=== PATIENT | female | born 1975 | race Caucasian/White ===

== ENCOUNTER 2017-02-21 16:12 | Observation (INO) | payer OTHER ==
[~2017-02-21] VITALS: Ht 162.6 cm; Wt 86.3 kg
[~2017-02-21 16:12] MED LIST: ALPR2TAB2 PO; BUTA1CAP29 PO; CEPH-264 PO; FLUO20TA11 PO; HYDR-2678 PO; HYDR25TA PO; LURA40TA PO; MELA3TAB2 PO; METH500T7 PO; METO25TA9 PO; METR500T PO; MIRT30TA3 PO; NAPR500T3 PO; ONDA4TAB10 SL; ONDA4TAB12 PO; TOPI50TA8 PO; brintellix PO
[2017-02-21] MEDS: NITROGLYCERIN SUBLINGUAL 0.4 MG BOTTLE OF 25. SL PRN ×2 (16:49→17:03)
[2017-02-21 16:55] LABS: BASO % 1 % (0-3); EOS % 1 % (0-3); HEMOGLOBIN 11.3 g/dL (12.0-15.5); LYMPH # 2.1 x10^3/uL (1.0-4.8); LYMPH % 40 % (24-48); MEAN CORPUSCULAR HEMOGLOBIN 26 pg (25-35); MEAN CORPUSCULAR HGB CONC 32 g/dL (31-37); MEAN CORPUSCULAR VOLUME 79 fL (79-100); MONO # 0.5 x10^3/uL (0.0-1.1); MONO % 9 % (0-9); NEUT # 2.7 x10^3uL (1.8-7.7); NEUT % 51 % (31-73); PLATELET COUNT 189 x10^3/uL (140-400); RED BLOOD COUNT 4.42 x10^6/uL (3.50-5.40); RED CELL DISTRIBUTION WIDTH 18.5 % (11.5-14.5); WHITE BLOOD COUNT 5.4 x10^3/uL (4.0-11.0)
[2017-02-21 17:14] LABS: ALBUMIN 3.7 g/dL (3.4-5.0); ALBUMIN/GLOBULIN RATIO 1.2 (1.0-1.7); CALCIUM 8.9 mg/dL (8.5-10.1); CREATININE 0.9 mg/dL (0.6-1.0); GFR 68.7; POTASSIUM 4.4 mmol/L (3.5-5.1); TOTAL BILIRUBIN 0.3 mg/dL (0.2-1.0); TOTAL PROTEIN 6.9 g/dL (6.4-8.2)
[2017-02-21] MEDS ORDERED: LORazepam 2 MG/ML VIAL IV ONE (17:20)
[2017-02-21] MEDS ORDERED: IV NORMAL SALINE 1,000ML 1,000 ML IV ONE (17:30)
[2017-02-21 18:26] LABS: BARBITURATES NEG (NEG); BENZODIAZEPINES NEG (NEG); CANNABINOIDS NEG (NEG); COCAINE NEG (NEG); METHADONE NEG (NEG); OPIATES NEG (NEG); PHENCYCLIDINE NEG (NEG)
[2017-02-21 18:27] LABS: AMPHETAMINE/METHAMPHETAMINE NEG (NEG)
--- NOTE | 2017-02-21 18:29 | EKG ---
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 RI6.01 Unconfirmed report Compared to ECG 10/09/2016 17:21:41 No significant changes Electronically Signed On 02-24-2017 9:53:20 CDT by Mitch Montalvo
[2017-02-21 18:59] LABS: BILIRUBIN,URINE NEG (NEG); CLARITY,URINE HAZY; COLOR,URINE YELLOW; GLUCOSE,URINE NEG (NEG); NITRITE,URINE NEG (NEG); UROBILINOGEN,URINE 0.2 mg/dL (0.2 mg/dL)
[2017-02-21 19:00] LABS: BACTERIA,URINE 0 /HPF (0-FEW); RBC,URINE OCC /HPF (0-2); SQUAMOUS EPITHELIAL CELL,UR MANY /LPF
[2017-02-21] MEDS ORDERED: fentaNYL PF 100 MCG/2 ML VIAL IV PRN (19:00)
--- NOTE | 2017-02-21 19:23 | ED.ADGEN ---
Past History Past Medical History: Anxiety, Bipolar, Depression, Migraines, Other (HANS BELTRE DO) Past Surgical History: No Surgical History (HANS BELTRE DO) Smoking: Cigarettes, Less than 1pk/day Alcohol Use: None Drug Use: None (HANS BELTRE DO) Adult General HPI HPI Patient is a 42-year-old woman, history of bipolar disorder, depression, anxiety , hypertension, who presents to the emergency department with a complaint of "all over" body pain that began around 8:00 in the morning, along with chest pain that has been persistent since that time. Patient describes the pain as squeezing initially, and then a sharp and stabbing, located in the center of her chest. No chest pain, no lightheadedness or dizziness, no syncope or near- syncopal symptoms. She is also complaining of mild nausea, but no vomiting, no focal weakness, numbness or tingling, no sick contacts or exposures. Patient states she was just discharged from rehabilitation at yesterday, and woke up this morning with pain as described. Denies any inciting factors, any fevers or chills, any recent procedures. She states that she been started on an antibiotic for urinary tract infection but was not completed. Denies any shortness of breath, any swelling extremities, any rashes, any vision changes. Eating and drinking without issue. (HANS BELTRE DO) Review of Systems Review of Systems Constitutional: Denies fever or chills [] Eyes: Denies change in visual acuity, redness, or eye pain [] HENT: Denies nasal congestion or sore throat [] Respiratory: Denies cough or shortness of breath [] Cardiovascular: Squeezing and sharp chest pain located in the center of her chest. GI: Denies abdominal pain, nausea, vomiting, bloody stools or diarrhea [] : Denies dysuria or hematuria [] Musculoskeletal: Denies back pain or joint pain [] Integument: Denies rash or skin lesions [] Neurologic: Denies headache, focal weakness or sensory changes [] Endocrine: Denies polyuria or polydipsia [] (HANS BELTRE DO) Current Medications Current Medications Current Medications Medications (Trade) Dose Ordered Sig/Ladonna Start Time Stop Time Status Last Admin Dose Admin Fentanyl Citrate (Fentanyl 2ml Vial) 25 mcg PRN Q15MIN PRN 02/21/17 19:00 02/22/17 18:59 Lorazepam (Ativan) 1 mg 1X ONCE 02/21/17 17:20 02/21/17 17:21 DC 02/21/17 17:16 1 MG Morphine Sulfate (Morphine 2mg Syringe) 2 mg PRN Q2HR PRN 02/21/17 21:00 02/22/17 20:59 Nitroglycerin (Nitrostat) 0.4 mg PRN Q5MIN PRN 02/21/17 16:45 02/22/17 16:44 02/21/17 17:03 0.4 MG Ondansetron HCl (Zofran) 4 mg PRN Q4HRS PRN 02/21/17 21:00 02/22/17 20:59 Sodium Chloride 1,000 ml @ 1,000 mls/hr 1X ONCE 02/21/17 17:30 02/21/17 18:29 DC 02/21/17 17:30 1,000 MLS/HR (ANGELA PAUL MD) Allergies Allergies Allergies Coded Allergies Type Severity Reaction Last Updated Verified Sulfa (Sulfonamide Antibiotics) Allergy Intermediate 08/17/14 No ketorolac Allergy Intermediate 08/17/14 Yes (ANGELA PAUL MD) Physical Exam Physical Exam Constitutional: Well developed, well nourished, no acute distress, non-toxic appearance. [] HENT: Normocephalic, atraumatic, bilateral external ears normal, oropharynx moist, no oral exudates, nose normal. [] Eyes: PERRLA, EOMI, conjunctiva normal, no discharge. [] Neck: Normal range of motion, no tenderness, supple, no stridor. [] Cardiovascular:Heart rate regular rhythm, no murmur, S1, S2, no rubs or gallops , patient with reproducible midsternal and left anterior chest wall tenderness. No superficial lesions or other abnormalities identified. Lungs & Thorax: Bilateral breath sounds clear to auscultation [] Abdomen: Bowel sounds normal, soft, no tenderness, no masses, no pulsatile masses. [] Skin: Warm, dry, no erythema, no rash. [] Back: No tenderness, no CVA tenderness. [] Extremities: No tenderness, no cyanosis, no clubbing, ROM intact, no edema. Negative Homans sign. [] Neurologic: Alert and oriented X 3, normal motor function, normal sensory function, no focal deficits noted. [] Psychologic: Affect normal, judgement normal, mood normal. [] (HANS BELTRE DO) Current Patient Data Vital Signs Vital Signs Date Time Temp Pulse Resp B/P (MAP) Pulse Ox O2 Delivery O2 Flow Rate FiO2 02/21/17 18:33 78 16 94/59 (71) 99 Room Air 02/21/17 16:15 99.0 (ANGELA PAUL MD) Lab Results Laboratory Tests Test 02/21/17 16:15 02/21/17 18:00 White Blood Count 5.4 x10^3/uL (4.0-11.0) Red Blood Count 4.42 x10^6/uL (3.50-5.40) Hemoglobin 11.3 g/dL (12.0-15.5) L Hematocrit 35.0 % (36.0-47.0) L Mean Corpuscular Volume 79 fL (79-100) Mean Corpuscular Hemoglobin 26 pg (25-35) Mean Corpuscular Hemoglobin Concent 32 g/dL (31-37) Red Cell Distribution Width 18.5 % (11.5-14.5) H Platelet Count 189 x10^3/uL (140-400) Neutrophils (%) (Auto) 51 % (31-73) Lymphocytes (%) (Auto) 40 % (24-48) Monocytes (%) (Auto) 9 % (0-9) Eosinophils (%) (Auto) 1 % (0-3) Basophils (%) (Auto) 1 % (0-3) Neutrophils # (Auto) 2.7 x10^3uL (1.8-7.7) Lymphocytes # (Auto) 2.1 x10^3/uL (1.0-4.8) Monocytes # (Auto) 0.5 x10^3/uL (0.0-1.1) Eosinophils # (Auto) 0.0 x10^3/uL (0.0-0.7) Basophils # (Auto) 0.0 x10^3/uL (0.0-0.2) Sodium Level 142 mmol/L (136-145) Potassium Level 4.4 mmol/L (3.5-5.1) Chloride Level 108 mmol/L (98-107) H Carbon Dioxide Level 22 mmol/L (21-32) Anion Gap 12 (6-14) Blood Urea Nitrogen 14 mg/dL (7-20) Creatinine 0.9 mg/dL (0.6-1.0) Estimated GFR (Cockcroft-Gault) 68.7 BUN/Creatinine Ratio 16 (6-20) Glucose Level 93 mg/dL (70-99) Calcium Level 8.9 mg/dL (8.5-10.1) Total Bilirubin 0.3 mg/dL (0.2-1.0) Aspartate Amino Transferase (AST) 43 U/L (15-37) H Alanine Aminotransferase (ALT) 102 U/L (14-59) H Alkaline Phosphatase 100 U/L (46-116) Troponin I Quantitative < 0.017 ng/mL (0-0.055) HR-Rsv-M-Type Natriuretic Peptide 126 pg/mL (0-124) H Total Protein 6.9 g/dL (6.4-8.2) Albumin 3.7 g/dL (3.4-5.0) Albumin/Globulin Ratio 1.2 (1.0-1.7) Lipase 89 U/L (73-393) Urine Collection Type Unknown Urine Color Yellow Urine Clarity Hazy Urine pH 6.0 Urine Specific [place] 1.015 Urine Protein Neg (NEG-TRACE) Urine Glucose (UA) Neg mg/dL (NEG) Urine Ketones (Stick) Neg mg/dL (NEG) Urine Blood Mod (NEG) Urine Nitrite Neg (NEG) Urine Bilirubin Neg (NEG) Urine Urobilinogen Dipstick 0.2 mg/dL (0.2 mg/dL) Urine Leukocyte Esterase Small (NEG) Urine RBC Occ /HPF (0-2) Urine WBC 5-10 /HPF (0-4) Urine Squamous Epithelial Cells Many /LPF Urine Bacteria 0 /HPF (0-FEW) Urine Mucus Marked /LPF Urine Opiates Screen Neg (NEG) Urine Methadone Screen Neg (NEG) Urine Barbiturates Neg (NEG) Urine Phencyclidine Screen Neg (NEG) Urine Amphetamine/Methamphetamine Neg (NEG) Urine Benzodiazepines Screen Neg (NEG) Urine Cocaine Screen Neg (NEG) Urine Cannabinoids Screen Neg (NEG) Urine Ethyl Alcohol Neg (NEG) (ANGELA PAUL MD) EKG EKG CG: EMS 12-lead: 1601: Sinus rhythm, heart rate 92 bpm, upright axis, QTC of 412 , [place] of 142, QRS of 90, no ST elevations or depressions, no evidence of acute ST abnormalities. EC: Sinus tachycardia, heart rate 103 bpm, upright axis, QTC of 447, [place] 126, QRS of 80, no changes from prior ECG is under significant, no ST elevations or depressions. As interpreted by me. [] (HANS BELTRE DO) Radiology/Procedures Radiology/Procedures Chest x-ray: One view: Some straightening of the left heart border noted, no pneumothorax, no infiltrates, no effusions, no soft tissue or bony abnormalities identified, as interpreted by me. [] (HANS BELTRE DO) Course & Med Decision Making Course & Med Decision Making Pertinent Labs and Imaging studies reviewed. (See chart for details) Patient received nitroglycerin en route to the emergency department, and then a dose in the ED, blood pressure did drop from low 100s over 70s to 90s over 50s, patient denied any ill effects, states her pain is a 5 from and 9. Blood pressure did recover, was also administered IV fluids, was given Ativan for her complaint of anxiety. Patient is written for when necessary Xanax, she states she has at home, she did not take any today prior to calling EMS. Laboratory studies were obtained, patient states her pain is been present since about 8:00 this morning. Troponin is negative, LFTs noted a mild increase in AST and ALT, as patient is complaining of abdominal pain in the right upper quadrant as well with palpation, ultrasound of the right upper quadrant order to assess for potential gallbladder pathology. Review of records shows the patient had an admission for chest pain in September of this year. She states she received a stress test in September, although I cannot visualize the report, the patient's discharge summary from the September admission sates that a Lexiscan test was negative. Patient resting more comfortably after receiving additional medication in the ED. Patient's sister is at bedside. Awaiting ultrasound evaluation. (HANS BELTRE DO) Course & Med Decision Making She was a checkout from , she is being admitted for her chest pain and discomfort that she was having from earlier. She is currently getting ultrasound of right upper quadrant. Hospitalist has accepted her. Interim orders have been written. Patient's in stable condition this time. Adavied (ANGELA PAUL MD) Final Impression Final Impression [] Problems: (HANS BELTRE DO) Final Impression Chest pain Right upper quadrant abdominal pain Problems: (ANGELA PAUL MD) Dragon Disclaimer Dragon Disclaimer This electronic medical record was generated, in whole or in part, using a voice recognition dictation system. (HANS BELTRE DO) Departure: Disposition: ADMITTED INPATIENT Admitting Physician: Sonia Espinoza (ANGELA PAUL MD) Condition: STABLE HANS BELTRE DO Feb 21, 2017 19:23 ANGELA PAUL MD Feb 21, 2017 21:05
--- NOTE | 2017-02-21 20:51 | RAD ---
Right upper quadrant abdominal ultrasound History: ruq pain chest pain, Comparison: None. Technique: Transabdominal ultrasound images are obtained. Findings: Pancreas is obscured due to overlying bowel gas. Liver is increased in echogenicity. There is mildly decreased through transmission. No focal hepatic masses are identified although ultrasound is not sensitive for their detection. Portal flow is hepatopedal. Right hepatic lobe measures 13.7 cm, normal. Cholelithiasis. No gallbladder wall thickening. No pericholecystic fluid. Sonographic Santana's sign is negative. Common bile duct caliber is normal measuring 4 mm in diameter. The right kidney measures 12.5 cm in length and is without evidence of obstruction or stone. IVC is patent. IMPRESSION: 1. Cholelithiasis. No other sonographic evidence of cholecystitis. 2. Liver is increased in echogenicity. Common etiology is fatty infiltration. Hepatitis another consideration. Electronically signed by: Troy Hillman MD (02/21/2017 8:48 PM)
[2017-02-21] MEDS ORDERED: MORPHINE SULFATE 2 MG/ML DISP.SYRIN. IV PRN (21:00)
[2017-02-21] MEDS ORDERED: ONDANSETRON PF 4 MG/2 ML VIAL. IV PRN (21:00)
[2017-02-21 21:25] LABS: CREATINE KINASE 26 U/L (26-192)
[2017-02-21] MEDS ORDERED: ALPRAZolam 0.5 MG TABLET PO PRN (22:30)
[2017-02-21 22:35] VITALS: BP 134/69
--- NOTE | 2017-02-21 22:51 | NUR ---
The patient, SANDRA STORY, 42 y/o, F admitted by RENA MENDEZ DO, was given written information regarding hospital policies, unit procedures and contact persons.
[2017-02-22 06:22] VITALS: BP 96/60
[2017-02-22] MEDS ORDERED: ASPIRIN 325 MG TABLET PO SCH ×2 (08:00→09:00)
--- NOTE | 2017-02-22 08:01 | NUR ---
Consult: Answering service paged for routine consult for Dr. Chase
--- NOTE | 2017-02-22 08:12 | RAD ---
Indication chest pain. A single view of the chest was obtained. Note is made of a previous examination October 09, 2016. The heart and pulmonary vessels appear normal. The lungs are clear. There is no pleural fluid or pneumothorax. Bony structures appear grossly intact. IMPRESSION: No acute or focal process is seen in the chest
[2017-02-22] MEDS ORDERED: ALPR0.254 PO (08:40)
[2017-02-22] MEDS ORDERED: VORT10TA PO (08:41)
[2017-02-22] MEDS ORDERED: ASPI325T8 PO (08:43)
[2017-02-22] MEDS ORDERED: GABA-585 PO (08:44)
[2017-02-22] MEDS ORDERED: hydrOXYzine HCL 25 MG TABLET PO PRN (09:00)
[2017-02-22] MEDS ORDERED: ALPRAZolam 0.25 MG TABLET PO PRN (09:00)
[2017-02-22] MEDS ORDERED: hydrOXYzine HCL 25 MG TABLET PO SCH (09:00)
[2017-02-22] MEDS ORDERED: TOPIRAMATE 25 MG TABLET. PO SCH (09:00)
[2017-02-22] MEDS ORDERED: GABAPENTIN 100 MG CAPSULE. PO SCH ×2 (09:00)
[2017-02-22] MEDS ORDERED: NON FORMULARY ITEM (Vortioxetine Hydrobromide (Trintellix) 10 MG) PO SCH (09:00)
[2017-02-22] MEDS ORDERED: METOPROLOL SUCC 24HR ER 25 MG TAB.ER.24H. PO SCH (09:00)
--- NOTE | 2017-02-22 09:09 | PDOC2 ---
CONSULT Date of Admission DATE: 02/22/17 TIME: 08:54 Reason for Consult: chest pain Problem List Problems Medical Problems: (1) Chest pain Status: Acute History of Present Illness Ms Adame is a 42 year old female who presented to the ED with complaints of "all over" pain. She reports she woke with the pain yesterday am. She does report some midsternal chest pain that was increased with palpation so EMS was called. She is currently chest pain free but does report some soreness on palpation. She reports some dyspnea yesterday that has resolved today. She denies palpitations, lightheadedness or syncope. She ambulates with a walker. Past Medical History anxiety, bipolar disorder, depression, migraines, Multiple sclerosis with recent exacerbation and rehab stay, hypertension, asthma Past Surgical History c section, otherwise unremarkable Family History She has 2 brothers, both older, and one sister, who is younger and has diabetes. Her father is still alive at the age of 65. Her mother due to congestive heart failure and complications of diabetes. Social History She is single. She has one son, 16 years old. She does smokes a pack a day, denies ETOH and does have a history of marijuana use. Current Medications Current Medications Nitroglycerin (Nitrostat) 0.4 mg PRN Q5MIN PRN SL CP RATING > 1/10 Last administered on 02/21/17 17:03; Start 02/21/17 at 16:45; Stop 02/22/17 at 16:44 Lorazepam (Ativan) 1 mg 1X ONCE IV Last administered on 02/21/17 17:16; Start 02/21/17 at 17:20; Stop 02/21/17 at 17:21; Status DC Sodium Chloride 1,000 ml @ 1,000 mls/hr 1X ONCE IV Last administered on 17:30; Start 02/21/17 at 17:30; Stop 02/21/17 at 18:29; Status DC Fentanyl Citrate (Fentanyl 2ml Vial) 25 mcg PRN Q15MIN PRN IV PAIN GREATER THAN 3/10; Start 02/21/17 at 19:00; Stop 02/22/17 at 18:59 Ondansetron HCl (Zofran) 4 mg PRN Q4HRS PRN IV NAUSEA/VOMITING; Start 02/21/17 at 21:00; Stop 02/22/17 at 20:59 Morphine Sulfate (Morphine 2mg Syringe) 2 mg PRN Q2HR PRN IV PAIN; Start at 21:00; Stop 02/22/17 at 20:59 Hydroxyzine HCl (Atarax) 25 mg TID PO ; Start 02/22/17 at 09:00; Stop 02/22/17 at 09:00; Status DC Metoprolol Succinate (Toprol Xl) 25 mg DAILY PO ; Start 02/22/17 at 09:00 Mirtazapine (Remeron) 30 mg QHS PO ; Start 02/22/17 at 21:00 Topiramate (Topamax) 50 mg BID PO ; Start 02/22/17 at 09:00 Non-Formulary Medication 20 mg DAILY PO ; Start 02/22/17 at 09:00; Stop 02/22/17 at 09:00; Status DC Gabapentin (Neurontin) 100 mg TID PO ; Start 02/22/17 at 09:00 Alprazolam (Xanax) 0.5 mg PRN DAILY PRN PO ANXIETY / AGITATION; Start 02/21/17 at 22:30 Aspirin (Nveloped Aspirin) 325 mg DAILYWBKFT PO ; Start 02/22/17 at 08:00 Non-Formulary Medication 10 mg DAILY PO ; Start 02/22/17 at 09:00; Status UNV Hydroxyzine HCl (Atarax) 25 mg BID PRN PO ANXIETY / AGITATION; Start 02/22/17 at 09:00; Status UNV Alprazolam (Xanax) 0.25 mg PRN DAILY PRN PO ANXIETY / AGITATION; Start 02/22/17 at 09:00 Aspirin (Nveloped Aspirin) 325 mg DAILY PO ; Start 02/22/17 at 09:00; Stop 02/22/17 at 09:00; Status DC Gabapentin (Neurontin) 100 mg TID PO ; Start 02/22/17 at 09:00; Status UNV Active Scripts Active Reported Gabapentin 100 Mg Capsule 100 Mg PO TID Aspirin 325 Mg Tablet 1 Tab PO DAILY Trintellix (Vortioxetine Hydrobromide) 10 Mg Tablet 10 Mg PO DAILY Alprazolam 0.25 Mg Tablet 0.25 Mg PO DAILY PRN Topiramate 50 Mg Tablet 1 Tab PO BID Hydroxyzine Hcl 25 Mg Tablet 1 Tab PO BID PRN Mirtazapine 30 Mg Tablet 1 Tab PO QHS Metoprolol Succinate ( Xl ) (Metoprolol Succinate) 25 Mg Tab.er.24h 1 Tab PO DAILY Allergies: Coded Allergies: Sulfa (Sulfonamide Antibiotics) (Unverified Allergy, Intermediate, ) ketorolac (Verified Allergy, Intermediate, 08/17/14) General: YES: Fatigue, Malaise PSYCHOLOGICAL ROS: YES: Anxiety, Depression HEENT: YES: Heacaches Respiratory: YES: Shortness of breath Cardiovascular: yes: Chest Pain Musculoskeletal: YES: Gait Disturbance, Muscle Pain Neurological: YES: Gait Disturbance, Headaches General: Alert, Oriented X3, Cooperative, No acute distress HEENT: Atraumatic, EOMI Lungs: Clear to auscultation, Normal air movement Heart: Regular rate, Normal S1, Normal S2 Abdomen: Normal bowel sounds, Soft, No tenderness Extremities: No cyanosis, No edema, Normal pulses Psych/Mental Status: Mood NL VITALS Vital Signs Date Time Temp Pulse Resp B/P (MAP) Pulse Ox O2 Delivery O2 Flow Rate FiO2 02/22/17 06:22 98.2 80 18 96/60 (72) 94 Room Air Labs Laboratory Tests Test 02/21/17 16:15 02/21/17 18:00 02/21/17 20:40 White Blood Count 5.4 x10^3/uL (4.0-11.0) Red Blood Count 4.42 x10^6/uL (3.50-5.40) Hemoglobin 11.3 g/dL (12.0-15.5) Hematocrit 35.0 % (36.0-47.0) Mean Corpuscular Volume 79 fL (79-100) Mean Corpuscular Hemoglobin 26 pg (25-35) Mean Corpuscular Hemoglobin Concent 32 g/dL (31-37) Red Cell Distribution Width 18.5 % (11.5-14.5) Platelet Count 189 x10^3/uL (140-400) Neutrophils (%) (Auto) 51 % (31-73) Lymphocytes (%) (Auto) 40 % (24-48) Monocytes (%) (Auto) 9 % (0-9) Eosinophils (%) (Auto) 1 % (0-3) Basophils (%) (Auto) 1 % (0-3) Neutrophils # (Auto) 2.7 x10^3uL (1.8-7.7) Lymphocytes # (Auto) 2.1 x10^3/uL (1.0-4.8) Monocytes # (Auto) 0.5 x10^3/uL (0.0-1.1) Eosinophils # (Auto) 0.0 x10^3/uL (0.0-0.7) Basophils # (Auto) 0.0 x10^3/uL (0.0-0.2) Sodium Level 142 mmol/L (136-145) Potassium Level 4.4 mmol/L (3.5-5.1) Chloride Level 108 mmol/L (98-107) Carbon Dioxide Level 22 mmol/L (21-32) Anion Gap 12 (6-14) Blood Urea Nitrogen 14 mg/dL (7-20) Creatinine 0.9 mg/dL (0.6-1.0) Estimated GFR (Cockcroft-Gault) 68.7 BUN/Creatinine Ratio 16 (6-20) Glucose Level 93 mg/dL (70-99) Calcium Level 8.9 mg/dL (8.5-10.1) Total Bilirubin 0.3 mg/dL (0.2-1.0) Aspartate Amino Transf (AST/SGOT) 43 U/L (15-37) Alanine Aminotransferase (ALT/SGPT) 102 U/L (14-59) Alkaline Phosphatase 100 U/L (46-116) Troponin I Quantitative < 0.017 ng/mL (0-0.055) < 0.017 ng/mL (0-0.055) BL-Jsl-J-Type Natriuretic Peptide 126 pg/mL (0-124) Total Protein 6.9 g/dL (6.4-8.2) Albumin 3.7 g/dL (3.4-5.0) Albumin/Globulin Ratio 1.2 (1.0-1.7) Lipase 89 U/L (73-393) Urine Collection Type Unknown Urine Color Yellow Urine Clarity Hazy Urine pH 6.0 Urine Specific [place] 1.015 Urine Protein Neg (NEG-TRACE) Urine Glucose (UA) Neg mg/dL (NEG) Urine Ketones (Stick) Neg mg/dL (NEG) Urine Blood Mod (NEG) Urine Nitrite Neg (NEG) Urine Bilirubin Neg (NEG) Urine Urobilinogen Dipstick 0.2 mg/dL (0.2 mg/dL) Urine Leukocyte Esterase Small (NEG) Urine RBC Occ /HPF (0-2) Urine WBC 5-10 /HPF (0-4) Urine Squamous Epithelial Cells Many /LPF Urine Bacteria 0 /HPF (0-FEW) Urine Mucus Marked /LPF Urine Opiates Screen Neg (NEG) Urine Methadone Screen Neg (NEG) Urine Barbiturates Neg (NEG) Urine Phencyclidine Screen Neg (NEG) Urine Amphetamine/Methamphetamine Neg (NEG) Urine Benzodiazepines Screen Neg (NEG) Urine Cocaine Screen Neg (NEG) Urine Cannabinoids Screen Neg (NEG) Urine Ethyl Alcohol Neg (NEG) Creatine Kinase 26 U/L (26-192) Creatine Kinase MB (Mass) < 0.5 ng/mL (0.0-3.6) Creatine Kinase MB Relative Index 1.9 % (0-4) Images EKG - sinus rhythm without acute abnormalities, CXR - no acute process, Abdominal US - IMPRESSION: 1. Cholelithiasis. No other sonographic evidence of cholecystitis. 2. Liver is increased in echogenicity. Common etiology is fatty infiltration. Hepatitis another consideration. Assessment/Plan 1. Chest pain, atypical - CE negative x 2, MPI with normal LVEF and perfusion in September of this year. 2. Hypertension - well controlled 3. unknown lipid status - check lipids 4. Multiple sclerosis - s/p recent exacerbation with rehab stay - per PCP Problems: DAR RUDOLPH APRN Feb 22, 2017 09:09
[2017-02-22 10:39] VITALS: BP 105/66
--- NOTE | 2017-02-22 12:55 | SSS ---
ADMIT DATE: 02/21/2017 HISTORY OF PRESENT ILLNESS: The patient is a 42-year-old female patient, who came to the Emergency Department complaining of pain all over. She reports that she woke up with pain yesterday. She does report some midsternal chest pain that was increased with palpation. When I saw her she stated that her pain was 9/10 yesterday, it is now 4/10. Did complain also of dyspnea on exertion. Denied any palpitation. Denied any nausea, vomiting, diaphoresis or radiation to pain. She does ambulate with a walker and was evaluated in the Emergency Room. She had an EKG done, which showed that she was in sinus rhythm without any acute abnormalities and her first set of cardiac enzyme showed troponin to be less than 0.017. She was admitted to the floor to do more sets of cardiac enzymes for the cardiology team to evaluate her further. PAST MEDICAL HISTORY: Significant for migraine headache. She has also hypertension, depression, bronchial asthma as well as anxiety. PAST SURGICAL HISTORY: Significant for . ALLERGIES: She is allergic to SULFA DRUGS and KETOROLAC. MEDICATIONS: She is currently on following medications: She is on alprazolam 0.25 mg as needed for anxiety, aspirin 325 mg once a day, gabapentin 100 mg 3 times a day, hydroxyzine 25 mg twice a day, metoprolol succinate 25 mg once a day, mirtazapine 30 mg at bedtime, topiramate 50 mg twice a day and Brintellix 10 mg once a day. FAMILY HISTORY: She has 2 brothers, both older and one sister who is younger, has diabetes. Her father is still alive at the age of 65. Her mother due to congestive heart failure with complication of diabetes. SOCIAL HISTORY: She is single. She lives with her 17-year-old son. She smokes a pack a day, smokes also weed for headache. 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 REVIEW OF SYSTEMS: The patient denied any blurring of vision, cataract, glaucoma or macular degeneration. Denied any earache, tinnitus or sensorineural deafness. Denied any nosebleeds, stuffy nose or postnasal drip. Denied any sore throat, sore tongue, toothache, hoarseness of voice or difficulty swallowing. Denied any nausea, vomiting, diarrhea or constipation. Denied any hematemesis, melena or hematochezia. Denied any dysuria, frequency or hematuria. She did complain of chest pain, shortness of breath on exertion. PHYSICAL EXAMINATION: GENERAL: On arrival to the Emergency Room; she looked well and was clearly in no apparent respiratory distress, slightly pale, no jaundice, cyanosis, or thyromegaly. No jugular venous distention. No limb edema. VITAL SIGNS: Her heart rate was 83, blood pressure 112/75, temperature was 97.7, respiratory rate was 20, and oxygen saturation was 100% on room air. HEAD, EYES, EARS, NOSE AND THROAT: Showed normocephalic, atraumatic. NECK: Supple. HEART: Showed normal first and second heart sounds with no gallop, rub or murmur. CHEST: Clear to auscultation. No crepitation or rhonchi. ABDOMEN: Distended, soft, nontender. No guarding or rigidity. No organomegaly. All hernial orifices intact. NEUROLOGIC: She is awake, alert, responding appropriately. Her cranial nerves intact. EXTREMITIES: She moves extremities without difficulty. She apparently ambulates with a walker. LABORATORY DATA: On admission showed a white cell count 5400, hemoglobin 11.3, hematocrit 35, MCV 79 and platelet count of 189,000 with normal manual differential. Her chemistry showed a serum sodium 142, potassium 4.4, chloride 108, bicarbonate 22, anion gap of 12, BUN 14, creatinine 0.9, estimated GFR was 69 mL per minute. Her glucose was 93, calcium was 8.9. Total bilirubin and alkaline phosphatase is normal. Her AST, ALT is slightly elevated. Beta natriuretic peptide was 126, total protein was 6.9, albumin 3.7. Serum lipase was 89. Her two sets of cardiac enzymes less than 0.017. Her urinalysis was unremarkable. Toxic screen was negative. Her EKG showed that she was in sinus rhythm without ST segment elevation or depression. She was seen by the Cardiology team and basically showed that she has 2 sets of cardiac enzymes which were negative. She has nuclear stress tests done in 09/28/2016 showed that she has normal left ventricular ejection fraction with no evidence for any wall motion abnormalities or valvular heart disease. PLAN: My plan is to discharge her home to follow with her primary care physician. NICOL VALDIVIA MD DR: Frank JOB#: [id number] / [id number]
--- NOTE | 2017-02-22 15:36 | NUR ---
Discharge: Teaching verbal and written. Reviewed orders, medications, Chest pain, Holter monitor, ect. IV removed without complications, catheter tip in-tact, dressing applied. All belonging with patient. Patient assisted off of unit via wheelchair accompanied by sister and DIRECTOR [employer].
[2017-02-22] MEDS ORDERED: MIRTAZAPINE 30 MG TABLET PO SCH (21:00)
== END 2017-02-22 14:09 | disposition home or self-care (01) ==
LOC: ER 16:12 → 1 SOUTH 22:10
PROVIDERS: ADMIT Family Medicine; ATTEND Family Medicine
DX: R07.89 Other chest pain (principal); I10 Essential (primary) hypertension; G35 Multiple sclerosis; K80.20 Calculus of gallbladder without cholecystitis without obstruction; F41.9 Anxiety disorder, unspecified; F31.9 Bipolar disorder, unspecified; G43.909 Migraine, unspecified, not intractable, without status migrainosus; J45.909 Unspecified asthma, uncomplicated; F17.210 Nicotine dependence, cigarettes, uncomplicated; Z83.3 Family history of diabetes mellitus; Z82.49 Family history of ischemic heart disease and other diseases of the circulatory system
CPT/HCPCS: 36415; 71010; 76705; 80053; 81001; 82553; 83690; 83880; 84484; 85027; 93005; 96361; 96374; 99285; G0378; G0481; J2060; J7030; G0379

== ENCOUNTER 2017-03-30 14:30 | Emergency (ER) | payer OTHER ==
[~2017-03-30] VITALS: Ht 162.6 cm; Wt 96.1 kg
[~2017-03-30 14:30] MED LIST changes: +ALPR0.254 PO; +ASPI325T8 PO; +GABA-585 PO; +VORT10TA PO
--- NOTE | 2017-03-30 14:32 | ED.ADGEN ---
Past History Past Medical History: Anxiety, Bipolar, Depression, Migraines, Other Past Surgical History: No Surgical History Smoking: Cigarettes, Less than 1pk/day Alcohol Use: None Drug Use: None Adult General Chief Complaint Chief Complaint Hallucinations and shortness of breath HPI HPI Patient is a 42 year old female who presents with hallucinations and shortness of breath. She states that over the last several weeks or shortness of breath is gotten worse and at nighttime she is using her inhaler. She thinks is some is could be secondary to heat. She denies any chest pain, nausea vomiting. Her sister also states that her niece is been staying with her and they've noticed hallucinating and talking some is not there. According to her sister who had a conversation with her landlord she's been having her come over and clean the stove daily for grease stains when there is no grease stains there. They've also stated that the blinds of been torn down from the windows numerous times over the last several days. The sister also states that she's been hospitalized in [place] in the mental facility before. Just recently got out of [facility] for PT OT after she had a stroke and last year she had a heart attack. She denies any thoughts of harming herself or others. Review of Systems Review of Systems Constitutional: Denies fever or chills [] Eyes: Denies change in visual acuity, redness, or eye pain [] HENT: Denies nasal congestion or sore throat [] Respiratory: Denies cough, positive for shortness of breath [] Cardiovascular: No additional information not addressed in HPI [] GI: Denies abdominal pain, nausea, vomiting, bloody stools or diarrhea [] : Denies dysuria or hematuria [] Musculoskeletal: Denies back pain or joint pain [] Integument: Denies rash or skin lesions [] Neurologic: Denies headache, focal weakness or sensory changes [] Endocrine: Denies polyuria or polydipsia [] Current Medications Current Medications Current Medications Medications (Trade) Dose Ordered Sig/Ladonna Start Time Stop Time Status Last Admin Dose Admin Acetaminophen (Tylenol) 1,000 mg 1X ONCE 03/30/17 18:00 03/30/17 18:01 DC 03/30/17 17:48 1,000 MG Iohexol (Omnipaque 300 Mg/ml) 75 ml 1X ONCE 03/30/17 17:00 03/30/17 17:01 DC Allergies Allergies Allergies Coded Allergies Type Severity Reaction Last Updated Verified Sulfa (Sulfonamide Antibiotics) Allergy Intermediate 08/17/14 No ketorolac Allergy Intermediate 08/17/14 Yes Physical Exam Physical Exam Constitutional: Well developed, well nourished, no acute distress, non-toxic appearance. [] HENT: Normocephalic, atraumatic, bilateral external ears normal, oropharynx moist, no oral exudates, nose normal. [] Eyes: PERRLA, EOMI, conjunctiva normal, no discharge. [] Neck: Normal range of motion, no tenderness, supple, no stridor. [] Cardiovascular:Heart rate regular rhythm, no murmur [] Lungs & Thorax: Bilateral breath sounds clear to auscultation [] Abdomen: Bowel sounds normal, soft, no tenderness, no masses, no pulsatile masses. [] Skin: Warm, dry, no erythema, no rash. [] Back: No tenderness, no CVA tenderness. [] Extremities: No tenderness, no cyanosis, no clubbing, ROM intact, no edema. [] Neurologic: Alert and oriented X 3, normal motor function, normal sensory function, no focal deficits noted. [] Psychologic: Affect normal, judgement normal, mood normal. [] Current Patient Data Vital Signs Vital Signs Date Time Temp Pulse Resp B/P (MAP) Pulse Ox O2 Delivery O2 Flow Rate FiO2 03/30/17 17:27 77 18 114/74 (87) 100 Room Air 03/30/17 14:30 98.2 Lab Results Laboratory Tests Test 03/30/17 15:00 03/30/17 15:35 03/30/17 17:30 White Blood Count 5.7 x10^3/uL (4.0-11.0) Red Blood Count 4.12 x10^6/uL (3.50-5.40) Hemoglobin 10.2 g/dL (12.0-15.5) L Hematocrit 31.2 % (36.0-47.0) L Mean Corpuscular Volume 76 fL (79-100) L Mean Corpuscular Hemoglobin 25 pg (25-35) Mean Corpuscular Hemoglobin Concent 33 g/dL (31-37) Red Cell Distribution Width 16.5 % (11.5-14.5) H Platelet Count 215 x10^3/uL (140-400) Neutrophils (%) (Auto) 55 % (31-73) Lymphocytes (%) (Auto) 37 % (24-48) Monocytes (%) (Auto) 8 % (0-9) Eosinophils (%) (Auto) 0 % (0-3) Basophils (%) (Auto) 1 % (0-3) Neutrophils # (Auto) 3.1 x10^3uL (1.8-7.7) Lymphocytes # (Auto) 2.1 x10^3/uL (1.0-4.8) Monocytes # (Auto) 0.4 x10^3/uL (0.0-1.1) Eosinophils # (Auto) 0.0 x10^3/uL (0.0-0.7) Basophils # (Auto) 0.0 x10^3/uL (0.0-0.2) D-Dimer (Shanel) 0.67 mg/L (0.00-0.50) H Sodium Level 140 mmol/L (136-145) Potassium Level 3.9 mmol/L (3.5-5.1) Chloride Level 108 mmol/L (98-107) H Carbon Dioxide Level 24 mmol/L (21-32) Anion Gap 8 (6-14) Blood Urea Nitrogen 20 mg/dL (7-20) Creatinine 0.9 mg/dL (0.6-1.0) Estimated GFR (Cockcroft-Gault) 68.7 Glucose Level 92 mg/dL (70-99) Calcium Level 8.4 mg/dL (8.5-10.1) L Magnesium Level 1.9 mg/dL (1.8-2.4) Total Bilirubin 0.2 mg/dL (0.2-1.0) Direct Bilirubin 0.1 mg/dL (0.0-0.2) Aspartate Amino Transferase (AST) 16 U/L (15-37) Alanine Aminotransferase (ALT) 23 U/L (14-59) Alkaline Phosphatase 89 U/L (46-116) Ammonia 14 mcmol/L (11-34) Creatine Kinase 48 U/L (26-192) 50 U/L (26-192) Creatine Kinase MB (Mass) < 0.5 ng/mL (0.0-3.6) < 0.5 ng/mL (0.0-3.6) Creatine Kinase MB Relative Index 1.0 % (0-4) 1.0 % (0-4) Troponin I Quantitative < 0.017 ng/mL (0-0.055) < 0.017 ng/mL (0-0.055) QL-Tso-G-Type Natriuretic Peptide 96 pg/mL (0-124) Total Protein 7.0 g/dL (6.4-8.2) Albumin 3.4 g/dL (3.4-5.0) Lipase 109 U/L (73-393) Salicylates Level 3.0 mg/dL (2.8-20.0) Salicylate Last Dose Date 03/30/17 Salicylate Last Dose Time 1454 Acetaminophen Level < 2.0 mcg/mL (10-30) L Acetaminophen Last Dose Date 03/30/17 Acetaminophen Last Dose Time 1454 Ethyl Alcohol Level < 10 mg/dL (0-10) Urine Collection Type Unknown Urine Color Yellow Urine Clarity Hazy Urine pH 5.5 Urine Specific [place] >=1.030 Urine Protein Neg (NEG-TRACE) Urine Glucose (UA) Neg mg/dL (NEG) Urine Ketones (Stick) Neg mg/dL (NEG) Urine Blood Small (NEG) Urine Nitrite Neg (NEG) Urine Bilirubin Neg (NEG) Urine Urobilinogen Dipstick 0.2 mg/dL (0.2 mg/dL) Urine Leukocyte Esterase Neg (NEG) Urine RBC 1-2 /HPF (0-2) Urine WBC 1-4 /HPF (0-4) Urine Squamous Epithelial Cells Mod /LPF Urine Bacteria Few /HPF (0-FEW) Urine Mucus Marked /LPF Urine Opiates Screen Neg (NEG) Urine Methadone Screen Neg (NEG) Urine Barbiturates Neg (NEG) Urine Phencyclidine Screen Neg (NEG) Urine Amphetamine/Methamphetamine Neg (NEG) Urine Benzodiazepines Screen Pos (NEG) Urine Cocaine Screen Neg (NEG) Urine Cannabinoids Screen Neg (NEG) Urine Ethyl Alcohol Neg (NEG) EKG EKG G shows sinus rhythm with rate of 83 bpm, no ST elevations appreciated, T-wave inversion noted in lead 3, normal axis, QTC 452 ms, as interpreted by me. EKG is similar to one performed on February 21, 2017 Radiology/Procedures Radiology/Procedures [address] [address] IMAGING REPORT Signed PATIENT: SANDRA STORY ACCOUNT: [id number] : 1975 LOCATION: ER AGE: 42 SEX: F EXAM STATUS: REG ER ORD. PHYSICIAN: ANGELA PAUL MD REASON: soa PROCEDURE: CHEST PA & LATERAL Chest, 2 views, 03/30/2017: History: Shortness of breath Comparison is made to a study from 02/21/2017. The heart size and pulmonary vascularity are normal. No pulmonary infiltrates are seen. There is no evidence of pleural fluid. There is a mild right convexity thoracic scoliosis. IMPRESSION: No acute cardiopulmonary abnormality is detected. DICTATED AND SIGNED BY: SHIKHA GUTHRIE MD DATE: 03/30/17 154 CC: ANGELA PAUL MD; MARIA BERNARDO PA ~ [address] [address] IMAGING REPORT Signed PATIENT: SANDRA STORY ACCOUNT: [id number] : 1975 LOCATION: ER AGE: 42 SEX: F EXAM STATUS: REG ER ORD. PHYSICIAN: ANGELA PAUL MD REASON: r/o PE PROCEDURE: CT ANGIOGRAPHY CHEST CT Angio chest Indication: SOA for two weeks, 75 ml 300 omnipaque injected GFR 77, Creat 0.9, no injury or surgery to chest, quit smoking 5 months ago (3-4 cigarettes per week), Acces:[id number], [id number]. No prior imaging for comparison Technique: Multiple contiguous axial images were obtained through the chest after administration of intravenous iodinated contrast. Coronal, sagittal, and 3-D MIP reformations were created. PQRS STATEMENT: One or more of the following in the visualized dose reduction techniques were utilized for this study: 1. Automatic exposure control, 2. Adjustment of the mA and/or kV according to patient size, 3. Use of iterative reconstruction technique Findings: There is no central filling defect within the pulmonary arteries to suggest presence of pulmonary embolism. Heart size is normal. There is no pericardial effusion. The thoracic aorta is normal in caliber with no evidence for dissection. No thoracic adenopathy is identified. The lungs are clear with no evidence for pleural effusion or infiltrate. No destructive osseous lesion is identified. Limited subdiaphragmatic evaluation is unremarkable. Impression: Negative for pulmonary embolism Electronically signed by: John Sorto MD (03/30/2017 5:46 PM) [facility] DICTATED AND SIGNED BY: JOHN SORTO MD DATE: 03/30/17 [id number] CC: ANGELA PAUL MD; MARIA BERNARDO ~ Course & Med Decision Making Course & Med Decision Making Pertinent Labs and Imaging studies reviewed. (See chart for details) Patient presented with complaints from family that she's been hallucinating. She states that she's been filling some shortness of breath in the evenings while she is trying to go to bed his been using her inhaler. Her EKG is essentially unchanged from previous, CT Starlight negative for PE. Her labs and first troponin and addition to repeat troponin do not show any acute abnormalities. Patient was screened by copy center specialist and was in contact with [facility] who have steps her for admission. The patient is agreeable to plan of being transported via EMS. Final Impression Final Impression Hallucinations Shortness of breath-resolved Problems: Dragon Disclaimer Dragon Disclaimer This electronic medical record was generated, in whole or in part, using a voice recognition dictation system. ANGELA PAUL MD Mar 30, 2017 14:32
[2017-03-30 15:24] LABS: BASO % 1 % (0-3); EOS % 0 % (0-3); HEMATOCRIT 31.2 % (36.0-47.0); HEMOGLOBIN 10.2 g/dL (12.0-15.5); LYMPH # 2.1 x10^3/uL (1.0-4.8); LYMPH % 37 % (24-48); MEAN CORPUSCULAR HEMOGLOBIN 25 pg (25-35); MEAN CORPUSCULAR HGB CONC 33 g/dL (31-37); MEAN CORPUSCULAR VOLUME 76 fL (79-100); MONO # 0.4 x10^3/uL (0.0-1.1); MONO % 8 % (0-9); NEUT # 3.1 x10^3uL (1.8-7.7); NEUT % 55 % (31-73); PLATELET COUNT 215 x10^3/uL (140-400); RED BLOOD COUNT 4.12 x10^6/uL (3.50-5.40); RED CELL DISTRIBUTION WIDTH 16.5 % (11.5-14.5); WHITE BLOOD COUNT 5.7 x10^3/uL (4.0-11.0)
[2017-03-30 15:34] LABS: ACETAMIN < 2.0 mcg/mL (10-30)
[2017-03-30 15:35] LABS: ETHANOL < 10 mg/dL (0-10)
--- NOTE | 2017-03-30 15:44 | RAD ---
Chest, 2 views, 03/30/2017: History: Shortness of breath Comparison is made to a study from 02/21/2017. The heart size and pulmonary vascularity are normal. No pulmonary infiltrates are seen. There is no evidence of pleural fluid. There is a mild right convexity thoracic scoliosis. IMPRESSION: No acute cardiopulmonary abnormality is detected.
[2017-03-30 15:45] LABS: ALBUMIN 3.4 g/dL (3.4-5.0); CALCIUM 8.4 mg/dL (8.5-10.1); GLUCOSE 92 mg/dL (70-99)
[2017-03-30 15:46] LABS: ALK PHOS 89 U/L (46-116); ALT (SGPT) 23 U/L (14-59); ANION GAP 8 (6-14); AST (SGOT) 16 U/L (15-37); BLOOD UREA NITROGEN 20 mg/dL (7-20); CARBON DIOXIDE 24 mmol/L (21-32); CHLORIDE 108 mmol/L (98-107); CREATININE 0.9 mg/dL (0.6-1.0); DIRECT BILIRUBIN 0.1 mg/dL (0.0-0.2); GFR 68.7; LIPASE 109 U/L (73-393); MAGNESIUM 1.9 mg/dL (1.8-2.4); POTASSIUM 3.9 mmol/L (3.5-5.1); SODIUM 140 mmol/L (136-145); TOTAL BILIRUBIN 0.2 mg/dL (0.2-1.0)
[2017-03-30 15:52] LABS: BARBITURATES NEG (NEG); BENZODIAZEPINES POS (NEG); CANNABINOIDS NEG (NEG); COCAINE NEG (NEG); METHADONE NEG (NEG); OPIATES NEG (NEG); PHENCYCLIDINE NEG (NEG)
[2017-03-30 15:53] LABS: AMPHETAMINE/METHAMPHETAMINE NEG (NEG)
[2017-03-30 15:54] LABS: BILIRUBIN,URINE NEG (NEG); CLARITY,URINE HAZY; COLOR,URINE YELLOW; GLUCOSE,URINE NEG (NEG)
[2017-03-30 15:55] LABS: BACTERIA,URINE FEW /HPF (0-FEW); NITRITE,URINE NEG (NEG); SQUAMOUS EPITHELIAL CELL,UR MOD /LPF; UROBILINOGEN,URINE 0.2 mg/dL (0.2 mg/dL)
[2017-03-30 15:58] LABS: CREATINE KINASE 48 U/L (26-192)
--- NOTE | 2017-03-30 16:14 | EKG ---
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
[2017-03-30] MEDS ORDERED: IOHEXOL 300 MG/ML 75 ML VIAL. IV ONE (17:00)
[2017-03-30] MEDS ORDERED: ACETAMINOPHEN 500 MG TABLET PO ONE ×2 (17:42→18:00)
--- NOTE | 2017-03-30 17:49 | RAD ---
CT Angio chest Indication: SOA for two weeks, 75 ml 300 omnipaque injected GFR 77, Creat 0.9, no injury or surgery to chest, quit smoking 5 months ago (3-4 cigarettes per week), Acces:[id number], [id number]. No prior imaging for comparison Technique: Multiple contiguous axial images were obtained through the chest after administration of intravenous iodinated contrast. Coronal, sagittal, and 3-D MIP reformations were created. PQRS STATEMENT: One or more of the following in the visualized dose reduction techniques were utilized for this study: 1. Automatic exposure control, 2. Adjustment of the mA and/or kV according to patient size, 3. Use of iterative reconstruction technique Findings: There is no central filling defect within the pulmonary arteries to suggest presence of pulmonary embolism. Heart size is normal. There is no pericardial effusion. The thoracic aorta is normal in caliber with no evidence for dissection. No thoracic adenopathy is identified. The lungs are clear with no evidence for pleural effusion or infiltrate. No destructive osseous lesion is identified. Limited subdiaphragmatic evaluation is unremarkable. Impression: Negative for pulmonary embolism Electronically signed by: John Sorto MD (03/30/2017 5:46 PM) [facility]
[2017-03-30 17:58] LABS: CREATINE KINASE 50 U/L (26-192)
[2017-03-30 19:10] VITALS: BP 112/76
== END 2017-03-30 19:30 ==
LOC: ER 14:30
DX: R44.3 Hallucinations, unspecified (principal); G43.909 Migraine, unspecified, not intractable, without status migrainosus; F31.9 Bipolar disorder, unspecified; F41.9 Anxiety disorder, unspecified; F17.210 Nicotine dependence, cigarettes, uncomplicated; Z88.2 Allergy status to sulfonamides; Z88.8 Allergy status to other drugs, medicaments and biological substances; Z86.73 Personal history of transient ischemic attack (TIA), and cerebral infarction without residual deficits
CPT/HCPCS: 36415; 71020; 71275; 80048; 80076; 80305; 81001; 82140; 82553; 83690; 83735; 83880; 84443; 84484; 85027; 85379; 93005; 99285; G0480; G0481

== ENCOUNTER 2017-04-17 21:58 | Emergency (ER) | payer OTHER ==
[~2017-04-17] VITALS: Ht 162.6 cm; Wt 87.3 kg
[2017-04-17] MEDS ORDERED: LORazepam 2 MG/ML VIAL IV ONE (22:30)
[2017-04-17] MEDS ORDERED: FAMOTIDINE 20 MG/2 ML VIAL IVP ONE (22:30)
[2017-04-17 22:37] VITALS: BP 106/59
--- NOTE | 2017-04-18 06:03 | EKG ---
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
--- NOTE | 2017-04-21 07:58 | ED.ADGEN ---
Past History Past Medical History: Anxiety, Bipolar, Depression, [place], Migraines, Stroke, Other Past Surgical History: Smoking: Cigarettes, Less than 1pk/day Alcohol Use: None Drug Use: None Adult General Chief Complaint Chief Complaint Chest pain HPI HPI Patient is a 42-year-old female extensive psychiatric history who presents with chest pain earlier today. Patient reports chest pain after coughing episode. Pain is described as sharp, mild to moderate reproduced with deep breathing. Patient denies shortness of breath, fever, chills, nausea vomiting and sweats. No history of asthma COPD. Patient has not current smoker. Review of Systems Review of Systems Review symptoms as per history of present illness. All other review symptoms are negative. Current Medications Current Medications Current Medications Medications (Trade) Dose Ordered Sig/Ladonna Start Time Stop Time Status Last Admin Dose Admin Famotidine (Pepcid) 20 mg 1X ONCE 04/17/17 22:30 04/17/17 22:42 DC 04/17/17 22:27 20 MG Lorazepam (Ativan) 0.5 mg 1X ONCE 04/17/17 22:30 04/17/17 22:42 DC 04/17/17 22:27 0.5 MG Allergies Allergies Allergies Coded Allergies Type Severity Reaction Last Updated Verified Sulfa (Sulfonamide Antibiotics) Allergy Intermediate 08/17/14 No ketorolac Allergy Intermediate 08/17/14 Yes Physical Exam Physical Exam Constitutional: Well developed, well nourished, no acute distress, non-toxic appearance. [] HENT: Normocephalic, atraumatic, bilateral external ears normal, oropharynx moist, no oral exudates, nose normal. [] Eyes: PERRLA, EOMI, conjunctiva normal, no discharge. [] Neck: Normal range of motion, no tenderness, supple, no stridor. [] Cardiovascular:Heart rate regular rhythm, no murmur [] Lungs & Thorax: Bilateral breath sounds clear to auscultation [] Abdomen: Bowel sounds normal, soft, no tenderness. Skin: Warm, dry, no erythema, no rash. [] Back: No tenderness, no CVA tenderness. [] Extremities: No tenderness, no cyanosis, no clubbing, ROM intact, no edema. [] Neurologic: Alert and oriented X 3, normal motor function, normal sensory function, no focal deficits noted. [] Psychologic: Affect normal, judgement normal, mood normal. [] Current Patient Data Vital Signs Vital Signs Date Time Temp Pulse Resp B/P (MAP) Pulse Ox O2 Delivery O2 Flow Rate FiO2 04/17/17 22:37 79 20 106/59 (75) 97 Room Air 04/17/17 22:00 98.3 EKG EKG [EKG: normal sinus rhythm.] Radiology/Procedures Radiology/Procedures [] Course & Med Decision Making Course & Med Decision Making Pertinent Labs and Imaging studies reviewed. (See chart for details) [Patient monitored in the ED with stable vital signs. Chest pain is reproducible consistent with pleurisy or posttussive costochondritis. No additional workup indicated at this time.] Final Impression Final Impression Chest pain] Problems: Dragon Disclaimer Dragon Disclaimer This electronic medical record was generated, in whole or in part, using a voice recognition dictation system. SOTERO LOPEZ DO Apr 21, 2017 07:58
== END 2017-04-17 23:00 | disposition home or self-care (01) ==
LOC: ER 21:58
DX: R07.89 Other chest pain (principal); F41.9 Anxiety disorder, unspecified; I25.2 Old myocardial infarction; G43.909 Migraine, unspecified, not intractable, without status migrainosus; F17.210 Nicotine dependence, cigarettes, uncomplicated; F32.9 Major depressive disorder, single episode, unspecified; Z86.73 Personal history of transient ischemic attack (TIA), and cerebral infarction without residual deficits; Z88.2 Allergy status to sulfonamides; Z88.8 Allergy status to other drugs, medicaments and biological substances
CPT/HCPCS: 93005; 96374; 96375; 99284; J2060; S0028

== ENCOUNTER 2017-05-12 14:45 | Emergency (ER) | payer OTHER ==
--- NOTE | 2017-05-12 15:28 | PHYS DOC ---
Past History Past Medical History: Anxiety, Bipolar, Depression, [place], Migraines, Stroke, Other Past Surgical History: Smoking: Cigarettes, Less than 1pk/day Alcohol Use: None Drug Use: None Adult General Chief Complaint Chief Complaint: OTHER COMPLAINTS HPI HPI 42-year-old female well known to our emergency medicine service for frequent visits for minor complaints now presents to the emergency department because she felt cold. Patient states she was at home feeling chilly and she turned her he got. Her sister came over and felt like it was very hot in the house so she brought the patient to the emergency department to see if she was on drugs. The patient herself has bipolar disease as well as some other challenges such as developmental delay, and the sister who brought her in is her guardian and she is concerned that the patient may have been using drugs because she felt it was too draw string knotter the apartment for a typical person's comfort preference. Patient is smiling and cheerful and says she has no complaints at all. Her only that she felt chilly earlier at home. Her vital signs are stable and unremarkable on arrival Review of Systems Review of Systems Constitutional: Denies fever or chills [] Eyes: Denies change in visual acuity, redness, or eye pain [] HENT: Denies nasal congestion or sore throat [] Respiratory: Denies cough or shortness of breath [] Cardiovascular: No additional information not addressed in HPI [] GI: Denies abdominal pain, nausea, vomiting, bloody stools or diarrhea [] : Denies dysuria or hematuria [] Musculoskeletal: Denies back pain or joint pain [] Integument: Denies rash or skin lesions [] Neurologic: Denies headache, focal weakness or sensory changes [] Endocrine: Denies polyuria or polydipsia [] Allergies Allergies Allergies Coded Allergies Type Severity Reaction Last Updated Verified Sulfa (Sulfonamide Antibiotics) Allergy Intermediate 08/17/14 No ketorolac Allergy Intermediate 08/17/14 Yes Physical Exam Physical Exam Well-appearing female smiling cheerful alert communicative cooperative and appropriate with a completely benign exam. No clinical fever. Supple neck nonfocal neuro. Constitutional: Well developed, well nourished, no acute distress, non-toxic appearance. [] HENT: Normocephalic, atraumatic, bilateral external ears normal, oropharynx moist, no oral exudates, nose normal. [] Eyes: PERRLA, EOMI, conjunctiva normal, no discharge. [] Neck: Normal range of motion, no tenderness, supple, no stridor. [] Cardiovascular:Heart rate regular rhythm, no murmur [] Lungs & Thorax: Bilateral breath sounds clear to auscultation [] Abdomen: Bowel sounds normal, soft, no tenderness, no masses, no pulsatile masses. [] Skin: Warm, dry, no erythema, no rash. [] Back: No tenderness, no CVA tenderness. [] Extremities: No tenderness, no cyanosis, no clubbing, ROM intact, no edema. [] Neurologic: Alert and oriented X 3, normal motor function, normal sensory function, no focal deficits noted. [] Psychologic: Affect normal, judgement normal, mood normal. [] EKG EKG [] Radiology/Procedures Radiology/Procedures [] Course & Med Decision Making Course & Med Decision Making Pertinent Labs and Imaging studies reviewed. (See chart for details) Signs and symptoms consistent with manifestations of patient's unusual personality and limited insights based on her mental challenges. She has no clinical fever does not appear ill. A full exam is completely benign. Patient is cooperative and appropriate at her baseline and as previously mentioned she is well known to our emergency medicine service for frequent visits. Urine drug screen pending to evaluate the possibility of drug use as a contributory component to her unusual judgment. If unremarkable or no matter what the results they will be discussed with the patient and her guardian and she will be discharged home for follow-up with her primary care doctor. No further workup or treatment will be indicated and strict return precautions will be given [] Dragon Disclaimer Dragon Disclaimer This chart was dictated in whole or in part using Voice Recognition software in a busy, high-work load, and often noisy Emergency Department environment. It may contain unintended and wholly unrecognized errors or omissions. Departure Departure: Impression: Primary Impression: Knowledge deficit Additional Impression: Sensation of feeling cold Disposition: 01 HOME, SELF-CARE Condition: GOOD Referrals: MARIA BERNARDO (PCP) Additional Instructions: It is not clear why you were "feeling cold "earlier.You do not have a fever and your vital signs are unremarkable. You've not been using drugs or alcohol in your judgment does not seem to be impaired beyond your baseline. Follow-up with your doctor tomorrow and return immediately for new severe or worsening symptoms Problem Qualifiers PILI SINHA MD May 12, 2017 15:28
[2017-05-12 15:39] LABS: BARBITURATES NEG (NEG); BENZODIAZEPINES NEG (NEG); CANNABINOIDS NEG (NEG); COCAINE NEG (NEG); METHADONE NEG (NEG); OPIATES NEG (NEG); PHENCYCLIDINE NEG (NEG)
[2017-05-12 15:40] LABS: AMPHETAMINE/METHAMPHETAMINE NEG (NEG)
[2017-05-12 16:15] VITALS: BP 101/67
== END 2017-05-12 16:15 | disposition home or self-care (01) ==
LOC: ER 14:45
DX: F81.9 Developmental disorder of scholastic skills, unspecified (principal); R20.8 Other disturbances of skin sensation; F31.9 Bipolar disorder, unspecified; F41.9 Anxiety disorder, unspecified; I25.2 Old myocardial infarction; F17.210 Nicotine dependence, cigarettes, uncomplicated; G43.909 Migraine, unspecified, not intractable, without status migrainosus; Z86.73 Personal history of transient ischemic attack (TIA), and cerebral infarction without residual deficits; Z88.2 Allergy status to sulfonamides
CPT/HCPCS: 36415; 80307; 99283; G0479

== ENCOUNTER 2017-06-13 16:49 | Observation (INO) | payer OTHER ==
[~2017-06-13] VITALS: Ht 162.6 cm; Wt 83.1 kg
[~2017-06-13 16:49] MED LIST changes: +METO-239 PO; -METO25TA9 PO
[2017-06-13] MEDS ORDERED: IOHEXOL 300 MG/ML 75 ML VIAL. IV ONE (17:00)
--- NOTE | 2017-06-13 17:13 | PHYS DOC ---
Past History Past Medical History: Bipolar, Hypertension, VT, Other Past Surgical History: Smoking: Cigarettes, Less than 1pk/day Alcohol Use: None Drug Use: None Adult General Chief Complaint Chief Complaint: WEAKNESS/GENERALIZED HPI HPI Patient is a 42 year old F who presents with right-sided weakness. Patient has history of MS and woke up this morning with right-sided upper and lower extremity weakness and pain. Patient also complains that she cannot see out of her right eye. Patient's daughter is her primary aircraft sales representative and called EMS this afternoon. Patient denies any chest pain returns of breath. Patient denies any nausea/vomiting/diarrhea. Patient denies any fevers. Review of Systems Review of Systems GEN: Denies fevers, chills, sweats HEENT: Loss of vision in the right eye CV: Denies chest pain RESP: Denies shortness of air, cough GI: Denies n/v/d NEURO: Denies confusion, dizziness MSK: Right-sided weakness Current Medications Current Medications Current Medications Medications (Trade) Dose Ordered Sig/Ladonna Start Time Stop Time Status Last Admin Dose Admin Iohexol (Omnipaque 300 Mg/ml) 75 ml 1X ONCE 06/13/17 17:00 06/13/17 17:01 UNV Allergies Allergies Allergies Coded Allergies Type Severity Reaction Last Updated Verified Sulfa (Sulfonamide Antibiotics) Allergy Intermediate 08/17/14 No ketorolac Allergy Intermediate 08/17/14 Yes Physical Exam Physical Exam GEN.: No apparent distress. Alert and oriented. HEENT: Head is normocephalic, atraumatic NECK: Supple. LUNGS: CTAB. HEART: RRR, S1, S2 present. Peripheral pulses intact ABDOMEN: Soft, nontender. Positive bowel sounds. EXTREMITIES: Without any cyanosis. NEUROLOGIC: Cranial nerves II-12 are grossly intact without any focal neurologic deficits, patient states she cannot see of the right eye however has a corneal reflex and blinks when something comes close to the eye, 5 out of 5 muscle strength in upper extremity proximal and distal muscles, 5 out of 5 muscle strength to the lower extremity proximal muscles and 4 out of 5 muscle strength to the distal muscles of the lower extremity on the right with decreased dorsiflexion and plantar flexion compared to the left PSYCHIATRIC: Normal affect, normal mood. SKIN: No ulcerations Current Patient Data Vital Signs Laboratory Tests Test 9/24/17 17:00 06/13/17 17:50 White Blood Count 9.3 x10^3/uL Red Blood Count 4.24 x10^6/uL Hemoglobin 10.9 g/dL Hematocrit 32.9 % Mean Corpuscular Volume 78 fL Mean Corpuscular Hemoglobin 26 pg Mean Corpuscular Hemoglobin Concent 33 g/dL Red Cell Distribution Width 23.2 % Platelet Count 201 x10^3/uL Neutrophils (%) (Auto) 71 % Lymphocytes (%) (Auto) 22 % Monocytes (%) (Auto) 6 % Eosinophils (%) (Auto) 0 % Basophils (%) (Auto) 0 % Neutrophils # (Auto) 6.6 x10^3uL Lymphocytes # (Auto) 2.0 x10^3/uL Monocytes # (Auto) 0.6 x10^3/uL Eosinophils # (Auto) 0.0 x10^3/uL Basophils # (Auto) 0.0 x10^3/uL Sodium Level 141 mmol/L Potassium Level 3.8 mmol/L Chloride Level 108 mmol/L Carbon Dioxide Level 23 mmol/L Anion Gap 10 Blood Urea Nitrogen 22 mg/dL Creatinine 0.8 mg/dL Estimated GFR (Cockcroft-Gault) 78.7 BUN/Creatinine Ratio 28 Glucose Level 96 mg/dL Calcium Level 8.4 mg/dL Total Bilirubin 0.2 mg/dL Aspartate Amino Transf (AST/SGOT) 6 U/L Alanine Aminotransferase (ALT/SGPT) 27 U/L Alkaline Phosphatase 59 U/L Troponin I Quantitative < 0.017 ng/mL Total Protein 5.9 g/dL Albumin 3.1 g/dL Albumin/Globulin Ratio 1.1 Bedside Urine HCG, Qualitative hcg negative Current Medications Medications (Trade) Dose Ordered Sig/Ladonna Route PRN Reason Start Time Stop Time Status Last Admin Dose Admin Iohexol (Omnipaque 300 Mg/ml) 75 ml 1X ONCE IV 06/13/17 17:00 06/13/17 17:22 DC 06/13/17 17:00 Info (Do NOT chart on this entry -- for MONITORING) 1 each PRN DAILY PRN MC SEE COMMENTS 06/13/17 17:30 06/15/17 17:29 EKG EKG 1703: EKG shows normal sinus rhythm rate of 79 no STEMI[] Radiology/Procedures Radiology/Procedures [] Course & Med Decision Making Course & Med Decision Making Pertinent Labs and Imaging studies reviewed. (See chart for details) ED course: Patient was seen and examined emergency room stroke workup was ordered along with a CT angiogram of the head and neck 1800: Patient will be signed out to Dr. Loaiza to follow-up on lab results, radiology results and final disposition [] Dragon Disclaimer Dragon Disclaimer This chart was dictated in whole or in part using Voice Recognition software in a busy, high-work load, and often noisy Emergency Department environment. It may contain unintended and wholly unrecognized errors or omissions. Departure Departure: Impression: Primary Impression: Right sided weakness Referrals: MARIA BERNARDO (PCP) Assessment/Plan Assessment/Plan 42-year-old female presenting to the emergency department prior to my arrival with facial asymmetry and right lower extremity weakness and changes in her vision. Patient signed out to me at 6:00 PM with plans to follow-up on CT angiography. Initial impression seemed to be MS exacerbation. I went to examine the patient and take a history. The patient reports the symptoms since this morning when she woke up. It is similar to previous MS episodes. She mostly falls with the [facility]. She currently is on a prednisone taper from previous MS flare. I did examine the patient in person. Pertinent physical exam findings: Mental status alert and oriented and awake. Cranial nerve exam shows equal and reactive pupils with normal shoulder shrug. Mildly asymmetric facial smile. Right-sided droop. Extraocular movements intact. Uvula raise symmetric. Sensation of the face within normal limits. 5 out of 5 strength in upper extremities bilaterally with 4 out of 5 strength in the right lower extremity is 5 out of 5 in the left lower extremity. Sensation similar in all extremities. Deep tendon reflexes 2+. Heel to sparrow normal. Otherwise lungs are clear to auscultation bilaterally with a soft nontender abdomen. CT angiography negative for acute pathology. CT head negative. I discussed the case with our neurologist Dr. pandya who agreed with high dose IV corticosteroids and MRI along with admission to our hospital for further evaluation workup and care. Dr Higuera will admit the patient primarily. MAMI CONTI DO Jun 13, 2017 17:13 ALISHA LOAIZA MD Jun 14, 2017 04:16
[2017-06-13 17:24] LABS: BASO % 0 % (0-3); EOS % 0 % (0-3); HEMATOCRIT 32.9 % (36.0-47.0); HEMOGLOBIN 10.9 g/dL (12.0-15.5); LYMPH % 22 % (24-48); MEAN CORPUSCULAR HEMOGLOBIN 26 pg (25-35); MEAN CORPUSCULAR HGB CONC 33 g/dL (31-37); MEAN CORPUSCULAR VOLUME 78 fL (79-100); MONO # 0.6 x10^3/uL (0.0-1.1); MONO % 6 % (0-9); NEUT # 6.6 x10^3uL (1.8-7.7); NEUT % 71 % (31-73); PLATELET COUNT 201 x10^3/uL (140-400); RED BLOOD COUNT 4.24 x10^6/uL (3.50-5.40); RED CELL DISTRIBUTION WIDTH 23.2 % (11.5-14.5); WHITE BLOOD COUNT 9.3 x10^3/uL (4.0-11.0)
[2017-06-13] MEDS ORDERED: CONTRAST GIVEN MC PRN (17:30)
[2017-06-13 17:31] LABS: ALBUMIN 3.1 g/dL (3.4-5.0); ALBUMIN/GLOBULIN RATIO 1.1 (1.0-1.7); CALCIUM 8.4 mg/dL (8.5-10.1); CREATININE 0.8 mg/dL (0.6-1.0); GFR 78.7; POTASSIUM 3.8 mmol/L (3.5-5.1); TOTAL BILIRUBIN 0.2 mg/dL (0.2-1.0); TOTAL PROTEIN 5.9 g/dL (6.4-8.2)
--- NOTE | 2017-06-13 17:49 | EKG ---
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
[2017-06-13 18:05] LABS: BILIRUBIN,URINE NEG (NEG); CLARITY,URINE TURBID; COLOR,URINE RED; GLUCOSE,URINE NEG (NEG); NITRITE,URINE NEG (NEG); UROBILINOGEN,URINE 0.2 mg/dL (0.2 mg/dL)
[2017-06-13 18:06] LABS: BACTERIA,URINE 0 /HPF (0-FEW); RBC,URINE TNTC /HPF (0-2); WBC,URINE 0 /HPF (0-4)
--- NOTE | 2017-06-13 18:09 | RAD ---
CTA head and neck with contrast dated 06/13/2017. Comparison made to 10/09/2016. CLINICAL INDICATION: Right-sided weakness for a day. TECHNIQUE: Contiguous axial imaging of the head and neck performed following the intravenous and demonstration of 75 cc Omnipaque 300. Study performed as dedicated CTA with thin cut coronal and sagittal MIPS reconstructions. One or more of the following individualized dose reduction techniques were utilized for this examination: 1. Automated exposure control 2. Adjustment of the mA and/or kV according to patient size 3. Use of iterative reconstruction technique. Carotid Stenosis calculations for CT, MR, and conventional angiography are based upon measurements of the distal ICA diameter in accordance with the NASCET methodology. Stenosis calculations for carotid ultrasound studies are derived from validated velocity criteria which are known to correlate with the NASCET methodology. FINDINGS: Contrast bolus is adequate. Aortic arch is normal in caliber. Arch anatomy is standard. Bilateral subclavian and vertebral arteries are patent. No vertebral artery stenosis. No dissection flap. Bilateral common carotid arteries are patent. No calcific or soft plaque at the carotid bifurcations. Internal carotid arteries are patent to the level of skull base. No stenosis or aneurysm. Petrous and cavernous internal carotid arteries are symmetric. Both cavernous carotids are somewhat tortuous. No stenosis or aneurysm. The VANESSA and MCA branches are patent. Patent anterior communicating artery. No aneurysm. The intradural vertebral arteries are patent. Basilar artery is well formed. Bilateral SPECTACLE TRUER are patent. No posterior circulation stenosis or aneurysm. Postcontrast imaging of the brain shows no abnormal enhancement. The dural venous sinuses are grossly patent. Mild mucosal thickening right maxillary sinus. Visualized paranasal sinuses and mastoid air cells are otherwise clear. Visualized soft tissue structures are unremarkable. Limited images of lung apices are clear. IMPRESSION: No acute abnormality. No evidence of hemodynamically significant stenosis or aneurysm. Electronically signed by: Sharan Cortez MD (06/13/2017 6:06 PM) [facility]
[2017-06-13] MEDS ORDERED: methylPREDNISolone SOD SUCC PF 125 MG/2 ML VIAL. ONE (20:03)
[2017-06-13] MEDS ORDERED: METHYLPREDNISOLONE SOD SUCC 500 MG IV ONE (20:15)
[2017-06-13] MEDS ORDERED: methylPREDNISolone SOD SUCC PF 125 MG/2 ML VIAL. IV ONE (20:15)
[2017-06-13] MEDS ORDERED: MORPHINE SULFATE 2 MG/ML DISP.SYRIN. IV PRN (20:15)
[2017-06-13] MEDS ORDERED: ONDANSETRON PF 4 MG/2 ML VIAL. IV PRN (20:15)
[2017-06-13 21:13] LABS: ANISOCYTOSIS MOD; MICROCYTOSIS SLIGHT; OVALOCYTES FEW; PLT ESTIMATE ADEQUATE (ADEQUATE); TARGET CELLS OCC
[2017-06-13] MEDS ORDERED: hydrOXYzine HCL 25 MG TABLET PO PRN (22:00)
[2017-06-13] MEDS ORDERED: ALPRAZolam 0.25 MG TABLET PO PRN (22:00)
--- NOTE | 2017-06-13 22:20 | NUR ---
Nursing note: Got verbal report from nurse Friedman in the ER, awaiting patients arrival to floor. Idalia said that the ER doctor already spoke to Dr. Ng regarding consult. Will continue to monitor.
[2017-06-13 22:49] VITALS: BP 119/76
[2017-06-13] MEDS ORDERED: CLON0.5T3 PO (23:06)
[2017-06-13] MEDS ORDERED: ALBU8.5H8 INH (23:07)
--- NOTE | 2017-06-14 00:05 | NUR ---
The patient, SANDRA STORY, 42 y/o, F admitted by CAROL RIDDLE MD, was given written information regarding hospital policies, unit procedures and contact persons. Patient states that when she woke up this morning she was really weak on her right side. She states that she normally gets around with a walker but states that she was not able to stand this evening so her family decided to call an ambulance. Orders reviewed, patient assessed and documented on. Patient lives with her son and states that she normally cares for her self. Patient did with assist of this nurse stand and walk to the bathroom with very little help. Patient neuro checks were completed per orders. Medications pt brought from home will be stored in the med room until family is able to take them home.Berenice Mccracken aware of the consult, was called in the ER. Valuables were checked and left with patient.
[2017-06-14 05:22] VITALS: BP 105/71
[2017-06-14 05:55] LABS: BASO % 0 % (0-3); EOS % 0 % (0-3); HEMATOCRIT 32.1 % (36.0-47.0); HEMOGLOBIN 10.5 g/dL (12.0-15.5); LYMPH # 0.7 x10^3/uL (1.0-4.8); LYMPH % 12 % (24-48); MEAN CORPUSCULAR HEMOGLOBIN 25 pg (25-35); MEAN CORPUSCULAR HGB CONC 33 g/dL (31-37); MEAN CORPUSCULAR VOLUME 78 fL (79-100); MONO # 0.1 x10^3/uL (0.0-1.1); MONO % 1 % (0-9); NEUT # 5.3 x10^3uL (1.8-7.7); NEUT % 87 % (31-73); PLATELET COUNT 189 x10^3/uL (140-400); RED BLOOD COUNT 4.13 x10^6/uL (3.50-5.40); RED CELL DISTRIBUTION WIDTH 22.9 % (11.5-14.5); WHITE BLOOD COUNT 6.1 x10^3/uL (4.0-11.0)
[2017-06-14 06:03] LABS: CALCIUM 8.6 mg/dL (8.5-10.1); CREATININE 0.8 mg/dL (0.6-1.0); GFR 78.7
[2017-06-14] MEDS: GABAPENTIN 100 MG CAPSULE. PO SCH ×3 (08:56→20:46)
[2017-06-14] MEDS: TRINTELLIX 20MG TAB PO SCH (08:56)
[2017-06-14] MEDS: METOPROLOL SUCC 24HR ER 25 MG TAB.ER.24H. PO SCH (08:56)
[2017-06-14] MEDS: ASPIRIN 325 MG TABLET PO SCH (08:56)
[2017-06-14] MEDS: TOPIRAMATE 25 MG TABLET. PO SCH ×2 (08:57→20:46)
--- NOTE | 2017-06-14 09:11 | NUR ---
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
--- NOTE | 2017-06-14 09:23 | RAD ---
EXAM: CHEST 1 VIEW History: Weakness COMPARISON: 03/30/2017 TECHNIQUE: Single portable radiograph of the chest FINDINGS: The cardiac silhouette is unremarkable. The lungs are clear bilaterally. The costophrenic sulci are clear and well demarcated. IMPRESSION: No radiographic evidence of an acute cardiopulmonary process.
--- NOTE | 2017-06-14 09:43 | NUR ---
OMAR NOTE; ON HER MENSES- URINE IS RED AT TIMES Addendum: 06/14/17 at 0144 by MARCY CAPPS RN Amended: Links added.
[2017-06-14 11:47] VITALS: BP 102/68
--- NOTE | 2017-06-14 12:45 | HP ---
ADMIT DATE: HISTORY OF PRESENT ILLNESS: The patient is a 42-year-old female patient with longstanding multiple sclerosis, normally follows at [facility] who was brought to the Emergency Room yesterday with a complaint of new onset right-sided upper and lower extremity weakness and pain. She does complain that she cannot see out of her right eye, her daughter is her primary marketing sales manager and she called the emergency medical services and was brought to the Emergency Room where she was evaluated extensively. She did have head and neck CT angio with contrast and it did show that there is no evidence of hemodynamically significant stenosis or aneurysm and both intracranial and extracranial cranial arteries, and Dr. Ng was consulted and she was started on high dose steroid treatment for flare up of her multiple sclerosis. Her urinalysis showed that she has large amount of leukocyte esterase and was started empirically on IV antibiotic. PAST MEDICAL HISTORY: Significant for migraine headache, hypertension, depression, bronchial asthma as well as anxiety and multiple sclerosis. PAST SURGICAL HISTORY: Significant for . ALLERGIES: She is allergic to SULFA DRUGS AND KETOROLAC. MEDICATIONS: She is currently on following medications. She is on albuterol sulfate 1 puff every 6 hours, aspirin 325 mg once a day, clonazepam 0.5 mg once a day for anxiety and agitation, gabapentin times a day, hydroxyzine 25 mg twice a day, metoprolol succinate 25 mg once a day, mirtazapine 30 mg at bedtime, topiramate 50 mg twice a day and Trintellix 20 mg daily. FAMILY HISTORY: She has 2 brothers, both older and one sister who is younger has diabetes. Her father is still alive at the age of 65 and mother due to congestive heart failure and complication of diabetes. SOCIAL HISTORY: She is single. She lives with her 17-year-old daughter. She smokes a pack a day, smokes also weed for headache. 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 REVIEW OF SYSTEMS: The patient did complain of blurring of vision in her right eye, but denied any cataract, glaucoma or macular degeneration. Denied any earache, tinnitus or sensorineural deafness. Denied any nosebleeds, stuffy nose or postnasal drip. Denied any sore throat, sore tongue, toothache, hoarseness of voice or difficulty swallowing. Denied any nausea, vomiting, diarrhea or constipation. Denied any hematemesis, melena or hematochezia. Denied any dysuria, frequency, hematuria. Denied any complaint of chest pain, shortness of breath, orthopnea, paroxysmal nocturnal dyspnea. Denied any chills, rigors or fever. PHYSICAL EXAMINATION: GENERAL: On arrival to the Emergency Room, she looked well and was clearly in no apparent respiratory distress, pale, not jaundiced, cyanosis, or thyromegaly. No jugular venous distention. No limb edema. VITAL SIGNS: Her heart rate was 87, blood pressure was 107/71, temperature was 98.9, respiratory rate was 20, and oxygen saturation was 99%. HEENT: Showed normocephalic, atraumatic. NECK: Supple. HEART: Showed normal first and second heart sounds with no gallop, rub or murmur. CHEST: Clear to auscultation. No crepitation or rhonchi. ABDOMEN: Distended, soft, nontender. No guarding or rigidity. No organomegaly. Hernial orifices intact. Bowel sounds normal. NEUROLOGIC: She is awake, alert, responding appropriately. She definitely has right-sided facial weakness and also mild right-sided hemiparesis; however, the patient is still able to walk with a walker. LABORATORY DATA: On admission showed that her white cell count was 9300, hemoglobin 10.9, hematocrit 33, MCV 78, and platelet count of 201,000 with normal manual differential. Her chemistry showed a serum sodium 141, potassium 3.8, chloride 108, bicarbonate 23, anion gap of 10, BUN 22, creatinine 0.8, estimated GFR was 79 mL per minute. Her glucose was 96, calcium was 8.4. Total bilirubin, AST, ALT, alkaline phosphatase are normal. Her total protein was 5.9, albumin 3.1. Urinalysis showed the color of the urine was red, turbid with a pH of 6.5, specific gravity of 1.020. There was large amount of protein, negative for glucose and ketones, large amount of blood, negative for nitrites and bilirubin. There was large amount of leukocyte esterase, too numerous to count rbc's, but no wbc's, no bacteria and the urine test was negative. Her chest x-ray showed cardiac silhouette is unremarkable. The lungs are clear bilaterally. The costophrenic sulci are clear and well demarcated. She did have head and neck angio with contrast, which showed that the aortic arch is normal in caliber, arch anatomy is standard, bilateral subclavian and vertebral arteries are patent, no vertebral artery stenosis, no dissection flap. She has bilateral common carotid arteries are patent. No calcific or soft plaque at carotid bifurcation, internal carotid arteries are patent to the skull base. No stenosis or aneurysm. Petrous and cavernous internal carotid arteries are symmetrical, both cavernous carotids are somewhat tortuous, no stenosis or aneurysm. The anterior cerebral artery and middle cerebral artery branches are patent and patent anterior communicating artery, no aneurysm. The intradural vertebral arteries are patent. The basilar artery is well formed. Bilateral posterior cerebral artery are patent, no posterior circulation stenosis or aneurysm. Postcontrast imaging of the brain shows no abnormal enhancement, the dural venous sinuses are grossly patent, mild mucosal thickening of the right maxillary sinus. Visualized paranasal sinuses and mastoid air cells are otherwise clear. Visualized soft tissue structures are unremarkable, limited images of the lung apices are clear. The patient was given high dose of steroids as per Dr. Ng's recommendation and was admitted for further evaluation. NICOL VALDIVIA MD DR: DYLLAN/ember JOB#: [id number] / [id number]
[2017-06-14 15:36] VITALS: BP 118/74
[2017-06-14 20:06] VITALS: BP 112/78
[2017-06-14] MEDS ORDERED: PRIMIDONE 50 MG TABLET PO SCH (21:00)
[2017-06-14] MEDS ORDERED: MIRTAZAPINE 30 MG TABLET PO SCH (21:00)
[2017-06-14 22:35] VITALS: BP 102/65
[2017-06-15] VITALS (8 sets, daily range): BP systolic 93–105; BP diastolic 50–71
--- NOTE | 2017-06-15 04:23 | PN ---
DATE: 06/14/2017 SUBJECTIVE: The patient is sitting comfortably in her chair in no apparent distress. She is awake, alert. On questioning her, she continues to have weakness in the right side, although her vision is better now in the right eye. She also felt that she is numb in the right side of the face. PHYSICAL EXAMINATION: GENERAL: When I examined her, she was pale, but not jaundiced, cyanosis or thyromegaly. No jugular venous distention. No limb edema. VITAL SIGNS: Her heart rate was 74, blood pressure was 105/71, temperature was 97.4, respiratory rate was 16, and oxygen saturation was 97% on room air. HEAD, EYES, EARS, NOSE AND THROAT: Showed normocephalic, atraumatic. NECK: Supple. HEART: Showed normal first and second heart sounds with no gallop, rub or murmur. CHEST: Clear to auscultation. No crepitation or rhonchi. ABDOMEN: Distended, soft, nontender. NEUROLOGIC: She was awake, alert, responding appropriately. 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 She has also mild right upper and right lower extremity weakness, best detected especially in her weaker health information clerk on the right side. Her intake was 720, no output was recorded. LABORATORY DATA: This morning showed her white cell count to be in 6100, hemoglobin 10.5, hematocrit 32, MCV ____, and platelet count of 189,000. Her chemistry showed a serum sodium 141, potassium 4, chloride 107, bicarbonate 25, anion gap of 9, BUN 22, creatinine 0.8, estimated GFR was 79 mL per minute. Her glucose was 161, calcium was 8.6. Total bilirubin, AST, ALT, alkaline phosphatase were normal. Total protein was 5.9, albumin 3.1. ASSESSMENT: 1. Longstanding history of multiple sclerosis. 2. New onset of right-sided facial weakness and right-sided hemiparesis. 3. Other medical problems including migraine headache. 4. Hypertension. 5. Depression and anxiety. 6. Bronchial asthma. The patient apparently has similar presentation on January 2017. At that time, she was admitted to [facility], was evaluated by the Neurology team. She has also had an MRI at that time, which showed that she has extensive areas of signal abnormality seen throughout the brain consistent with the patient's history of multiple sclerosis, innumerable areas of abnormal contrast enhancement seen consistent with areas of extensive active demyelination. PLAN: My plan is to continue all her current medication, await the evaluation by Dr. Ng to decide whether the patient needs further rehabilitation; however, she can be discharged home to continue on a tapering course of steroids. NICOL VALDIVIA MD DR: DYLLAN/ember JOB#: [id number] / [id number]
[2017-06-15 06:13] LABS: BASO % 0 % (0-3); EOS % 0 % (0-3); HEMATOCRIT 31.2 % (36.0-47.0); HEMOGLOBIN 10.3 g/dL (12.0-15.5); LYMPH # 3.6 x10^3/uL (1.0-4.8); LYMPH % 42 % (24-48); MEAN CORPUSCULAR HEMOGLOBIN 26 pg (25-35); MEAN CORPUSCULAR HGB CONC 33 g/dL (31-37); MEAN CORPUSCULAR VOLUME 78 fL (79-100); MONO # 0.5 x10^3/uL (0.0-1.1); MONO % 6 % (0-9); NEUT # 4.5 x10^3uL (1.8-7.7); NEUT % 52 % (31-73); PLATELET COUNT 176 x10^3/uL (140-400); RED CELL DISTRIBUTION WIDTH 23.3 % (11.5-14.5); WHITE BLOOD COUNT 8.6 x10^3/uL (4.0-11.0)
[2017-06-15 06:21] LABS: ALBUMIN 2.9 g/dL (3.4-5.0); CALCIUM 8.5 mg/dL (8.5-10.1); CREATININE 0.9 mg/dL (0.6-1.0); TOTAL PROTEIN 5.8 g/dL (6.4-8.2)
[2017-06-15 06:22] LABS: GFR 68.7; POTASSIUM 3.4 mmol/L (3.5-5.1); TOTAL BILIRUBIN 0.3 mg/dL (0.2-1.0)
[2017-06-15] MEDS: GABAPENTIN 100 MG CAPSULE. PO SCH (08:34)
[2017-06-15] MEDS: TRINTELLIX 20MG TAB PO SCH (08:34)
[2017-06-15] MEDS: ASPIRIN 325 MG TABLET PO SCH (08:34)
[2017-06-15] MEDS: TOPIRAMATE 25 MG TABLET. PO SCH (08:35)
[2017-06-15] MEDS: METOPROLOL SUCC 24HR ER 25 MG TAB.ER.24H. PO SCH (08:35)
--- NOTE | 2017-06-15 09:35 | NUR ---
Patient in shower with aide. Noted to have syncopal episode. Patient assisted to wheelchair and back to bed. Patient able to respond appropriately once in bed. Vitals assessed, BP 93/60. Dr. Stone at bedside, patient states she is dizzy and feels week. One liter bolus of normal saline ordered and administered. Will report off to patient's assigned nurse. Will monitor.
[2017-06-15] MEDS ORDERED: IV NORMAL SALINE 1,000ML 1,000 ML IV ONE (10:00)
--- NOTE | 2017-06-15 10:48 | EKG ---
[address] [address] Test Date: 2017-06-15 Test Time: 09:35:51 Pat Name: SANDRA STORY Department: Room: 124 A Gender: F Continuity Clerk: YUDITH : 1975 Requested By: NICOL VALDIVIA Order Number: [id number] Reading MD: Measurements Intervals [place] Rate: 87 P: 33 NH: 120 QRS: 24 QRSD: 86 T: 29 QT: 338 QTc: 407 Interpretive Statements SINUS RHYTHM QRS(T) CONTOUR ABNORMALITY CONSIDER ANTEROSEPTAL MYOCARDIAL DAMAGE POSSIBLY ABNORMAL ECG RI6.01 No previous ECG available for comparison
--- NOTE | 2017-06-15 12:33 | NUR ---
Pt just ambulated around the unit with CRUTCH [employer]KER, c/o some dizziness but has steady gait.
--- NOTE | 2017-06-15 14:05 | NUR ---
Pt sister is here and ready to take pt for discharge. Reminded them to call Dr. Ng for 1 week follow up and pt sister stated "is it ok that we see her neurologist at because we do not like Dr. Ng" this nurse stated "per discharge instructions, it was stated to follow up with Dr. Ng, you do what you feel is best but the pt needs a neuro follow up in one week" Pt discharged at this time, assisted to private vehicle for discharge now.
--- NOTE | 2017-06-15 23:03 | DS ---
DATE OF DISCHARGE: 06/15/2017 HISTORY OF PRESENT ILLNESS: The patient is a 42-year-old female patient who was admitted with complaint of new onset of right-sided upper and lower extremity weakness and pain. She does complain also that she cannot see out of her right. Her daughter is her primary childcare attendant and she called the Emergency Room. She was brought to the Emergency Room where she was evaluated extensively. She did have head and neck CT angio with contrast; and it did show that there is no evidence of any significant stenosis or aneurysm in both intracranial and extracranial arteries. She was given high dose of steroids in the form of Solu-Medrol 500 mg, given twice. It transpired that she was admitted recently to [facility] and actually was treated with high dose steroids. She has had an MRI there and was discharged on a tapering course of steroids. She did actually well and was then working with the Physical and occupational therapy with a walker. She has had a shower this morning during which she had a syncopal episode and was brought to her bed immediately. We did give her a liter of fluid and we did check her orthostatics, lying, sitting and standing after that. Her blood pressure lying was 97/50 with a heart rate 87, sitting was 104/57 with a heart rate of 79, and standing was 101/58 with a heart rate of 102 beats per minute. She did actually very well. She walked with the nursing staff; and as she already has a tapering course, she should be discharged home with home health to continue tapering course of steroids and to follow with her neurologist at [facility]. PHYSICAL EXAMINATION: GENERAL: When I saw her this afternoon, she looked . She was sitting comfortably, eating her lunch, in no apparent distress. She was slightly pale, but no jaundice, cyanosis, or thyromegaly. No jugular venous distention. No lymphedema. VITAL SIGNS: Her heart rate was 102, blood pressure was 101/58, temperature was 97.7, respiratory rate 20, and oxygen saturation was 99%. HEAD, EYES, EARS, NOSE and THROAT: Showed normocephalic, atraumatic. NECK: Supple. HEART: Showed normal first and second heart sounds with no gallop, rub, or murmur. CHEST: Clear to auscultation. No crepitation or rhonchi. ABDOMEN: Distended, soft, and nontender. No guarding or rigidity. No organomegaly. Hernial orifices intact. Bowel sounds normal. NEUROLOGIC: She was awake, alert, and responding appropriately. She has right-sided Manley's palsy and mild right-sided hemiparesis. Her intake over the last 24 hours was 2300, no output was recorded. LABORATORY DATA: Her lab work this morning showed a white cell count of 8600, hemoglobin 10, hematocrit 30, MCV 78, and platelet count of 176,000. Her chemistry showed serum sodium of 141, potassium 3.4, chloride 108, bicarbonate 27, anion gap of 6, BUN 23, creatinine 0.9, estimated GFR was 68 mL per minute. Her glucose was 91, calcium was 8.5. Total bilirubin, AST, ALT, alkaline phosphatase were normal. Her total protein was 5.8 and albumin was 2.9. FINAL DISCHARGE DIAGNOSES: Multiple sclerosis exacerbation. The patient received high dose steroids and she will continue on her tapering course of steroids as recommended by the neurologist at [facility]. Other medical problems including bronchial asthma, anxiety and depression, migraine headaches, hypertension. She has right-sided hemiparesis and right-sided Manley's palsy. She had an MRI done recently at [facility], which showed extensive lesion consistent with multiple sclerosis exacerbation. NICOL VALDIVIA MD DR: DYLLAN/ember JOB#: [id number] / [id number]
--- NOTE | 2017-06-16 10:45 | CONS ---
DATE OF CONSULTATION: 06/14/2017 NEUROLOGIC CONSULTATION REFERRING PHYSICIAN: Dr. Stone REASON FOR CONSULTATION: Rule out multiple sclerosis exacerbation. HISTORY OF PRESENT ILLNESS: This is a 42-year-old right-handed female who was admitted through Emergency Room on 02/10/2017 after she presented to the Emergency Room with chief complaints of right-sided weakness. The patient stated she had a history of multiple sclerosis several years ago and she was seen recently at by Dr. Steele, who is a MS specialist. She was given gabapentin for numbness and paresthesia of the lower extremities. When the patient was evaluated in the Emergency Room, I was paged by the Emergency Room physician who told me the patient presented who told me the patient had right-sided weakness and with a history of multiple sclerosis and possible flare up of her symptoms. Based on that, the patient was given a dose of Solu-Medrol with the intention to transfer the patient to [facility] for MRI to rule out any new lesions of demyelinating process. However, I was called today for a consult on the same patient as she was not transferred to [place]. On the questioning of the patient, she stated she was evaluated at [facility] 2 weeks ago for possible exacerbation of multiple sclerosis. She was treated with high-dose of Solu-Medrol for 3 days and followed by tapering dose of prednisone. Apparently, the patient complains of weakness of the right side as she had weakness of the left side due to multiple sclerosis, associated with numbness and paresthesia of the legs. She denies headache, but she did have possible visual field cut on the right eye. The patient has been using a walker for ambulation. She denies dysphagia, dysarthria, vertigo or diplopia. PAST MEDICAL HISTORY: Significant for migraine headaches, hypertension, asthma, anxiety and depression along with longstanding history of multiple sclerosis. PAST SURGICAL HISTORY: Positive for . CURRENT MEDICATIONS: Albuterol inhaler, aspirin 325 mg, clonazepam 0.5 mg once daily, gabapentin, Remeron 30 mg daily, topiramate 50 mg twice daily, metoprolol 25 mg daily, gabapentin 100 mg t.i.d., alprazolam 0.25 mg p.r.n. for anxiety. ALLERGIES: SULFA AND KETOROLAC. REVIEW OF SYSTEMS: A 10-point review of system was performed and consistent with normal gait, weakness of the right upper and lower extremity with numbness and paresthesia of the lower extremities. Otherwise, as mentioned above in history of present illness. PHYSICAL EXAMINATION: GENERAL: Well-developed, well-nourished white female, not in acute distress. VITAL SIGNS: Blood pressure 118/74, respiratory rate 18, pulse is 84 and regular, temperature 98.3, oxygen saturation 98% on room air. HEENT: Normocephalic, atraumatic, otherwise, unremarkable. NECK: Supple. Negative for carotid bruit, lymphadenopathy or thyromegaly. LUNGS: Clear to A and P. CARDIOVASCULAR: Regular rate and rhythm, normal S1, S2. There is no S3, S4 or murmur. ABDOMEN: Soft. Bowel sounds positive. EXTREMITIES: Negative for cyanosis, clubbing or pitting edema. NEUROLOGICAL EXAM: Mental Status: The patient is alert and oriented x 3. The speech is fluent. There is no language dysfunctions. Memory, judgment and abstract thinking are fair. The patient denies hallucination or delusion. CRANIAL NERVES: Visual black are full. The pupils are reactive to light and accommodation. Extraocular movements are intact. There is no nystagmus. There is mild facial asymmetry on the right side. Hearing is intact bilaterally. The palate is elevated symmetrically. Sternocleidomastoid muscles are powerful bilaterally. The patient shrugs her shoulders symmetrically and protrudes her tongue in the midline without fasciculation or atrophy. MOTOR: No focal muscle bulk was seen. The tone is normal. The strength is 4/5 in the right upper and lower extremity. The strength also was 5/5 throughout. Sensory examination revealed diminished pinprick and light touch senses in patchy distributions in both lower extremities. Deep tendon reflexes were symmetric and hypoactive without pathologic responses. Gait: The stance is unsteady. The patient uses a walker for ambulation. LABORATORY DATA: CBC revealed white blood cells of 6.1 thousand, hemoglobin 10.5, hematocrit 32.1, platelet count 189,000. Chemistry: Sodium of 141, potassium 4, chloride 107, CO2 25, BUN 22, creatinine 0.8, glucose 161 and calcium 8.6. Urinalysis is positive for urinary tract infection with large leukocyte esterase and many bacteria. DIAGNOSTIC: Head/neck CT angio revealed no acute abnormalities, no evidence of significant stenosis or aneurysm. MRI from 02/03/2017 revealed evidence of demyelinating process consistent with diagnosis of multiple sclerosis without evidence of acute lesion or enhancement. IMPRESSION: 1. Longstanding history of multiple sclerosis with possible recent exacerbation diagnosed 2 weeks ago at [facility] required high-dose of steroids followed by tapering dose of prednisone with questionable residual of right-sided weakness. 2. Urinary tract infections. 3. Depression, anxiety, hypertension. RECOMMENDATIONS: 1. Continue with current management initiated by Dr. Stone. 2. Physical therapy as tolerated. 3. Follow up with Dr. Steele at [facility]. M Estrella CLEMONS MD DR: ZION/ember JOB#: [id number] / [id number]
== END 2017-06-15 14:05 | disposition home health service (06) ==
LOC: ER 16:49 → 1 SOUTH 20:20
PROVIDERS: ADMIT Family Medicine; ATTEND Family Medicine
DX: G35 Multiple sclerosis (principal); J45.909 Unspecified asthma, uncomplicated; F41.9 Anxiety disorder, unspecified; G43.909 Migraine, unspecified, not intractable, without status migrainosus; I10 Essential (primary) hypertension; G81.91 Hemiplegia, unspecified affecting right dominant side; G51.0 Bell's palsy; N39.0 Urinary tract infection, site not specified; F17.210 Nicotine dependence, cigarettes, uncomplicated; Z82.49 Family history of ischemic heart disease and other diseases of the circulatory system; Z83.3 Family history of diabetes mellitus; F31.9 Bipolar disorder, unspecified
CPT/HCPCS: 36415; 70496; 70498; 71010; 80048; 80053; 81001; 81025; 84484; 85025; 87086; 93005; 96361; 96365; 96366; 96375; G0378; G0379; J0696; J2930; Q9967; 97110; 97530; 99285-25; J7030

== ENCOUNTER 2017-07-27 17:07 | Emergency (ER) | payer OTHER ==
[~2017-07-27] VITALS: Ht 162.6 cm; Wt 87.3 kg
[~2017-07-27 17:07] MED LIST changes: +ALBU8.5H8 INH; +CLON0.5T3 PO; -NAPR500T3 PO; +NAPR500T4 PO
[2017-07-27] MEDS ORDERED: ONDANSETRON PF 4 MG/2 ML VIAL. IV ONE (20:15)
[2017-07-27] MEDS ORDERED: IV RINGERS SOLUTION,LACTATED 1,000 ML IV ONE (20:15)
[2017-07-27 20:38] LABS: BASO % 1 % (0-3); EOS % 0 % (0-3); HEMATOCRIT 29.5 % (36.0-47.0); HEMOGLOBIN 9.4 g/dL (12.0-15.5); LYMPH # 2.2 x10^3/uL (1.0-4.8); LYMPH % 41 % (24-48); MEAN CORPUSCULAR HEMOGLOBIN 24 pg (25-35); MEAN CORPUSCULAR HGB CONC 32 g/dL (31-37); MEAN CORPUSCULAR VOLUME 75 fL (79-100); MONO # 0.5 x10^3/uL (0.0-1.1); MONO % 9 % (0-9); NEUT # 2.7 x10^3uL (1.8-7.7); NEUT % 50 % (31-73); PLATELET COUNT 296 x10^3/uL (140-400); RED BLOOD COUNT 3.95 x10^6/uL (3.50-5.40); RED CELL DISTRIBUTION WIDTH 18.5 % (11.5-14.5); WHITE BLOOD COUNT 5.4 x10^3/uL (4.0-11.0)
[2017-07-27 20:50] LABS: ALBUMIN 3.6 g/dL (3.4-5.0); CALCIUM 8.6 mg/dL (8.5-10.1); GFR 60.8; TOTAL BILIRUBIN 0.2 mg/dL (0.2-1.0); TOTAL PROTEIN 7.3 g/dL (6.4-8.2)
[2017-07-27 21:40] LABS: CLARITY,URINE HAZY; COLOR,URINE STRAW; GLUCOSE,URINE NEG (NEG)
[2017-07-27 21:42] LABS: BILIRUBIN,URINE NEG (NEG)
[2017-07-27 21:43] LABS: BACTERIA,URINE FEW /HPF (0-FEW); NITRITE,URINE NEG (NEG); UROBILINOGEN,URINE 0.2 mg/dL (0.2 mg/dL)
[2017-07-27 21:44] LABS: SQUAMOUS EPITHELIAL CELL,UR MOD /LPF
[2017-07-27 21:47] LABS: U PREG PATIENT NEGATIVE (NEG)
[2017-07-27] MEDS ORDERED: ONDA4TAB10 SL (21:53)
[2017-07-27] MEDS ORDERED: CEPH-264 PO (21:53)
--- NOTE | 2017-07-27 21:53 | PHYS DOC ---
Past History Past Medical History: No Pertinent History, Bipolar, Hypertension, [place], Other Past Surgical History: Smoking: Cigarettes, Less than 1pk/day Alcohol Use: None Drug Use: None Adult General Chief Complaint Chief Complaint: dysuria HPI HPI Patient is a 42 year old female who presents with urinary symptoms. The patient reports 1 day history of illness with suprapubic pain, nausea/vomiting x 5, dysuria, urinary frequency/hesitancy, & foul odor to her urine. She denies fevers/chills, flank pain, hematemesis, diarrhea, constipation, hematuria , vaginal bleeding/discharge. She has history of MS. Review of Systems Review of Systems Constitutional: Denies fever or chills Eyes: Denies change in visual acuity HENT: Denies nasal congestion or sore throat Respiratory: Denies cough or shortness of breath Cardiovascular: Denies chest pain or edema GI: Denies abdominal pain, nausea, vomiting, bloody stools or diarrhea : Denies dysuria or hematuria Musculoskeletal: Denies back pain or joint pain Integument: Denies rash or skin lesions Neurologic: Denies headache, focal weakness or sensory changes Current Medications Current Medications Current Medications Medications (Trade) Dose Ordered Sig/Ladonna Start Time Stop Time Status Last Admin Dose Admin Lactated Ringer's 1,000 ml @ 1,000 mls/hr 1X ONCE 07/27/17 20:15 07/27/17 21:14 DC 07/27/17 20:15 1,000 MLS/HR Ondansetron HCl (Zofran) 4 mg 1X ONCE 07/27/17 20:15 07/27/17 20:16 DC 07/27/17 20:15 4 MG Allergies Allergies Allergies Coded Allergies Type Severity Reaction Last Updated Verified Sulfa (Sulfonamide Antibiotics) Allergy Intermediate 08/17/14 No ketorolac Allergy Intermediate 08/17/14 Yes Physical Exam Physical Exam Constitutional: obese, no acute distress, non-toxic appearance. HENT: Normocephalic, atraumatic, bilateral external ears normal, oropharynx moist, nose normal. Eyes: conjunctiva normal, no discharge. Neck: supple, no stridor. Cardiovascular: RRR, no murmurs, no edema. Lungs & Thorax: LCTAB, no wheezing, no respiratory distress. Abdomen: soft, mild suprapubic tenderness, no RUQ or RLQ tenderness, no rebound/ guarding, no masses or pulsatile masses, nondistended. Skin: Warm, dry, no erythema, no rash. Back: No CVA tenderness. Extremities: No tenderness, no edema. Neurologic: Alert and oriented X 3, no focal deficits noted. Psychologic: Affect normal, judgement normal, mood normal. Current Patient Data Vital Signs Vital Signs Date Time Temp Pulse Resp B/P (MAP) Pulse Ox O2 Delivery O2 Flow Rate FiO2 07/27/17 19:46 98.0 88 16 95 Room Air Lab Results Laboratory Tests Test 07/27/17 20:23 07/27/17 20:35 White Blood Count 5.4 x10^3/uL (4.0-11.0) Red Blood Count 3.95 x10^6/uL (3.50-5.40) Hemoglobin 9.4 g/dL (12.0-15.5) L Hematocrit 29.5 % (36.0-47.0) L Mean Corpuscular Volume 75 fL (79-100) L Mean Corpuscular Hemoglobin 24 pg (25-35) L Mean Corpuscular Hemoglobin Concent 32 g/dL (31-37) Red Cell Distribution Width 18.5 % (11.5-14.5) H Platelet Count 296 x10^3/uL (140-400) Neutrophils (%) (Auto) 50 % (31-73) Lymphocytes (%) (Auto) 41 % (24-48) Monocytes (%) (Auto) 9 % (0-9) Eosinophils (%) (Auto) 0 % (0-3) Basophils (%) (Auto) 1 % (0-3) Neutrophils # (Auto) 2.7 x10^3uL (1.8-7.7) Lymphocytes # (Auto) 2.2 x10^3/uL (1.0-4.8) Monocytes # (Auto) 0.5 x10^3/uL (0.0-1.1) Eosinophils # (Auto) 0.0 x10^3/uL (0.0-0.7) Basophils # (Auto) 0.0 x10^3/uL (0.0-0.2) Sodium Level 140 mmol/L (136-145) Potassium Level 4.0 mmol/L (3.5-5.1) Chloride Level 107 mmol/L (98-107) Carbon Dioxide Level 26 mmol/L (21-32) Anion Gap 7 (6-14) Blood Urea Nitrogen 21 mg/dL (7-20) H Creatinine 1.0 mg/dL (0.6-1.0) Estimated GFR (Cockcroft-Gault) 60.8 BUN/Creatinine Ratio 21 (6-20) H Glucose Level 96 mg/dL (70-99) Calcium Level 8.6 mg/dL (8.5-10.1) Total Bilirubin 0.2 mg/dL (0.2-1.0) Aspartate Amino Transferase (AST) 15 U/L (15-37) Alanine Aminotransferase (ALT) 21 U/L (14-59) Alkaline Phosphatase 73 U/L (46-116) Total Protein 7.3 g/dL (6.4-8.2) Albumin 3.6 g/dL (3.4-5.0) Albumin/Globulin Ratio 1.0 (1.0-1.7) Lipase 81 U/L (73-393) Urine Collection Type U cath Urine Color Straw Urine Clarity Hazy Urine pH 6.0 Urine Specific [place] >=1.030 Urine Protein 30 mg/dl (NEG-TRACE) Urine Glucose (UA) Neg mg/dL (NEG) Urine Ketones (Stick) Neg mg/dL (NEG) Urine Blood Small (NEG) Urine Nitrite Neg (NEG) Urine Bilirubin Neg (NEG) Urine Urobilinogen Dipstick 0.2 mg/dL (0.2 mg/dL) Urine Leukocyte Esterase Neg (NEG) Urine RBC 3-5 /HPF (0-2) Urine WBC 5-10 /HPF (0-4) Urine Squamous Epithelial Cells Mod /LPF Urine Bacteria Few /HPF (0-FEW) Urine Mucus Marked /LPF Urine Test Negative (NEG) EKG EKG [] Radiology/Procedures Radiology/Procedures [] Course & Med Decision Making Course & Med Decision Making Pertinent Labs and Imaging studies reviewed. (See chart for details) The patient presents with vomiting & urinary symptoms. Gave IV fluids & zofran. Labs as above, has anemia, UA contaminated but with symptoms will treat with keflex. Recommend rest, hydration, zofran for nausea, tylenol or ibuprofen for pain. Follow up with PCP in 2-3 days. Come back for high fever, severe pain, uncontrolled vomiting, any otherwise worsening condition. Discharged home in stable condition. [] Dragon Disclaimer Dragon Disclaimer This chart was dictated in whole or in part using Voice Recognition software in a busy, high-work load, and often noisy Emergency Department environment. It may contain unintended and wholly unrecognized errors or omissions. Departure Departure: Impression: Primary Impression: Urinary tract infection Additional Impression: Nausea & vomiting Disposition: 01 HOME, SELF-CARE Condition: STABLE Referrals: MARIA BERNARDO (PCP) Patient Instructions: Nausea and Vomiting, [id number], Urinary Tract Infection, [id number] Additional Instructions: You were seen in the emergency department today for nausea & vomiting. Please take the prescribed antibiotic for urinary tract infection. Drink fluids to stay hydrated & use zofran as needed for nausea. Follow up with primary care doctor in 2-3 days. Come back for high fever, severe pain, uncontrolled vomiting, any otherwise worsening condition. Scripts Cephalexin (KEFLEX) 500 Mg Capsule 1 CAP PO BID, #14 CAP Prov: RODNEY MILLAN MD 07/27/17 Ondansetron (ZOFRAN ODT) 4 Mg Tab.rapdis 1 TAB SL Q8HRS, #10 TAB Prov: RODNEY MILLAN MD 07/27/17 Problem Qualifiers Primary Impression: Urinary tract infection Urinary tract infection type: site unspecified Hematuria presence: without hematuria Qualified Codes: N39.0 - Urinary tract infection, site not specified Additional Impression: Nausea & vomiting Vomiting type: unspecified Vomiting Intractability: non-intractable Qualified Codes: R11.2 - Nausea with vomiting, unspecified RODNEY MILLAN MD Jul 27, 2017 21:53
[2017-07-27 22:00] VITALS: BP 112/57
== END 2017-07-27 22:00 | disposition home or self-care (01) ==
LOC: ER 17:07
DX: N39.0 Urinary tract infection, site not specified (principal); I10 Essential (primary) hypertension; I25.2 Old myocardial infarction; F17.200 Nicotine dependence, unspecified, uncomplicated; Z88.2 Allergy status to sulfonamides; Z88.8 Allergy status to other drugs, medicaments and biological substances
CPT/HCPCS: 36415; 80053; 81001; 81025; 83690; 85025; 87086; 96361; 96374; 99284; J2405; J7120

== ENCOUNTER 2017-07-29 20:25 | Emergency (ER) | payer OTHER ==
[~2017-07-29] VITALS: Ht 162.6 cm; Wt 87.3 kg
[2017-07-29] MEDS ORDERED: HYDR453.3 TP (21:02)
--- NOTE | 2017-07-29 21:03 | PHYS DOC ---
Past History Past Medical History: No Pertinent History, Bipolar, Hypertension, [place], Other Additional Past Medical Histor: Multiple Sclerosis; DVT left leg Past Surgical History: Smoking: Cigarettes, Less than 1pk/day Alcohol Use: None Drug Use: None Adult General Chief Complaint Chief Complaint: Rash on right foot HPI HPI Patient is a 42 year old female who presents with rash on right foot. it has been there for 'months." The rash is on the top and outer side of her foot. She denies rash anywhere else. She was here 07/27/17 and had lab done (NORMAL CBC AND CHEMISTRY) and treated for UTI (CATH SPECIMEN WITH CULTURE NEG THUS FAR) and placed on Keflex. She has MS with Chronic left sided weakness and prior right sided weakness in MS flare (05/2017). She states she bears most of her weight on the right lower leg. There was no mention of the rash on her last visit. She also complains of left leg increased swelling for "months." Again, no mention of this complaint 2 days ago. She has a KNOWN DVT in the Left lower leg and is on Eliquis. SHe has been compliant with her Eliquis. Review of Systems Review of Systems Constitutional: Denies fever or chills Eyes: Denies change in visual acuity, redness, or eye pain HENT: Denies nasal congestion or sore throat Respiratory: Denies cough or shortness of breath Cardiovascular: No chest pain GI: Denies abdominal pain, nausea, vomiting, bloody stools or diarrhea : Denies dysuria or hematuria (under treatment for UTI now but symptoms resolved). Musculoskeletal: Denies back pain or joint pain Integument: Denies skin lesions. Focal area of rash on right foot only. Neurologic: Denies headache, MS with chronic left sided weakness. All other systems were reviewed and found to be within normal limits, except as documented in this note. Allergies Allergies Allergies Coded Allergies Type Severity Reaction Last Updated Verified Sulfa (Sulfonamide Antibiotics) Allergy Intermediate 08/17/14 No ketorolac Allergy Intermediate 08/17/14 Yes Physical Exam Physical Exam Constitutional: Well developed, well nourished, no acute distress, non-toxic appearance. HENT: Normocephalic, atraumatic, bilateral external ears normal, oropharynx moist, no oral exudates, nose normal. Eyes: PERRLA, EOMI, conjunctiva normal, no discharge. Neck: Normal range of motion, no tenderness, supple, no stridor. Cardiovascular:Heart rate regular rhythm, no murmur Lungs & Thorax: Bilateral breath sounds clear to auscultation Abdomen: Bowel sounds normal, soft, no tenderness, no masses, no pulsatile masses. Skin: Warm, dry, no erythema. Non raised erythematous rash to right foot; dorsum lateral aspect. NVI distally. Non blanching. No lesions or bullae. Back: No tenderness, no CVA tenderness. Extremities: No tenderness, no cyanosis, no clubbing, ROM intact, bilateral edema more on left. No erythema or warmth of either lower leg. Neurologic: Alert and oriented X 3, normal motor function, normal sensory function, no focal deficits noted. Psychologic: Affect normal, judgement normal, mood normal. Current Patient Data Vital Signs BP 117/44, P 84, sat 97% Course & Med Decision Making Course & Med Decision Making Reviewed prior records. This is clearly a long-standing problem. Her left leg shows some slight lymphedema from the known clot. At this point there is no emergent intervention needed as she is on her as an anticoagulant. She has no respiratory complaints or evidence of progression of clot. She is to contact her PCP regarding physical therapy and lymphedema treatment outpatient. Her right foot rash is rather difficult to determine. Does not appear to be consistent with any emergent rash that I am familiar with. It may very well be a pressure-type rash associated with the fact that she needs more on that right foot and on the outer aspect which she walks. We'll try steroid cream and have her follow-up with podiatry as she may need some changes to her shoes and perhaps have an orthotic device made. I have spoken with the patient and/or caregivers. I have explained the patient' s condition, diagnosis and treatment plan based on the information available to me at this time. I have answered the patient's and/or caregiver's questions and addressed any concerns. The patient and/or caregivers have as good an understanding of the patient's diagnosis, condition and treatment plan as can be expected at this point. The patient's condition is stable and appropriate for discharge from the emergency department. The patient will pursue further outpatient evaluation with the primary care physician or other designated or consulting physician as outlined in the discharge instructions. The patient and/or caregivers are agreeable to this plan of care and follow-up instructions have been explained in detail. The patient and/or caregivers have received these instructions in written format and have expressed an understanding of the discharge instructions. The patient and/or caregivers are aware that any significant change in condition or worsening of symptoms should prompt an immediate return to this or the closest emergency department or a call to 911. Angelon Disclaimer Dragon Disclaimer This electronic medical record was generated, in whole or in part, using a voice recognition dictation system. Departure Departure: Impression: Primary Impression: Rash Additional Impressions: Leg edema, left Multiple sclerosis Chronic deep vein thrombosis (DVT) of left lower extremity Disposition: HOME, SELF-CARE Condition: STABLE Referrals: MARIA BERNARDO (PCP) Patient Instructions: Rash Additional Instructions: Contact her physician regarding treatment for the swelling from the blood clot. Physical therapy can often help with this and treatment for lymphedema is helpful. This could be set up outpatient. It is unclear what is causing her right foot rash. This is a chronic rash. It may be due to more pressure on the right foot from walking as your left leg is weaker. I suggest seeing a clinical education manager. Scripts Hydrocortisone (HYDROCORTISONE) 453.6 Gm Cream..g. 1 IGGY TP BID, #60 GM Prov: JASSON DUNAWAY MD 07/29/17 Problem Qualifiers Additional Impressions: Chronic deep vein thrombosis (DVT) of left lower extremity Affected thrombotic vein of extremity: unspecified vein of extremity Qualified Codes: I82.502 - Chronic embolism and thrombosis of unspecified deep veins of left lower extremity JASSON DUNAWAY MD Jul 29, 2017 21:03
[2017-07-29 21:20] VITALS: BP 104/55
== END 2017-07-29 21:20 | disposition home or self-care (01) ==
LOC: ER 20:25
DX: R21 Rash and other nonspecific skin eruption (principal); R60.0 Localized edema; G35 Multiple sclerosis; I82.502 Chronic embolism and thrombosis of unspecified deep veins of left lower extremity; I10 Essential (primary) hypertension; F31.9 Bipolar disorder, unspecified; I25.2 Old myocardial infarction; F17.210 Nicotine dependence, cigarettes, uncomplicated; Z88.2 Allergy status to sulfonamides; Z88.8 Allergy status to other drugs, medicaments and biological substances
CPT/HCPCS: 99283

== ENCOUNTER 2017-08-04 14:53 | Emergency (ER) | payer OTHER ==
[~2017-08-04] VITALS: Ht 162.6 cm; Wt 87.3 kg
[~2017-08-04 14:53] MED LIST changes: +HYDR453.3 TP
[2017-08-04 15:06] VITALS: BP 113/69
[2017-08-04 15:30] LABS: BASO % 1 % (0-3); EOS % 0 % (0-3); HEMATOCRIT 25.7 % (36.0-47.0); HEMOGLOBIN 8.1 g/dL (12.0-15.5); LYMPH # 1.6 x10^3/uL (1.0-4.8); LYMPH % 31 % (24-48); MEAN CORPUSCULAR HEMOGLOBIN 23 pg (25-35); MEAN CORPUSCULAR HGB CONC 31 g/dL (31-37); MEAN CORPUSCULAR VOLUME 73 fL (79-100); MONO # 0.3 x10^3/uL (0.0-1.1); MONO % 7 % (0-9); NEUT # 3.1 x10^3uL (1.8-7.7); NEUT % 62 % (31-73); PLATELET COUNT 252 x10^3/uL (140-400); RED BLOOD COUNT 3.53 x10^6/uL (3.50-5.40); RED CELL DISTRIBUTION WIDTH 18.1 % (11.5-14.5)
[2017-08-04 15:35] LABS: CALCIUM 8.5 mg/dL (8.5-10.1); CREATININE 0.7 mg/dL (0.6-1.0); GFR 91.8; MAGNESIUM 2.1 mg/dL (1.8-2.4); POTASSIUM 3.8 mmol/L (3.5-5.1)
[2017-08-04] MEDS ORDERED: ONDANSETRON ODT 4 MG TAB.RAPDIS PO ONE ×2 (16:30→18:45)
[2017-08-04 16:50] LABS: ANISOCYTOSIS SLIGHT; HYPOCHROMIA MOD; MICROCYTOSIS SLIGHT; OVALOCYTES FEW; PLT ESTIMATE ADEQUATE (ADEQUATE); POLYCHROMASIA PRESENT
--- NOTE | 2017-08-04 19:37 | RAD ---
Transvaginal pelvic ultrasound dated 08/04/2017. Comparison made to 07/24/2010. Clinical indication: Pelvic pain and bleeding for 2 weeks. FINDINGS: Transvaginal imaging performed. Uterus measures 9.3 x 5.8 x 4.4 cm. Myometrium appears somewhat heterogeneous, without discrete mass. Endometrial complex is normal in thickness for age measuring 4 mm. Right ovary measures 2.3 x 2.6 x 2.1 cm. Left ovary measures 3.5 x 2.3 x 2.1 cm. No adnexal mass or free fluid. IMPRESSION: 1. No acute sonographic abnormality. 2. Heterogeneous appearance of the myometrium, nonspecific. Consider fibroids or adenomyosis. Electronically signed by: Sharan Cortez MD (08/04/2017 7:34 PM) [id number]
== END 2017-08-04 20:25 | disposition short-term general hospital (02) ==
LOC: ER 14:53
DX: N93.8 Other specified abnormal uterine and vaginal bleeding (principal); D64.9 Anemia, unspecified
CPT/HCPCS: 36415; 76830; 80048; 83735; 85025; 99285; Q0162

== ENCOUNTER 2017-08-22 14:27 | Emergency (ER) | payer OTHER ==
[~2017-08-22] VITALS: Ht 162.6 cm; Wt 87.3 kg
[2017-08-22 14:27] VITALS: BP 119/75
[2017-08-22] MEDS ORDERED: IV NORMAL SALINE 1,000ML 1,000 ML IV SCH (15:00)
[2017-08-22 15:17] LABS: BASO % 1 % (0-3); EOS % 0 % (0-3); HEMATOCRIT 31.5 % (36.0-47.0); HEMOGLOBIN 10.2 g/dL (12.0-15.5); LYMPH # 1.4 x10^3/uL (1.0-4.8); LYMPH % 29 % (24-48); MEAN CORPUSCULAR HEMOGLOBIN 25 pg (25-35); MEAN CORPUSCULAR HGB CONC 32 g/dL (31-37); MEAN CORPUSCULAR VOLUME 77 fL (79-100); MONO # 0.3 x10^3/uL (0.0-1.1); MONO % 6 % (0-9); NEUT # 3.1 x10^3uL (1.8-7.7); NEUT % 65 % (31-73); PLATELET COUNT 334 x10^3/uL (140-400); RED BLOOD COUNT 4.09 x10^6/uL (3.50-5.40); RED CELL DISTRIBUTION WIDTH 22.9 % (11.5-14.5); WHITE BLOOD COUNT 4.8 x10^3/uL (4.0-11.0)
[2017-08-22 15:26] LABS: PREG TEST PT QUAL NEGATIVE (NEG)
[2017-08-22 15:28] LABS: ALBUMIN 3.4 g/dL (3.4-5.0); ALBUMIN/GLOBULIN RATIO 0.9 (1.0-1.7); CREATININE 0.8 mg/dL (0.6-1.0); GFR 78.7; POTASSIUM 3.9 mmol/L (3.5-5.1); TOTAL BILIRUBIN 0.3 mg/dL (0.2-1.0); TOTAL PROTEIN 7.4 g/dL (6.4-8.2)
--- NOTE | 2017-08-22 16:01 | PHYS DOC ---
Past History Past Medical History: Asthma, Bipolar, Hypertension, OR, Other Additional Past Medical Histor: Multiple Sclerosis; DVT left leg Past Surgical History: Smoking: Cigarettes, Less than 1pk/day Alcohol Use: None Drug Use: None Adult General Chief Complaint Chief Complaint: VAGINAL PROBLEM HPI HPI 42-year-old female patient with history of MS and bipolar disorder and recent cholecystectomy and taking Xarelto related to DVT and recent heavy vaginal bleeding was admitted to the [facility] one week ago and instructed to follow-up with GRAIN WAFER MACHINE OPERATOR for hysterectomy. Patient states she started to have vaginal bleeding since yesterday as a heavy vaginal bleeding with passing blood clots and lower abdominal cramping pain chest pain and shortness of breath and dizziness. Patient ate if her pain moderate and doesn't want pain medication. Patient denies other bleeding and easy bruising. Review of Systems Review of Systems Constitutional: Denies fever or chills [] Eyes: Denies change in visual acuity, redness, or eye pain [] HENT: Denies nasal congestion or sore throat [] Respiratory: Denies cough or shortness of breath [] Cardiovascular: No additional information not addressed in HPI [] GI: Denies abdominal pain, nausea, vomiting, bloody stools or diarrhea [] : Denies dysuria or hematuria, reports vaginal bleeding [] Musculoskeletal: Denies back pain or joint pain [] Integument: Denies rash or skin lesions [] Neurologic: Denies headache, focal weakness or sensory changes [] Endocrine: Denies polyuria or polydipsia [] All other systems were reviewed and found to be within normal limits, except as documented in this note. Current Medications Current Medications Current Medications Medications (Trade) Dose Ordered Sig/Ladonna Start Time Stop Time Status Last Admin Dose Admin Sodium Chloride 1,000 ml @ 1,000 mls/hr Q1H 08/22/17 15:00 08/22/17 15:59 08/22/17 15:10 1,000 MLS/HR Allergies Allergies Allergies Coded Allergies Type Severity Reaction Last Updated Verified Sulfa (Sulfonamide Antibiotics) Allergy Intermediate 08/17/14 No ketorolac Allergy Intermediate 08/17/14 Yes Physical Exam Physical Exam Constitutional: Mild distress, non-toxic appearance. [] HENT: Normocephalic, atraumatic, bilateral external ears normal, oropharynx moist, no oral exudates, nose normal, mild pallor[] Eyes: PERRLA, EOMI, conjunctiva normal, no discharge. [] Neck: Normal range of motion, no tenderness, supple, no stridor. [] Cardiovascular:Heart rate regular rhythm, no murmur [] Lungs & Thorax: Bilateral breath sounds clear to auscultation [] Abdomen: Bowel sounds normal, soft, no tenderness, no masses, no pulsatile masses. [] Skin: Warm, dry, no erythema, no rash. [] Back: No tenderness, no CVA tenderness. [] Extremities: No tenderness, no cyanosis, no clubbing, ROM intact, no edema. [] Neurologic: Alert and oriented X 3, normal motor function, normal sensory function, no focal deficits noted. [] Psychologic: Affect normal, judgement normal, mood normal. [] Vaginal exam with present of building custodial supervisor showed moderate vaginal bleeding some some blood clots in vagina Current Patient Data Lab Results Laboratory Tests Test 08/22/17 14:55 White Blood Count 4.8 x10^3/uL (4.0-11.0) Red Blood Count 4.09 x10^6/uL (3.50-5.40) Hemoglobin 10.2 g/dL (12.0-15.5) L Hematocrit 31.5 % (36.0-47.0) L Mean Corpuscular Volume 77 fL (79-100) L Mean Corpuscular Hemoglobin 25 pg (25-35) Mean Corpuscular Hemoglobin Concent 32 g/dL (31-37) Red Cell Distribution Width 22.9 % (11.5-14.5) H Platelet Count 334 x10^3/uL (140-400) Neutrophils (%) (Auto) 65 % (31-73) Lymphocytes (%) (Auto) 29 % (24-48) Monocytes (%) (Auto) 6 % (0-9) Eosinophils (%) (Auto) 0 % (0-3) Basophils (%) (Auto) 1 % (0-3) Neutrophils # (Auto) 3.1 x10^3uL (1.8-7.7) Lymphocytes # (Auto) 1.4 x10^3/uL (1.0-4.8) Monocytes # (Auto) 0.3 x10^3/uL (0.0-1.1) Eosinophils # (Auto) 0.0 x10^3/uL (0.0-0.7) Basophils # (Auto) 0.0 x10^3/uL (0.0-0.2) Sodium Level 142 mmol/L (136-145) Potassium Level 3.9 mmol/L (3.5-5.1) Chloride Level 107 mmol/L (98-107) Carbon Dioxide Level 24 mmol/L (21-32) Anion Gap 11 (6-14) Blood Urea Nitrogen 14 mg/dL (7-20) Creatinine 0.8 mg/dL (0.6-1.0) Estimated GFR (Cockcroft-Gault) 78.7 BUN/Creatinine Ratio 18 (6-20) Glucose Level 97 mg/dL (70-99) Calcium Level 9.0 mg/dL (8.5-10.1) Total Bilirubin 0.3 mg/dL (0.2-1.0) Aspartate Amino Transferase (AST) 13 U/L (15-37) L Alanine Aminotransferase (ALT) 21 U/L (14-59) Alkaline Phosphatase 94 U/L (46-116) Total Protein 7.4 g/dL (6.4-8.2) Albumin 3.4 g/dL (3.4-5.0) Albumin/Globulin Ratio 0.9 (1.0-1.7) L Serum Test, Qualitative Negative (NEG) EKG EKG [] Radiology/Procedures Radiology/Procedures [] Course & Med Decision Making Course & Med Decision Making Pertinent Labs reviewed. (See chart for details) Evaluation the patient showed 42-year-old female patient brought in by EMS because of her vaginal bleeding. Patient is on Xarelto and had recent hospitalization for vaginal bleeding and instructed to have hysterectomy. Patient had hemoglobin of 10.2 that is in her baseline. Vaginal exam showed moderate bleeding. Patient psychiatric hold on Xarelto and follow with her primary care physician regarding continued Xarelto. The patient secondary to follow with her GRAIN WAFER MACHINE OPERATOR. [] Dragon Disclaimer Dragon Disclaimer This electronic medical record was generated, in whole or in part, using a voice recognition dictation system. Departure Departure: Impression: Primary Impression: Abnormal vaginal bleeding Additional Impressions: Anticoagulant-induced bleeding Chronic anemia Disposition: 01 HOME, SELF-CARE (At 1637) Condition: IMPROVED Referrals: MARIA BERNARDO (PCP) Patient Instructions: Abnormal Uterine Bleeding Additional Instructions: Stop taking Xarelto and follow up with your physician in 1-2 days regarding taking Xarelto Follow-up with your GRAIN WAFER MACHINE OPERATOR doctor regarding abnormal vaginal bleeding in 2-3 days Drink plenty of liquids and take [id number] iron. Problem Qualifiers GABRIELE PRABHAKAR MD Aug 22, 2017 16:01
[2017-08-22 16:57] LABS: OVALOCYTES FEW; PLT ESTIMATE ADEQUATE (ADEQUATE); TEAR DROP CELLS OCC
[2017-08-22 16:58] LABS: ANISOCYTOSIS MOD; HYPOCHROMIA SLIGHT; MICROCYTOSIS SLIGHT
== END 2017-08-22 17:00 | disposition home or self-care (01) ==
LOC: ER 14:27
DX: N93.8 Other specified abnormal uterine and vaginal bleeding (principal); D68.8 Other specified coagulation defects; D64.9 Anemia, unspecified; G35 Multiple sclerosis; F31.9 Bipolar disorder, unspecified; I10 Essential (primary) hypertension; J45.909 Unspecified asthma, uncomplicated; I25.2 Old myocardial infarction; F17.210 Nicotine dependence, cigarettes, uncomplicated; Z86.718 Personal history of other venous thrombosis and embolism; Z90.710 Acquired absence of both cervix and uterus; Z98.890 Other specified postprocedural states; Z88.2 Allergy status to sulfonamides; Z88.8 Allergy status to other drugs, medicaments and biological substances
CPT/HCPCS: 36415; 80053; 84703; 85025; 85610; 96360; 99284-25; J7030

== ENCOUNTER 2017-09-10 13:08 | Emergency (ER) | payer OTHER ==
[~2017-09-10] VITALS: Ht 162.6 cm; Wt 86.2 kg
--- NOTE | 2017-09-10 13:36 | RAD ---
CT scan of the head without contrast 09/10/2017 Clinical History: Right-sided weakness. Code stroke.. Technique: Unenhanced, contiguous, 5 mm axial sections were obtained through the head. One or more of the following individualized dose reduction techniques were utilized for this study: 1. Automated exposure control. 2. Adjustment of the mA and/or kV according to patient size. 3. Use of iterative reconstruction technique. Findings: Comparison study is dated 10/09/2016. There is mild generalized parenchymal atrophy. An area of encephalomalacia is seen involving the right frontal lobe, unchanged. Areas of decreased attenuation are seen within the white matter both cerebral hemispheres consistent with areas of small vessel ischemic disease. No acute parenchymal abnormality is seen. No extra-axial fluid collection is noted. No skull fracture is noted. Impression: No acute intracranial abnormality is seen. This result was called to Dr. Thompson in the emergency department.
[2017-09-10 13:49] LABS: BASO % 0 % (0-3); EOS % 0 % (0-3); HEMATOCRIT 33.4 % (36.0-47.0); HEMOGLOBIN 10.6 g/dL (12.0-15.5); LYMPH # 2.2 x10^3/uL (1.0-4.8); LYMPH % 42 % (24-48); MEAN CORPUSCULAR HEMOGLOBIN 24 pg (25-35); MEAN CORPUSCULAR HGB CONC 32 g/dL (31-37); MEAN CORPUSCULAR VOLUME 77 fL (79-100); MONO # 0.4 x10^3/uL (0.0-1.1); MONO % 7 % (0-9); NEUT # 2.7 x10^3uL (1.8-7.7); NEUT % 51 % (31-73); PLATELET COUNT 202 x10^3/uL (140-400); RED BLOOD COUNT 4.36 x10^6/uL (3.50-5.40); RED CELL DISTRIBUTION WIDTH 20.8 % (11.5-14.5); WHITE BLOOD COUNT 5.4 x10^3/uL (4.0-11.0)
--- NOTE | 2017-09-10 13:49 | RAD ---
Indication: Chest pain. Time of exam 1331 hours. Correlation is made with prior study 06/13/2017. FINDINGS: The heart size is normal. The lungs are clear. No pleural effusion or pneumothorax is identified. The pulmonary vascularity is normal. IMPRESSION: No acute abnormality detected.
[2017-09-10 14:11] LABS: ALBUMIN 3.4 g/dL (3.4-5.0); ALBUMIN/GLOBULIN RATIO 0.9 (1.0-1.7); CALCIUM 8.8 mg/dL (8.5-10.1); CREATININE 0.9 mg/dL (0.6-1.0); GFR 68.7; POTASSIUM 4.1 mmol/L (3.5-5.1); TOTAL BILIRUBIN 0.3 mg/dL (0.2-1.0); TOTAL PROTEIN 7.1 g/dL (6.4-8.2)
[2017-09-10 14:13] LABS: BILIRUBIN,URINE NEG (NEG); CLARITY,URINE TURBID; COLOR,URINE YELLOW; GLUCOSE,URINE NEG (NEG)
[2017-09-10 14:14] LABS: AMORPHOUS SEDIMENT,UR PRESENT /HPF; BACTERIA,URINE FEW /HPF (0-FEW); NITRITE,URINE NEG (NEG); RBC,URINE 0 /HPF (0-2); SQUAMOUS EPITHELIAL CELL,UR FEW /LPF; UROBILINOGEN,URINE 0.2 mg/dL (0.2 mg/dL); WBC,URINE 0 /HPF (0-4)
[2017-09-10 14:23] LABS: ANISOCYTOSIS SLIGHT; HYPOCHROMIA SLIGHT; OVALOCYTES FEW; PLT ESTIMATE ADEQUATE (ADEQUATE); SCHISTOCYTES OCC; TEAR DROP CELLS OCC
[2017-09-10] MEDS ORDERED: IV NORMAL SALINE 1,000ML 1,000 ML IV ONE (14:45)
[2017-09-10] MEDS ORDERED: ASPIRIN 81 MG TAB.CHEW PO ONE (15:00)
[2017-09-10] MEDS ORDERED: methylPREDNISolone SOD SUCC PF 125 MG/2 ML VIAL. IV ONE (15:00)
[2017-09-10 15:39] VITALS: BP 96/73
--- NOTE | 2017-09-10 15:40 | EKG ---
[address] [address] Test Date: 2017-09-10 Test Time: 13:21:50 Pat Name: SANDRA STORY Department: Room: Gender: F [employer] Supervisor: YUDITH : [id number] Requested By: RODNEY MILLAN Order Number: [id number] Reading MD: Measurements Intervals [place] Rate: 77 P: 41 NE: 142 QRS: 17 QRSD: 88 T: 14 QT: 392 QTc: 445 Interpretive Statements SINUS RHYTHM NORMAL ECG RI6.01 Unconfirmed report No previous ECG available for comparison
--- NOTE | 2017-09-10 15:40 | PHYS DOC ---
Past History Past Medical History: Anxiety, Bipolar, Depression, CA, Migraines, Stroke Additional Past Medical Histor: Multiple Sclerosis; DVT left leg Past Surgical History: Smoking: Cigarettes, Less than 1pk/day Alcohol Use: None Drug Use: None Adult General Chief Complaint Chief Complaint: WEAKNESS/GENERALIZED HPI HPI Patient is a 42 year old female who presents with chest pain. The patient initially states she called EMS because she had onset of substernal chest tightness with radiation to left arm & jaw. She reports associated shortness of breath & nausea, denies diaphoresis. Denies fevers/chills, cough, lower extremity pain or swelling. She also notes that around the same time she noticed weakness & numbness to her left arm & leg, although she states she has chronic numbness & weakness after previous stroke. She reports difficulty with word finding, states her speech is slurred but unchanged from baseline. Unsure if difficulty with word finding is new or old. She reports history of CAD but denies cardiac stents. History of DVT of her lower extremity. She does report that she has previous stroke as well as multiple sclerosis. She states she previously took xarelto & aspirin due to history of stroke, but she states this was discontinued after she recently underwent lap zeinab & had bleeding complications. Review of Systems Review of Systems Constitutional: Denies fever or chills Eyes: Denies change in visual acuity HENT: Denies nasal congestion or sore throat Respiratory: Denies cough, reports shortness of breath Cardiovascular: Reports chest pain, denies edema GI: Denies abdominal pain, nausea, vomiting, bloody stools or diarrhea : Denies dysuria or hematuria Musculoskeletal: Denies back pain or joint pain Integument: Denies rash or skin lesions Neurologic: Denies headache, reports upper & lower extremity numbness & weakness. All other systems were reviewed and found to be within normal limits, except as documented in this note. Current Medications Current Medications Current Medications Medications (Trade) Dose Ordered Sig/Ladonna Start Time Stop Time Status Last Admin Dose Admin Aspirin (Children'S Aspirin) 324 mg 1X ONCE 09/10/17 15:00 09/10/17 15:01 DC 09/10/17 15:05 324 MG Methylprednisolone Sodium Succinate (SOLU-Medrol 125MG VIAL) 125 mg 1X ONCE 09/10/17 15:00 09/10/17 15:01 DC 09/10/17 15:08 125 MG Sodium Chloride 1,000 ml @ 1,000 mls/hr 1X ONCE 09/10/17 14:45 09/10/17 15:44 09/10/17 15:05 1,000 MLS/HR Allergies Allergies Allergies Coded Allergies Type Severity Reaction Last Updated Verified Sulfa (Sulfonamide Antibiotics) Allergy Intermediate 08/17/14 No ketorolac Allergy Intermediate 08/17/14 Yes Physical Exam Physical Exam Constitutional: obese, no acute distress, non-toxic appearance. HENT: Normocephalic, atraumatic, bilateral external ears normal, oropharynx moist, nose normal. Eyes: PERRLA, EOMI, conjunctiva normal, no discharge. Neck: supple, no stridor. Cardiovascular: RRR, no murmurs, no edema. Lungs & Thorax: LCTAB, no wheezing, no respiratory distress. reproducible tenderness with palpation over left anterior chest wall. Abdomen: soft, nontender, nondistended. Skin: Warm, dry, no erythema, no rash. Back: No tenderness. Extremities: No tenderness, no edema. no calf tenderness or swelling. Neurologic: Alert and oriented X 3, cranial nerves 2-12 grossly intact with the exception of right sided facial droop (old), 4/5 strength to LUE vs. 5/5 strength to RUE with block machine operator strength & resisted biceps flexion/extension, decreased sensation to LUE, normal to the RUE, symmetric strength/sensation to lower extremities though both are 4/5 strength with resisted plantarflexion/ dorsiflexion, no focal deficits noted. Psychologic: flat affect Current Patient Data Lab Results Laboratory Tests Test 09/10/17 13:34 09/10/17 13:37 09/10/17 13:45 09/10/17 15:09 Glucose (Fingerstick) 72 mg/dL (70-99) White Blood Count 5.4 x10^3/uL (4.0-11.0) Red Blood Count 4.36 x10^6/uL (3.50-5.40) Hemoglobin 10.6 g/dL (12.0-15.5) L Hematocrit 33.4 % (36.0-47.0) L Mean Corpuscular Volume 77 fL (79-100) L Mean Corpuscular Hemoglobin 24 pg (25-35) L Mean Corpuscular Hemoglobin Concent 32 g/dL (31-37) Red Cell Distribution Width 20.8 % (11.5-14.5) H Platelet Count 202 x10^3/uL (140-400) Neutrophils (%) (Auto) 51 % (31-73) Lymphocytes (%) (Auto) 42 % (24-48) Monocytes (%) (Auto) 7 % (0-9) Eosinophils (%) (Auto) 0 % (0-3) Basophils (%) (Auto) 0 % (0-3) Neutrophils # (Auto) 2.7 x10^3uL (1.8-7.7) Lymphocytes # (Auto) 2.2 x10^3/uL (1.0-4.8) Monocytes # (Auto) 0.4 x10^3/uL (0.0-1.1) Eosinophils # (Auto) 0.0 x10^3/uL (0.0-0.7) Basophils # (Auto) 0.0 x10^3/uL (0.0-0.2) Platelet Estimate Adequate (ADEQUATE) Hypochromasia Slight Anisocytosis Slight Tear Drop Cells Occ Ovalocytes Few Schistocytes Occ Prothrombin Time 10.4 SEC (9.4-11.4) Prothrombin Time INR 1.0 (0.9-1.1) Sodium Level 140 mmol/L (136-145) Potassium Level 4.1 mmol/L (3.5-5.1) Chloride Level 108 mmol/L (98-107) H Carbon Dioxide Level 24 mmol/L (21-32) Anion Gap 8 (6-14) Blood Urea Nitrogen 20 mg/dL (7-20) Creatinine 0.9 mg/dL (0.6-1.0) Estimated GFR (Cockcroft-Gault) 68.7 BUN/Creatinine Ratio 22 (6-20) H Glucose Level 91 mg/dL (70-99) Calcium Level 8.8 mg/dL (8.5-10.1) Magnesium Level 2.0 mg/dL (1.8-2.4) Total Bilirubin 0.3 mg/dL (0.2-1.0) Aspartate Amino Transferase (AST) 10 U/L (15-37) L Alanine Aminotransferase (ALT) 18 U/L (14-59) Alkaline Phosphatase 73 U/L (46-116) Troponin I Quantitative < 0.017 ng/mL (0-0.055) VJ-Rro-H-Type Natriuretic Peptide 27 pg/mL (0-124) Total Protein 7.1 g/dL (6.4-8.2) Albumin 3.4 g/dL (3.4-5.0) Albumin/Globulin Ratio 0.9 (1.0-1.7) L Urine Collection Type Unknown Urine Color Yellow Urine Clarity Turbid Urine pH 7.0 Urine Specific [place] 1.020 Urine Protein Trace (NEG-TRACE) Urine Glucose (UA) Neg mg/dL (NEG) Urine Ketones (Stick) Neg mg/dL (NEG) Urine Blood Trace (NEG) Urine Nitrite Neg (NEG) Urine Bilirubin Neg (NEG) Urine Urobilinogen Dipstick 0.2 mg/dL (0.2 mg/dL) Urine Leukocyte Esterase Neg (NEG) Urine RBC 0 /HPF (0-2) Urine WBC 0 /HPF (0-4) Urine Squamous Epithelial Cells Few /LPF Urine Amorphous Sediment Present /HPF Urine Bacteria Few /HPF (0-FEW) Urine Mucus Slight /LPF POC Urine HCG, Qualitative hcg negative (Negative) EKG EKG Interpreted by me: 1321: Normal sinus rhythm rate 77, no acute ST or T wave changes, normal intervals, no ectopy.[] Radiology/Procedures Radiology/Procedures PROCEDURE: CT CODE STROKE HEAD WO CT scan of the head without contrast 09/10/2017 Clinical History: Right-sided weakness. Code stroke.. Technique: Unenhanced, contiguous, 5 mm axial sections were obtained through the head. One or more of the following individualized dose reduction techniques were utilized for this study: 1. Automated exposure control. 2. Adjustment of the mA and/or kV according to patient size. 3. Use of iterative reconstruction technique. Findings: Comparison study is dated 10/09/2016. There is mild generalized parenchymal atrophy. An area of encephalomalacia is seen involving the right frontal lobe, unchanged. Areas of decreased attenuation are seen within the white matter both cerebral hemispheres consistent with areas of small vessel ischemic disease. No acute parenchymal abnormality is seen. No extra-axial fluid collection is noted. No skull fracture is noted. Impression: No acute intracranial abnormality is seen. This result was called to Dr. Thompson in the emergency department. DICTATED AND SIGNED BY: SHAKILA LEUNG MD DATE: 09/10/17 1330 PROCEDURE: CHEST AP ONLY Indication: Chest pain. Time of exam 1331 hours. Correlation is made with prior study 06/13/2017. FINDINGS: The heart size is normal. The lungs are clear. No pleural effusion or pneumothorax is identified. The pulmonary vascularity is normal. IMPRESSION: No acute abnormality detected. DICTATED AND SIGNED BY: ALEXYS OSULLIVAN MD DATE: 09/10/17 0148[] Course & Med Decision Making Course & Med Decision Making Pertinent Labs and Imaging studies reviewed. (See chart for details) The patient presents initially for chest pain, also complains of left-sided numbness and weakness. She had received nitroglycerin in route, blood pressure initially low. It improved with normal saline infusion. Obtained EKG which did not show STEMI. She was activated as code stroke after evaluation revealed possible acute neurologic symptoms. CT head was negative for any acute intracranial process. Discussed with Dr. Ng nutritionalist for neurology. Timing of symptom onset unclear, not clear whether these are acute or chronic symptoms , concurrent diagnosis of MS with previous flares requiring admission, and also has had recent intra-abdominal history with patient reporting history of intraabdominal hemorrhage. Recommends steroids for suspected MS exacerbation, not candidate for TPA. She does feel that her symptoms have improved here. Will give solumedrol as well as aspirin. Recommended admission to the hospital for further evaluation & treatment. I actually discussed with Dr. Stone who agreed to accept here at [place], but then the patient's sister requested transfer to [place], which is also the patient's desire. Discussed with Dr. Jernigan at [facility] who agrees to accept as transfer for admission. Will transfer via [facility]. She is in stable condition at time of transfer. Dragon Disclaimer Dragon Disclaimer This electronic medical record was generated, in whole or in part, using a voice recognition dictation system. Departure Departure: Impression: Primary Impression: Neurological symptoms Additional Impressions: Multiple sclerosis exacerbation Chest pain Disposition: XFER OTHER Condition: STABLE Problem Qualifiers RODNEY THOMPSON MD Sep 10, 2017 15:40
== END 2017-09-10 16:01 | disposition short-term general hospital (02) ==
LOC: ER 13:08
DX: G35 Multiple sclerosis (principal); R07.2 Precordial pain; F31.9 Bipolar disorder, unspecified; F41.9 Anxiety disorder, unspecified; G43.909 Migraine, unspecified, not intractable, without status migrainosus; I25.2 Old myocardial infarction; F17.210 Nicotine dependence, cigarettes, uncomplicated; I25.10 Atherosclerotic heart disease of native coronary artery without angina pectoris; Z86.718 Personal history of other venous thrombosis and embolism; Z86.73 Personal history of transient ischemic attack (TIA), and cerebral infarction without residual deficits; Z88.2 Allergy status to sulfonamides; Z88.8 Allergy status to other drugs, medicaments and biological substances
CPT/HCPCS: 36415; 70450; 71010; 80053; 81001; 81025; 82947; 83735; 83880; 84484; 85025; 85610; 93005; 96361; 96374; 99285; J2930; J7030

== ENCOUNTER 2017-09-21 11:04 | Emergency (ER) | payer OTHER ==
[2017-09-21] MEDS ORDERED: IV NORMAL SALINE 1,000ML 1,000 ML IV ONE (11:45)
[2017-09-21] MEDS ORDERED: ONDANSETRON PF 4 MG/2 ML VIAL. IV ONE (11:45)
[2017-09-21 12:02] LABS: BASO % 1 % (0-3); EOS % 0 % (0-3); HEMATOCRIT 33.6 % (36.0-47.0); HEMOGLOBIN 10.6 g/dL (12.0-15.5); LYMPH # 1.4 x10^3/uL (1.0-4.8); LYMPH % 29 % (24-48); MEAN CORPUSCULAR HEMOGLOBIN 24 pg (25-35); MEAN CORPUSCULAR HGB CONC 32 g/dL (31-37); MEAN CORPUSCULAR VOLUME 77 fL (79-100); MONO # 0.3 x10^3/uL (0.0-1.1); MONO % 5 % (0-9); NEUT # 3.1 x10^3uL (1.8-7.7); NEUT % 65 % (31-73); PLATELET COUNT 256 x10^3/uL (140-400); RED BLOOD COUNT 4.37 x10^6/uL (3.50-5.40); RED CELL DISTRIBUTION WIDTH 21.2 % (11.5-14.5); WHITE BLOOD COUNT 4.9 x10^3/uL (4.0-11.0)
[2017-09-21 12:14] LABS: ALBUMIN 3.3 g/dL (3.4-5.0); ALBUMIN/GLOBULIN RATIO 0.9 (1.0-1.7); CALCIUM 8.6 mg/dL (8.5-10.1); CREATININE 0.8 mg/dL (0.6-1.0); GFR 78.7; POTASSIUM 3.8 mmol/L (3.5-5.1); TOTAL BILIRUBIN 0.2 mg/dL (0.2-1.0)
[2017-09-21 12:36] LABS: BILIRUBIN,URINE NEG (NEG); CLARITY,URINE HAZY; COLOR,URINE YELLOW; GLUCOSE,URINE NEG (NEG)
[2017-09-21 12:37] LABS: BACTERIA,URINE MOD /HPF (0-FEW); NITRITE,URINE NEG (NEG); SQUAMOUS EPITHELIAL CELL,UR FEW /LPF; UROBILINOGEN,URINE 0.2 mg/dL (0.2 mg/dL)
[2017-09-21 12:58] LABS: ANISOCYTOSIS MOD; HYPOCHROMIA SLIGHT; MICROCYTOSIS SLIGHT; OVALOCYTES FEW; PLT ESTIMATE ADEQUATE (ADEQUATE); POIKILOCYTOSIS SLIGHT; POLYCHROMASIA SLIGHT
[2017-09-21] MEDS ORDERED: PROMETHAZINE 12.5 MG in IV NORMAL SALINE 50ML 50 ML IV STA (13:52)
[2017-09-21] MEDS ORDERED: PROMETHAZINE 25 MG/ML VIAL IV ONE (14:26)
[2017-09-21] MEDS ORDERED: PROMETHAZINE IM 25 MG/ML VIAL IM ONE (14:45)
[2017-09-21] MEDS ORDERED: ONDA4TAB10 SL (15:34)
--- NOTE | 2017-09-21 15:34 | PHYS DOC ---
Past History Past Medical History: Anxiety, Bipolar, DVT, Hypertension, [place], Migraines, Other Additional Past Medical Histor: Multiple Sclerosis; DVT left leg Past Surgical History: Smoking: Cigarettes, Less than 1pk/day Alcohol Use: None Drug Use: None Adult General Chief Complaint Chief Complaint: NAUSEA/VOMITING/DIARRHEA HPI HPI Patient is a 42-year-old male presenting to the emergency department for evaluation of nausea vomiting. Patient says that she is not having any abdominal pain back pain fevers chills dysuria hematuria or abnormal vaginal bleeding vaginal discharge or diarrhea. She says that she has been exposed to some other sick people. Her emesis has been going on for approximately 3 days and she says it is whenever she eats or drinks is what she throws up. She is in no obvious distress with normal vital signs. Review of Systems Review of Systems Constitutional: Denies fever or chills [] Eyes: Denies change in visual acuity, redness, or eye pain [] HENT: Denies nasal congestion or sore throat [] Respiratory: Denies cough or shortness of breath [] Cardiovascular: No additional information not addressed in HPI [] GI: Denies abdominal pain. + nausea, vomiting. No bloody stools or diarrhea [] : Denies dysuria or hematuria [] Musculoskeletal: Denies back pain or joint pain [] Integument: Denies rash or skin lesions [] Neurologic: Denies headache, focal weakness or sensory changes [] All other systems were reviewed and found to be within normal limits, except as documented in this note. Current Medications Current Medications Current Medications Medications (Trade) Dose Ordered Sig/[facility] Start Time Stop Time Status Last Admin Dose Admin Ondansetron HCl (Zofran) 8 mg 1X ONCE 09/21/17 11:45 09/21/17 11:46 DC 09/21/17 12:26 8 MG Promethazine HCl (Phenergan Im) 25 mg 1X ONCE 09/21/17 14:45 09/21/17 14:46 DC 09/21/17 14:32 25 MG Promethazine HCl (Phenergan) 25 mg STK-MED ONCE 09/21/17 14:26 09/21/17 14:27 DC Promethazine HCl 12.5 mg/Sodium Chloride 50.5 ml @ 101 mls/hr 1X STAT 09/21/17 13:52 09/21/17 14:29 DC Sodium Chloride 1,000 ml @ 1,000 mls/hr 1X ONCE 09/21/17 11:45 09/21/17 12:44 DC 09/21/17 12:25 1,000 MLS/HR Allergies Allergies Allergies Coded Allergies Type Severity Reaction Last Updated Verified Sulfa (Sulfonamide Antibiotics) Allergy Intermediate 08/17/14 No ketorolac Allergy Intermediate 08/17/14 Yes Physical Exam Physical Exam Constitutional: Well developed, well nourished, no acute distress, non-toxic appearance. [] HENT: Normocephalic, atraumatic, bilateral external ears normal, oropharynx moist, no oral exudates, nose normal. [] Eyes: PERRLA, EOMI, conjunctiva normal, no discharge. [] Neck: Normal range of motion, no tenderness, supple, no stridor. [] Cardiovascular:Heart rate regular rhythm, no murmur [] Lungs & Thorax: Bilateral breath sounds clear to auscultation [] Abdomen: Bowel sounds normal, soft, no tenderness, no masses, no pulsatile masses. [] Skin: Warm, dry, no erythema, no rash. [] Back: No tenderness, no CVA tenderness. [] Extremities: No tenderness, no cyanosis, no clubbing, ROM intact, no edema. [] Neurologic: Alert and oriented X 3, normal motor function, normal sensory function, no focal deficits noted. [] Psychologic: Affect normal, judgement normal, mood normal. [] Current Patient Data Vital Signs Vital Signs Date Time Temp Pulse Resp B/P (MAP) Pulse Ox O2 Delivery O2 Flow Rate FiO2 09/21/17 11:10 98.5 85 16 98 Room Air Lab Results Laboratory Tests Test 09/21/17 11:50 09/21/17 12:10 09/21/17 13:33 White Blood Count 4.9 x10^3/uL (4.0-11.0) Red Blood Count 4.37 x10^6/uL (3.50-5.40) Hemoglobin 10.6 g/dL (12.0-15.5) L Hematocrit 33.6 % (36.0-47.0) L Mean Corpuscular Volume 77 fL (79-100) L Mean Corpuscular Hemoglobin 24 pg (25-35) L Mean Corpuscular Hemoglobin Concent 32 g/dL (31-37) Red Cell Distribution Width 21.2 % (11.5-14.5) H Platelet Count 256 x10^3/uL (140-400) Neutrophils (%) (Auto) 65 % (31-73) Lymphocytes (%) (Auto) 29 % (24-48) Monocytes (%) (Auto) 5 % (0-9) Eosinophils (%) (Auto) 0 % (0-3) Basophils (%) (Auto) 1 % (0-3) Neutrophils # (Auto) 3.1 x10^3uL (1.8-7.7) Lymphocytes # (Auto) 1.4 x10^3/uL (1.0-4.8) Monocytes # (Auto) 0.3 x10^3/uL (0.0-1.1) Eosinophils # (Auto) 0.0 x10^3/uL (0.0-0.7) Basophils # (Auto) 0.0 x10^3/uL (0.0-0.2) Platelet Estimate Adequate (ADEQUATE) Large Platelets Occ Polychromasia Slight Hypochromasia Slight Poikilocytosis Slight Anisocytosis Mod Microcytosis Slight Ovalocytes Few Sodium Level 143 mmol/L (136-145) Potassium Level 3.8 mmol/L (3.5-5.1) Chloride Level 110 mmol/L (98-107) H Carbon Dioxide Level 25 mmol/L (21-32) Anion Gap 8 (6-14) Blood Urea Nitrogen 19 mg/dL (7-20) Creatinine 0.8 mg/dL (0.6-1.0) Estimated GFR (Cockcroft-Gault) 78.7 BUN/Creatinine Ratio 24 (6-20) H Glucose Level 94 mg/dL (70-99) Calcium Level 8.6 mg/dL (8.5-10.1) Magnesium Level 2.0 mg/dL (1.8-2.4) Total Bilirubin 0.2 mg/dL (0.2-1.0) Aspartate Amino Transferase (AST) 14 U/L (15-37) L Alanine Aminotransferase (ALT) 27 U/L (14-59) Alkaline Phosphatase 85 U/L (46-116) Total Protein 7.0 g/dL (6.4-8.2) Albumin 3.3 g/dL (3.4-5.0) L Albumin/Globulin Ratio 0.9 (1.0-1.7) L Lipase 74 U/L (73-393) Urine Collection Type Unknown Urine Color Yellow Urine Clarity Hazy Urine pH 6.0 Urine Specific [place] 1.025 Urine Protein Neg (NEG-TRACE) Urine Glucose (UA) Neg mg/dL (NEG) Urine Ketones (Stick) 15 mg/dL (NEG) Urine Blood Small (NEG) Urine Nitrite Neg (NEG) Urine Bilirubin Neg (NEG) Urine Urobilinogen Dipstick 0.2 mg/dL (0.2 mg/dL) Urine Leukocyte Esterase Neg (NEG) Urine RBC 1-2 /HPF (0-2) Urine WBC 5-10 /HPF (0-4) Urine Squamous Epithelial Cells Few /LPF Urine Bacteria Mod /HPF (0-FEW) Urine Mucus Mod /LPF POC Urine HCG, Qualitative hcg negative (Negative) EKG EKG [] Radiology/Procedures Radiology/Procedures [] Course & Med Decision Making Course & Med Decision Making Patient with nausea and vomiting likely from a viral syndrome as she has no pain in her labs and urinalysis are unremarkable. She was given Zofran which she said helped somewhat however he was still nauseated so she was given Phenergan. She says that she is somewhat nauseated however much better and she is able to drink water and Sprite with no difficulty. Her repeat abdominal exam is negative and her repeat vital signs are normal as well. Patient discharged in stable condition told to drink plenty of fluids eat a soft diet follow primary care provider within 2-3 days and come back to the ER sooner with any worsening pain fevers vomiting or other general concerns. Patient aware and agreeable with plan and verbalized understanding of the above instructions. Dragon Disclaimer Dragon Disclaimer This electronic medical record was generated, in whole or in part, using a voice recognition dictation system. Departure Departure: Impression: Primary Impression: Nausea & vomiting Disposition: 01 HOME, SELF-CARE Condition: STABLE Referrals: MARIA BERNARDO (PCP) Patient Instructions: Nausea and Vomiting Scripts Ondansetron (ZOFRAN ODT) 4 Mg Tab.rapdis 1 TAB SL Q8HRS, #10 TAB Prov: BERT MERAZ DO 09/21/17 Problem Qualifiers Primary Impression: Nausea & vomiting Vomiting type: unspecified Vomiting Intractability: non-intractable Qualified Codes: R11.2 - Nausea with vomiting, unspecified BERT MERAZ DO Sep 21, 2017 15:34
[2017-09-21 15:40] VITALS: BP 113/68
== END 2017-09-21 15:40 | disposition home or self-care (01) ==
LOC: ER 11:04
DX: R11.2 Nausea with vomiting, unspecified (principal); I10 Essential (primary) hypertension; F41.9 Anxiety disorder, unspecified; F31.9 Bipolar disorder, unspecified; G43.909 Migraine, unspecified, not intractable, without status migrainosus; I25.2 Old myocardial infarction; F17.210 Nicotine dependence, cigarettes, uncomplicated; Z86.718 Personal history of other venous thrombosis and embolism; Z88.2 Allergy status to sulfonamides; Z88.8 Allergy status to other drugs, medicaments and biological substances
CPT/HCPCS: 36415; 80053; 81001; 81025; 83690; 83735; 85025; 87086; 96361; 96372; 96374; 99284; J2405; J2550; J7030

== ENCOUNTER 2017-10-01 17:25 | Emergency (ER) | payer OTHER ==
[~2017-10-01] VITALS: Ht 162.6 cm; Wt 81.6 kg
--- NOTE | 2017-10-01 17:48 | EKG ---
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
[2017-10-01 17:56] VITALS: BP 92/68
--- NOTE | 2017-10-01 18:58 | PHYS DOC ---
Past History Past Medical History: Anxiety, Bipolar, DVT, Hypertension, [place], Migraines, Other Additional Past Medical Histor: Multiple Sclerosis; DVT left leg Past Surgical History: Cholecystectomy, Smoking: Quit Less Than 1 Year Alcohol Use: None Drug Use: None Adult General Chief Complaint Chief Complaint: CHEST PAIN HPI HPI Patient is a 42 year old female who presents with chest pain, abdominal pain, and vomiting. She has frequent emergency department visits here is actually just her general with the second for nausea and abdominal pain. She states this started at 7:00 this morning . she's had this discomfort in her upper abdomen lower chest has been there "all day". It has been constant. She had had 3 episodes of vomiting. She feels like "there is a lump there". No diarrhea however. All return neck she states". No fever or chills. No leg pain or swelling. Review of Systems Review of Systems Constitutional: Denies fever or chills Eyes: Denies change in visual acuity, redness, or eye pain HENT: Denies nasal congestion or sore throat Respiratory: Denies cough or shortness of breath Cardiovascular: POS chest pain GI: POS abdominal pain, POS nausea & vomiting, Denies bloody stools or diarrhea : Denies dysuria or hematuria Musculoskeletal: Denies back pain or joint pain Integument: Denies rash or skin lesions Neurologic: Denies headache, focal weakness or sensory changes All other systems were reviewed and found to be within normal limits, except as documented in this note. Family History Family History Mother with lupus and CHF Allergies Allergies Allergies Coded Allergies Type Severity Reaction Last Updated Verified Sulfa (Sulfonamide Antibiotics) Allergy Intermediate 10/01/17 Yes ketorolac Allergy Intermediate 08/17/14 Yes Physical Exam Physical Exam Constitutional: Well developed, well nourished, no acute distress, non-toxic appearance. HENT: Normocephalic, atraumatic, bilateral external ears normal, oropharynx moist, no oral exudates, nose normal. Eyes: PERRLA, EOMI, conjunctiva normal, no discharge. Neck: Normal range of motion, no tenderness, supple, no stridor. Cardiovascular:Heart rate regular rhythm, no murmur Lungs & Thorax: Bilateral breath sounds clear to auscultation Abdomen: Bowel sounds normal, soft, mild epigastric tenderness, no rebound or guarding, no masses, no pulsatile masses. Skin: Warm, dry, no erythema, no rash. Back: No tenderness, no CVA tenderness. Extremities: No tenderness, no cyanosis, no clubbing, ROM intact, no edema. Neurologic: Alert and oriented X 3, normal motor function, normal sensory function, no focal deficits noted. Psychologic: Affect normal, judgement normal, mood normal. Current Patient Data Vital Signs Vital Signs Date Time Temp Pulse Resp B/P (MAP) Pulse Ox O2 Delivery O2 Flow Rate FiO2 10/01/17 17:56 98.4 80 18 100 Room Air EKG EKG EKG interpreted by myself at 1817 PM with nsr, rate 71, no STEMI, no acute ST changes. Radiology/Procedures Radiology/Procedures CXR interpreted by myself at 1930 PM with no acute process; no pneumothorax, no pleural effusion, no infiltrate Course & Med Decision Making Course & Med Decision Making Evaluated patient; reviewed recent chart. EKG with no STEMI. Lab returned with no acute findings. Pepcid dosed here. Patient has had no vomiting here in the department. She is discharged in stable condition with fall precautions. I have spoken with the patient and/or caregivers. I have explained the patient' s condition, diagnosis and treatment plan based on the information available to me at this time. I have answered the patient's and/or caregiver's questions and addressed any concerns. The patient and/or caregivers have as good an understanding of the patient's diagnosis, condition and treatment plan as can be expected at this point. The patient's condition is stable and appropriate for discharge from the emergency department. The patient will pursue further outpatient evaluation with the primary care physician or other designated or consulting physician as outlined in the discharge instructions. The patient and/or caregivers are agreeable to this plan of care and follow-up instructions have been explained in detail. The patient and/or caregivers have received these instructions in written format and have expressed an understanding of the discharge instructions. The patient and/or caregivers are aware that any significant change in condition or worsening of symptoms should prompt an immediate return to this or the closest emergency department or a call to 911. MACE Scoring: History: Highly suspicious (2 points); Moderately suspicious (1 point). Slightly suspicious (0 point). EKG: ST segment depression (2 points). Nonspecific repolarization disturbance ( 1 point). normal (0 point) Age: Greater than 65 (2 points), 65-45 (1 point); less than 45 years old (0 points). Risk factors:> 3 risk factors (2 points), 1-2 risk factors (one point), no risk factors (0 point). Troponin: > 2 times normal (2 points), 1-2 times normal (1 point) normal limits (0 point) Total score: ___1___ Score % pts MACE/n MACE Policy 0-3: 32% 1.9% 0.05% Discharge 4-6: 51% 413/3136 13% 1.3% Observation Risk management 7-10: 17% 518/1045 50% 2.8% Observation Treatment, CAGb ZI score for NSTEMI: Age 65: No=0; Yes=1 3 CAD risk factors: Family history of CAD, hypertension, hypercholesterolemia, diabetes, family history of CAD, or current smoker: No=0; Yes=1 Known CAD (stenosis 50%: No=0; Yes=1 ASA use in past 7 days: No=0; Yes=1 Severe angina ( 2 episodes in 24 hrs): No=0; Yes=[address] changes 0.5m: No=0; Yes=1 Positive cardiac marker: No=0; Yes=1 Score: 0 Dragon Disclaimer Dragon Disclaimer This electronic medical record was generated, in whole or in part, using a voice recognition dictation system. Departure Departure: Impression: Primary Impression: GERD (gastroesophageal reflux disease) Additional Impressions: Chest pain of uncertain etiology Epigastric discomfort Disposition: HOME, SELF-CARE Condition: STABLE Referrals: MARIA BERNARDO (PCP) Patient Instructions: Chest Pain (Nonspecific), Gastroesophageal Reflux Disease , Adult Additional Instructions: YOUR TESTS HERE WERE NORMAL. IF YOUR SYMPTOMS PERSIST; YOU NEED TO BE RECHECKED. YOU WERE GIVEN A DOSE OF PEPCID HERE TONIGHT. Scripts Famotidine (PEPCID) 20 Mg Tablet 1 TAB PO BID, #30 TAB 3 Refills Prov: JASSON DUNAWAY MD 10/01/17 Problem Qualifiers Primary Impression: GERD (gastroesophageal reflux disease) Esophagitis presence: esophagitis presence not specified Qualified Codes: K21.9 - Gastro-esophageal reflux disease without esophagitis JASSON DUNAWAY MD Oct 01, 2017 18:58
[2017-10-01] MEDS: 0.9 % SODIUM CHLORIDE 10 ML DISP.SYRIN. IV PRN ×2 (19:10→21:39)
[2017-10-01 19:12] LABS: BASO % 0 % (0-3); EOS % 0 % (0-3); HEMATOCRIT 31.8 % (36.0-47.0); HEMOGLOBIN 10.2 g/dL (12.0-15.5); LYMPH # 2.8 x10^3/uL (1.0-4.8); LYMPH % 52 % (24-48); MEAN CORPUSCULAR HEMOGLOBIN 25 pg (25-35); MEAN CORPUSCULAR HGB CONC 32 g/dL (31-37); MEAN CORPUSCULAR VOLUME 77 fL (79-100); MONO # 0.4 x10^3/uL (0.0-1.1); MONO % 8 % (0-9); NEUT # 2.2 x10^3uL (1.8-7.7); NEUT % 40 % (31-73); PLATELET COUNT 238 x10^3/uL (140-400); RED BLOOD COUNT 4.13 x10^6/uL (3.50-5.40); RED CELL DISTRIBUTION WIDTH 21.6 % (11.5-14.5); WHITE BLOOD COUNT 5.4 x10^3/uL (4.0-11.0)
[2017-10-01 19:46] LABS: ALBUMIN 3.4 g/dL (3.4-5.0); CALCIUM 8.6 mg/dL (8.5-10.1); CREATININE 0.8 mg/dL (0.6-1.0); GFR 78.7; POTASSIUM 3.8 mmol/L (3.5-5.1); TOTAL BILIRUBIN 0.1 mg/dL (0.2-1.0); TOTAL PROTEIN 6.9 g/dL (6.4-8.2)
[2017-10-01] MEDS ORDERED: FAMO-63 PO (21:20)
[2017-10-01] MEDS ORDERED: FAMOTIDINE 20 MG/2 ML VIAL IVP ONE (21:30)
[2017-10-01 22:22] LABS: PLT ESTIMATE INCREASED (ADEQUATE)
[2017-10-01 22:23] LABS: OVALOCYTES OCC; PLATELET CLUMP PRESENT; SCHISTOCYTES OCC
--- NOTE | 2017-10-02 08:14 | RAD ---
Single view chest 10/01/2017 Clinical indication: Chest pain. Comparison: 09/10/2017 chest radiograph, CTA chest 03/30/2017. Findings: Cardiac and mediastinal silhouettes are unremarkable. No pleural effusion, pneumothorax or focal consolidation. Impression: No acute cardiopulmonary abnormality.
== END 2017-10-01 21:39 | disposition home or self-care (01) ==
LOC: ER 17:25
DX: K21.9 Gastro-esophageal reflux disease without esophagitis (principal); R07.9 Chest pain, unspecified; I10 Essential (primary) hypertension; F41.9 Anxiety disorder, unspecified; G43.909 Migraine, unspecified, not intractable, without status migrainosus; F31.9 Bipolar disorder, unspecified; Z86.718 Personal history of other venous thrombosis and embolism; Z90.49 Acquired absence of other specified parts of digestive tract; Z98.890 Other specified postprocedural states; Z88.2 Allergy status to sulfonamides; Z88.8 Allergy status to other drugs, medicaments and biological substances
CPT/HCPCS: 36415; 71045; 80053; 82553; 83690; 83880; 84484; 85025; 85379; 93005; 96374; 99285; S0028

== ENCOUNTER 2017-10-15 12:42 | Emergency (ER) | payer OTHER ==
[~2017-10-15] VITALS: Ht 162.6 cm; Wt 72.6 kg
[~2017-10-15 12:42] MED LIST changes: +FAMO-63 PO
[2017-10-15] MEDS: LIDO:MAALOX 1:1 20 ML SINGLE DOSE PO ONE (14:01)
[2017-10-15 14:24] LABS: AMORPHOUS SEDIMENT,UR PRESENT /HPF; BACTERIA,URINE FEW /HPF (0-FEW); BILIRUBIN,URINE NEG (NEG); CLARITY,URINE CLOUDY; COLOR,URINE YELLOW; GLUCOSE,URINE NEG (NEG); NITRITE,URINE NEG (NEG); SQUAMOUS EPITHELIAL CELL,UR MOD /LPF; UROBILINOGEN,URINE 1 mg/dL (0.2 mg/dL)
[2017-10-15] MEDS: FAMOTIDINE 20 MG TABLET PO ONE (14:49)
--- NOTE | 2017-10-15 14:50 | EKG ---
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
[2017-10-15] MEDS ORDERED: NAPR-683 PO (15:36)
[2017-10-15] MEDS ORDERED: CIPR250T30 PO (15:36)
--- NOTE | 2017-10-15 15:37 | PHYS DOC ---
Past History Past Medical History: Anxiety, Bipolar, DVT, Hypertension, [place], Migraines, Other Additional Past Medical Histor: Multiple Sclerosis; DVT left leg Past Surgical History: Cholecystectomy, Smoking: Quit Less Than 1 Year Alcohol Use: None Drug Use: None Adult General Chief Complaint Chief Complaint: CHEST PAIN HPI HPI 42-year-old female patient with history of bipolar disorder and mental disability and frequent emergency room visits brought in by EMS because of chest pain. Patient complaining of left site chest pain that woke her up at 3 AM with radiation to the back and associated with nausea and vomiting without shortness of breath and palpitation and focal neurodeficit. Patient also complaining of urinary frequency and dysuria for several days. Patient does not have cardiac risk factor. Review of Systems Review of Systems Constitutional: Denies fever or chills [] Eyes: Denies change in visual acuity, redness, or eye pain [] HENT: Denies nasal congestion or sore throat [] Respiratory: Denies cough or shortness of breath [] Cardiovascular: No additional information not addressed in HPI [] GI: Denies abdominal pain, nausea, vomiting, bloody stools or diarrhea [] : Reports dysuria and urinary frequency[] Musculoskeletal: Denies back pain or joint pain [] Integument: Denies rash or skin lesions [] Neurologic: Denies headache, focal weakness or sensory changes [] Endocrine: Denies polyuria or polydipsia [] All other systems were reviewed and found to be within normal limits, except as documented in this note. Current Medications Current Medications Current Medications Medications (Trade) Dose Ordered Sig/[place] Start Time Stop Time Status Last Admin Dose Admin Famotidine (Pepcid) 20 mg 1X ONCE 10/15/17 14:30 10/15/17 14:34 DC 10/15/17 14:49 20 MG Multi-Ingredient Mouthwash/Gargle (Gi Cocktail) 20 ml 1X ONCE 10/15/17 13:45 10/15/17 13:46 DC 10/15/17 14:01 20 ML Allergies Allergies Allergies Coded Allergies Type Severity Reaction Last Updated Verified Sulfa (Sulfonamide Antibiotics) Allergy Intermediate 10/01/17 Yes ketorolac Allergy Intermediate 08/17/14 Yes Physical Exam Physical Exam Constitutional: Well nourished, no acute distress, non-toxic appearance. [] HENT: Normocephalic, atraumatic, bilateral external ears normal, oropharynx moist, no oral exudates, nose normal. [] Eyes: PERRLA, EOMI, conjunctiva normal, no discharge. [] Neck: Normal range of motion, no tenderness, supple, no stridor. [] Cardiovascular:Heart rate regular rhythm, no murmur [] Lungs & Thorax: Bilateral breath sounds clear to auscultation [left-sided chest wall reproducible pain Abdomen: Bowel sounds normal, soft, no tenderness, no masses, no pulsatile masses. [] Skin: Warm, dry, no erythema, no rash. [] Back: No tenderness, no CVA tenderness. [] Extremities: No tenderness, no cyanosis, no clubbing, ROM intact, no edema. [] Neurologic: Alert and oriented X 3, normal motor function, normal sensory function, no focal deficits noted. [] Current Patient Data Lab Results Laboratory Tests Test 10/15/17 13:55 Urine Collection Type Unknown Urine Color Yellow Urine Clarity Cloudy Urine pH 7.5 Urine Specific [place] 1.020 Urine Protein Neg (NEG-TRACE) Urine Glucose (UA) Neg mg/dL (NEG) Urine Ketones (Stick) Neg mg/dL (NEG) Urine Blood Small (NEG) Urine Nitrite Neg (NEG) Urine Bilirubin Neg (NEG) Urine Urobilinogen Dipstick 1 mg/dL (0.2 mg/dL) Urine Leukocyte Esterase Trace (NEG) Urine RBC 1-2 /HPF (0-2) Urine WBC 1-4 /HPF (0-4) Urine Squamous Epithelial Cells Mod /LPF Urine Amorphous Sediment Present /HPF Urine Bacteria Few /HPF (0-FEW) Urine Mucus Slight /LPF EKG EKG [EKG is interpreted by me. EKG at 1257 showed normal sinus rhythm at rate of 69 without abnormal finding] Radiology/Procedures Radiology/Procedures [] Course & Med Decision Making Course & Med Decision Making Pertinent Labs reviewed. (See chart for details) Evaluation of patient in ER showed 42-year-old female patient with history of bipolar disorder and mental disability brought in by EMS because of chest pain. Patient has frequent emergency room with the same problem and did not recommend distress but asking for pain medication frequently. Patient treated with GI cocktail and Pepcid and playing with her phone but asking for more pain medication. Patient has reproducible left-sided chest pain. Patient complaining of urinary frequency with one fourth WBC and her urine. Plan discharge patient home with diagnose of skeletal chest pain and UTI. [] Dragon Disclaimer Dragon Disclaimer This electronic medical record was generated, in whole or in part, using a voice recognition dictation system. Departure Departure: Impression: Primary Impression: Musculoskeletal chest pain Additional Impressions: UTI (urinary tract infection) Bipolar disorder Disposition: HOME, SELF-CARE (At 1534) Condition: STABLE Referrals: MARIA BERNARDO (PCP) Patient Instructions: Musculoskeletal Pain, Urinary Tract Infection Additional Instructions: Follow-up with your primary care physician in 2-3 days Take more liquid Scripts Naproxen (NAPROSYN) 500 Mg Tablet 1 TAB PO BID, #10 TAB 2 Refills Prov: GABRIELE PRABHAKAR MD 10/15/17 Ciprofloxacin Hcl (CIPRO) 250 Mg Tablet 1 TAB PO BID, #6 TAB Prov: GABRIELE PRABHAKAR MD 10/15/17 Problem Qualifiers GABRIELE PRABHAKAR MD Oct 15, 2017 15:37
[2017-10-15 15:45] VITALS: BP 100/60
== END 2017-10-15 15:49 | disposition home or self-care (01) ==
LOC: ER 12:42
DX: R07.89 Other chest pain (principal); N39.0 Urinary tract infection, site not specified; F31.9 Bipolar disorder, unspecified; F41.9 Anxiety disorder, unspecified; G43.909 Migraine, unspecified, not intractable, without status migrainosus; I10 Essential (primary) hypertension; Z87.891 Personal history of nicotine dependence; Z86.718 Personal history of other venous thrombosis and embolism; Z88.2 Allergy status to sulfonamides; Z88.6 Allergy status to analgesic agent
CPT/HCPCS: 81001; 87086; 93005; 99285-25

== ENCOUNTER 2017-12-03 11:46 | Emergency (ER) | payer OTHER ==
[~2017-12-03] VITALS: Ht 162.6 cm; Wt 68.0 kg
[~2017-12-03 11:46] MED LIST changes: +CIPR250T30 PO; +NAPR-514 PO; +NAPR-683 PO; -NAPR500T4 PO
--- NOTE | 2017-12-03 12:02 | PHYS DOC ---
Past History Past Medical History: Anxiety, Bipolar, DVT, Hypertension, [place], Migraines, Other Additional Past Medical Histor: Multiple Sclerosis; DVT left leg Past Surgical History: Cholecystectomy, Smoking: Quit Less Than 1 Year Alcohol Use: None Drug Use: None Adult General Chief Complaint Chief Complaint: elbow and leg pain [facility] Patient is a 42 year old female who presents with complaints of right arm pain, generalized body aches. She states that she fell on Wednesday after she got up off the toilet. She states his elbow started hurting her. She states that her son came home and saw bruising on her elbow for her she needs to get an x-ray of her to come the ER. Review of Systems Review of Systems Constitutional: Denies fever or chills [] Eyes: Denies change in visual acuity, redness, or eye pain [] HENT: Denies nasal congestion or sore throat [] Respiratory: Denies cough or shortness of breath [] Cardiovascular: No additional information not addressed in HPI [] GI: Denies abdominal pain, nausea, vomiting, bloody stools or diarrhea [] : Denies dysuria or hematuria [] Musculoskeletal: Denies back pain, positive right elbow pain Integument: Denies rash or skin lesions [] Neurologic: Denies headache, focal weakness or sensory changes [] Endocrine: Denies polyuria or polydipsia [] All other systems were reviewed and found to be within normal limits, except as documented in this note. Allergies Allergies Allergies Coded Allergies Type Severity Reaction Last Updated Verified Sulfa (Sulfonamide Antibiotics) Allergy Intermediate 10/01/17 Yes ketorolac Allergy Intermediate 08/17/14 Yes Physical Exam Physical Exam Constitutional: Well developed, well nourished, no acute distress, non-toxic appearance. [] HENT: Normocephalic, atraumatic, bilateral external ears normal, oropharynx moist, no oral exudates, nose normal. [] Eyes: PERRLA, EOMI, conjunctiva normal, no discharge. [] Neck: Normal range of motion, no tenderness, supple, no stridor. [] Cardiovascular:Heart rate regular rhythm, no murmur [] Lungs & Thorax: Bilateral breath sounds clear to auscultation [] Abdomen: Bowel sounds normal, soft, no tenderness, no masses, no pulsatile masses. [] Skin: Warm, dry, no erythema, no rash. [] Back: No tenderness, no CVA tenderness. [] Extremities: Tender palpation with flexion and extension of right elbow, able to supinate and pronate without any discomfort. Also complains of generalized aches and bilateral legs. Dorsal pedis pulse 2+ bilateral lower extremities,no cyanosis, no clubbing, ROM intact, no edema. [] Neurologic: Alert and oriented X 3, normal motor function, normal sensory function, no focal deficits noted. [] Psychologic: Affect normal, judgement normal, mood normal. [] EKG EKG [] Radiology/Procedures Radiology/Procedures [address] [id number] IMAGING REPORT Signed PATIENT: SANDRA STORY ACCOUNT: [id number] : 1975 LOCATION: ER AGE: 42 SEX: F EXAM STATUS: REG ER ORD. PHYSICIAN: ANGELA PAUL MD REASON: pain after fall PROCEDURE: ELBOW RIGHT 3V ELBOW RIGHT 3V Indication: RIGHT ELBOW PAIN POST FALL 6 DAYS AGO . Comparison: No comparison is available. FINDINGS: No acute fracture or bone destruction. Joints and soft tissues appear intact. Impression: No acute radiographic abnormality Electronically signed by: Sharan Moore MD (12/03/2017 12:34 PM) [id number] DICTATED AND SIGNED BY: SHARAN MOORE MD DATE: 12/03/17 1232 CC: ANGELA PAUL MD; MARIA BERNARDO ~ Impressions: Right elbow contusion Bodyaches Course & Med Decision Making Course & Med Decision Making Pertinent Labs and Imaging studies reviewed. (See chart for details) Labs are nonacute. X-rays nonacute of right elbow. Patient received Tylenol for multiple complaints. Patient being discharged home with return precautions. Dragon Disclaimer Dragon Disclaimer This electronic medical record was generated, in whole or in part, using a voice recognition dictation system. Departure Departure: Impression: Primary Impression: Right elbow pain Disposition: 01 HOME, SELF-CARE Condition: STABLE Referrals: MARIA BERNARDO (PCP) Patient Instructions: Elbow Contusion, [id number] Additional Instructions: You were seen in the emergency department for your right elbow. X-rays do not show any factors or other abnormalities. You also had some other complaints of body aches. Your labs all look normal. You received Tylenol for aches and pains. You'll need to follow-up with your primary care physician within next few days. Return back to ER for severe body aches, high fevers, or other concerns. ANGELA PAUL MD Dec 03, 2017 12:02
--- NOTE | 2017-12-03 12:37 | RAD ---
ELBOW RIGHT 3V Indication: RIGHT ELBOW PAIN POST FALL 6 DAYS AGO . Comparison: No comparison is available. FINDINGS: No acute fracture or bone destruction. Joints and soft tissues appear intact. Impression: No acute radiographic abnormality Electronically signed by: Sharan Moore MD (12/03/2017 12:34 PM) [facility]
[2017-12-03 12:50] LABS: BASO % 1 % (0-3); EOS % 0 % (0-3); LYMPH # 1.6 x10^3/uL (1.0-4.8); LYMPH % 39 % (24-48); MEAN CORPUSCULAR HEMOGLOBIN 24 pg (25-35); MEAN CORPUSCULAR HGB CONC 32 g/dL (31-37); MEAN CORPUSCULAR VOLUME 75 fL (79-100); MONO # 0.3 x10^3/uL (0.0-1.1); MONO % 7 % (0-9); NEUT # 2.2 x10^3uL (1.8-7.7); NEUT % 53 % (31-73); PLATELET COUNT 246 x10^3/uL (140-400); RED BLOOD COUNT 4.56 x10^6/uL (3.50-5.40); RED CELL DISTRIBUTION WIDTH 18.6 % (11.5-14.5); WHITE BLOOD COUNT 4.2 x10^3/uL (4.0-11.0)
[2017-12-03 12:56] LABS: CLARITY,URINE CLOUDY; COLOR,URINE AMBER
[2017-12-03 12:57] LABS: BACTERIA,URINE MOD /HPF (0-FEW); BILIRUBIN,URINE SMALL (NEG); GLUCOSE,URINE NEG (NEG); HYALINE CASTS, URINE OCC /HPF; NITRITE,URINE NEG (NEG); SQUAMOUS EPITHELIAL CELL,UR MOD /LPF; UROBILINOGEN,URINE 1 mg/dL (0.2 mg/dL)
[2017-12-03 13:11] LABS: ALBUMIN 3.8 g/dL (3.4-5.0); ALBUMIN/GLOBULIN RATIO 1.1 (1.0-1.7); ALK PHOS 57 U/L (46-116); ALT (SGPT) 22 U/L (14-59); ANION GAP 11 (6-14); AST (SGOT) 14 U/L (15-37); BLOOD UREA NITROGEN 20 mg/dL (7-20); BUN/CREATININE RATIO 25 (6-20); CALCIUM 8.7 mg/dL (8.5-10.1); CARBON DIOXIDE 23 mmol/L (21-32); CHLORIDE 106 mmol/L (98-107); CREATININE 0.8 mg/dL (0.6-1.0); GFR 78.7; GLUCOSE 111 mg/dL (70-99); POTASSIUM 3.5 mmol/L (3.5-5.1); SODIUM 140 mmol/L (136-145); TOTAL BILIRUBIN 0.3 mg/dL (0.2-1.0); TOTAL PROTEIN 7.3 g/dL (6.4-8.2)
[2017-12-03] MEDS ORDERED: ACETAMINOPHEN 500 MG TABLET PO ONE (13:30)
[2017-12-03 14:05] VITALS: BP 84/58
== END 2017-12-03 14:28 | disposition home or self-care (01) ==
LOC: ER 11:46
DX: M25.521 Pain in right elbow (principal); M79.1 Myalgia; I10 Essential (primary) hypertension; F41.9 Anxiety disorder, unspecified; F31.9 Bipolar disorder, unspecified; G43.909 Migraine, unspecified, not intractable, without status migrainosus; I25.2 Old myocardial infarction; Z86.718 Personal history of other venous thrombosis and embolism; Z87.891 Personal history of nicotine dependence; Z88.2 Allergy status to sulfonamides; Z88.8 Allergy status to other drugs, medicaments and biological substances; W19.XXXA Unspecified fall, initial encounter; Y93.89 Activity, other specified; Y99.8 Other external cause status; Y92.89 Other specified places as the place of occurrence of the external cause
CPT/HCPCS: 36415; 73080; 80053; 81001; 81025; 82553; 85025; 87086; 99285-25

== ENCOUNTER 2017-12-13 09:42 | Emergency (ER) | payer SELFPAY ==
[~2017-12-13] VITALS: Ht 162.6 cm; Wt 68.0 kg
[2017-12-13 10:13] LABS: BASO % 1 % (0-3); EOS % 0 % (0-3); HEMOGLOBIN 10.6 g/dL (12.0-15.5); LYMPH # 1.3 x10^3/uL (1.0-4.8); LYMPH % 35 % (24-48); MEAN CORPUSCULAR HEMOGLOBIN 24 pg (25-35); MEAN CORPUSCULAR HGB CONC 32 g/dL (31-37); MEAN CORPUSCULAR VOLUME 74 fL (79-100); MONO # 0.4 x10^3/uL (0.0-1.1); MONO % 10 % (0-9); NEUT # 2.1 x10^3uL (1.8-7.7); NEUT % 55 % (31-73); PLATELET COUNT 221 x10^3/uL (140-400); RED BLOOD COUNT 4.44 x10^6/uL (3.50-5.40); RED CELL DISTRIBUTION WIDTH 17.9 % (11.5-14.5); WHITE BLOOD COUNT 3.9 x10^3/uL (4.0-11.0)
[2017-12-13 10:26] LABS: ALBUMIN 3.7 g/dL (3.4-5.0); ALBUMIN/GLOBULIN RATIO 1.1 (1.0-1.7); CALCIUM 8.7 mg/dL (8.5-10.1); CREATININE 0.7 mg/dL (0.6-1.0); GFR 91.8; POTASSIUM 3.2 mmol/L (3.5-5.1); TOTAL BILIRUBIN 0.5 mg/dL (0.2-1.0); TOTAL PROTEIN 7.1 g/dL (6.4-8.2)
--- NOTE | 2017-12-13 10:27 | RAD ---
CT of the head without contrast, 12/13/2017: History: Left leg numbness Comparison is made to a study from 09/10/2017. The ventricles are within normal limits in size. There is no shift of the midline structures. There is no evidence of acute intracranial hemorrhage or mass effect. Minimal deep white matter lucency in the right frontal lobe is unchanged and is compatible with an old infarct. No abnormal extra-axial mass or fluid collection is seen. IMPRESSION: 1. Stable right frontal deep white matter lucencies compatible with an old infarct. 2. No acute intracranial abnormality is detected. PQRS Compliance Statement: One or more of the following individualized dose reduction techniques were utilized for this examination: 1. Automated exposure control 2. Adjustment of the mA and/or kV according to patient size 3. Use of iterative reconstruction technique
[2017-12-13 11:08] LABS: BACTERIA,URINE FEW /HPF (0-FEW); BILIRUBIN,URINE NEG (NEG); CLARITY,URINE CLOUDY; COLOR,URINE AMBER; GLUCOSE,URINE NEG (NEG); NITRITE,URINE NEG (NEG); RBC,URINE RARE /HPF (0-2); SQUAMOUS EPITHELIAL CELL,UR OCC /LPF; UROBILINOGEN,URINE 1 mg/dL (0.2 mg/dL)
--- NOTE | 2017-12-13 11:15 | RAD ---
Ultrasound venous Doppler Indication:numbness and weakness left leg and h/o DVT Technique: Grayscale, color Doppler and spectral waveform ultrasound images of the left lower extremity deep veins. Comparison: None Findings: The interrogated lower extremity veins are compressible and demonstrate evidence of blood flow with normal respiratory variation and response to augmentation. Impression: No sonographic evidence of acute DVT of the interrogated left lower extremity deep veins.
[2017-12-13] MEDS ORDERED: POTASSIUM CHLORIDE 20 MEQ TABLET.ER. PO ONE (11:30)
--- NOTE | 2017-12-13 11:52 | PHYS DOC ---
Past History Past Medical History: Anxiety, Bipolar, DVT, Hypertension, [place], Migraines, Other Additional Past Medical Histor: Multiple Sclerosis; DVT left leg Past Surgical History: Cholecystectomy, Smoking: Quit Less Than 1 Year Alcohol Use: None Drug Use: None Adult General Chief Complaint Chief Complaint: LOWER EXTREMITY NUMBNESS [facility] HPI 42-year-old female patient with history of MS and frequent emergency room visits brought in by EMS because of left lower extremity numbness. Patient states she did go to bed without problem last night and woke up at midnight to go to the bathroom and had left lower extremity numbness and weakness and almost fell down. Patient states he was able to extubate and woke up this morning and instructed had numbness and pain of left lower extremity. Patient states she had history of DVT 5 months ago and was on anticoagulation medication that was stopped because of heavy menstruation. She denies nausea and vomiting, chest pain, shortness of breath, other focal neuro deficit, injury. Review of Systems Review of Systems Constitutional: Denies fever or chills [] Eyes: Denies change in visual acuity, redness, or eye pain [] HENT: Denies nasal congestion or sore throat [] Respiratory: Denies cough or shortness of breath [] Cardiovascular: No additional information not addressed in HPI [] GI: Denies abdominal pain, nausea, vomiting, bloody stools or diarrhea [] : Denies dysuria or hematuria [] Musculoskeletal: Denies back pain or joint pain [] Integument: Denies rash or skin lesions [] Neurologic: Denies headache, reports focal weakness and sensory changes [] Endocrine: Denies polyuria or polydipsia [] All other systems were reviewed and found to be within normal limits, except as documented in this note. Current Medications Current Medications Current Medications Medications (Trade) Dose Ordered Sig/Ladonna Start Time Stop Time Status Last Admin Dose Admin Potassium Chloride (Klor-Con) 40 meq 1X ONCE 12/13/17 11:30 12/13/17 11:31 Allergies Allergies Allergies Coded Allergies Type Severity Reaction Last Updated Verified Sulfa (Sulfonamide Antibiotics) Allergy Intermediate 10/01/17 Yes ketorolac Allergy Intermediate 08/17/14 Yes Physical Exam Physical Exam Constitutional: Well nourished, no acute distress, non-toxic appearance. [] HENT: Normocephalic, atraumatic, bilateral external ears normal, oropharynx moist, no oral exudates, nose normal. [] Eyes: PERRLA, EOMI, conjunctiva normal, no discharge. [] Neck: Normal range of motion, no tenderness, supple, no stridor. [] Cardiovascular:Heart rate regular rhythm, no murmur [] Lungs & Thorax: Bilateral breath sounds clear to auscultation [] Abdomen: Bowel sounds normal, soft, no tenderness, no masses, no pulsatile masses. [] Skin: Warm, dry, no erythema, no rash. [] Back: No tenderness, no CVA tenderness. [] Extremities: Left lower extremity without deformity or edema, old ecchymosis in left knee, subjective paresthesias , good peripheral pulses, limited range of motion due to pain, Neurologic: Alert and oriented X 3, normal motor function, normal sensory function, no focal deficits noted. [] Psychologic: Affect normal, judgement normal, mood normal. [] Current Patient Data Vital Signs Vital Signs Date Time Temp Pulse Resp B/P (MAP) Pulse Ox O2 Delivery O2 Flow Rate FiO2 12/13/17 09:42 98.3 91 18 100 Room Air Lab Results Laboratory Tests Test 12/13/17 10:02 12/13/17 10:45 White Blood Count 3.9 x10^3/uL (4.0-11.0) L Red Blood Count 4.44 x10^6/uL (3.50-5.40) Hemoglobin 10.6 g/dL (12.0-15.5) L Hematocrit 33.0 % (36.0-47.0) L Mean Corpuscular Volume 74 fL (79-100) L Mean Corpuscular Hemoglobin 24 pg (25-35) L Mean Corpuscular Hemoglobin Concent 32 g/dL (31-37) Red Cell Distribution Width 17.9 % (11.5-14.5) H Platelet Count 221 x10^3/uL (140-400) Neutrophils (%) (Auto) 55 % (31-73) Lymphocytes (%) (Auto) 35 % (24-48) Monocytes (%) (Auto) 10 % (0-9) H Eosinophils (%) (Auto) 0 % (0-3) Basophils (%) (Auto) 1 % (0-3) Neutrophils # (Auto) 2.1 x10^3uL (1.8-7.7) Lymphocytes # (Auto) 1.3 x10^3/uL (1.0-4.8) Monocytes # (Auto) 0.4 x10^3/uL (0.0-1.1) Eosinophils # (Auto) 0.0 x10^3/uL (0.0-0.7) Basophils # (Auto) 0.0 x10^3/uL (0.0-0.2) Sodium Level 140 mmol/L (136-145) Potassium Level 3.2 mmol/L (3.5-5.1) L Chloride Level 103 mmol/L (98-107) Carbon Dioxide Level 23 mmol/L (21-32) Anion Gap 14 (6-14) Blood Urea Nitrogen 15 mg/dL (7-20) Creatinine 0.7 mg/dL (0.6-1.0) Estimated GFR (Cockcroft-Gault) 91.8 BUN/Creatinine Ratio 21 (6-20) H Glucose Level 88 mg/dL (70-99) Calcium Level 8.7 mg/dL (8.5-10.1) Total Bilirubin 0.5 mg/dL (0.2-1.0) Aspartate Amino Transferase (AST) 11 U/L (15-37) L Alanine Aminotransferase (ALT) 18 U/L (14-59) Alkaline Phosphatase 57 U/L (46-116) Troponin I Quantitative < 0.017 ng/mL (0-0.055) Total Protein 7.1 g/dL (6.4-8.2) Albumin 3.7 g/dL (3.4-5.0) Albumin/Globulin Ratio 1.1 (1.0-1.7) Urine Collection Type Unknown Urine Color Luanne Urine Clarity Cloudy Urine pH 5.5 Urine Specific Leivasy 1.025 Urine Protein 30 mg/dl (NEG-TRACE) Urine Glucose (UA) Neg mg/dL (NEG) Urine Ketones (Stick) 80 mg/dL (NEG) Urine Blood Neg (NEG) Urine Nitrite Neg (NEG) Urine Bilirubin Neg (NEG) Urine Urobilinogen Dipstick 1 mg/dL (0.2 mg/dL) Urine Leukocyte Esterase Neg (NEG) Urine RBC Rare /HPF (0-2) Urine WBC 1-4 /HPF (0-4) Urine Squamous Epithelial Cells Occ /LPF Urine Bacteria Few /HPF (0-FEW) Urine Mucus Marked /LPF EKG EKG [] Radiology/Procedures Radiology/Procedures [] [address] [id number] IMAGING REPORT Signed PATIENT: SANDRA STORY ACCOUNT: [id number] : 1975 LOCATION: ER AGE: 42 SEX: F EXAM STATUS: REG ER ORD. PHYSICIAN: GABRIELE PRABHAKAR MD REASON: numbness and weakness left leg and h/o DVT PROCEDURE: VENOUS LOWER EXTREMITY LEFT Ultrasound venous Doppler Indication:numbness and weakness left leg and h/o DVT Technique: Grayscale, color Doppler and spectral waveform ultrasound images of the left lower extremity deep veins. Comparison: None Findings: The interrogated lower extremity veins are compressible and demonstrate evidence of blood flow with normal respiratory variation and response to augmentation. Impression: No sonographic evidence of acute DVT of the interrogated left lower extremity deep veins. DICTATED AND SIGNED BY: DANIE JUÁREZ DO DATE: 12/13/17 1112 CC: GABRIELE PRABHAKAR MD; MARIA BERNARDO PA ~ [address] [address] IMAGING REPORT Signed PATIENT: SANDRA STORY ACCOUNT: [id number] : 1975 LOCATION: ER AGE: 42 SEX: F EXAM STATUS: REG ER ORD. PHYSICIAN: GABRIELE PRABHAKAR MD REASON: left lower extremity weakness and numbness PROCEDURE: CT HEAD WO CONTRAST CT of the head without contrast, 12/13/2017: History: Left leg numbness Comparison is made to a study from 09/10/2017. The ventricles are within normal limits in size. There is no shift of the midline structures. There is no evidence of acute intracranial hemorrhage or mass effect. Minimal deep white matter lucency in the right frontal lobe is unchanged and is compatible with an old infarct. No abnormal extra-axial mass or fluid collection is seen. IMPRESSION: 1. Stable right frontal deep white matter lucencies compatible with an old infarct. 2. No acute intracranial abnormality is detected. PQRS Compliance Statement: One or more of the following individualized dose reduction techniques were utilized for this examination: 1. Automated exposure control 2. Adjustment of the mA and/or kV according to patient size 3. Use of iterative reconstruction technique DICTATED AND SIGNED BY: SHIKHA GUTHRIE MD DATE: 12/13/17 1021 CC: GABRIELE PRABHAKAR MD; MARIA BERNARDO ~ Course & Med Decision Making Course & Med Decision Making Pertinent Labs and Imaging studies reviewed. (See chart for details) Evaluation of patient in ER showed 42-year-old female patient with complaining of left lower extremity numbness and weakness since midnight. Patient had subjective paresthesia and was able to move her lower extremity. CT head and left lower extremity Doppler study was unremarkable. Labs did not show any abnormality except for potassium of 3.2 and patient treated with oral potassium in ER and Tylenol and felt better. She instructed to follow-up with her MS physician. [] Dragon Disclaimer Dragon Disclaimer This electronic medical record was generated, in whole or in part, using a voice recognition dictation system. Departure Departure: Impression: Primary Impression: Hypokalemia Additional Impressions: Left leg numbness History of multiple sclerosis Disposition: HOME, SELF-CARE (At 1151) Condition: IMPROVED Referrals: MARIA BERNARDO (PCP) Patient Instructions: Hypokalemia Additional Instructions: Drink plenty of liquids Follow-up with your primary care physician in 3-5 days Return to ER if not getting better Problem Qualifiers GABRIELE PRABHAKAR MD Dec 13, 2017 11:52
[2017-12-13 12:00] VITALS: BP 106/66
[2017-12-13] MEDS ORDERED: ACETAMINOPHEN 500 MG TABLET PO ONE (12:00)
== END 2017-12-13 12:05 | disposition home or self-care (01) ==
LOC: ER 09:42
DX: E87.6 Hypokalemia (principal); R20.0 Anesthesia of skin; G35 Multiple sclerosis; F41.9 Anxiety disorder, unspecified; F31.9 Bipolar disorder, unspecified; I10 Essential (primary) hypertension; G43.909 Migraine, unspecified, not intractable, without status migrainosus; I25.2 Old myocardial infarction; Z86.718 Personal history of other venous thrombosis and embolism; Z79.01 Long term (current) use of anticoagulants; Z87.891 Personal history of nicotine dependence; Z88.2 Allergy status to sulfonamides; Z88.8 Allergy status to other drugs, medicaments and biological substances
CPT/HCPCS: 36415; 70450; 80053; 81001; 84484; 85025; 93971; 99285-25

== ENCOUNTER 2018-01-11 15:36 | Inpatient (IN) | payer SELFPAY ==
[~2018-01-11] VITALS: Ht 162.6 cm; Wt 72.8 kg
[2018-01-11 16:10] LABS: BASO % 1 % (0-3); EOS % 0 % (0-3); HEMATOCRIT 29.9 % (36.0-47.0); HEMOGLOBIN 9.6 g/dL (12.0-15.5); LYMPH # 1.5 x10^3/uL (1.0-4.8); LYMPH % 29 % (24-48); MEAN CORPUSCULAR HEMOGLOBIN 24 pg (25-35); MEAN CORPUSCULAR HGB CONC 32 g/dL (31-37); MEAN CORPUSCULAR VOLUME 74 fL (79-100); MONO # 0.4 x10^3/uL (0.0-1.1); MONO % 9 % (0-9); NEUT # 3.1 x10^3uL (1.8-7.7); NEUT % 62 % (31-73); PLATELET COUNT 239 x10^3/uL (140-400); RED BLOOD COUNT 4.06 x10^6/uL (3.50-5.40); RED CELL DISTRIBUTION WIDTH 18.5 % (11.5-14.5); WHITE BLOOD COUNT 5.1 x10^3/uL (4.0-11.0)
--- NOTE | 2018-01-11 16:14 | RAD ---
CHEST AP ONLY dated 01/11/2018 3:47 PM. Comparison: 10/01/2017 Clinical Indication: CHEST PAIN. Findings: Single upright portable exam performed. Heart and mediastinal contours are stable. Lungs are clear without focal consolidation. Vascular interstitium within normal limits for no pleural effusion or pneumothorax. Impression: Negative portable chest. Electronically signed by: Sharan Cortez MD (01/11/2018 4:11 PM) [facility]
[2018-01-11 16:22] LABS: ALBUMIN 3.2 g/dL (3.4-5.0); CALCIUM 8.7 mg/dL (8.5-10.1); CREATININE 0.9 mg/dL (0.6-1.0); DIRECT BILIRUBIN 0.1 mg/dL (0.0-0.2); GFR 68.7; TOTAL BILIRUBIN 0.3 mg/dL (0.2-1.0); TOTAL PROTEIN 6.7 g/dL (6.4-8.2)
[2018-01-11 16:24] LABS: POTASSIUM 2.9 mmol/L (3.5-5.1)
--- NOTE | 2018-01-11 16:42 | EKG ---
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
[2018-01-11] MEDS ORDERED: NITROGLYCERIN SUBLINGUAL 0.4 MG BOTTLE OF 25. SL ONE (17:10)
[2018-01-11] MEDS ORDERED: POTASSIUM CL 40MEQ IN 0.9%NACL 1,000 ML IV ONE (17:30)
[2018-01-11] MEDS ORDERED: MORPHINE SULFATE 2 MG/ML DISP.SYRIN. IV PRN (17:30)
[2018-01-11] MEDS ORDERED: ONDANSETRON PF 4 MG/2 ML VIAL. IV PRN (17:30)
[2018-01-11] MEDS ORDERED: POTASSIUM CHLORIDE 20 MEQ/15 ML ORAL LIQUID. PO ONE (17:30)
--- NOTE | 2018-01-11 19:00 | PHYS DOC ---
Past History Past Medical History: Anxiety, Bipolar, DVT, Hypertension, [place], Migraines, Other Additional Past Medical Histor: Multiple Sclerosis; DVT left leg Past Surgical History: Cholecystectomy, Smoking: Quit Less Than 1 Year Alcohol Use: None Drug Use: None Adult General Chief Complaint Chief Complaint: CHEST PAIN HPI HPI 42-year-old female presenting the emergency department today with chest pain. The pain is sharp shooting pain. It occurred while she was watching television. It is nonradiating moderate intermittent and without associated symptoms. She denies nausea vomiting. She denies diaphoresis fevers or chills.The patient denies that the pain was sudden in onset. It is not associated with neurologic deficits. The patient denies a past medical history of lo Danlos syndrome or marfans syndrome. The pain is not migratory. Review of systems is negative for fevers chills nausea vomiting diaphoresis. She denies unilateral leg swelling hemoptysis or recent immobilization. All other review of systems is negative unless otherwise noted in history of present illness. ED course: 42-year-old female presenting to the emergency department today with chest pain. Upon arrival EKG obtained and reviewed by myself which shows sinus rhythm with a regular rate. ST segments are congruent. Not suggestive of ACS. Blood work sent. Patient got aspirin prior to arrival. Chest pain resolved while in the emergency department. Potassium came back at 2.9. hemoglobin mildly low. We will provide IV and oral replacement therapy. Otherwise, blood work unremarkable. Troponin negative. D-dimer negative. We will admit the patient for cardiac consultation and serial troponins. Dr. Stone accepted the patient for admission. Basic bridge orders placed. Wells Score Clinical signs and symptoms of DVT No 0 Yes +3 PE is #1 diagnosis OR equally likely No 0 Yes +3 Heart rate > 100 No 0 Yes +1.5 Immobilization at least 3 days OR surgery in the previous 4 weeks No 0 Yes +1.5 Previous, objectively diagnosed PE or DVT No 0 Yes +1.5 Hemoptysis No 0 Yes +1 Malignancy w/ treatment within 6 months or palliative No 0 Yes +1 TOTAL 1.5 Points Review of Systems Review of Systems SEE ABOVE. Current Medications Current Medications Current Medications Medications (Trade) Dose Ordered Sig/Ladonna Start Time Stop Time Status Last Admin Dose Admin Morphine Sulfate (Morphine 2mg Syringe) 2 mg PRN Q2HR PRN 01/11/18 17:30 01/12/18 17:29 Nitroglycerin (Nitrostat) 0.4 mg 1X ONCE 01/11/18 17:10 01/11/18 17:11 DC Ondansetron HCl (Zofran) 4 mg PRN Q4HRS PRN 01/11/18 17:30 01/12/18 17:29 Potassium Chloride/Sodium Chloride 1,000 ml @ 75 mls/hr 1X ONCE 01/11/18 17:30 01/12/18 06:49 01/11/18 17:29 75 MLS/HR Potassium Chloride (KCl Oral Soln) 40 meq 1X ONCE 01/11/18 17:30 01/11/18 17:31 DC 01/11/18 17:29 40 MEQ Allergies Allergies Allergies Coded Allergies Type Severity Reaction Last Updated Verified Sulfa (Sulfonamide Antibiotics) Allergy Intermediate 10/01/17 Yes ketorolac Allergy Intermediate 08/17/14 Yes Physical Exam Physical Exam SEE ABOVE Constitutional: Well developed, well nourished, no acute distress, non-toxic appearance. HENT: Normocephalic, atraumatic, bilateral external ears normal, oropharynx moist, no oral exudates, nose normal. [] Eyes: PERRLA, EOMI, conjunctiva normal, no discharge. Neck: Normal range of motion, no tenderness, supple, no stridor. [] Cardiovascular:Heart rate regular rhythm, no murmur Lungs & Thorax: Bilateral breath sounds clear to auscultation [] Abdomen: Bowel sounds normal, soft, no tenderness, no masses, no pulsatile masses. Skin: Warm, dry, no erythema, no rash. [] Back: No tenderness, no CVA tenderness. Extremities: No tenderness, no cyanosis, no clubbing, ROM intact, no edema. [] Palpable pulses in all extremities. Neurologic: Alert and oriented X 3, normal motor function, normal sensory function, no focal deficits noted. Psychologic: Affect normal, judgement normal, mood normal. [] Current Patient Data Vital Signs Vital Signs Date Time Temp Pulse Resp B/P (MAP) Pulse Ox O2 Delivery O2 Flow Rate FiO2 01/11/18 17:42 84 22 119/59 (79) 98 Room Air 01/11/18 15:47 98.6 Lab Results Laboratory Tests Test 01/11/18 15:55 White Blood Count 5.1 x10^3/uL (4.0-11.0) Red Blood Count 4.06 x10^6/uL (3.50-5.40) Hemoglobin 9.6 g/dL (12.0-15.5) L Hematocrit 29.9 % (36.0-47.0) L Mean Corpuscular Volume 74 fL (79-100) L Mean Corpuscular Hemoglobin 24 pg (25-35) L Mean Corpuscular Hemoglobin Concent 32 g/dL (31-37) Red Cell Distribution Width 18.5 % (11.5-14.5) H Platelet Count 239 x10^3/uL (140-400) Neutrophils (%) (Auto) 62 % (31-73) Lymphocytes (%) (Auto) 29 % (24-48) Monocytes (%) (Auto) 9 % (0-9) Eosinophils (%) (Auto) 0 % (0-3) Basophils (%) (Auto) 1 % (0-3) Neutrophils # (Auto) 3.1 x10^3uL (1.8-7.7) Lymphocytes # (Auto) 1.5 x10^3/uL (1.0-4.8) Monocytes # (Auto) 0.4 x10^3/uL (0.0-1.1) Eosinophils # (Auto) 0.0 x10^3/uL (0.0-0.7) Basophils # (Auto) 0.0 x10^3/uL (0.0-0.2) D-Dimer (Shanel) < 0.19 mg/L (0.00-0.50) Sodium Level 142 mmol/L (136-145) Potassium Level 2.9 mmol/L (3.5-5.1) *L Chloride Level 106 mmol/L (98-107) Carbon Dioxide Level 26 mmol/L (21-32) Anion Gap 10 (6-14) Blood Urea Nitrogen 11 mg/dL (7-20) Creatinine 0.9 mg/dL (0.6-1.0) Estimated GFR (Cockcroft-Gault) 68.7 Glucose Level 97 mg/dL (70-99) Calcium Level 8.7 mg/dL (8.5-10.1) Total Bilirubin 0.3 mg/dL (0.2-1.0) Direct Bilirubin 0.1 mg/dL (0.0-0.2) Aspartate Amino Transferase (AST) 20 U/L (15-37) Alanine Aminotransferase (ALT) 60 U/L (14-59) H Alkaline Phosphatase 67 U/L (46-116) Troponin I Quantitative < 0.017 ng/mL (0-0.055) Total Protein 6.7 g/dL (6.4-8.2) Albumin 3.2 g/dL (3.4-5.0) L Lipase 100 U/L (73-393) EKG EKG [] Radiology/Procedures Radiology/Procedures [] Course & Med Decision Making Course & Med Decision Making Pertinent Labs and Imaging studies reviewed. (See chart for details) [] Dragon Disclaimer Dragon Disclaimer This electronic medical record was generated, in whole or in part, using a voice recognition dictation system. Departure Departure: Impression: Primary Impression: Chest pain Disposition: ADMITTED INPATIENT Admitting Physician: Eric Stone Condition: STABLE Referrals: MARIA BERNARDO (PCP) ALISHA LOAIZA MD Jan 11, 2018 19:00
[2018-01-11 21:08] VITALS: BP 89/60
[2018-01-12] VITALS (7 sets, daily range): BP systolic 94–114; BP diastolic 51–75
[2018-01-12] MEDS: MIRTAZAPINE 30 MG TABLET PO SCH ×2 (00:09→21:31)
[2018-01-12] MEDS: GABAPENTIN 100 MG CAPSULE. PO SCH ×4 (00:09→21:31)
[2018-01-12] MEDS: NAPROXEN 500 MG TABLET PO SCH ×3 (00:10→21:31)
[2018-01-12] MEDS: FAMOTIDINE 20 MG TABLET PO SCH ×3 (00:10→21:31)
[2018-01-12 05:58] LABS: BASO % 1 % (0-3); EOS % 0 % (0-3); HEMATOCRIT 26.8 % (36.0-47.0); HEMOGLOBIN 8.5 g/dL (12.0-15.5); LYMPH # 2.4 x10^3/uL (1.0-4.8); LYMPH % 60 % (24-48); MEAN CORPUSCULAR HEMOGLOBIN 24 pg (25-35); MEAN CORPUSCULAR HGB CONC 32 g/dL (31-37); MEAN CORPUSCULAR VOLUME 75 fL (79-100); MONO # 0.3 x10^3/uL (0.0-1.1); MONO % 8 % (0-9); NEUT # 1.2 x10^3uL (1.8-7.7); NEUT % 31 % (31-73); PLATELET COUNT 213 x10^3/uL (140-400); RED BLOOD COUNT 3.58 x10^6/uL (3.50-5.40); RED CELL DISTRIBUTION WIDTH 18.4 % (11.5-14.5); WHITE BLOOD COUNT 3.9 x10^3/uL (4.0-11.0)
[2018-01-12 06:16] LABS: CALCIUM 8.3 mg/dL (8.5-10.1); CREATININE 0.7 mg/dL (0.6-1.0); GFR 91.8; POTASSIUM 3.8 mmol/L (3.5-5.1)
--- NOTE | 2018-01-12 08:48 | PDOC2 ---
DAR RUDOLPH CATERING SERVICE MANAGER 01/12/18 0848: CONSULT Date of Admission DATE: 01/12/18 TIME: 08:46 Reason for Consult: cp Problem List Problems Medical Problems: (1) Chest pain Status: Acute History of Present Illness Ms Adame is a 42-year-old female who presented to the emergency department today with chest pain. She describes waking from a nap on the couch with sharp shooting mid sternal chest pain which radiated to her right axilla and arm. She reports some associated dyspnea and increased pain with deep inspiration. She also reports some lightheadedness on standing and losing her balance and falling back to the couch. She denies nausea, diaphoresis, vomiting, palpitations. She denies any congestive symptoms or edema. She reports pain is improved but still present though she did report resolution of pain in the ED. She denies any recent illness, fever or chills. In the ER she was noted to have low potassium as well. Past Medical History [facility] 09/20/16 Conclusion 1. Regadenoson cardioisotope stress test did not show any evidence of ischemia or infarct. 2. Normal left ventricular systolic function with ejection fraction calculated at >80%. 3. Low risk for cardiac events. anxiety, bipolar disorder, depression, migraines, Multiple sclerosis with recent exacerbation and rehab stay, hypertension, asthma Past Surgical History c section, otherwise unremarkable Family History She has 2 brothers, both older, and one sister, who is younger and has diabetes. Her father is still alive at the age of 65. Her mother due to congestive heart failure and complications of diabetes. Social History She is single. She has one son. She previously smoked a pack a day and had a history of marijuana use but currently denies both. She denies ETOH use. Current Medications Current Medications Nitroglycerin (Nitrostat) 0.4 mg 1X ONCE SL ; Start 01/11/18 at 17:10; Stop at 17:11; Status DC Potassium Chloride/Sodium Chloride 1,000 ml @ 75 mls/hr 1X ONCE IV Last administered on 01/11/18at 17:29; Start 01/11/18 at 17:30; Stop 01/12/18 at 06:49 ; Status DC Ondansetron HCl (Zofran) 4 mg PRN Q4HRS PRN IV NAUSEA/VOMITING Last administered on 01/12/18 08:07; Start 01/11/18 at 17:30; Stop 01/12/18 at 17:29 Morphine Sulfate (Morphine 2mg Syringe) 2 mg PRN Q2HR PRN IV PAIN; Start at 17:30; Stop 01/12/18 at 17:29 Potassium Chloride (KCl Oral Soln) 40 meq 1X ONCE PO Last administered on 01/11at 17:29; Start 01/11/18 at 17:30; Stop 01/11/18 at 17:31; Status DC Famotidine (Pepcid) 20 mg BID PO Last administered on 01/12/18 08:06; Start at 00:00 Gabapentin (Neurontin) 200 mg TID PO Last administered on 01/12/18 08:07; Start 01/12/18 at 00:00 Mirtazapine (Remeron) 30 mg QHS PO Last administered on 01/12/18at 00:09; Start 01/12/18 at 00:00 Naproxen (Naprosyn) 500 mg BID PO Last administered on 01/12/18at 08:06; Start 01/12/18 at 00:00 Active Scripts Active Naprosyn (Naproxen) 500 Mg Tablet 1 Tab PO BID Pepcid (Famotidine) 20 Mg Tablet 1 Tab PO BID Zofran Odt (Ondansetron) 4 Mg Tab.rapdis 1 Tab SL Q8HRS Hydrocortisone 453.6 Gm Cream..g. 1 Rebecca TP BID Reported Proair Hfa Inhaler (Albuterol Sulfate) 8.5 Gm Hfa.aer.ad 1 Puff INH PRN Q6HRS PRN Clonazepam 0.5 Mg Tablet 1 Tab PO DAILY PRN Gabapentin 100 Mg Capsule 200 Mg PO TID LAST DOSE GIVEN: DATE: 06/15 TIME: AM NEXT DOSE DUE: DATE: 06/15 TIME: 2:00 PM Aspirin 325 Mg Tablet 1 Tab PO DAILY LAST DOSE GIVEN: DATE: 06/15 TIME: AM NEXT DOSE DUE: DATE: 06/16 TIME: AM Trintellix (Vortioxetine Hydrobromide) 10 Mg Tablet 20 Mg PO DAILY LAST DOSE GIVEN: DATE: 06/15 TIME: AM NEXT DOSE DUE: DATE: 06/16 TIME: AM Topiramate 50 Mg Tablet 1 Tab PO DAILY LAST DOSE GIVEN: DATE: 06/15 TIME: AM NEXT DOSE DUE: DATE: 06/15 TIME: PM Hydroxyzine Hcl 25 Mg Tablet 1 Tab PO BID PRN Mirtazapine 30 Mg Tablet 1 Tab PO QHS LAST DOSE GIVEN: DATE: 06/14 TIME: PM NEXT DOSE DUE: DATE: 06/15 TIME: PM Metoprolol Succinate ( Xl ) (Metoprolol Succinate) 25 Mg Tab.er.24h 1 Tab PO DAILY LAST DOSE GIVEN: DATE: 06/15 TIME: AM NEXT DOSE DUE: DATE: 06/16 TIME: AM Allergies: Coded Allergies: Sulfa (Sulfonamide Antibiotics) (Verified Allergy, Intermediate, 10/01/17) ketorolac (Verified Allergy, Intermediate, 08/17/14) Review of System as per HPI General: Alert, Oriented X3, Cooperative, No acute distress HEENT: Atraumatic, EOMI Lungs: Clear to auscultation, Normal air movement Heart: Regular rate, Normal S1, Normal S2, Other (no gallops, clicks or rubs. + reproducible chest wall discomfort.) Abdomen: Normal bowel sounds, Soft Extremities: No clubbing, No cyanosis, Normal pulses, Other (trace edema) Neuro: Strength at 5/5 X4 ext Psych/Mental Status: Other (flat affect) VITALS Vital Signs Date Time Temp Pulse Resp B/P (MAP) Pulse Ox O2 Delivery O2 Flow Rate FiO2 01/12/18 08:00 Room Air 01/12/18 07:58 97.9 68 18 98/51 (67) 99 Labs Laboratory Tests Test 01/11/18 15:55 01/11/18 20:30 01/11/18 23:23 01/12/18 05:48 White Blood Count 5.1 x10^3/uL (4.0-11.0) 3.9 x10^3/uL (4.0-11.0) Red Blood Count 4.06 x10^6/uL (3.50-5.40) 3.58 x10^6/uL (3.50-5.40) Hemoglobin 9.6 g/dL (12.0-15.5) 8.5 g/dL (12.0-15.5) Hematocrit 29.9 % (36.0-47.0) 26.8 % (36.0-47.0) Mean Corpuscular Volume 74 fL (79-100) 75 fL (79-100) Mean Corpuscular Hemoglobin 24 pg (25-35) 24 pg (25-35) Mean Corpuscular Hemoglobin Concent 32 g/dL (31-37) 32 g/dL (31-37) Red Cell Distribution Width 18.5 % (11.5-14.5) 18.4 % (11.5-14.5) Platelet Count 239 x10^3/uL (140-400) 213 x10^3/uL (140-400) Neutrophils (%) (Auto) 62 % (31-73) 31 % (31-73) Lymphocytes (%) (Auto) 29 % (24-48) 60 % (24-48) Monocytes (%) (Auto) 9 % (0-9) 8 % (0-9) Eosinophils (%) (Auto) 0 % (0-3) 0 % (0-3) Basophils (%) (Auto) 1 % (0-3) 1 % (0-3) Neutrophils # (Auto) 3.1 x10^3uL (1.8-7.7) 1.2 x10^3uL (1.8-7.7) Lymphocytes # (Auto) 1.5 x10^3/uL (1.0-4.8) 2.4 x10^3/uL (1.0-4.8) Monocytes # (Auto) 0.4 x10^3/uL (0.0-1.1) 0.3 x10^3/uL (0.0-1.1) Eosinophils # (Auto) 0.0 x10^3/uL (0.0-0.7) 0.0 x10^3/uL (0.0-0.7) Basophils # (Auto) 0.0 x10^3/uL (0.0-0.2) 0.0 x10^3/uL (0.0-0.2) D-Dimer (Shanel) < 0.19 mg/L (0.00-0.50) Sodium Level 142 mmol/L (136-145) 146 mmol/L (136-145) Potassium Level 2.9 mmol/L (3.5-5.1) 3.8 mmol/L (3.5-5.1) Chloride Level 106 mmol/L (98-107) 113 mmol/L (98-107) Carbon Dioxide Level 26 mmol/L (21-32) 25 mmol/L (21-32) Anion Gap 10 (6-14) 8 (6-14) Blood Urea Nitrogen 11 mg/dL (7-20) 10 mg/dL (7-20) Creatinine 0.9 mg/dL (0.6-1.0) 0.7 mg/dL (0.6-1.0) Estimated GFR (Cockcroft-Gault) 68.7 91.8 Glucose Level 97 mg/dL (70-99) 90 mg/dL (70-99) Calcium Level 8.7 mg/dL (8.5-10.1) 8.3 mg/dL (8.5-10.1) Total Bilirubin 0.3 mg/dL (0.2-1.0) Direct Bilirubin 0.1 mg/dL (0.0-0.2) Aspartate Amino Transf (AST/SGOT) 20 U/L (15-37) Alanine Aminotransferase (ALT/SGPT) 60 U/L (14-59) Alkaline Phosphatase 67 U/L (46-116) Troponin I Quantitative < 0.017 ng/mL (0-0.055) < 0.017 ng/mL (0-0.055) < 0.017 ng/mL (0-0.055) Total Protein 6.7 g/dL (6.4-8.2) Albumin 3.2 g/dL (3.4-5.0) Lipase 100 U/L (73-393) Images CXR - Impression: Negative portable chest. Assessment/Plan 1. atypical chest pain, most consistent with musculoskeletal - [place] ruled out. Echo pending. Normal perfusion by MPI 1 year ago. 2. Hypertension - well controlled 3. unknown lipid status - check lipids 4. Multiple sclerosis - per PCP Problems: MEDHAT BEY MD 01/15/18 1635: CONSULT Allergies: Coded Allergies: Sulfa (Sulfonamide Antibiotics) (Verified Allergy, Intermediate, 10/01/17) ketorolac (Verified Allergy, Intermediate, 08/17/14) Assessment/Plan Late entry for 01/12/2018 Pt. seen and examined. 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 Problems: DAR RUDOLPH APRN Jan 12, 2018 08:48 MEDHAT BEY MD Jan 15, 2018 16:35
[2018-01-12] MEDS ORDERED: POLYETHYLENE GLYCOL 3350 17 GM PACKET. PO ONE (15:45)
--- NOTE | 2018-01-12 15:48 | HP ---
ADMIT DATE: 01/12/2018 HISTORY OF PRESENT ILLNESS: The patient is a 42-year-old female patient complaining of chest pain, mostly retrosternal, sharp, radiating to her right side of the chest, right arm, also radiating to the back of the chest, right side of the abdomen and right lower extremity. She stated that she has . She complained of nausea, vomiting, diaphoresis, shortness of breath, also when she takes deep breath and was lying flat. The pain has been going on and off for days according to her. She was evaluated in the Emergency Room and basically her first set of cardiac enzyme was negative. Her EKG also showed no evidence of ST segment elevation or depression, was admitted for to do 2 more sets of cardiac enzyme, consult the Cardiology team and also check her fasting lipid profile. PAST MEDICAL HISTORY: Significant for migraine headache, hypertension, depression, bronchial asthma as well as anxiety and multiple sclerosis. PAST SURGICAL HISTORY: Significant for and also cholecystectomy. ALLERGIES: She is allergic to SULFA DRUGS and KETOROLAC. MEDICATIONS: She is currently on following medications: She is on albuterol sulfate 1 puff every 6 hours as needed, metoprolol succinate 25 mg once a day, aspirin 325 mg once a day, naproxen 500 mg twice a day, clonazepam 0.5 mg daily, gabapentin 200 mg 3 times a day, topiramate 50 mg daily, mirtazapine 30 mg at bedtime and Trintellix 20 mg daily, hydroxyzine 25 mg twice a day, ondansetron 4 mg ODT every 8 hours, famotidine 20 mg once a day, hydrocortisone cream applied topically twice a day. FAMILY HISTORY: She has 2 brothers, both older and one sister who is younger has diabetes. Her father is alive at age 65. Mother due to congestive heart failure and complication of diabetes. SOCIAL HISTORY: She is single. She has an 18-year-old son. She does not smoke, drink alcohol or use any drugs. REVIEW OF SYSTEMS: As per history of present illness. PHYSICAL EXAMINATION: GENERAL: On arrival to the Emergency Room, she looked well and was clearly in no apparent respiratory distress, pale, but no jaundice, cyanosis or thyromegaly. No jugular venous distension. No limb edema. VITAL SIGNS: Her heart rate was 84, blood pressure 115/57, temperature was 98.6, respiratory rate was 22 and oxygen saturation was 100% on room air. HEAD, EYES, EARS, NOSE, AND THROAT: Showed normocephalic, atraumatic. NECK: Supple. HEART: Showed normal first and second heart sounds with no gallop, rub or murmur. CHEST: Shows central trachea, equal bilateral expansion, air entry, vesicular auscultation. No crepitation or rhonchi. ABDOMEN: Distended, soft, nontender. NEUROLOGIC: She is awake, alert, responding appropriately. Cranial nerves intact. EXTREMITIES: She moves extremities without difficulty, ambulates without assistance or assistive devices. LABORATORY DATA: On admission showed a white cell count 5100, hemoglobin 9.6, hematocrit 29.9, MCV 74 and platelet count 239,000. Her chemistry showed a serum sodium 142, potassium 2.9, chloride 106, bicarbonate 26, anion gap of 10, BUN 11, creatinine 0.9, estimated GFR was 67 mL per minute. Her glucose was 97, calcium was 8.7. Total bilirubin, AST, ALT, alkaline phosphatase were normal. Total protein 6.7, albumin 3.2. Her lipase was only 100. Her D-dimer was less than 0.19 mg/dL. NICOL VALDIVIA MD DR: DYLLAN/ember JOB#: [id number] / [id number]
[2018-01-12] MEDS ORDERED: clonazePAM 0.5 MG TABLET PO PRN (19:15)
[2018-01-12] MEDS ORDERED: ALBUTEROL SULFATE 8GM INHALER. INH PRN (19:15)
[2018-01-12] MEDS ORDERED: hydrOXYzine HCL 25 MG TABLET PO PRN (19:15)
[2018-01-12] MEDS ORDERED: ALBUTEROL SULFATE 2.5 MG/3 ML NEBU. NEB PRN (20:15)
[2018-01-12] MEDS: HYDROCORTISONE 2.5% TOPICAL CREAM 30GM TUBE. TP SCH (21:00)
[2018-01-12 21:35] LABS: BARBITURATES NEG (NEG); BENZODIAZEPINES NEG (NEG); CANNABINOIDS NEG (NEG); COCAINE NEG (NEG); METHADONE NEG (NEG); OPIATES NEG (NEG); PHENCYCLIDINE NEG (NEG)
[2018-01-12 21:46] LABS: AMPHETAMINE/METHAMPHETAMINE NEG (NEG)
[2018-01-13 00:23] LABS: U PREG PATIENT NEGATIVE (NEG)
[2018-01-13 05:02] VITALS: BP 92/59
[2018-01-13] MEDS ORDERED: METOPROLOL SUCC 24HR ER 25 MG TAB.ER.24H. PO SCH (09:00)
[2018-01-13] MEDS ORDERED: ASPIRIN 325 MG TABLET PO SCH (09:00)
[2018-01-13] MEDS ORDERED: NON FORMULARY ITEM (Vortioxetine Hydrobromide (Trintellix) 20 MG) PO SCH (09:00)
[2018-01-13] MEDS ORDERED: TOPIRAMATE 25 MG TABLET. PO SCH (09:00)
[2018-01-13] MEDS: NAPROXEN 500 MG TABLET PO SCH (09:25)
[2018-01-13] MEDS: GABAPENTIN 100 MG CAPSULE. PO SCH (09:26)
[2018-01-13] MEDS: FAMOTIDINE 20 MG TABLET PO SCH (09:26)
[2018-01-13] MEDS: HYDROCORTISONE 2.5% TOPICAL CREAM 30GM TUBE. TP SCH (09:28)
[2018-01-13 11:01] VITALS: BP 95/56
--- NOTE | 2018-01-13 22:13 | DS ---
DATE OF DISCHARGE: 01/13/2018 HOSPITAL COURSE: The patient is a 42-year-old female patient who came to the Emergency Room complaining of chest pain that started in the middle of her chest, radiating to the right axilla and right arm, associated with some dyspnea. The pain was increased with deep inspiration. She also reports lightheadedness when standing. She denied any nausea, vomiting, diaphoresis, or palpitation. Denied any shortness of breath. She was evaluated in the Emergency Room and her first set of cardiac enzyme was less than 0.017. She was admitted to have 2 more sets of cardiac enzyme and to consult the Cardiology team. She has had 2 more sets of cardiac enzymes that were negative. We did consult the Cardiology team and apparently had had isotope stress test did not show any evidence of ischemia or infarct. Her left ventricular systolic function was normal, ejection fraction of more than 80% and the Cardiology team decided not to do any further ischemic workup and stated that the patient can be discharged safely. All her symptoms are musculoskeletal. The patient continued to complain of constipation and also urine urgency and frequency. We actually did a urinalysis, which showed that the test was negative. Her toxicology screen was negative. As she remained stable and chest pain free, a decision was made to discharge her home to follow with her primary care physician. PHYSICAL EXAMINATION: GENERAL: When I examined her, she looked well and was clearly in no apparent respiratory distress, slightly pale, no jaundice, cyanosis, or thyromegaly. No jugular venous distension. No limb edema. VITAL SIGNS: Her heart rate was 80, blood pressure was 95/56, temperature was 98.3, respiratory rate was 20, and oxygen saturation was 100% on room air. HEAD, EYES, EARS, NOSE, AND THROAT: Showed normocephalic, atraumatic. NECK: Supple. HEART: Showed normal first and second sounds. No gallop, rub, or murmur. CHEST: Clear to auscultation. No crepitation or rhonchi. ABDOMEN: Distended, soft, nontender. No guarding or rigidity. No organomegaly. All hernial orifice intact. Bowel sounds normal. NEUROLOGIC: She was awake, alert, responding appropriately. Cranial nerves intact. She moves extremities without difficulty. She ambulates without assistance or assistive devices. LABORATORY DATA: Showed her white cell count to be 3900, hemoglobin 8.5, hematocrit 26.8, MCV 75, and platelet count 213,000. Her chemistry showed serum sodium of 146, potassium 3.8, chloride 113, bicarbonate 25, anion gap of 8, BUN 10, creatinine 0.7, estimated GFR was 92 mL per minute. Her glucose was 90, calcium was 8.3. Serum triglycerides were 70. Her total cholesterol was 122, LDL was 71, VLDL was 14, and HDL was 37, her ratio of 3. DISCHARGE MEDICATIONS: The patient will be discharged home to continue on following medications: Albuterol sulfate 2.5 mg by nebulizer every 6 hours. She is also on inhaler 1 puff every 6 hours, aspirin 325 mg once a day, clonazepam 0.5 mg daily, famotidine 20 mg twice a day, gabapentin 200 mg 3 times a day, hydrocortisone cream applied topically twice a day, hydroxyzine 25 mg twice a day for anxiety, metoprolol succinate 25 mg once a day, mirtazapine 30 mg at bedtime, naproxen 500 mg twice a day, ondansetron for Zofran 4 mg sublingually every 8 hours, topiramate 50 mg daily, and Trintellix 20 mg daily. FINAL DISCHARGE DIAGNOSES: Hypertension, bronchial asthma, multiple sclerosis, migraine headache, anxiety and depression, atypical chest pain, myocardial infarction was ruled out. NICOL VALDIVIA MD DR: DYLLAN/ember JOB#: [id number] / [id number]
== END 2018-01-13 13:45 | disposition home or self-care (01) | DRG 313 ==
LOC: ER 15:36 → 1 SOUTH 17:36
PROVIDERS: ADMIT Internal Medicine; ATTEND Internal Medicine
DX: R07.89 Other chest pain (principal); G35 Multiple sclerosis; W01.0XXA Fall on same level from slipping, tripping and stumbling without subsequent striking against object, initial encounter; F31.9 Bipolar disorder, unspecified; I10 Essential (primary) hypertension; J45.909 Unspecified asthma, uncomplicated; R39.15 Urgency of urination; K59.00 Constipation, unspecified; F41.9 Anxiety disorder, unspecified; G43.909 Migraine, unspecified, not intractable, without status migrainosus; Y93.89 Activity, other specified; Y92.89 Other specified places as the place of occurrence of the external cause; Y99.8 Other external cause status; Z83.3 Family history of diabetes mellitus; I25.2 Old myocardial infarction; Z82.49 Family history of ischemic heart disease and other diseases of the circulatory system; Z87.891 Personal history of nicotine dependence; Z90.49 Acquired absence of other specified parts of digestive tract; Z86.718 Personal history of other venous thrombosis and embolism; Z88.2 Allergy status to sulfonamides; Z88.8 Allergy status to other drugs, medicaments and biological substances; Z79.899 Other long term (current) drug therapy
CPT/HCPCS: 36415; 71045; 80048; 80061; 80076; 80307; 81025; 83690; 84484; 85025; 85379; 93005; J2405; 97110; 99285-25; G0479

== ENCOUNTER 2018-02-07 13:58 | Emergency (ER) | payer MEDICAID, OTHER ==
[~2018-02-07] VITALS: Ht 162.6 cm; Wt 71.4 kg
--- NOTE | 2018-02-07 14:55 | PHYS DOC ---
Past History Past Medical History: Anxiety, Bipolar, DVT, Hypertension, [place], Migraines, Other Additional Past Medical Histor: Multiple Sclerosis; DVT left leg Past Surgical History: Cholecystectomy, Smoking: Quit Less Than 1 Year Alcohol Use: None Drug Use: None Adult General Chief Complaint Chief Complaint: MECHANICAL FALL HPI HPI 42-year-old female presents EMS with 2 chief complaints. Her first visit she fell out of bed last night and landed on her left side. She had some pain in her left upper extremity but it is getting better. She continues to have pain in and around her left knee. She was able to ambulate per EMS. The patient states that it hurts to bend her knee. She was able to scoot across the floor and get into a recliner last night. She waited to come to the ER until today when her sister came to the house. Patient denies loss of consciousness, hitting her head, numbness or tingling. She denies fever or chills. Her second chief complaint is suicidal ideation. The patient states she has been thinking about suicide intermittently for the last few weeks. She has been thinking more seriously about recently. She states that this is due to her son moving out of her house. She does believe that she has suicidal intent. She has a plan to take "a bunch" of her prescription medications. She states that if that this does not work she can use a knife to cut herself. When asked if she would like to receive help, she states that she feels that she should seek help so that she does not hurt herself. She is willing to do an inpatient admission. She denies hallucinations or delusions. She denies homicidal ideation. Review of Systems Review of Systems Constitutional: Denies fever or chills [] Eyes: Denies change in visual acuity, redness, or eye pain [] HENT: Denies nasal congestion or sore throat [] Respiratory: Denies cough or shortness of breath [] Cardiovascular: No additional information not addressed in HPI [] GI: Denies abdominal pain, nausea, vomiting, bloody stools or diarrhea [] : Denies dysuria or hematuria [] Musculoskeletal: Left knee pain[] Integument: Denies rash or skin lesions [] Neurologic: Denies headache, focal weakness or sensory changes [] Endocrine: Denies polyuria or polydipsia Psych: Suicidal ideation[] All other systems were reviewed and found to be within normal limits, except as documented in this note. Allergies Allergies Allergies Coded Allergies Type Severity Reaction Last Updated Verified Sulfa (Sulfonamide Antibiotics) Allergy Intermediate 10/01/17 Yes ketorolac Allergy Intermediate 08/17/14 Yes Physical Exam Physical Exam Constitutional: Well developed, well nourished, no acute distress, non-toxic appearance. [] HENT: Normocephalic, atraumatic, bilateral external ears normal, oropharynx moist, no oral exudates, nose normal. [] Eyes: PERRLA, EOMI, conjunctiva normal, no discharge. [] Neck: Normal range of motion, no tenderness, supple, no stridor. [] Cardiovascular:Heart rate regular rhythm, no murmur [] Lungs & Thorax: Bilateral breath sounds clear to auscultation [] Abdomen: Bowel sounds normal, soft, no tenderness, no masses, no pulsatile masses. [] Skin: Warm, dry, no erythema, no rash. [] Back: No tenderness, no CVA tenderness. [] Extremities: Left knee tenderness to palpation and range of motion. I was unable to do a complete exam due to pain. No edema. [] Neurologic: Alert and oriented X 3, normal motor function, normal sensory function, no focal deficits noted. [] Psychologic: Depressed, flat affect, suicidal ideation with intent and plan.[] EKG EKG [] Radiology/Procedures Radiology/Procedures 3 views left knee 02/07/2018 2:48 PM Indication: Pain following recent fall Comparison: None available Findings: Rotation noted on AP view. No evidence of acute fracture or dislocation is identified. Articular surfaces appear to be uninterrupted. No joint effusion is identified. No acute soft tissue changes are seen. IMPRESSION: No radiographic evidence of acute osseous abnormality Electronically signed by: Gagandeep Hobson MD (02/07/2018 3:55 PM) [facility] DICTATED AND SIGNED BY: GAGANDEEP HOBSON MD DATE: 02/07/18 1554 [] Course & Med Decision Making Course & Med Decision Making Pertinent Labs and Imaging studies reviewed. (See chart for details) The patient's x-rays are negative for acute finding. She only has minimal swelling of the knee. She has not requested pain medication. The patient appears to be serious about her suicidal ideation. She has a specific plan as well as a backup plan. She does not have a precise timeline. I will request a tele-psych consult. The psych consult agreed that the patient should be placed for inpatient management. They are working on her official placement. She has been calm and cooperative in the ED. She is in agreement with inpatient admission. The psych team was able to find a room at . We will transfer her there by ambulance. [] Dragon Disclaimer Dragon Disclaimer This electronic medical record was generated, in whole or in part, using a voice recognition dictation system. Departure Departure: Referrals: MARIA BERNARDO (PCP) SOTERO PRICE DO February 07, 2018 14:55
[2018-02-07 15:25] LABS: BASO % 1 % (0-3); EOS % 0 % (0-3); HEMATOCRIT 29.6 % (36.0-47.0); HEMOGLOBIN 9.3 g/dL (12.0-15.5); LYMPH % 39 % (24-48); MEAN CORPUSCULAR HEMOGLOBIN 23 pg (25-35); MEAN CORPUSCULAR HGB CONC 32 g/dL (31-37); MEAN CORPUSCULAR VOLUME 74 fL (79-100); MONO # 0.3 x10^3/uL (0.0-1.1); MONO % 6 % (0-9); NEUT # 2.8 x10^3uL (1.8-7.7); NEUT % 54 % (31-73); PLATELET COUNT 244 x10^3/uL (140-400); RED BLOOD COUNT 4.03 x10^6/uL (3.50-5.40); RED CELL DISTRIBUTION WIDTH 18.6 % (11.5-14.5); WHITE BLOOD COUNT 5.1 x10^3/uL (4.0-11.0)
[2018-02-07 15:28] LABS: CALCIUM 8.3 mg/dL (8.5-10.1); CREATININE 0.8 mg/dL (0.6-1.0); GFR 78.7; POTASSIUM 3.4 mmol/L (3.5-5.1)
[2018-02-07 15:34] LABS: PREG TEST PT QUAL NEGATIVE (NEG)
[2018-02-07 15:47] LABS: AMPHETAMINE/METHAMPHETAMINE NEG (NEG); BARBITURATES NEG (NEG); BENZODIAZEPINES NEG (NEG); CANNABINOIDS NEG (NEG); COCAINE NEG (NEG); METHADONE NEG (NEG); OPIATES NEG (NEG); PHENCYCLIDINE NEG (NEG)
--- NOTE | 2018-02-07 15:58 | RAD ---
3 views left knee 02/07/2018 2:48 PM Indication: Pain following recent fall Comparison: None available Findings: Rotation noted on AP view. No evidence of acute fracture or dislocation is identified. Articular surfaces appear to be uninterrupted. No joint effusion is identified. No acute soft tissue changes are seen. IMPRESSION: No radiographic evidence of acute osseous abnormality Electronically signed by: Gagandeep Roca MD (02/07/2018 3:55 PM) [facility]
[2018-02-07 19:40] VITALS: BP 98/47
== END 2018-02-07 19:51 ==
LOC: ER 13:58
DX: M25.562 Pain in left knee (principal); R45.851 Suicidal ideations; F41.9 Anxiety disorder, unspecified; F31.9 Bipolar disorder, unspecified; I10 Essential (primary) hypertension; G43.909 Migraine, unspecified, not intractable, without status migrainosus; I25.2 Old myocardial infarction; Z87.891 Personal history of nicotine dependence; Z86.718 Personal history of other venous thrombosis and embolism; Z88.2 Allergy status to sulfonamides; Z88.8 Allergy status to other drugs, medicaments and biological substances; W06.XXXA Fall from bed, initial encounter; Y93.89 Activity, other specified; Y99.8 Other external cause status; Y92.89 Other specified places as the place of occurrence of the external cause
CPT/HCPCS: 36415; 73562; 80048; 80307; 81025; 84703; 85025; 99285-25; G0479

== ENCOUNTER 2018-03-20 16:36 | Emergency (ER) | payer OTHER ==
[~2018-03-20] VITALS: Ht 162.6 cm; Wt 71.4 kg
[~2018-03-20 16:36] MED LIST changes: +CLON0.5T11 PO; -CLON0.5T3 PO
--- NOTE | 2018-03-20 17:25 | PHYS DOC ---
Past History Past Medical History: Anxiety, Asthma, Bipolar, DVT, Hypertension, [place], Migraines, Other Additional Past Medical Histor: Multiple Sclerosis; DVT left leg Past Surgical History: Cholecystectomy, Smoking: Quit Less Than 1 Year Alcohol Use: None Drug Use: None Adult General Chief Complaint Chief Complaint: DEPRESSION HPI HPI 42-year-old female patient with history of bipolar disorder and frequent emergency room visits brought in by EMS because of depression. Patient states she was reading a magazine with some queasiness about depression and after putting her answers she realized that she has depression without suicidal ideation and called 911. Patient states she doesn't feel good and her sister that she didn't eat throat for the last couple days. She denies suicidal and homicidal ideation and hallucination. Patient had sent hospitalization and discharged home 3 weeks ago but he states she doesn't take her depression medication for more than one month. Review of Systems Review of Systems Constitutional: Denies fever or chills [] Eyes: Denies change in visual acuity, redness, or eye pain [] HENT: Denies nasal congestion or sore throat [] Respiratory: Denies cough or shortness of breath [] Cardiovascular: No additional information not addressed in HPI [] GI: Denies abdominal pain, nausea, vomiting, bloody stools or diarrhea [] : Denies dysuria or hematuria [] Musculoskeletal: Denies back pain or joint pain [] Integument: Denies rash or skin lesions [] Neurologic: Denies headache, focal weakness or sensory changes [] Endocrine: Denies polyuria or polydipsia [] All other systems were reviewed and found to be within normal limits, except as documented in this note. Allergies Allergies Allergies Coded Allergies Type Severity Reaction Last Updated Verified Sulfa (Sulfonamide Antibiotics) Allergy Intermediate 02/07/18 Yes ketorolac Allergy Intermediate 02/07/18 Yes Physical Exam Physical Exam Constitutional: Well nourished, no acute distress, non-toxic appearance, slow to responding to questions. [] HENT: Normocephalic, atraumatic Eyes: PERRLA, EOMI, conjunctiva normal, no discharge. [] Neck: Normal range of motion, no tenderness, supple, no stridor. [] Cardiovascular:Heart rate regular rhythm, no murmur [] Lungs & Thorax: Bilateral breath sounds clear to auscultation [] Abdomen: Bowel sounds normal, soft, no tenderness, no masses, no pulsatile masses. [] Skin: Warm, dry, no erythema, no rash. [] Back: No tenderness, no CVA tenderness. [] Extremities: No tenderness, no cyanosis, no clubbing, ROM intact, no edema. [] Neurologic: Alert and oriented X 3, normal motor function, normal sensory function, no focal deficits noted. [] Psychologic: Affect anxious Current Patient Data Vital Signs Vital Signs Date Time Temp Pulse Resp B/P (MAP) Pulse Ox O2 Delivery O2 Flow Rate FiO2 03/20/18 16:40 98.1 85 16 100 Room Air EKG EKG [] Radiology/Procedures Radiology/Procedures [] Course & Med Decision Making Course & Med Decision Making Pertinent Labs are pending. Evaluation of the patient in ER showed 43-year-old female patient with history of frequent emergency room visits complaining of depression after answering the quiz of [employer] magazine. Labs was pending. Patient care transferred to Dr. North at 1800. Patient to take meds as directed. Patient to follow-up with counseling center. Patient follow-up primary. Will give a short prescription for Remeron, gabapentin, Xanax and Zoloft her baseline medications. Patient encouraged follow -up to have renewals filled. Patient return if any concerns. Impression: 1. Depression- No suicidal ideation, or plan, No homicidal ideation 2, Hx. Bipolar 3. Hx of MS 4. Anxiety Disorder 5. Hx. of Non-compliance Medical regimen Dragon Disclaimer Dragon Disclaimer This electronic medical record was generated, in whole or in part, using a voice recognition dictation system. Departure Departure: Referrals: MARIA BERNARDO (PCP) Scripts Alprazolam (XANAX) 0.25 Mg Tablet 0.25 MG PO PRN q 12 hrs PRN for ANXIETY / AGITATION, #30 TAB 0 Refills Prov: ASPEN NORTH MD 03/20/18 Sertraline Hcl (ZOLOFT) 50 Mg Tablet 50 MG PO DAILY for ANTI-DEPRESSANT, #30 TAB 0 Refills Prov: ASPEN NORTH MD 03/20/18 Gabapentin (GABAPENTIN) 100 Mg Capsule 100 MG PO TID for 30 Days, #90 CAP Prov: ASPEN NORTH MD 03/20/18 Mirtazapine (REMERON) 30 Mg Tablet 30 MG PO HS, #30 TAB Prov: ASPEN NORTH MD 03/20/18 GABRIELE PRABHAKAR MD Mar 20, 2018 17:25 ASPEN NORTH MD Mar 20, 2018 18:27
[2018-03-20 17:45] LABS: BASO % 0 % (0-3); EOS % 0 % (0-3); HEMATOCRIT 32.7 % (36.0-47.0); HEMOGLOBIN 10.3 g/dL (12.0-15.5); LYMPH # 1.6 x10^3/uL (1.0-4.8); LYMPH % 33 % (24-48); MEAN CORPUSCULAR HEMOGLOBIN 24 pg (25-35); MEAN CORPUSCULAR HGB CONC 32 g/dL (31-37); MEAN CORPUSCULAR VOLUME 75 fL (79-100); MONO # 0.3 x10^3/uL (0.0-1.1); MONO % 7 % (0-9); NEUT % 60 % (31-73); PLATELET COUNT 210 x10^3/uL (140-400); RED BLOOD COUNT 4.38 x10^6/uL (3.50-5.40); RED CELL DISTRIBUTION WIDTH 20.8 % (11.5-14.5); WHITE BLOOD COUNT 4.9 x10^3/uL (4.0-11.0)
[2018-03-20 17:55] LABS: BARBITURATES NEG (NEG); BENZODIAZEPINES NEG (NEG); CANNABINOIDS NEG (NEG); COCAINE NEG (NEG); METHADONE NEG (NEG); OPIATES NEG (NEG); PHENCYCLIDINE NEG (NEG)
[2018-03-20 17:57] LABS: AMPHETAMINE/METHAMPHETAMINE NEG (NEG)
[2018-03-20 17:58] LABS: ALBUMIN/GLOBULIN RATIO 1.1 (1.0-1.7); CALCIUM 8.9 mg/dL (8.5-10.1); CREATININE 0.8 mg/dL (0.6-1.0); GFR 78.3; POTASSIUM 3.4 mmol/L (3.5-5.1); TOTAL BILIRUBIN 0.4 mg/dL (0.2-1.0); TOTAL PROTEIN 7.6 g/dL (6.4-8.2)
[2018-03-20 18:12] LABS: CLARITY,URINE TURBID; COLOR,URINE RED
[2018-03-20 18:13] LABS: BACTERIA,URINE 0 /HPF (0-FEW); BILIRUBIN,URINE NEG (NEG); RBC,URINE TNTC /HPF (0-2); WBC,URINE 0 /HPF (0-4)
[2018-03-20] MEDS ORDERED: ALPR0.25 PO (18:18)
[2018-03-20] MEDS ORDERED: SERT50TA PO (18:18)
[2018-03-20] MEDS ORDERED: MIRT30TA PO (18:18)
[2018-03-20] MEDS ORDERED: GABA-585 PO (18:18)
[2018-03-20] MEDS ORDERED: GABAPENTIN 100 MG CAPSULE. PO ONE (18:30)
[2018-03-20] MEDS ORDERED: MIRTAZAPINE 30 MG TABLET PO ONE (18:30)
[2018-03-20] MEDS ORDERED: ALPRAZolam 0.25 MG TABLET PO ONE (18:30)
[2018-03-20] MEDS ORDERED: SERTRALINE 25 MG TABLET. PO ONE (18:30)
[2018-03-20] MEDS ORDERED: POTASSIUM CHLORIDE 20 MEQ/15 ML ORAL LIQUID. PO ONE (19:00)
[2018-03-20 19:12] VITALS: BP 105/65
[2018-03-20 19:59] LABS: OVALOCYTES FEW; PLT ESTIMATE ADEQUATE (ADEQUATE)
[2018-03-20 20:01] LABS: HYPOCHROMIA MOD; MICROCYTOSIS SLIGHT
[2018-03-20 20:07] LABS: ANISOCYTOSIS PRESENT
== END 2018-03-20 19:15 | disposition home or self-care (01) ==
LOC: ER 16:36
DX: F32.9 Major depressive disorder, single episode, unspecified (principal); F41.9 Anxiety disorder, unspecified; J45.909 Unspecified asthma, uncomplicated; I10 Essential (primary) hypertension; I25.2 Old myocardial infarction; G43.909 Migraine, unspecified, not intractable, without status migrainosus; G35 Multiple sclerosis; Z86.718 Personal history of other venous thrombosis and embolism; Z91.19 Patient's noncompliance with other medical treatment and regimen; Z87.891 Personal history of nicotine dependence; Z88.2 Allergy status to sulfonamides; Z88.8 Allergy status to other drugs, medicaments and biological substances
CPT/HCPCS: 36415; 80053; 80307; 81001; 85025; 99284; G0479

== ENCOUNTER 2018-03-25 18:07 | Observation (INO) | payer OTHER ==
[~2018-03-25] VITALS: Ht 162.6 cm; Wt 71.9 kg
[~2018-03-25 18:07] MED LIST changes: +ALPR0.25 PO; +MIRT30TA PO; +SERT50TA PO
--- NOTE | 2018-03-25 18:45 | PHYS DOC ---
Past History Past Medical History: Anxiety, Asthma, Bipolar, DVT, Hypertension, [place], Migraines, Other Additional Past Medical Histor: Multiple Sclerosis; DVT left leg Past Surgical History: Cholecystectomy, Smoking: Quit Less Than 1 Year Alcohol Use: None Drug Use: None Adult General Chief Complaint Chief Complaint: SUICDAL IDEATION HPI HPI 43-year-old female presents with suicidal ideation. Patient has decreased mental capacity and her DPOA is her sister. Her sister has consented to her treatment. Patient says that she has been feeling very depressed lately because her son moved out and went to live with his father. She is left here at home alone. She has not improved. She has been feeling very emotional and upset about this. She has been thinking about suicide. She states that she would take a bunch of her pills. If that did not work she would cut herself. She has been recently treated at I would like to return there for further treatment if possible. She denies any pain or other medical complaints. Review of Systems Review of Systems Constitutional: Denies fever or chills [] Eyes: Denies change in visual acuity, redness, or eye pain [] HENT: Denies nasal congestion or sore throat [] Respiratory: Denies cough or shortness of breath [] Cardiovascular: No additional information not addressed in HPI [] GI: Denies abdominal pain, nausea, vomiting, bloody stools or diarrhea [] : Denies dysuria or hematuria [] Musculoskeletal: Denies back pain or joint pain [] Integument: Denies rash or skin lesions [] Neurologic: Denies headache, focal weakness or sensory changes [] Endocrine: Denies polyuria or polydipsia [] All other systems were reviewed and found to be within normal limits, except as documented in this note. Allergies Allergies Allergies Coded Allergies Type Severity Reaction Last Updated Verified Sulfa (Sulfonamide Antibiotics) Allergy Intermediate 02/07/18 Yes ketorolac Allergy Intermediate 02/07/18 Yes Physical Exam Physical Exam Constitutional: Well developed, well nourished, no acute distress, non-toxic appearance. [] HENT: Normocephalic, atraumatic, bilateral external ears normal, oropharynx moist, no oral exudates, nose normal. [] Eyes: PERRLA, EOMI, conjunctiva normal, no discharge. [] Neck: Normal range of motion, no tenderness, supple, no stridor. [] Cardiovascular:Heart rate regular rhythm, no murmur [] Lungs & Thorax: Bilateral breath sounds clear to auscultation [] Abdomen: Bowel sounds normal, soft, no tenderness, no masses, no pulsatile masses. [] Skin: Warm, dry, no erythema, no rash. [] Back: No tenderness, no CVA tenderness. [] Extremities: No tenderness, no cyanosis, no clubbing, ROM intact, no edema. [] Neurologic: Alert and oriented X 3, normal motor function, normal sensory function, no focal deficits noted. [] Psychologic: Affect normal, judgement normal, mood normal. [] Current Patient Data Vital Signs Vital Signs Date Time Temp Pulse Resp B/P (MAP) Pulse Ox O2 Delivery O2 Flow Rate FiO2 03/25/18 18:35 98.4 88 20 99 Room Air EKG EKG [] Radiology/Procedures Radiology/Procedures [] Course & Med Decision Making Course & Med Decision Making Pertinent Labs and Imaging studies reviewed. (See chart for details) Agents labs are unremarkable. Tele psych has been consulted. They are working on placement for the patient. The patient has been resistant to being admitted to the ED where [facility]. She has been telling psychiatrist that she has special needs only they can provide. The psych unit is currently full at this time. Tele psych will continue to work on placement. There are not any psych beds available for this patient at this time. We will admit her here until further arrangements can be made in the morning. [] Dragon Disclaimer Dragon Disclaimer This electronic medical record was generated, in whole or in part, using a voice recognition dictation system. Departure Departure: Referrals: MARIA BERNARDO (PCP) SOTERO PRICE DO Mar 25, 2018 18:45
[2018-03-25 19:00] LABS: BARBITURATES NEG (NEG); BENZODIAZEPINES NEG (NEG); CANNABINOIDS NEG (NEG); COCAINE NEG (NEG); METHADONE NEG (NEG); OPIATES NEG (NEG); PHENCYCLIDINE NEG (NEG)
[2018-03-25 19:03] LABS: AMPHETAMINE/METHAMPHETAMINE NEG (NEG)
[2018-03-25 19:06] LABS: BACTERIA,URINE 0 /HPF (0-FEW); BILIRUBIN,URINE NEG (NEG); CLARITY,URINE CLEAR; COLOR,URINE STRAW; GLUCOSE,URINE NEG (NEG); NITRITE,URINE NEG (NEG); RBC,URINE RARE /HPF (0-2); SQUAMOUS EPITHELIAL CELL,UR OCC /LPF; UROBILINOGEN,URINE 0.2 mg/dL (0.2 mg/dL); WBC,URINE RARE /HPF (0-4)
[2018-03-25 19:17] LABS: BASO % 1 % (0-3); EOS % 0 % (0-3); HEMATOCRIT 29.4 % (36.0-47.0); HEMOGLOBIN 9.4 g/dL (12.0-15.5); LYMPH % 45 % (24-48); MEAN CORPUSCULAR HEMOGLOBIN 24 pg (25-35); MEAN CORPUSCULAR HGB CONC 32 g/dL (31-37); MEAN CORPUSCULAR VOLUME 74 fL (79-100); MONO # 0.3 x10^3/uL (0.0-1.1); MONO % 6 % (0-9); NEUT # 2.2 x10^3uL (1.8-7.7); NEUT % 48 % (31-73); PLATELET COUNT 223 x10^3/uL (140-400); RED BLOOD COUNT 3.97 x10^6/uL (3.50-5.40); WHITE BLOOD COUNT 4.5 x10^3/uL (4.0-11.0)
[2018-03-25 19:26] LABS: ALBUMIN 3.5 g/dL (3.4-5.0); ALBUMIN/GLOBULIN RATIO 1.1 (1.0-1.7); CALCIUM 8.6 mg/dL (8.5-10.1); CREATININE 0.7 mg/dL (0.6-1.0); GFR 91.3; POTASSIUM 3.8 mmol/L (3.5-5.1); TOTAL BILIRUBIN 0.2 mg/dL (0.2-1.0); TOTAL PROTEIN 6.8 g/dL (6.4-8.2)
[2018-03-25] MEDS ORDERED: ACETAMINOPHEN 500 MG TABLET PO ONE (22:15)
[2018-03-25 22:47] LABS: OVALOCYTES FEW; PLT ESTIMATE ADEQUATE (ADEQUATE)
[2018-03-25 22:48] LABS: ANISOCYTOSIS PRESENT; HYPOCHROMIA MOD; MICROCYTOSIS SLIGHT
[2018-03-26 04:26] VITALS: BP 104/51
[2018-03-26 08:30] VITALS: BP 100/60
[2018-03-26] MEDS ORDERED: clonazePAM 0.5 MG TABLET PO PRN (08:30)
[2018-03-26] MEDS ORDERED: ALBUTEROL SULFATE 8GM INHALER. INH PRN (08:30)
[2018-03-26] MEDS ORDERED: ALPRAZolam 0.25 MG TABLET PO PRN (08:45)
[2018-03-26] MEDS ORDERED: ALBUTEROL SULFATE 2.5 MG/3 ML NEBU. NEB PRN (08:45)
[2018-03-26] MEDS ORDERED: GABAPENTIN 100 MG CAPSULE. PO SCH (09:00)
[2018-03-26] MEDS: SERTRALINE 50 MG TABLET. PO SCH (09:32)
[2018-03-26] MEDS: TOPIRAMATE 25 MG TABLET. PO SCH (09:32)
[2018-03-26] MEDS ORDERED: GABA-585 PO (09:40)
[2018-03-26] MEDS ORDERED: FERR325T14 PO (09:43)
[2018-03-26] MEDS: FERROUS SULFATE 325 MG TABLET. PO SCH (10:08)
[2018-03-26 11:12] VITALS: BP 190/100
[2018-03-26] MEDS: IBUPROFEN 400 MG TABLET. PO PRN (14:17)
[2018-03-26] MEDS: GABAPENTIN 100 MG CAPSULE. PO SCH ×2 (14:17→20:55)
[2018-03-26 14:27] VITALS: BP 97/55
[2018-03-26] MEDS ORDERED: METO-239 PO (17:10)
[2018-03-26] MEDS ORDERED: MAGNESIUM HYDROXIDE 2,400 MG/30 ML ORAL.SUSP. PO PRN (18:15)
--- NOTE | 2018-03-26 19:07 | PDOC ---
Exam Note: Ameya Note: Please also refer to the separate dictated note~for this date of service dictated separately.~Patient seen individually. Discussed the patient with Nursing staff reviewed the chart.~Reviewed interim history and current functioning. Reviewed vital signs,~Labs/ Radiology~and current medications noted below. Continue current treatment with the changes noted in the dictated addendum note Assessment: Vital Signs: Vital Signs Date Time Temp Pulse Resp B/P (MAP) Pulse Ox O2 Delivery O2 Flow Rate FiO2 03/26/18 14:27 97.8 78 20 97/55 (69) 98 Room Air I&O Intake and Output 03/26/18 07:00 Intake Total 0 ml Balance 0 ml Intake Oral 0 ml Current Medications: Meds: Current Medications Acetaminophen (Tylenol) 1,000 mg 1X ONCE PO Last administered on 03/26/18at 01: 01; Start 03/25/18 at 22:15; Stop 03/25/18 at 22:16; Status DC Albuterol Sulfate (Ventolin Hfa) 1 puff PRN Q6HRS PRN INH SHORTNESS OF BREATH; Start 03/26/18 at 08:30; Status UNV Clonazepam (KlonoPIN) 0.5 mg DAILY PRN PO ANXIETY / AGITATION; Start 03/26/18 at 08:30; Status Cancel Gabapentin (Neurontin) 100 mg TID PO Last administered on 03/26/18at 09:32; Start 03/26/18 at 09:00; Stop 03/26/18 at 09:44; Status DC Mirtazapine (Remeron) 30 mg QHS PO ; Start 03/26/18 at 21:00 Mirtazapine (Remeron) 30 mg HS PO ; Start 03/26/18 at 21:00; Status UNV Sertraline HCl (Zoloft) 50 mg DAILY PO Last administered on 03/26/18at 09:32; Start 03/26/18 at 09:00 Alprazolam (Xanax) 0.25 mg PRN Q12HR PRN PO ANXIETY / AGITATION; Start 03/26/18 at 08:45 Topiramate (Topamax) 50 mg DAILY PO Last administered on 03/26/18at 09:32; Start 03/26/18 at 09:00 Albuterol Sulfate (Ventolin) 2.5 mg PRN Q6HRS PRN NEB SHORTNESS OF BREATH; Start 03/26/18 at 08:45 Gabapentin (Neurontin) 200 mg TID PO Last administered on 03/26/18at 14:17; Start 03/26/18 at 14:00 Ferrous Sulfate (Feosol) 325 mg DAILY PO Last administered on 03/26/18at 10:08; Start 03/26/18 at 10:00 Ibuprofen (Motrin) 400 mg PRN Q6HRS PRN PO INFLAMMATION Last administered on 03/26/18at 14:17; Start 03/26/18 at 13:00 Magnesium Hydroxide (Milk Of Magnesia) 2,400 mg PRN DAILY PRN PO CONSTIPATION; Start 03/26/18 at 18:15 Active Scripts Active Xanax (Alprazolam) 0.25 Mg Tablet 0.25 Mg PO PRN Q 12 HRS PRN Zoloft (Sertraline Hcl) 50 Mg Tablet 50 Mg PO DAILY Remeron (Mirtazapine) 30 Mg Tablet 30 Mg PO HS Reported Metoprolol Succinate ( Xl ) (Metoprolol Succinate) 25 Mg Tab.er.24h 25 Mg PO DAILY Ferrous Sulfate 325 Mg Tablet 1 Tab PO DAILY Gabapentin 100 Mg Capsule 200 Mg PO TID Proair Hfa Inhaler (Albuterol Sulfate) 8.5 Gm Hfa.aer.ad 1 Puff INH PRN Q6HRS PRN MEDICATION NOT GIVEN TODAY. NEXT DOSE DUE: DATE: TODAY TIME:IF AND WHEN NEEDED Clonazepam 0.5 Mg Tablet 1 Tab PO DAILY PRN LAST DOSE GIVEN: DATE:TODAY TIME:AM NEXT DOSE DUE: DATE:TOMORROW TIME:AM Topiramate 50 Mg Tablet 1 Tab PO DAILY LAST DOSE GIVEN: DATE: TODAY TIME: AM NEXT DOSE DUE: DATE: TOMORROW TIME: AM Mirtazapine 30 Mg Tablet 1 Tab PO QHS LAST DOSE GIVEN: DATE: YESTERDAY TIME: BEDTIME NEXT DOSE DUE: DATE: TODAY TIME: BEDTIME I have reviewed the current psychotropics carefully including drug interactions. Risk benefit ratio favors no change other than as noted in my dictated progress note. Diagnosis: Problems: (1) Hypertension (2) Hemiparesis of right dominant side (3) Depression with suicidal ideation (4) Anxiety PASQUALE NICOLE MD Mar 26, 2018 19:07
[2018-03-26 19:45] VITALS: BP 98/56
[2018-03-26] MEDS: MIRTAZAPINE 30 MG TABLET PO SCH (20:54)
[2018-03-26] MEDS ORDERED: MIRTAZAPINE 30 MG TABLET PO SCH (21:00)
--- NOTE | 2018-03-26 22:20 | HP ---
ADMIT DATE: 03/26/2018 HISTORY OF PRESENT ILLNESS: The patient is a 43-year-old female patient who came to the Emergency Room with suicidal ideation. Her sister is her DPOA, who has assisted her for her treatment. She stated that she had been feeling very depressed lately because her son moved out and went to live with his father. She is left alone at home and she was recently at [facility] for suicidal ideation. At that time, she was planning to cut herself and take a bunch of pills and actually called the people around to assist her to do so that she can be home with her mother as what she stated. Three weeks ago, she had similar. At the time she was admitted to [facility] where she was evaluated and eventually she was discharged home. PAST MEDICAL HISTORY: Significant for migraine headache, hypertension, depression, bronchial asthma as well as anxiety and longstanding multiple sclerosis. PAST SURGICAL HISTORY: Significant for as well as cholecystectomy. ALLERGIES: SHE IS ALLERGIC TO SULFA DRUGS AND KETOROLAC. FAMILY HISTORY: She has 2 brothers, both older and one sister who is younger and has diabetes. Her father is alive at age of 66. Mother due to congestive heart failure and complication of diabetes. SOCIAL HISTORY: She is single. She has an 18-year-old son. She does not smoke, drink alcohol, or use any recreational drugs. REVIEW OF SYSTEMS: As per history of present illness. MEDICATIONS: She is currently on following medications: She is on albuterol sulfate 1 puff every 6 hours, ferrous sulfate 325 mg once a day, clonazepam 0.5 mg daily, gabapentin 200 mg 3 times a day, topiramate 50 mg daily, mirtazapine 30 mg at bedtime, mirtazapine 30 mg daily, and alprazolam 0.25 mg every 12 hours. REVIEW OF SYSTEMS: As per history of present illness. PHYSICAL EXAMINATION GENERAL: When I examined her, she looked pale, no jaundice, cyanosis, or thyromegaly. No jugular venous distension. No limb edema. VITAL SIGNS: Her heart rate was 88, blood pressure was 99/63, temperature was 98.4, respiratory rate was 20, and oxygen saturation was 99% on room air. HEAD, EYES, EARS, NOSE, AND THROAT: Showed normocephalic, atraumatic. NECK: Supple. HEART: Showed normal first and second sounds. No gallop, rub, or murmur. CHEST: Clear to auscultation. No crepitation or rhonchi. ABDOMEN: Distended, soft, nontender. NEUROLOGIC: She is awake, alert, responding appropriately. All cranial nerves intact. She moves extremities without difficulty. Apparently, she is able to walk and he is fairly independent, although her sister and [id number] assist her. LABORATORY DATA: Showed a white cell count of 4500, hemoglobin 9, hematocrit 29, MCV 74, and platelet count 223,000 with normal manual differential. His serum sodium was 141, potassium 3.8, chloride 108, bicarbonate 28, anion gap of 5, BUN of 17, creatinine 0.7, estimated GFR was 91 and per minute. Her glucose was 94, calcium was 8.6. Total bilirubin, AST, ALT, alkaline phosphatase were normal. Total protein 6.8, albumin 3.5. Urinalysis was essentially unremarkable. Toxic screen was essentially negative. ASSESSMENT AND PLAN: In summary, this is a 43-year-old who yet again came with suicidal ideation. She was recently at [facility]; however, the unit is full at this time. We have consulted Dr. Kumar and arrangement has been made for placement in an inpatient psych unit and she will be transferred as soon as bed is available. NICOL VALDIVIA MD DR: DYLLAN/ember JOB#: [id number] / [id number]
[2018-03-26 22:27] VITALS: BP 117/61
[2018-03-27 05:42] VITALS: BP 99/55
[2018-03-27] MEDS: FERROUS SULFATE 325 MG TABLET. PO SCH (09:11)
[2018-03-27] MEDS: GABAPENTIN 100 MG CAPSULE. PO SCH ×3 (09:12→20:36)
[2018-03-27] MEDS: SERTRALINE 50 MG TABLET. PO SCH (09:12)
[2018-03-27] MEDS: TOPIRAMATE 25 MG TABLET. PO SCH (09:12)
[2018-03-27] MEDS ORDERED: ONDANSETRON ODT 4 MG TAB.RAPDIS PO PRN (11:00)
[2018-03-27] MEDS: IBUPROFEN 400 MG TABLET. PO PRN ×2 (11:05→16:10)
[2018-03-27 11:19] VITALS: BP 103/56
--- NOTE | 2018-03-27 12:24 | PN ---
DATE: 03/27/2018 The patient is resting, slightly propped up in bed, in no apparent distress. She stated that she has no longer has suicidal ideation, now that she is back on her medication. Her parents transpired that she ran out of her medication about 3 days prior to arrival to the hospital. However, she insisted does not want to go back home as she is lonely there and would like to go somewhere else. [facility] is still actively searching for placement. We did add another option there, obviously we do not know how soon it can be done whether she qualifies to go to [facility] and we gave her the name and address and telephone number of that facility. Her sister to look into it. When I examined her today, she looked well and was clearly in more cheerful mood, slightly pale, but no jaundice, cyanosis, or thyromegaly. No jugular venous distension. No lower limb edema. Her heart rate was 86, blood pressure was 103/56, temperature was 97.4, respiratory rate 20, and oxygen saturation was 98%. The rest of clinical exam is unremarkable, has not really changed. Her lab was stable. We will obviously discharge her if and when facility becomes available. NICOL VALDIVIA MD DR: DYLLAN/ember JOB#: [id number] / [id number]
[2018-03-27 15:08] VITALS: BP 93/57
[2018-03-27 19:00] VITALS: BP 94/61
--- NOTE | 2018-03-27 19:02 | CONS ---
DATE OF CONSULTATION: 03/26/2018 This late entry 03/26/2018 covers elements not covered in my initial note 03/26/2018. I met with the patient in the evening, discussed with nursing staff, reviewed the chart. IDENTIFYING DATA: The patient is a 43-year-old female seen in bed [address], [address] [place] [address] for a psychiatric consult requested by Dr. Stone after the patient was admitted for suicidal ideation with statements, "I want to take a bunch of pills or use a knife, but I do not have access." The patient had recently been an inpatient at Psychiat[facility], is wanting to get back there, having failed outpatient treatment at the [facility] in [place] for her major depressive disorder within the context of her multiple sclerosis and the added stressor of her son moving away to go live with his biological father and work with him. CHIEF COMPLAINT: "Yes, I wanted to kill myself." HISTORY OF PRESENT ILLNESS: The patient has a history of major depressive disorder with a questionable diagnosis of bipolar disorder according to our records, but the patient denies the latter. She has been in outpatient treatment at the [facility] with Liseth Sanford, nurse practitioner and followed by her outpatient medical provider Lexx Newby. Reportedly, she has been increasingly depressed recently due to the above stressors after son moving away and her own deteriorating health due to multiple sclerosis. She admits to some sleep and appetite changes above. Suicidal ideation, but at the time I questioned her in the evening of 03/26/2018, she denied active suicidal ideation. No psychotic symptoms. No clear history of bipolar disorder. She has had some cognitive deficits, reportedly as a consequence of her multiple sclerosis. PAST PSYCHIATRIC HISTORY: As above. There is a notation in the chart for impaired cognitive capacity, but details are unclear. PAST MEDICAL HISTORY: Positive for asthma, diabetes mellitus, hypertension, status post [place], migraines, status post DVT, left leg; hyperlipidemia, multiple sclerosis that she states was diagnosed 10 years ago. ALLERGIES: SULFA, KETOROLAC. FAMILY HISTORY: Noncontributory. SOCIAL HISTORY: As noted above, the patient's 18-year-old son recently moved to live with his biological father and work with the father. No history of alcohol abuse. She quit smoking about a year ago. MENTAL STATUS EXAMINATION: The patient was seen individually in the evening of 03/26/2018. She is oriented to herself and situation. Speech has some latency, often responses monosyllabic. Abstraction fair. Computation somewhat impaired. Language function intact. Mood is depressed, anxious. Affect is mood congruent. She denies active suicidal ideation, but admitted to the suicidal ideation prior to admission as noted above. No clear psychotic symptoms. IMPRESSION: Major depressive disorder, recurrent; anxiety disorder, unspecified; history of bipolar 1 disorder, depressed, intellectual disability, unspecified. PLAN: I have been informed by the nursing staff that M[facility] from the [facility] is working on an inpatient psychiatric placement transfer for the patient. She should continue on her current psychotropics, which include Zoloft 50 mg a day, Topamax 50 mg a day, Remeron 30 mg at bedtime, Xanax 0.25 mg q. 12 hours p.r.n. anxiety and she is also on Neurontin 300 mg 3 times a day. We may need to increase Zoloft, but if she is transferred to inpatient psychiatry, all that can be decided during that admission. Dr. Stone, thank you for the opportunity to participate in your patient's care. We will follow with you. MAN Hardy NICOLE MD DR: DANIELE/ember JOB#: [id number] / [id number]
--- NOTE | 2018-03-27 19:32 | PN ---
DATE: 03/27/2018 SUBJECTIVE: The patient was admitted with suicidal ideation. She continued to insist that she does not want to go back home as she lives alone. Her son has left to go and live with his father. I recommended that she maybe consider moving to an assisted living and a particular place called [facility]. We did actually give her the name, address and telephone number for her sister to look into it. PHYSICAL EXAMINATION: GENERAL: When I examined her, she looked well and was clearly in no apparent respiratory distress, pale, but no jaundice, cyanosis or thyromegaly. No jugular venous distention. No limb edema. VITAL SIGNS: Her heart rate was 83, blood pressure 117/61, temperature was 98.2, respiratory rate 16 and oxygen saturation was 95%. HEAD, EYES, EARS, NOSE AND THROAT: Showed normocephalic, atraumatic. NECK: Supple. HEART: Showed normal first and second heart sounds with no gallop, rub or murmur. CHEST: Clear to auscultation. No crepitation or rhonchi. ABDOMEN: Distended, soft, nontender. No guarding or rigidity. No organomegaly. Hernial orifice intact. Bowel sounds normal. NEUROLOGIC: She is awake, alert, responding appropriately. Cranial nerves intact. She moves her extremities without difficulty. She is able to walk with a walker. Her intake was 1400, no output was recorded. LABORATORY DATA: Showed a serum sodium 141, potassium 3.8, chloride 108, bicarbonate 28, anion gap of 5, BUN 17, creatinine 0.7. Her hemoglobin was 9.4, hematocrit 29 with normal white cell count and platelets. ASSESSMENT: A 43-year-old female patient who yet again came with suicidal ideation. She was recently at [facility]; however, the unit is full at this time, we are still awaiting evaluation by Dr. Kumar and the [facility] is assisting for placement in an inpatient psych unit. She will be transferred there as soon as a place becomes available. Other medical problems include migraine headache, hypertension, depression, bronchial asthma, anxiety and longstanding multiple sclerosis. NICOL VALDIVIA MD DR: DYLLAN/ember JOB#: [id number] / [id number]
--- NOTE | 2018-03-27 20:23 | PDOC ---
Exam Note: Ameya Note: Please also refer to the separate dictated note~for this date of service dictated separately.~Patient seen individually. Discussed the patient with Nursing staff reviewed the chart.~Reviewed interim history and current functioning. Reviewed vital signs,~Labs/ Radiology~and current medications noted below. Continue current treatment with the changes noted in the dictated addendum note Assessment: Vital Signs: Vital Signs Date Time Temp Pulse Resp B/P (MAP) Pulse Ox O2 Delivery O2 Flow Rate FiO2 03/27/18 19:00 97.6 84 20 94/61 (72) 98 Room Air I&O Intake and Output 03/27/18 07:00 Intake Total 1420 ml Balance 1420 ml Intake Oral 1420 ml # Voids 13 # Bowel Movements 1 Current Medications: Meds: Current Medications Acetaminophen (Tylenol) 1,000 mg 1X ONCE PO Last administered on 03/26/18at 01: 01; Start 03/25/18 at 22:15; Stop 03/25/18 at 22:16; Status DC Albuterol Sulfate (Ventolin Hfa) 1 puff PRN Q6HRS PRN INH SHORTNESS OF BREATH; Start 03/26/18 at 08:30; Status UNV Clonazepam (KlonoPIN) 0.5 mg DAILY PRN PO ANXIETY / AGITATION; Start 03/26/18 at 08:30; Status Cancel Gabapentin (Neurontin) 100 mg TID PO Last administered on 03/26/18at 09:32; Start 03/26/18 at 09:00; Stop 03/26/18 at 09:44; Status DC Mirtazapine (Remeron) 30 mg QHS PO Last administered on 03/26/18at 20:54; Start 03/26/18 at 21:00 Mirtazapine (Remeron) 30 mg HS PO ; Start 03/26/18 at 21:00; Status UNV Sertraline HCl (Zoloft) 50 mg DAILY PO Last administered on 03/27/18at 09:12; Start 03/26/18 at 09:00 Alprazolam (Xanax) 0.25 mg PRN Q12HR PRN PO ANXIETY / AGITATION; Start 03/26/18 at 08:45 Topiramate (Topamax) 50 mg DAILY PO Last administered on 03/27/18at 09:12; Start 03/26/18 at 09:00 Albuterol Sulfate (Ventolin) 2.5 mg PRN Q6HRS PRN NEB SHORTNESS OF BREATH; Start 03/26/18 at 08:45 Gabapentin (Neurontin) 200 mg TID PO Last administered on 03/27/18at 14:19; Start 03/26/18 at 14:00 Ferrous Sulfate (Feosol) 325 mg DAILY PO Last administered on 03/27/18at 09:11; Start 03/26/18 at 10:00 Ibuprofen (Motrin) 400 mg PRN Q6HRS PRN PO INFLAMMATION Last administered on 03/27/18at 16:10; Start 03/26/18 at 13:00 Magnesium Hydroxide (Milk Of Magnesia) 2,400 mg PRN DAILY PRN PO CONSTIPATION; Start 03/26/18 at 18:15 Ondansetron HCl (Zofran Odt) 4 mg PRN Q8HRS PRN PO NAUSEA/VOMITING Last administered on 03/27/18at 11:05; Start 03/27/18 at 11:00 Active Scripts Active Xanax (Alprazolam) 0.25 Mg Tablet 0.25 Mg PO PRN Q 12 HRS PRN Zoloft (Sertraline Hcl) 50 Mg Tablet 50 Mg PO DAILY Remeron (Mirtazapine) 30 Mg Tablet 30 Mg PO HS Reported Metoprolol Succinate ( Xl ) (Metoprolol Succinate) 25 Mg Tab.er.24h 25 Mg PO DAILY Ferrous Sulfate 325 Mg Tablet 1 Tab PO DAILY Gabapentin 100 Mg Capsule 200 Mg PO TID Proair Hfa Inhaler (Albuterol Sulfate) 8.5 Gm Hfa.aer.ad 1 Puff INH PRN Q6HRS PRN MEDICATION NOT GIVEN TODAY. NEXT DOSE DUE: DATE: TODAY TIME:IF AND WHEN NEEDED Clonazepam 0.5 Mg Tablet 1 Tab PO DAILY PRN LAST DOSE GIVEN: DATE:TODAY TIME:AM NEXT DOSE DUE: DATE:TOMORROW TIME:AM Topiramate 50 Mg Tablet 1 Tab PO DAILY LAST DOSE GIVEN: DATE: TODAY TIME: AM NEXT DOSE DUE: DATE: TOMORROW TIME: AM Mirtazapine 30 Mg Tablet 1 Tab PO QHS LAST DOSE GIVEN: DATE: YESTERDAY TIME: BEDTIME NEXT DOSE DUE: DATE: TODAY TIME: BEDTIME I have reviewed the current psychotropics carefully including drug interactions. Risk benefit ratio favors no change other than as noted in my dictated progress note. Diagnosis: Problems: (1) Depression with suicidal ideation (2) Anxiety PASQUALE NICOLE MD Mar 27, 2018 20:23
[2018-03-27] MEDS: MIRTAZAPINE 30 MG TABLET PO SCH (20:36)
[2018-03-27 23:00] VITALS: BP 97/56
[2018-03-28 06:11] VITALS: BP_SYST 154; BP_SYST 96; BP_DIAS 59; BP_DIAS 65
[2018-03-28 08:12] LABS: BASO % 1 % (0-3); EOS % 0 % (0-3); HEMATOCRIT 30.4 % (36.0-47.0); HEMOGLOBIN 9.7 g/dL (12.0-15.5); LYMPH # 1.8 x10^3/uL (1.0-4.8); LYMPH % 47 % (24-48); MEAN CORPUSCULAR HEMOGLOBIN 24 pg (25-35); MEAN CORPUSCULAR HGB CONC 32 g/dL (31-37); MEAN CORPUSCULAR VOLUME 75 fL (79-100); MONO # 0.3 x10^3/uL (0.0-1.1); MONO % 9 % (0-9); NEUT # 1.6 x10^3uL (1.8-7.7); NEUT % 44 % (31-73); PLATELET COUNT 240 x10^3/uL (140-400); RED BLOOD COUNT 4.07 x10^6/uL (3.50-5.40); RED CELL DISTRIBUTION WIDTH 21.4 % (11.5-14.5); WHITE BLOOD COUNT 3.8 x10^3/uL (4.0-11.0)
[2018-03-28 08:19] LABS: CALCIUM 9.2 mg/dL (8.5-10.1); CREATININE 0.8 mg/dL (0.6-1.0); GFR 78.3; POTASSIUM 4.2 mmol/L (3.5-5.1)
[2018-03-28] MEDS: GABAPENTIN 100 MG CAPSULE. PO SCH (09:00)
[2018-03-28] MEDS: SERTRALINE 50 MG TABLET. PO SCH (09:23)
[2018-03-28] MEDS: FERROUS SULFATE 325 MG TABLET. PO SCH (09:23)
[2018-03-28] MEDS: TOPIRAMATE 25 MG TABLET. PO SCH (09:24)
[2018-03-28 10:54] VITALS: BP 91/53
--- NOTE | 2018-03-28 13:24 | DS ---
DATE OF DISCHARGE: 03/28/2018 HOSPITAL COURSE: The patient is a 43-year-old female patient who was admitted with suicidal ideation and stating that she would like to take a bunch of pills or use a knife; however, she is known to have access to that. The patient was recently an inpatient at [facility]; however, on questioning her further, she suffered from social isolation. Her son has moved to live with his father after graduation from high school. She has voiced basically lives alone. She was evaluated by the [facility] and no place was available to take and to treat her as an inpatient and a decision was made to discharge to live with her sister with the plan to see if she can to place her in a senior living facility. We contacted the [facility] facility and apparently, she is too young for that place. PHYSICAL EXAMINATION: GENERAL: When I saw her this afternoon, she looked well and was clearly in no apparent respiratory distress. No pallor, jaundice, cyanosis, or thyromegaly. No jugular venous distension. No lower limb edema. VITAL SIGNS: Her heart rate was 81, blood pressure was 91/53, temperature was 97.8, respiratory rate 20, and oxygen saturation was 100% on room air. HEENT: Examination of the head, eyes, ears, nose and throat showed normocephalic, atraumatic. NECK: Supple. HEART: Showed normal first and second sounds. No gallop, rub or murmur. CHEST: Clear to auscultation. No crepitation or rhonchi. ABDOMEN: Scaphoid, soft, nontender. NEUROLOGIC: She is awake, alert, responding appropriately. All her cranial nerves are intact. She moves extremities without difficulty. She is able to ambulate with a walker. Her intake over the last 24 hours was 1400. No output was recorded. LABORATORY DATA: Her lab work as of this morning showed a white cell count of 3800, hemoglobin 10, hematocrit 30, MCV 75, and platelet count 240,000. Serum sodium 143, potassium 4.2, chloride 107, bicarbonate 32, anion gap of 4, BUN 15, creatinine 0.8, estimated GFR was 78 mL per minute. Her glucose was 86, calcium was 9.2. DISCHARGE MEDICATIONS: She will be discharged home to continue on following medications, albuterol sulfate for ProAir inhaler 1 puff every 6 hours as needed, alprazolam 0.25 mg every 12 hours as needed for anxiety, clonazepam 0.5 mg daily, ferrous sulfate 325 mg once a day, gabapentin 200 mg 3 times a day, metoprolol succinate 25 mg once a day, mirtazapine 30 mg at bedtime, and sertraline for Zoloft 50 mg daily, and topiramate 50 mg daily. FINAL DISCHARGE DIAGNOSES: Major depressive disorder, recurrent; anxiety disorder, history of bipolar disorder, depressed, intellectual disability. Other medical problems include migraine headache, hypertension, bronchial asthma, and longstanding multiple sclerosis. NICOL VALDIVIA MD DR: DYLLAN/ember JOB#: [id number] / [id number]
[2018-03-28 14:22] VITALS: BP 104/70
--- NOTE | 2018-03-28 23:06 | PN ---
DATE: 03/27/2018 PSYCHIATRIC PROGRESS NOTE This late entry 03/27/2018 covers elements not covered in my initial note of 03/27/2018. SUBJECTIVE: Met with the patient in the evening in her room. She had a printout of Pristiq antidepressant that she wants to be started on. She showed me the paragraph which stated that suicidal ideation could get worse when antidepressants initiated. Her sense was this meant the day she would be less suicidal and that's the reason she wanted Pristiq. I did clarify this with her, but she was still fixated on this. We will see if Pristiq is available at our pharmacy in the hospital, otherwise she may consider it as an outpatient. REVIEW OF SYSTEMS: Ambulation impaired. No CV, , pulmonary, eye system symptoms on review. MENTAL STATUS EXAM: Oriented to herself, situation. Speech has some latency, somewhat hesitant, often responses monosyllabic. Abstraction is fair, computation impaired, language function intact. Mood and affect still somewhat depressed, anxious. Denies active suicidal ideation. LABORATORY DATA: Reviewed. IMPRESSION: Unchanged from initial note. PLAN: No change from initial note and we will clarify whether Pristiq is an option and the patient for conversion from her current antidepressant. PASQUALE NICOLE MD DR: DANIELE/ember JOB#: [id number] / [id number]
== END 2018-03-28 14:20 | disposition home or self-care (01) ==
LOC: ER 18:07 → INTOOBSV 03-26 04:00 → 1 SOUTH 03-26 04:00
PROVIDERS: ADMIT Internal Medicine; ATTEND Internal Medicine
DX: R45.851 Suicidal ideations (principal); F32.9 Major depressive disorder, single episode, unspecified; G43.909 Migraine, unspecified, not intractable, without status migrainosus; I10 Essential (primary) hypertension; F41.9 Anxiety disorder, unspecified; E78.5 Hyperlipidemia, unspecified; E11.9 Type 2 diabetes mellitus without complications; I25.2 Old myocardial infarction; J45.909 Unspecified asthma, uncomplicated; Z82.49 Family history of ischemic heart disease and other diseases of the circulatory system; Z83.3 Family history of diabetes mellitus; Z86.718 Personal history of other venous thrombosis and embolism; Z87.891 Personal history of nicotine dependence
CPT/HCPCS: 36415; 80048; 80053; 80307; 81001; 85025; 94640; 99285; G0378; Q0162; G0379; G0479

== ENCOUNTER 2018-04-07 16:07 | Observation (INO) | payer OTHER ==
[~2018-04-07] VITALS: Ht 162.6 cm; Wt 70.1 kg
[~2018-04-07 16:07] MED LIST changes: +FERR325T14 PO
--- NOTE | 2018-04-07 16:28 | PHYS DOC ---
Past History Past Medical History: Anxiety, Asthma, Bipolar, DVT, Hypertension, SD, Migraines, Other Additional Past Medical Histor: Multiple Sclerosis; DVT left leg Past Surgical History: Cholecystectomy, Smoking: Quit Less Than 1 Year Alcohol Use: None Drug Use: None Adult General Chief Complaint Chief Complaint: SUICDAL IDEATION HPI HPI Patient is a 43-year-old female presenting with suicidal ideation she has a long history of the same she reports that she has thoughts of taking her pills or cutting her slitting her neck. She has not yet actually taken any extra pills however. She was referred from the [facility] apparently report from the sister is at the [facility] has arranged [facility] Review of Systems Review of Systems Denies any physical complaints positive suicidal ideation All other systems were reviewed and found to be within normal limits, except as documented in this note. Allergies Allergies Allergies Coded Allergies Type Severity Reaction Last Updated Verified Sulfa (Sulfonamide Antibiotics) Allergy Intermediate 02/07/18 Yes ketorolac Allergy Intermediate 02/07/18 Yes Physical Exam Physical Exam Constitutional: Well developed, well nourished, no acute distress, non-toxic appearance. [] HENT: Normocephalic, atraumatic, bilateral external ears normal, oropharynx moist, no oral exudates, nose normal. [] Eyes: PERRLA, EOMI, conjunctiva normal, no discharge. [] Neck: Normal range of motion, no tenderness, supple, no stridor. [] Normal effort no increased work of breathing ] Skin: Warm, dry, no erythema, no rash. [] Back: No tenderness, no CVA tenderness. [] Extremities: No tenderness, no cyanosis, no clubbing, ROM intact, no edema. [] Neurologic: Alert and oriented X 3, normal motor function, normal sensory function, no focal deficits noted. []Some stuttered speech which appears to baseline Psychologic: Blunted affect reports depression and SI EKG EKG [] Radiology/Procedures Radiology/Procedures [] Course & Med Decision Making Course & Med Decision Making Pertinent Labs and Imaging studies reviewed. (See chart for details) []Medical clearance for suicidal ideation. Patient is overall quite well- appearing. awaiting placement Labs look good patient is medically cleared awaiting placement signed out to Dr. Bailey for psychiatric disposition. 04/08/18, 2:40 AM: The patient has been refused on multiple psychiatric facilities. The reason appears to be that when she is mentally screen, she tells him that she is unable to care for ADLs, even though the patient is ambulatory, able to feed herself, and does not look particularly unkempt. There is no facility that is currently available to accept the patient. Thus the patient will be admitted to the medical unit at this facility, until social services assistant is able to assist in finding appropriate psychiatric disposition for the patient. Dragon Disclaimer Dragon Disclaimer This electronic medical record was generated, in whole or in part, using a voice recognition dictation system. Departure Departure: Impression: Primary Impression: Suicidal ideation Additional Impression: Depression Disposition: ADMITTED INPATIENT Admitting Physician: Eric Stone Condition: STABLE Referrals: MARIA BERNARDO (PCP) Problem Qualifiers SONAL BIRMINGHAM MD Apr 07, 2018 16:28 BERT BAILEY MD Apr 08, 2018 02:41
[2018-04-07 17:01] LABS: BASO % 0 % (0-3); EOS % 0 % (0-3); HEMATOCRIT 31.5 % (36.0-47.0); LYMPH # 2.2 x10^3/uL (1.0-4.8); LYMPH % 42 % (24-48); MEAN CORPUSCULAR HEMOGLOBIN 24 pg (25-35); MEAN CORPUSCULAR HGB CONC 32 g/dL (31-37); MEAN CORPUSCULAR VOLUME 74 fL (79-100); MONO # 0.4 x10^3/uL (0.0-1.1); MONO % 8 % (0-9); NEUT # 2.7 x10^3uL (1.8-7.7); NEUT % 50 % (31-73); PLATELET COUNT 262 x10^3/uL (140-400); RED BLOOD COUNT 4.24 x10^6/uL (3.50-5.40); RED CELL DISTRIBUTION WIDTH 20.5 % (11.5-14.5); WHITE BLOOD COUNT 5.4 x10^3/uL (4.0-11.0)
[2018-04-07 17:13] LABS: BARBITURATES NEG (NEG); BENZODIAZEPINES NEG (NEG); CANNABINOIDS NEG (NEG); COCAINE NEG (NEG); METHADONE NEG (NEG); OPIATES NEG (NEG); PHENCYCLIDINE NEG (NEG)
[2018-04-07 17:14] LABS: AMPHETAMINE/METHAMPHETAMINE NEG (NEG)
[2018-04-07 17:16] LABS: ALBUMIN 3.9 g/dL (3.4-5.0); ALBUMIN/GLOBULIN RATIO 1.1 (1.0-1.7); CREATININE 0.8 mg/dL (0.6-1.0); GFR 78.3; POTASSIUM 3.7 mmol/L (3.5-5.1); TOTAL BILIRUBIN 0.3 mg/dL (0.2-1.0); TOTAL PROTEIN 7.5 g/dL (6.4-8.2)
[2018-04-07 17:17] LABS: ACETAMIN < 2.0 mcg/mL (10-30); SALIC 0.6 mg/dL (2.8-20.0)
[2018-04-07 17:18] LABS: ETHANOL < 10 mg/dL (0-10)
[2018-04-07 17:37] LABS: BACTERIA,URINE FEW /HPF (0-FEW); BILIRUBIN,URINE NEG (NEG); CLARITY,URINE HAZY; COLOR,URINE YELLOW; GLUCOSE,URINE NEG (NEG); NITRITE,URINE NEG (NEG); SQUAMOUS EPITHELIAL CELL,UR MANY /LPF; UROBILINOGEN,URINE 0.2 mg/dL (0.2 mg/dL)
[2018-04-07 17:41] LABS: U PREG PATIENT NEGATIVE (NEG)
[2018-04-07 22:13] LABS: ANISOCYTOSIS PRESENT; HYPOCHROMIA MOD; OVALOCYTES FEW; PLT ESTIMATE ADEQUATE (ADEQUATE)
[2018-04-07 22:14] LABS: MICROCYTOSIS PRESENT
[2018-04-08 04:51] VITALS: BP 107/56
[2018-04-08 08:06] VITALS: BP 93/52
[2018-04-08] MEDS ORDERED: VORT10TA PO (09:07)
[2018-04-08 10:04] VITALS: BP 96/51
--- NOTE | 2018-04-08 15:28 | HP ---
ADMIT DATE: 04/08/2018 HISTORY OF PRESENT ILLNESS: The patient is a 43-year-old female patient who was again brought to the Emergency Room with suicidal ideation. She has a long history of the same. She reports she has thoughts of taking her pills or cutting her wrist or slitting her neck. She has not actually taken any extra pills; however, she was referred from [facility] apparently reporting that the sisters at the [facility] has arranged placement at [place]. She was evaluated in the Emergency Room. Her lab works were all within normal range. Her toxic screen was essentially negative and she was admitted for further evaluation and placement. Apparently, the patient has been refused by multiple psychiatric facilities, the reason that she is unable to take care of her ADLs; even though the patient is ambulatory, able to feed herself and does not look particularly unkempt. There is no facility that is currently available to accept the patient. She was admitted to medical unit [facility] until high school social studies tutor is able to assist in finding appropriate psychiatric disposition for the patient. The patient herself said that she is doing this because she is alone, lonely. There is nobody to talk to and she would not do it if she was with other people as she can talk to and socialize with and make friends. PAST MEDICAL HISTORY: Significant for migraine headache, hypertension, depression, bronchial asthma, as well anxiety and multiple sclerosis. PAST SURGICAL HISTORY: Significant for and also cholecystectomy. ALLERGIES: She is allergic to SULFA DRUGS and KETOROLAC. FAMILY HISTORY: Significant for the fact that she has 2 brothers, both older and one sister who is younger and has diabetes. Her father is alive at the age of 65. Her mother due to congestive heart failure and complication of diabetes. SOCIAL HISTORY: She is single, has 19-year-old son who was just graduated and left home. She does not smoke, drink alcohol or use any recreational drugs. REVIEW OF SYSTEMS: As per history of present illness. MEDICATIONS: She is currently on following medications: She is on albuterol sulfate 1 puff every 6 hours, ferrous sulfate 325 mg daily, metoprolol succinate 25 mg daily, clonazepam 0.5 mg daily, gabapentin 200 mg 3 times a day, topiramate 50 mg daily, mirtazapine 30 mg p.o. at bedtime and Trintellix 10 mg daily, alprazolam 0.5 mg every 12 hours as needed. PHYSICAL EXAMINATION: GENERAL: When I examined her, she was resting slightly propped up in bed, in no apparent respiratory distress. There is no pallor, jaundice, cyanosis, or thyromegaly. No jugular venous distension. No limb edema. VITAL SIGNS: Her heart rate was 72, blood pressure was 107/56, temperature was 98, respiratory rate was 18 and oxygen saturation was 98%. HEAD, EYES, EARS, NOSE, and THROAT: Showed normocephalic, atraumatic. NECK: Supple. HEART: Showed normal first and second heart sounds with no gallop, rub or murmur. CHEST: Clear to auscultation. No crepitation or rhonchi. ABDOMEN: Distended, soft, nontender. No guarding or rigidity. No organomegaly. Hernial orifice intact. Bowel sounds normal. NEUROLOGIC: She is awake, alert, responding appropriately. Her cranial nerves intact. EXTREMITIES: She moves extremities without difficulty. She ambulates with a walker. LABORATORY DATA: On admission showed a white cell count 5400, hemoglobin 10, hematocrit 32, MCV 74, and platelet count of 262,000. Her chemistry showed a serum sodium 138, potassium 3.7, chloride 103, bicarbonate 30, anion gap of 5, BUN 16, creatinine 0.8, estimated GFR was 78 per minute. Her glucose was 82, calcium was 10. Total bilirubin, AST, ALT, alkaline phosphatase were normal. Total protein was 7.5, albumin was 3.9. Urinalysis was unremarkable and toxic screen was essentially negative. ASSESSMENT AND PLAN: In summary, this is a 43-year-old female patient who basically lives alone. She is lonely and has been in and out of this hospital, coming with the suicidal ideation, stating that she will take her bunch of pills or cut her wrist/her neck, although she has never done anything like that. I believe she will do better in a place where there are other people that she could interact with them as she has been alone and her symptom has worsened after her son has left after graduated from high school. I will get Dr. Kumar to see her and if he feels that the patient is not suicidal, we will discharge her to go to [facility]. NICOL VALDIVIA MD DR: Frank JOB#: [id number] / [id number]
[2018-04-08 15:30] VITALS: BP 103/59
[2018-04-08] MEDS ORDERED: clonazePAM 0.5 MG TABLET PO PRN (16:15)
[2018-04-08] MEDS ORDERED: ALBUTEROL SULFATE 8GM INHALER. INH PRN (16:15)
[2018-04-08] MEDS ORDERED: ALPRAZolam 0.25 MG TABLET PO PRN (16:30)
[2018-04-08] MEDS ORDERED: ALBUTEROL SULFATE 2.5 MG/3 ML NEBU. NEB PRN (16:30)
[2018-04-08 19:00] VITALS: BP 103/54
[2018-04-08] MEDS ORDERED: MIRTAZAPINE 30 MG TABLET PO SCH (21:00)
[2018-04-08] MEDS: GABAPENTIN 100 MG CAPSULE. PO SCH (21:32)
[2018-04-08 23:00] VITALS: BP 98/53
[2018-04-09 03:00] VITALS: BP 102/49
[2018-04-09 08:07] VITALS: BP 93/46
[2018-04-09] MEDS: GABAPENTIN 100 MG CAPSULE. PO SCH (08:50)
[2018-04-09] MEDS ORDERED: METOPROLOL SUCC 24HR ER 25 MG TAB.ER.24H. PO SCH (09:00)
[2018-04-09] MEDS ORDERED: FERROUS SULFATE 325 MG TABLET. PO SCH (09:00)
[2018-04-09] MEDS ORDERED: TOPIRAMATE 25 MG TABLET. PO SCH (09:00)
[2018-04-09 10:01] VITALS: BP 106/53
--- NOTE | 2018-04-09 14:34 | PDOC ---
Exam Note: Ameya Note: Please also refer to the separate dictated note~for this date of service dictated separately.~Patient seen individually. Discussed the patient with Nursing staff reviewed the chart.~Reviewed interim history and current functioning. Reviewed vital signs,~Labs/ Radiology~and current medications noted below. Continue current treatment with the changes noted in the dictated addendum note. This is a late entry for March Assessment: Vital Signs: VS - Last 72 Hours, by Label Date Time Temp Pulse Resp B/P (MAP) Pulse Ox O2 Delivery O2 Flow Rate FiO2 04/09/18 10:01 106/53 (70) 04/09/18 09:00 65 93/46 04/09/18 08:07 98.1 90 16 93/46 (62) 97 Room Air 99.0 04/09/18 08:00 Room Air 04/09/18 03:00 72 16 102/49 (66) 98 Room Air 04/08/18 23:00 76 16 98/53 (68) 98 Room Air 04/08/18 19:00 97.8 88 16 103/54 (70) 97 Room Air 04/08/18 15:30 97.6 78 16 103/59 (74) 98 Room Air 04/08/18 10:04 98.4 82 16 96/51 (66) 98 Room Air 04/08/18 08:06 98.5 64 16 93/52 (66) 98 04/08/18 04:51 98.0 72 18 107/56 (73) 98 Room Air 04/08/18 03:30 72 14 106/70 (82) 100 Room Air 04/07/18 16:59 98.4 76 20 98 Room Air Vital Signs Date Time Temp Pulse Resp B/P (MAP) Pulse Ox O2 Delivery O2 Flow Rate FiO2 04/09/18 10:01 106/53 (70) 04/09/18 09:00 65 04/09/18 08:07 98.1 16 97 Room Air 99.0 I&O Intake and Output 04/09/18 07:00 Intake Total 1860 ml Balance 1860 ml Intake Oral 1860 ml # Voids 12 # Bowel Movements 1 Current Medications: Meds: Current Medications Albuterol Sulfate (Ventolin Hfa) 1 puff PRN Q6HRS PRN INH SHORTNESS OF BREATH; Start 04/08/18 at 16:15; Stop 04/08/18 at 16:23; Status DC Clonazepam (KlonoPIN) 0.5 mg PRN DAILY PRN PO ANXIETY / AGITATION; Start at 16:15; Stop 04/09/18 at 11:37; Status DC Ferrous Sulfate (Feosol) 325 mg DAILY PO Last administered on 04/09/18at 08:50; Start 04/09/18 at 09:00; Stop 04/09/18 at 11:37; Status DC Gabapentin (Neurontin) 200 mg TID PO Last administered on 04/09/18at 08:50; Start 04/08/18 at 21:00; Stop 04/09/18 at 11:37; Status DC Metoprolol Succinate (Toprol Xl) 25 mg DAILY PO ; Start 04/09/18 at 09:00; Stop 04/09/18 at 11:37; Status DC Mirtazapine (Remeron) 30 mg HS PO Last administered on 04/08/18at 21:32; Start 04/08/18 at 21:00; Stop 04/09/18 at 11:37; Status DC Alprazolam (Xanax) 0.25 mg PRN Q12HR PRN PO ANXIETY / AGITATION; Start at 16:30; Stop 04/09/18 at 11:37; Status DC Topiramate (Topamax) 50 mg DAILY PO Last administered on 04/09/18at 08:50; Start 04/09/18 at 09:00; Stop 04/09/18 at 11:37; Status DC Albuterol Sulfate (Ventolin) 2.5 mg PRN Q6HRS PRN NEB SHORTNESS OF BREATH; Start 04/08/18 at 16:30; Stop 04/09/18 at 11:37; Status DC Active Scripts Active Xanax (Alprazolam) 0.25 Mg Tablet 0.25 Mg PO PRN Q 12 HRS PRN Remeron (Mirtazapine) 30 Mg Tablet 30 Mg PO HS Reported Trintellix (Vortioxetine Hydrobromide) 10 Mg Tablet 10 Mg PO Ferrous Sulfate 325 Mg Tablet 1 Tab PO DAILY Gabapentin 100 Mg Capsule 200 Mg PO TID Proair Hfa Inhaler (Albuterol Sulfate) 8.5 Gm Hfa.aer.ad 1 Puff INH PRN Q6HRS PRN MEDICATION NOT GIVEN TODAY. NEXT DOSE DUE: DATE: TODAY TIME:IF AND WHEN NEEDED Clonazepam 0.5 Mg Tablet 1 Tab PO DAILY PRN LAST DOSE GIVEN: DATE:TODAY TIME:AM NEXT DOSE DUE: DATE:TOMORROW TIME:AM Topiramate 50 Mg Tablet 1 Tab PO DAILY LAST DOSE GIVEN: DATE: TODAY TIME: AM NEXT DOSE DUE: DATE: TOMORROW TIME: AM I have reviewed the current psychotropics carefully including drug interactions. Risk benefit ratio favors no change other than as noted in my dictated progress note. Diagnosis: Problems: (1) Depression with anxiety (2) Multiple sclerosis (3) Hemiparesis of right dominant side (4) Anxiety PASQUALE NICOLE MD Apr 09, 2018 14:33
--- NOTE | 2018-04-09 18:32 | DS ---
DATE OF DISCHARGE: 04/09/2018 HOSPITAL COURSE: The patient is a 43-year-old female patient with multiple medical problems including hypertension, multiple sclerosis, depression, and anxiety. She is socially isolated. She lives in her own. Her son left after she graduated from high school and she has been coming to the Emergency Room at [facility] on multiple occasions with a statement that she has suicidal ideation and would like to take a bunch of her medication or cut herself, although she has never done that, and she would like to be in a place where she can socialize with people and interacting her friends. She was evaluated by Dr. Kumar who stated that she is safe to discharge and apparently was accepted at [facility] in [place]. PHYSICAL EXAMINATION: GENERAL: When I examined her this morning, she was resting, slightly propped up in bed, in no apparent distress. Awake, alert. Denied any complaint. When I examined her, she looked pale, but not jaundiced, cyanosis, or thyromegaly. VITAL SIGNS: Her heart rate was 90, blood pressure 106/63, temperature was 98.1, respiratory rate was 16, and oxygen saturation was 97% on room air. HEAD, EYES, EARS, NOSE AND THROAT: Showed normocephalic, atraumatic. NECK: Supple. HEART: Showed normal first and second sounds. No gallop, rub or murmur. CHEST: Clear to auscultation. No crepitation or rhonchi. ABDOMEN: Distended, soft, nontender. NEUROLOGIC: She is awake, alert, responding appropriately. All her cranial nerves intact. She has right-sided hemiparesis; however, the patient is fairly independent. She is able to walk with a walker. LABORATORY DATA: Showed white cell count 5400, hemoglobin 10, hematocrit 32, MCV 74, and platelet count of 262,000. Her serum sodium was 138, potassium 3.7, chloride 103, bicarbonate 30, anion gap of 5, BUN 16, creatinine 0.8, estimated GFR was 78 mL per minute. Her glucose was 82, calcium 10. Total bilirubin, AST, ALT, alkaline phosphatase were normal. Total protein was 7.5, albumin was 3.9. Urinalysis showed the urine was yellow, hazy with a pH of 5.5, specific gravity of 1.030. The urine was negative for protein, glucose, ketones. Negative for blood, nitrite and leukocyte. There was trace of leukocyte esterase, 1-2 rbc's, 1-4 wbc's, very few bacteria. Urine test was negative and toxic screen was negative. DISCHARGE MEDICATIONS: She was discharged to continue on following medication: Albuterol sulfate 2 puffs every 6 hours, alprazolam for Xanax 0.25 mg q. 12 hours p.r.n. for anxiety and agitation, clonazepam 0.5 mg daily, ferrous sulfate 325 mg daily, gabapentin 200 mg 3 times a day, metoprolol succinate 25 mg once a day, mirtazapine 30 mg at bedtime, topiramate 50 mg daily and Trintellix 10 mg daily. FINAL DISCHARGE DIAGNOSES: 1. Multiple sclerosis. 2. Right-sided hemiparesis. 3. Migraine headache. 4. Hypertension. 5. Bronchial asthma. 6. Anxiety and depression. NICOL VALDIVIA MD DR: DYLLAN/ember JOB#: [id number] / [id number]
--- NOTE | 2018-04-09 21:40 | CONS ---
DATE OF CONSULTATION: 04/08/2018 This late entry of 04/08/2018 covers the elements not covered in my initial note of 04/08/2018. I met with the patient in the evening of 04/08/2018. Discussed with nursing staff, reviewed the chart. REASON FOR CONSULT: The patient is a 43-year-old female seen in bed 2, ICU at [facility], referred by Dr. Stone, on account of suicidal ideation after the patient was brought to the Emergency Room with suicidal ideation. She has a long history of similar complaints. Is being considered for transfer to [facility], but they will not accept her. She has been evaluated for no acute suicidal ideation and I have been requested to assess her for this. CHIEF COMPLAINT: "No, I do not remember you." I have seen the patient in the past, but at this time, she does not seem to have recollection of that visit. HISTORY OF PRESENT ILLNESS: The patient reportedly lives at home by herself and states she had suicidal ideation with overdose or cutting her wrist or slitting her neck. She, however, did not attempt suicide. She was referred from the [facility] initially stating she has been accepted for placement at [facility]. She was evaluated in the ER, labs were within normal limits. Toxicology screen was negative. In the past, she has been refused by multiple psychiatric facilities since she is unable to take care of her ADLs. She is ambulatory, able to feed herself. The patient states she has been suicidal because she lives alone, gets lonely. PAST PSYCHIATRIC HISTORY: Positive for depression, anxiety, some mood swings. PAST MEDICAL HISTORY: Positive for multiple sclerosis, migraine headaches, hypertension, bronchial asthma. PAST SURGICAL HISTORY: , cholecystectomy. ALLERGIES: SULFA, KETOROLAC. FAMILY HISTORY: Positive for diabetes. Father is alive at age 65. Mother of CHF complications of diabetes. SOCIAL HISTORY: She lives alone. She is single. She has a 19-year-old son who just graduated and left home. No alcohol or drug abuse history. MENTAL STATUS EXAMINATION: The patient was seen individually evening of 04/08/2018. Speech is at times difficult to understand. She is otherwise oriented. Denies active suicidal ideation and I questioned her on this quite extensively. Mood is dysphoric, anxious. Intellect average, though she does have some short-term memory deficits and some cognitive dysfunction, probably consequent to her MS. No active suicidal ideation, no homicidal ideation. She is quite thorough and convincing that she would not try to hurt herself at the care home. CURRENT PSYCHOTROPICS: Klonopin 0.5 mg daily, Trintellix 10 mg daily, Xanax 0.5 mg q. 12 hours p.r.n. anxiety, Remeron 30 mg at bedtime. IMPRESSION: Major depressive disorder, recurrent; anxiety disorder, unspecified; cognitive disorder, unspecified versus mild cognitive impairment. PLAN: From a psychiatric standpoint, I would recommend continuing on current psychotropics. The patient is not a danger to herself at this time. When she is at [facility], nursing staff should document absence of suicidal ideation after they questioned her every shift and she should followup with the psychiatrist there. Dr. Stone, thank you for the opportunity to participate in your patient's care. We will follow with you. PASQUALE NICOLE MD DR: DANIELE/ember JOB#: [id number] / [id number]
== END 2018-04-09 11:10 ==
LOC: ER 16:07 → ICU 04-08 02:30 → INTOOBSV 04-08 02:30
PROVIDERS: ADMIT Internal Medicine; ATTEND Internal Medicine
DX: R45.851 Suicidal ideations (principal); F32.9 Major depressive disorder, single episode, unspecified; F41.9 Anxiety disorder, unspecified; G43.909 Migraine, unspecified, not intractable, without status migrainosus; I10 Essential (primary) hypertension; J45.998 Other asthma; G35 Multiple sclerosis; G81.90 Hemiplegia, unspecified affecting unspecified side; Z79.899 Other long term (current) drug therapy
CPT/HCPCS: 36415; 80053; 80307; 81001; 81025; 85025; 87086; 87641; 99285; G0378; G0379; G0480; G6039; 82003; G0479

== ENCOUNTER 2018-09-01 22:01 | Inpatient (IN) | payer OTHER ==
[~2018-09-01] VITALS: Ht 162.6 cm; Wt 98.9 kg
[2018-09-01] MEDS ORDERED: IV RINGERS SOLUTION,LACTATED 1,000 ML IV SCH (22:42)
--- NOTE | 2018-09-01 22:42 | ED.ADGEN ---
Past History Past Medical History: Anxiety, Asthma, Bipolar, DVT, Hypertension, NC, Migraines, UTI, Other Additional Past Medical Histor: Multiple Sclerosis; DVT left leg Past Surgical History: Cholecystectomy, Smoking: Quit Less Than 1 Year Alcohol Use: None Drug Use: None Adult General Chief Complaint Chief Complaint ".. I am worried .. I might be having a blood clot in.. my leg..It is swollen... it hurts....".. " I feeling a lot more weak..." HPI HPI Patient is a 43 year old female [facility] pt.who presents with above hx and complaints bilateral leg edema and Lt leg pain. Pt. reports the Lt leg was one she last had a DVT in. Pt. has had prior DVTs with the last episode that occurred and left leg. Patient has extensive medical history with diagnosis of bipolar, manic depressive, MS, anxiety disorder, developmentally delayed, hypertension, asthma, coagulopathy, and deconditioning. Patient denies any trauma. Patient reports she is compliant with her meds. No history of travel or specific ill contacts. Patient normally follows with . Review of Systems Review of Systems Constitutional: Denies fever or chills [] Eyes: Denies change in visual acuity, redness, or eye pain [] HENT: Denies nasal congestion or sore throat [] Respiratory: Denies cough or shortness of breath [] Cardiovascular: No additional information not addressed in HPI [] GI: Denies abdominal pain, nausea, vomiting, bloody stools or diarrhea [] : Denies dysuria or hematuria [] Musculoskeletal: Denies back pain or joint pain [] Except complaints of bilateral leg edema and pain. Integument: Denies rash or skin lesions [] Neurologic: Denies headache, focal weakness or sensory changes [] Endocrine: Denies polyuria or polydipsia [] All other systems were reviewed and found to be within normal limits, except as documented in this note. Family History Family History HTN, Current Medications Current Medications Current Medications Medications (Trade) Dose Ordered Sig/Ladonna Start Time Stop Time Status Last Admin Dose Admin Lactated Ringer's 1,000 ml @ 1,000 mls/hr Q1H 09/01/18 22:42 09/01/18 23:41 DC 09/01/18 23:25 1,000 MLS/HR Oxycodone/ Acetaminophen (Percocet 5/325) 1 tab 1X ONCE 09/01/18 23:45 09/01/18 23:46 DC 09/01/18 23:42 1 TAB Allergies Allergies Allergies Coded Allergies Type Severity Reaction Last Updated Verified Sulfa (Sulfonamide Antibiotics) Allergy Intermediate 02/07/18 Yes ketorolac Allergy Intermediate 02/07/18 Yes Physical Exam Physical Exam Constitutional:Moderately acute distress, non-toxic appearance. [] HENT: Normocephalic, atraumatic, bilateral external ears normal, oropharynx moist, no oral exudates, nose normal. [] Eyes: PERRLA, EOMI, conjunctiva normal, no discharge. [] Neck: Normal range of motion, no tenderness, supple, no stridor. [] Cardiovascular:Heart rate regular rhythm, no murmur [] Lungs & Thorax: Bilateral breath sounds equal at apexes with scattered wheezes on auscultation [] Abdomen: Bowel sounds normal, soft, no tenderness, no masses, no pulsatile masses. [] Old surgical scar Skin: Warm, dry, no erythema, no rash. [] Back: No tenderness, no CVA tenderness. [] Extremities: Bilateral leg tenderness, but more in Lt. calf, , no cyanosis, no clubbing, moves all ext on request, , bilateral leg edema. [] Generalized weakness. Neurologic: Alert and oriented X 3,moves ext. on request, no focal deficits noted. Tremor. Psychologic: Affect anxious,, judgement limited, mood normal. []Family states she is at baseline on her mentation. Current Patient Data Vital Signs Vital Signs Date Time Temp Pulse Resp B/P (MAP) Pulse Ox O2 Delivery O2 Flow Rate FiO2 09/02/18 00:12 82 18 118/74 (89) 99 Room Air 09/01/18 22:01 97.7 Lab Results Laboratory Tests Test 09/01/18 23:07 09/01/18 23:13 09/01/18 23:20 Urine Collection Type Unknown Urine Color Yellow Urine Clarity Clear Urine pH 8.0 Urine Specific [place] 1.015 Urine Protein Neg (NEG-TRACE) Urine Glucose (UA) Neg mg/dL (NEG) Urine Ketones (Stick) Neg mg/dL (NEG) Urine Blood Neg (NEG) Urine Nitrite Neg (NEG) Urine Bilirubin Neg (NEG) Urine Urobilinogen Dipstick 0.2 mg/dL (0.2 mg/dL) Urine Leukocyte Esterase Small (NEG) Urine RBC 0 /HPF (0-2) Urine WBC 1-4 /HPF (0-4) Urine Squamous Epithelial Cells Few /LPF Urine Bacteria 0 /HPF (0-FEW) Urine Opiates Screen Pos (NEG) Urine Methadone Screen Neg (NEG) Urine Barbiturates Neg (NEG) Urine Phencyclidine Screen Neg (NEG) Urine Amphetamine/Methamphetamine Neg (NEG) Urine Benzodiazepines Screen Neg (NEG) Urine Cocaine Screen Neg (NEG) Urine Cannabinoids Screen Neg (NEG) Urine Ethyl Alcohol Neg (NEG) POC Urine HCG, Qualitative hcg negative (Negative) White Blood Count 6.7 x10^3/uL (4.0-11.0) Red Blood Count 4.26 x10^6/uL (3.50-5.40) Hemoglobin 10.4 g/dL (12.0-15.5) L Hematocrit 32.4 % (36.0-47.0) L Mean Corpuscular Volume 76 fL (79-100) L Mean Corpuscular Hemoglobin 24 pg (25-35) L Mean Corpuscular Hemoglobin Concent 32 g/dL (31-37) Red Cell Distribution Width 15.3 % (11.5-14.5) H Platelet Count 289 x10^3/uL (140-400) Neutrophils (%) (Auto) 52 % (31-73) Lymphocytes (%) (Auto) 40 % (24-48) Monocytes (%) (Auto) 8 % (0-9) Eosinophils (%) (Auto) 0 % (0-3) Basophils (%) (Auto) 0 % (0-3) Neutrophils # (Auto) 3.5 x10^3uL (1.8-7.7) Lymphocytes # (Auto) 2.6 x10^3/uL (1.0-4.8) Monocytes # (Auto) 0.5 x10^3/uL (0.0-1.1) Eosinophils # (Auto) 0.0 x10^3/uL (0.0-0.7) Basophils # (Auto) 0.0 x10^3/uL (0.0-0.2) Erythrocyte Sedimentation Rate 35 (0-25) H Prothrombin Time 9.3 SEC (9.4-11.4) L Prothrombin Time INR 0.9 (0.9-1.1) PTT 24 SEC (23-33) D-Dimer (Shanel) 0.54 mg/L (0.00-0.50) H Sodium Level 143 mmol/L (136-145) Potassium Level 3.7 mmol/L (3.5-5.1) Chloride Level 105 mmol/L (98-107) Carbon Dioxide Level 28 mmol/L (21-32) Anion Gap 10 (6-14) Blood Urea Nitrogen 13 mg/dL (7-20) Creatinine 0.9 mg/dL (0.6-1.0) Estimated GFR (Cockcroft-Gault) 68.3 Glucose Level 102 mg/dL (70-99) H Calcium Level 8.6 mg/dL (8.5-10.1) Magnesium Level 2.1 mg/dL (1.8-2.4) Total Bilirubin 0.1 mg/dL (0.2-1.0) L Direct Bilirubin < 0.1 mg/dL (0.0-0.2) Aspartate Amino Transferase (AST) 19 U/L (15-37) Alanine Aminotransferase (ALT) 31 U/L (14-59) Alkaline Phosphatase 96 U/L (46-116) Creatine Kinase 111 U/L (26-192) Troponin I Quantitative < 0.017 ng/mL (0-0.055) GP-Yim-B-Type Natriuretic Peptide 76 pg/mL (0-124) Total Protein 7.6 g/dL (6.4-8.2) Albumin 3.3 g/dL (3.4-5.0) L Lipase 131 U/L (73-393) EKG EKG My interpretation of EKG shows a sinus rhythm at 80 bpm. No acute morphology[] Radiology/Procedures Radiology/Procedures My Interpretation of chest x-ray shows no acute cardiopulmonary findings. Borderline cardiac silhouette. Has dorinda in right upper quadrant abdomen. No free air in the diaphragm. Stool in the colon.[] Ultrasound legs pending at time of admission Course & Med Decision Making Course & Med Decision Making Pertinent Labs and Imaging studies reviewed. (See chart for details) Patient admitted to - further tx. and evaluation. Discussed presentation , testing and tx. plan. [] Final Impression Final Impression 1. Leg Pain- Edema > Lt - 2. Hx of DVT's 3. MS 4. Hx. Coagulopathic 5. UTI 5. Developmental Delay- MR 6. Bipolar 7. Depression 8. Anemia 10.4 9. Elevated D-dimer. 0.54 Dragon Disclaimer Dragon Disclaimer This electronic medical record was generated, in whole or in part, using a voice recognition dictation system. ASPEN DUCKWORTH MD Sep 01, 2018 22:42
[2018-09-01 23:39] LABS: BASO % 0 % (0-3); EOS % 0 % (0-3); HEMATOCRIT 32.4 % (36.0-47.0); HEMOGLOBIN 10.4 g/dL (12.0-15.5); LYMPH # 2.6 x10^3/uL (1.0-4.8); LYMPH % 40 % (24-48); MEAN CORPUSCULAR HEMOGLOBIN 24 pg (25-35); MEAN CORPUSCULAR HGB CONC 32 g/dL (31-37); MEAN CORPUSCULAR VOLUME 76 fL (79-100); MONO # 0.5 x10^3/uL (0.0-1.1); MONO % 8 % (0-9); NEUT # 3.5 x10^3uL (1.8-7.7); NEUT % 52 % (31-73); PLATELET COUNT 289 x10^3/uL (140-400); RED BLOOD COUNT 4.26 x10^6/uL (3.50-5.40); RED CELL DISTRIBUTION WIDTH 15.3 % (11.5-14.5); WHITE BLOOD COUNT 6.7 x10^3/uL (4.0-11.0)
[2018-09-01] MEDS ORDERED: oxyCODONE/APAP 5/325 1 TAB TABLET PO ONE (23:45)
[2018-09-01 23:47] LABS: BACTERIA,URINE 0 /HPF (0-FEW); BILIRUBIN,URINE NEG (NEG); CLARITY,URINE CLEAR; COLOR,URINE YELLOW; GLUCOSE,URINE NEG (NEG); NITRITE,URINE NEG (NEG); RBC,URINE 0 /HPF (0-2); SQUAMOUS EPITHELIAL CELL,UR FEW /LPF; UROBILINOGEN,URINE 0.2 mg/dL (0.2 mg/dL)
[2018-09-01 23:51] LABS: BARBITURATES NEG (NEG); BENZODIAZEPINES NEG (NEG); CANNABINOIDS NEG (NEG); COCAINE NEG (NEG); METHADONE NEG (NEG); OPIATES POS (NEG); PHENCYCLIDINE NEG (NEG)
[2018-09-01 23:52] LABS: AMPHETAMINE/METHAMPHETAMINE NEG (NEG)
--- NOTE | 2018-09-01 23:54 | RAD ---
CHEST PA LATERAL History: Chest pain Comparison: January 11, 2018 Findings: 2 views of the chest are submitted. There is no infiltrate, pneumothorax, or effusion. Appearance of more prominent pericardial cardiac silhouette may be accentuated by differences in degree of inspiration and technique. Impression: 1. Appearance of more prominent pericardial cardiac silhouette may be accentuated by differences in degree of inspiration and technique. Otherwise no acute radiographic abnormality is identified. Electronically signed by: Matt Bobo MD (09/01/2018 11:50 PM) [facility]
[2018-09-02 00:03] LABS: ALBUMIN 3.3 g/dL (3.4-5.0); ALK PHOS 96 U/L (46-116); ALT (SGPT) 31 U/L (14-59); ANION GAP 10 (6-14); AST (SGOT) 19 U/L (15-37); BLOOD UREA NITROGEN 13 mg/dL (7-20); CALCIUM 8.6 mg/dL (8.5-10.1); CARBON DIOXIDE 28 mmol/L (21-32); CHLORIDE 105 mmol/L (98-107); CREATININE 0.9 mg/dL (0.6-1.0); GFR 68.3; GLUCOSE 102 mg/dL (70-99); LIPASE 131 U/L (73-393); MAGNESIUM 2.1 mg/dL (1.8-2.4); POTASSIUM 3.7 mmol/L (3.5-5.1); SODIUM 143 mmol/L (136-145); TOTAL BILIRUBIN 0.1 mg/dL (0.2-1.0); TOTAL PROTEIN 7.6 g/dL (6.4-8.2)
[2018-09-02 00:04] LABS: DIRECT BILIRUBIN < 0.1 mg/dL (0.0-0.2)
[2018-09-02] MEDS ORDERED: ENOXAPARIN ** NOTE DOSE ** SYRINGE SQ ONE (00:30)
[2018-09-02] MEDS ORDERED: ONDANSETRON PF 4 MG/2 ML VIAL. IV PRN (00:30)
[2018-09-02 00:35] LABS: SEDIMENTATION RATE 35 (0-25)
[2018-09-02] MEDS ORDERED: cefTRIAXone IV Push 1 GM VIAL. IVP SCH ×2 (00:45→21:00)
[2018-09-02 02:30] VITALS: BP 129/64
[2018-09-02] MEDS ORDERED: ACET500T68 PO (03:14)
[2018-09-02] MEDS ORDERED: BUSP5TAB PO (03:18)
[2018-09-02] MEDS ORDERED: CLON1TAB11 PO (03:18)
[2018-09-02] MEDS ORDERED: ALBU2.5V5 NEB (03:18)
[2018-09-02] MEDS ORDERED: HYDR25CA75 PO (03:33)
[2018-09-02] MEDS ORDERED: MIRT15TA3 PO (03:33)
[2018-09-02] MEDS ORDERED: HYDR-2155 PO (03:33)
[2018-09-02] MEDS ORDERED: OLAN5TAB9 PO (03:39)
[2018-09-02] MEDS ORDERED: SERT25TA PO (03:43)
[2018-09-02] MEDS ORDERED: MELA3TAB2 PO (03:43)
[2018-09-02] MEDS ORDERED: TEMA15CA PO (03:44)
[2018-09-02] MEDS ORDERED: TOPI25TA7 PO (03:44)
[2018-09-02] MEDS ORDERED: IPRATRPIUM/ALBUTEROL 0.5/2.5MG 3 ML NEBU. ONE (05:30)
[2018-09-02] MEDS: IPRATRPIUM/ALBUTEROL 0.5/2.5MG 3 ML NEBU. NEB SCH ×4 (05:39→20:47)
[2018-09-02 06:07] VITALS: BP 106/92
[2018-09-02] MEDS ORDERED: hydrOXYzine PAMOATE 25 MG CAPSULE PO PRN (07:15)
[2018-09-02] MEDS ORDERED: ACETAMINOPHEN 325 MG TABLET PO PRN (07:15)
[2018-09-02] MEDS ORDERED: clonazePAM 1 MG TABLET PO PRN (07:15)
[2018-09-02] MEDS ORDERED: HYDROcodone/APAP 5/325MG 1 TAB TABLET PO PRN (07:15)
[2018-09-02] MEDS: MELATONIN 3 MG TABLET PO SCH ×2 (08:15→21:03)
[2018-09-02] MEDS ORDERED: OLANZapine 2.5 MG TABLET PO PRN (08:15)
[2018-09-02] MEDS: GABAPENTIN 100 MG CAPSULE. PO SCH ×3 (09:15→21:04)
[2018-09-02] MEDS: ASPIRIN 81 MG TAB.CHEW PO SCH (09:15)
[2018-09-02] MEDS: METOPROLOL SUCC 24HR ER 25 MG TAB.ER.24H. PO SCH (09:15)
[2018-09-02] MEDS: FERROUS SULFATE 325 MG TABLET. PO SCH (09:16)
[2018-09-02] MEDS: ENOXAPARIN ** NOTE DOSE ** SYRINGE SQ SCH ×2 (09:16→21:04)
[2018-09-02] MEDS: TOPIRAMATE 25 MG TABLET. PO SCH (09:20)
[2018-09-02] MEDS: busPIRone 5 MG TABLET. PO SCH (09:20)
[2018-09-02] MEDS: SERTRALINE 25 MG TABLET. PO SCH (09:20)
[2018-09-02 10:47] VITALS: BP 103/62
--- NOTE | 2018-09-02 13:05 | HP ---
ADMIT DATE: 09/02/2018 HISTORY OF PRESENT ILLNESS: The patient is a 43-year-old female patient, a resident at [facility] in [place], who apparently has been complaining of pain and swelling of her left lower extremity. She apparently is known to have a history of deep vein thrombosis in that leg and was at one point in time on Coumadin. I did offer to start her on Lovenox there and arrange for outpatient Venous Doppler ultrasound to be [place] [facility] [place] [facility], but her sister insisted that the patient should be sent to the hospital for further evaluation and treatment. The patient also complained of having severe migraine headache that has been going on for almost a week now and she is already on Topamax. She actually has used before the sumatriptan and Imitrex. She was evaluated in the Emergency Room and was basically venous Doppler ultrasound was ordered, although unfortunately was done only now and the ultrasound was not read yet. There is no report available. We did start her on Lovenox treatment empirically. PAST MEDICAL HISTORY: Significant for migraine headache, hypertension, depression, bronchial asthma as well as anxiety and longstanding multiple sclerosis. She has also history of deep vein thrombosis in her left lower extremity for which she was on Coumadin that was stopped because she started bleeding. PAST SURGICAL HISTORY: Significant for as well as cholecystectomy. ALLERGIES: SHE IS ALLERGIC TO SULFA DRUGS AND KETOROLAC. FAMILY HISTORY: She has 2 brothers, both older and one sister who is younger has diabetes. Her father is alive at the age of 66. Mother due to congestive heart failure and complication of diabetes. SOCIAL HISTORY: She is single, has an 18-year-old son. She does not smoke, drink alcohol or recreational drugs. She is currently residing at [facility] in [place]. REVIEW OF SYSTEMS: As per history of present illness. MEDICATIONS: She is currently on the following medication: Albuterol sulfate 1 puff every 6 hours as needed, albuterol sulfate by nebulizer every 4 hours as needed, ferrous sulfate 325 mg once a day, metoprolol succinate 25 mg once a day, hydrocodone/APAP 5/325 one tablet every 6 hours, Tylenol 650 mg every 4 hours, clonazepam 0.5 mg at bedtime, clonazepam 1 mg at bedtime as needed, gabapentin 100 mg 3 times a day, topiramate 25 mg daily, mirtazapine 15 mg at bedtime, sertraline 25 mg daily, olanzapine 2.5 mg at bedtime, temazepam 50 mg at bedtime, ____ 1 tablet daily, hydroxyzine pamoate 25 mg every 8 hours, melatonin 6 mg at bedtime. PHYSICAL EXAMINATION: GENERAL: On arrival to the Emergency Room, she looked well and was clearly in no apparent respiratory distress. No pallor, jaundice, cyanosis or thyromegaly. No jugular venous distention. No lower limb edema. VITAL SIGNS: Her heart rate was 92, blood pressure was 106/92, temperature was 98.3, respiratory rate was 16, and oxygen saturation was 96% on room air. HEAD, EYES, EAR, NOSE AND THROAT: Showed she is normocephalic, atraumatic. NECK: Supple. HEART: Showed normal first and second heart sounds with no gallop, rub or murmur. CHEST: Clear to auscultation. No crepitation or rhonchi. ABDOMEN: Distended, soft, nontender. NEUROLOGIC: She is awake, alert, responding appropriately, although she is somewhat slow. All her cranial nerves are intact. EXTREMITIES: She moves extremities without difficulty. She ambulates with a walker. Examination of lower extremity showed her left leg slightly more swollen than the right, but there is no evidence of erythema. LABORATORY DATA: Her lab work on arrival showed that her white cell count was 6700, hemoglobin 10, hematocrit 32, MCV 76, and platelet count 289,000 and her sed rate was 35 mm per hour. Her chemistry showed a serum sodium 143, potassium 3.7, chloride 105, bicarbonate 28, anion gap of 10, BUN 13, creatinine 0.9, estimated GFR was 68 mL per minute. Her glucose was 102, calcium was 8.6, magnesium 2.1. Total bilirubin, AST, ALT, alkaline phosphatase were normal. Total protein was 7.6, albumin 3.3. Her prothrombin time was 9.3, INR of 0.9, aPTT was 24 and D-dimer was slightly elevated at 0.54 mg/dL. Her urinalysis was essentially unremarkable. Her urine test was negative and her toxic screen was positive for opiates, negative for methadone, barbiturates, phencyclidine, amphetamine, benzodiazepine, cocaine and cannabinoids as well as alcohol. Her chest x-ray showed appearance of more prominent pericardial cardiac silhouette may be accentuated by difference in degree of inspiration and technique. Otherwise, no acute radiographic abnormalities identified. ASSESSMENT AND PLAN: The patient was started on Lovenox empirically as 1 mg/kg subcutaneously twice a day and order also was written for venous Doppler ultrasound and we will obviously decide the further management according to the finding. NICOL VALDVIIA MD DR: DYLLAN/ember JOB#: [id number] / [id number]
[2018-09-02] MEDS ORDERED: SUMAtriptan SUCC 6 MG/0.5 ML VIAL SQ ONE (13:10)
--- NOTE | 2018-09-02 13:19 | RAD ---
Examination: Bilateral Lower Extremity Venous Doppler Ultrasound History: Bilateral lower extremity edema Comparison: None Procedure: Jarrett scale, color flow 2D and spectal waveform analysis images are obtained with and without compression in the area of the common femoral vein, superficial femoral vein - femoral vein junction, main femoral vein (superficial femoral vein) and popliteal vein. Veins of the proximal calf are also imaged. Findings: There is normal duplex flow, color flow and compressibility of all visualized vein segments. No evidence of deep venous thrombus is present. Impression: No evidence of DVT in the visualized bilateral lower extremity venous system Electronically signed by: Anuj Lopez MD (09/02/2018 1:15 PM) [place] [id number]
[2018-09-02] MEDS ORDERED: IOHEXOL 300 MG/ML 75 ML VIAL. IV ONE (14:30)
[2018-09-02] MEDS ORDERED: CONTRAST GIVEN MC PRN (14:30)
[2018-09-02 14:57] VITALS: BP 107/67
--- NOTE | 2018-09-02 16:18 | RAD ---
PQRS Compliance statement: One or more of the following individualized dose reduction techniques were utilized for this examination: 1. Automated exposure control. 2. Adjustment of the mA and/or kV according to patient size. 3. Use of iterative reconstruction technique. Indication:ELEVATED D DIMER TECHNIQUE: CT angiogram of the chest with IV contrast with multiplanar MIP reformats. COMPARISON:None FINDINGS: Slightly suboptimal PE study due to contrast bolus timing. However there are no central, segmental and proximal subsegmental filling defects in the pulmonary arteries. Evaluation of distal subsegmental arteries is limited. Heart is mildly enlarged in size. No pericardial or pleural effusion. No enlarged axillary, mediastinal or hilar adenopathy. Central airways are patent. Lungs are clear. Visualized sections through the liver, spleen, upper abdomen within normal limits. Status post cholecystectomy. No suspicious bony lesion. IMPRESSION: 1. Satisfactory PE study for evaluation of distal subsegmental arteries. No central, segmental or proximal segmental PE. 2. No imaging evidence of pulmonary infarct. Electronically signed by: Pankaj Kemp DO (09/02/2018 4:14 PM) [facility]
[2018-09-02 20:24] VITALS: BP 102/66
[2018-09-02] MEDS ORDERED: TEMAZEPAM 15 MG CAPSULE PO SCH (21:00)
[2018-09-02] MEDS ORDERED: clonazePAM 0.5 MG TABLET PO SCH (21:00)
[2018-09-02] MEDS ORDERED: MIRTAZAPINE 15 MG TABLET PO SCH (21:00)
[2018-09-02] MEDS: LACTOBACILLUS RHAMNOSUS GG 1 CAPSULE. PO SCH (21:03)
--- NOTE | 2018-09-02 23:04 | EKG ---
[address] [address] Test Date: 2018-09-01 Test Time: 22:54:27 Pat Name: SANDRA STORY Department: Room: 113 A Gender: F Offset Label Rewinder: : 1975 Requested By: ASPEN DUCKWORTH Order Number: [id number] Reading MD: Brian Rosario Measurements Intervals [place] Rate: 80 P: 56 LA: 140 QRS: 14 QRSD: 94 T: 15 QT: 394 QTc: 458 Interpretive Statements SINUS RHYTHM NORMAL ECG Electronically Signed On 09-06-2018 10:27:19 [place]NER by Brian Rosario
[2018-09-02 23:28] VITALS: BP 96/63
[2018-09-03 05:45] VITALS: BP 107/51
[2018-09-03 07:29] LABS: BASO % 0 % (0-3); EOS % 1 % (0-3); HEMATOCRIT 30.4 % (36.0-47.0); HEMOGLOBIN 9.5 g/dL (12.0-15.5); LYMPH # 1.8 x10^3/uL (1.0-4.8); LYMPH % 32 % (24-48); MEAN CORPUSCULAR HEMOGLOBIN 24 pg (25-35); MEAN CORPUSCULAR HGB CONC 31 g/dL (31-37); MEAN CORPUSCULAR VOLUME 76 fL (79-100); MONO # 0.4 x10^3/uL (0.0-1.1); MONO % 7 % (0-9); NEUT # 3.2 x10^3uL (1.8-7.7); NEUT % 60 % (31-73); PLATELET COUNT 253 x10^3/uL (140-400); RED CELL DISTRIBUTION WIDTH 16.1 % (11.5-14.5); WHITE BLOOD COUNT 5.4 x10^3/uL (4.0-11.0)
[2018-09-03 07:35] LABS: CALCIUM 8.7 mg/dL (8.5-10.1); CREATININE 0.7 mg/dL (0.6-1.0); GFR 91.3; POTASSIUM 4.1 mmol/L (3.5-5.1)
[2018-09-03] MEDS: ASPIRIN 81 MG TAB.CHEW PO SCH (08:27)
[2018-09-03] MEDS: LACTOBACILLUS RHAMNOSUS GG 1 CAPSULE. PO SCH (08:27)
[2018-09-03] MEDS: FERROUS SULFATE 325 MG TABLET. PO SCH (08:27)
[2018-09-03] MEDS: GABAPENTIN 100 MG CAPSULE. PO SCH (08:27)
[2018-09-03] MEDS: METOPROLOL SUCC 24HR ER 25 MG TAB.ER.24H. PO SCH (08:28)
[2018-09-03] MEDS: TOPIRAMATE 25 MG TABLET. PO SCH (08:28)
[2018-09-03] MEDS: busPIRone 5 MG TABLET. PO SCH (08:28)
[2018-09-03] MEDS: SERTRALINE 25 MG TABLET. PO SCH (08:29)
[2018-09-03] MEDS: ENOXAPARIN ** NOTE DOSE ** SYRINGE SQ SCH (09:27)
--- NOTE | 2018-09-03 10:02 | DISCH ---
DISCHARGE ORDERS CONDITION AT DISCHARGE: Stable Code Status: Full SNF STAY <30 DAYS: No POST DISCHARGE ORDERS: ACTIVITY ORDERS: Resume previous activity, Activity as tolerated DIET AFTER DISCHARGE: Regular CHECKS AFTER DISCHARGE: CHECKS AFTER DISCHARGE: Check blood press - daily DISCHARGE MEDICATIONS: Home Meds Reported Medications Topiramate (TOPIRAMATE) 25 Mg Tablet, 1 TAB PO DAILY for seizures, #90 TAB 1 Refill 09/02/18 Temazepam (TEMAZEPAM) 15 Mg Capsule, 1 CAP PO QHS for insomnia, #30 CAP 1 Refill 09/02/18 Sertraline Hcl (ZOLOFT) 25 Mg Tablet, 1 TAB PO DAILY for depression, #30 TAB 2 Refills 09/02/18 Melatonin (MELATONIN) 3 Mg Tablet, 2 TAB PO QHS for insomnia, #30 TAB 2 Refills 09/02/18 Olanzapine (OLANZAPINE) 5 Mg Tablet, 0.5 TAB PO QHS PRN for ANXIETY / AGITATION , #30 TAB 2 Refills 09/02/18 Mirtazapine (MIRTAZAPINE) 15 Mg Tablet, 1 TAB PO QHS for insomnia, #30 TAB 3 Refills 09/02/18 Hydroxyzine Pamoate (HYDROXYZINE PAMOATE) 25 Mg Capsule, 1 CAP PO Q8HRS PRN for ANXIETY, #60 CAP 2 Refills 09/02/18 Hydrocodone Bit/Acetaminophen (HYDROCODONE-APAP 5-325 ) 1 Each Tablet, 1 TAB PO PRN Q6HRS PRN for PAIN, TAB 0 Refills 09/02/18 Clonazepam (CLONAZEPAM) 1 Mg Tablet, 1 TAB PO QHS PRN for ANXIETY / AGITATION, # 30 TAB 09/02/18 Buspirone Hcl (BUSPIRONE HCL) 5 Mg Tablet, 1 TAB PO DAILY for anxiety, #60 TAB 2 Refills 09/02/18 Albuterol Sulfate (ALBUTEROL SULFATE NEB SOLN ) 2.5 Mg/3 Ml Vial.neb, 1 VIAL NEB PRN Q4HRS for shortness of air/wheezing, #50 VIAL 09/02/18 Acetaminophen (ACETAMINOPHEN) 500 Mg Tablet, 650 MG PO Q4HRS PRN for PAIN, TAB 09/02/18 Metoprolol Succinate (METOPROLOL SUCCINATE ( XL )) 25 Mg Tab.er.24h, 25 MG PO DAILY 03/26/18 Ferrous Sulfate (FERROUS SULFATE) 325 Mg Tablet, 1 TAB PO DAILY, #30 TAB 3 Refills 03/26/18 Gabapentin (GABAPENTIN ) 100 Mg Capsule, 300 MG PO TID for nerve pain, CAP 03/26/18 Albuterol Sulfate (PROAIR HFA INHALER) 8.5 Gm Hfa.aer.ad, 1 PUFF INH PRN Q6HRS PRN for SHORTNESS OF BREATH MEDICATION NOT GIVEN TODAY. NEXT DOSE DUE: DATE: TODAY TIME:IF AND WHEN NEEDED 06/13/17 Clonazepam (CLONAZEPAM) 0.5 Mg Tablet, 1 TAB PO HS for insomnia LAST DOSE GIVEN: DATE:TODAY TIME:AM NEXT DOSE DUE: DATE:TOMORROW TIME:AM 06/13/17 NICOL VALDIVIA MD Sep 03, 2018 10:02
[2018-09-03 11:05] VITALS: BP 117/73
[2018-09-04] MEDS ORDERED: ENOXAPARIN 40 MG/0.4 ML SYRINGE. SQ SCH (09:00)
== END 2018-09-03 12:21 | disposition home or self-care (01) | DRG 556 ==
LOC: ER 22:01 → 1 SOUTH 09-02 00:15
PROVIDERS: ADMIT Internal Medicine; ATTEND Internal Medicine
DX: M79.662 Pain in left lower leg (principal); N39.0 Urinary tract infection, site not specified; G35 Multiple sclerosis; F31.9 Bipolar disorder, unspecified; G43.909 Migraine, unspecified, not intractable, without status migrainosus; I10 Essential (primary) hypertension; F41.9 Anxiety disorder, unspecified; J45.909 Unspecified asthma, uncomplicated; Z82.49 Family history of ischemic heart disease and other diseases of the circulatory system; Z86.718 Personal history of other venous thrombosis and embolism; Z83.3 Family history of diabetes mellitus; Z87.891 Personal history of nicotine dependence; Z87.440 Personal history of urinary (tract) infections; I25.2 Old myocardial infarction; Z79.01 Long term (current) use of anticoagulants; Z88.2 Allergy status to sulfonamides; Z88.8 Allergy status to other drugs, medicaments and biological substances; D64.9 Anemia, unspecified; R62.50 Unspecified lack of expected normal physiological development in childhood
CPT/HCPCS: 36415; 71046; 71275; 80048; 80076; 80307; 81001; 81025; 82550; 83690; 83735; 83880; 84443; 84484; 85025; 85379; 85610; 85651; 85730; 87086; 87641; 93005; 93970; 94640; 96360; 96361; 96372; G0238; J0696; J1650; J3030; J7120; J7620; Q9967; 99285-25

== ENCOUNTER 2018-11-04 20:57 | Emergency (ER) | payer SELFPAY ==
[~2018-11-04 20:57] MED LIST changes: +ACET500T68 PO; +ALBU2.5V5 NEB; +ALBU2.5V8 INH; -ALBU8.5H8 INH; +BUSP5TAB PO; +CLON1TAB11 PO; +HYDR-2155 PO; +HYDR25CA75 PO; +MIRT15TA3 PO; +OLAN5TAB9 PO; +SERT25TA PO; +TEMA15CA PO; +TOPI25TA7 PO
[2018-11-04 21:41] LABS: BASO % 0 % (0-3); EOS % 1 % (0-3); HEMATOCRIT 36.3 % (36.0-47.0); HEMOGLOBIN 11.8 g/dL (12.0-15.5); LYMPH # 2.5 x10^3/uL (1.0-4.8); LYMPH % 41 % (24-48); MEAN CORPUSCULAR HEMOGLOBIN 27 pg (25-35); MEAN CORPUSCULAR HGB CONC 33 g/dL (31-37); MEAN CORPUSCULAR VOLUME 82 fL (79-100); MONO # 0.4 x10^3/uL (0.0-1.1); MONO % 7 % (0-9); NEUT # 3.1 x10^3uL (1.8-7.7); NEUT % 51 % (31-73); PLATELET COUNT 282 x10^3/uL (140-400); RED CELL DISTRIBUTION WIDTH 22.2 % (11.5-14.5); WHITE BLOOD COUNT 6.1 x10^3/uL (4.0-11.0)
[2018-11-04 21:45] LABS: BARBITURATES NEG (NEG); BENZODIAZEPINES NEG (NEG); CANNABINOIDS NEG (NEG); COCAINE NEG (NEG); METHADONE NEG (NEG); OPIATES POS (NEG); PHENCYCLIDINE NEG (NEG)
[2018-11-04 21:46] LABS: CALCIUM 8.7 mg/dL (8.5-10.1); CREATININE 0.9 mg/dL (0.6-1.0); GFR 68.3; POTASSIUM 3.7 mmol/L (3.5-5.1)
[2018-11-04 21:47] LABS: BACTERIA,URINE MANY /HPF (0-FEW); BILIRUBIN,URINE NEG (NEG); CLARITY,URINE CLOUDY; COLOR,URINE YELLOW; GLUCOSE,URINE NEG (NEG); NITRITE,URINE NEG (NEG); UROBILINOGEN,URINE 0.2 mg/dL (0.2 mg/dL)
[2018-11-04 21:48] LABS: AMORPHOUS SEDIMENT,UR PRESENT /HPF; GRANULAR CASTS,URINE OCC /HPF; HYALINE CASTS, URINE OCC /HPF; SQUAMOUS EPITHELIAL CELL,UR FEW /LPF; YEAST,URINE PRESENT /HPF
[2018-11-04 21:51] LABS: AMPHETAMINE/METHAMPHETAMINE NEG (NEG)
--- NOTE | 2018-11-04 22:09 | ED.ADGEN ---
Past History Past Medical History: Anxiety, Asthma, Bipolar, DVT, Hypertension, MS, Migraines, UTI, Other Additional Past Medical Histor: Multiple Sclerosis; DVT left leg Past Surgical History: Cholecystectomy, Smoking: Quit Less Than 1 Year Alcohol Use: None Drug Use: None Adult General Chief Complaint Chief Complaint Hallucination HPI HPI 43 years old female with history of bipolar and anxiety presented to the emergency department with house summation audible and visual stated she is hearing voices and seeing things telling her to hurt people she denies being suicidal Review of Systems Review of Systems Constitutional: Denies fever or chills [] Eyes: Denies change in visual acuity, redness, or eye pain [] HENT: Denies nasal congestion or sore throat [] Respiratory: Denies cough or shortness of breath [] Cardiovascular: No additional information not addressed in HPI [] GI: Denies abdominal pain, nausea, vomiting, bloody stools or diarrhea [] : Denies dysuria or hematuria [] Musculoskeletal: Denies back pain or joint pain [] Integument: Denies rash or skin lesions [] Neurologic: Denies headache, focal weakness or sensory changes [] Endocrine: Denies polyuria or polydipsia [] All other systems were reviewed and found to be within normal limits, except as documented in this note. Allergies Allergies Allergies Coded Allergies Type Severity Reaction Last Updated Verified Sulfa (Sulfonamide Antibiotics) Allergy Intermediate 02/07/18 Yes ketorolac Allergy Intermediate 02/07/18 Yes Physical Exam Physical Exam HENT: Normocephalic, atraumatic, bilateral external ears normal, oropharynx moist, no oral exudates, nose normal. [] Eyes: PERRLA, EOMI, conjunctiva normal, no discharge. [] Neck: Normal range of motion, no tenderness, supple, no stridor. [] Cardiovascular:Heart rate regular rhythm, no murmur [] Lungs & Thorax: Bilateral breath sounds clear to auscultation [] Abdomen: Bowel sounds normal, soft, no tenderness, no masses, no pulsatile masses. [] Skin: Warm, dry, no erythema, no rash. [] Back: No tenderness, no CVA tenderness. [] Extremities: No tenderness, no cyanosis, no clubbing, ROM intact, no edema. [] Neurologic: Alert and oriented X 3, normal motor function, normal sensory function, no focal deficits noted. [] Current Patient Data Vital Signs Vital Signs Date Time Temp Pulse Resp B/P (MAP) Pulse Ox O2 Delivery O2 Flow Rate FiO2 11/04/18 22:32 72 18 140/74 (96) 95 Room Air 11/04/18 21:24 98.1 Lab Results Laboratory Tests Test 11/04/18 21:10 11/04/18 21:20 Urine Collection Type Unknown Urine Color Yellow Urine Clarity Cloudy Urine pH 7.5 Urine Specific [place] 1.015 Urine Protein Neg (NEG-TRACE) Urine Glucose (UA) Neg mg/dL (NEG) Urine Ketones (Stick) Neg mg/dL (NEG) Urine Blood Trace (NEG) Urine Nitrite Neg (NEG) Urine Bilirubin Neg (NEG) Urine Urobilinogen Dipstick 0.2 mg/dL (0.2 mg/dL) Urine Leukocyte Esterase Small (NEG) Urine RBC 3-5 /HPF (0-2) Urine WBC 1-4 /HPF (0-4) Urine Squamous Epithelial Cells Few /LPF Urine Amorphous Sediment Present /HPF Urine Bacteria Many /HPF (0-FEW) Urine Hyaline Casts Occ /HPF Urine Granular Casts Occ /HPF Urine Yeast Present /HPF Urine Opiates Screen Pos (NEG) Urine Methadone Screen Neg (NEG) Urine Barbiturates Neg (NEG) Urine Phencyclidine Screen Neg (NEG) Urine Amphetamine/Methamphetamine Neg (NEG) Urine Benzodiazepines Screen Neg (NEG) Urine Cocaine Screen Neg (NEG) Urine Cannabinoids Screen Neg (NEG) Urine Ethyl Alcohol Neg (NEG) White Blood Count 6.1 x10^3/uL (4.0-11.0) Red Blood Count 4.40 x10^6/uL (3.50-5.40) Hemoglobin 11.8 g/dL (12.0-15.5) L Hematocrit 36.3 % (36.0-47.0) Mean Corpuscular Volume 82 fL (79-100) Mean Corpuscular Hemoglobin 27 pg (25-35) Mean Corpuscular Hemoglobin Concent 33 g/dL (31-37) Red Cell Distribution Width 22.2 % (11.5-14.5) H Platelet Count 282 x10^3/uL (140-400) Neutrophils (%) (Auto) 51 % (31-73) Lymphocytes (%) (Auto) 41 % (24-48) Monocytes (%) (Auto) 7 % (0-9) Eosinophils (%) (Auto) 1 % (0-3) Basophils (%) (Auto) 0 % (0-3) Neutrophils # (Auto) 3.1 x10^3uL (1.8-7.7) Lymphocytes # (Auto) 2.5 x10^3/uL (1.0-4.8) Monocytes # (Auto) 0.4 x10^3/uL (0.0-1.1) Eosinophils # (Auto) 0.0 x10^3/uL (0.0-0.7) Basophils # (Auto) 0.0 x10^3/uL (0.0-0.2) Toxic Granulation Mod Platelet Estimate Adequate (ADEQUATE) Large Platelets Occ Hypochromasia Slight Anisocytosis Mod Tear Drop Cells Occ Ovalocytes Few Sodium Level 142 mmol/L (136-145) Potassium Level 3.7 mmol/L (3.5-5.1) Chloride Level 106 mmol/L (98-107) Carbon Dioxide Level 26 mmol/L (21-32) Anion Gap 10 (6-14) Blood Urea Nitrogen 17 mg/dL (7-20) Creatinine 0.9 mg/dL (0.6-1.0) Estimated GFR (Cockcroft-Gault) 68.3 Glucose Level 94 mg/dL (70-99) Calcium Level 8.7 mg/dL (8.5-10.1) Ethyl Alcohol Level < 10 mg/dL (0-10) EKG EKG [] Radiology/Procedures Radiology/Procedures [] Course & Med Decision Making Course & Med Decision Making Pertinent Labs and Imaging studies reviewed. (See chart for details) [] Final Impression Final Impression [] Problems: (1) Hallucination (2) Hallucination, visual Dragon Disclaimer Dragon Disclaimer This electronic medical record was generated, in whole or in part, using a voice recognition dictation system. BELEN ROSA MD Nov 04, 2018 22:09
[2018-11-04 22:16] LABS: ANISOCYTOSIS MOD; PLT ESTIMATE ADEQUATE (ADEQUATE)
[2018-11-04 22:17] LABS: OVALOCYTES FEW; TEAR DROP CELLS OCC; TOXIC GRANULATION MOD
[2018-11-04 22:18] LABS: HYPOCHROMIA SLIGHT
[2018-11-04 22:32] VITALS: BP 140/74
--- NOTE | 2018-11-05 00:44 | EKG ---
[address] [address] Test Date: 2018-11-04 Test Time: 21:25:04 Pat Name: SANDRA STORY Department: Room: Gender: F Driller'S Offsider: TONNY : 1975 Requested By: BELEN ROSA Order Number: [id number] Reading MD: Brian Rosario Measurements Intervals [place] Rate: 69 P: 58 [place]: 140 QRS: 10 QRSD: 92 T: 8 QT: 406 QTc: 437 Interpretive Statements SINUS RHYTHM Electronically Signed On 11-09-2018 8:47:18 TRACK REPAIR WORKER by Brian Rosario
== END 2018-11-05 00:05 | disposition home or self-care (01) ==
LOC: ER 20:57
DX: R44.1 Visual hallucinations (principal); R44.0 Auditory hallucinations; F41.9 Anxiety disorder, unspecified; F31.9 Bipolar disorder, unspecified; J45.909 Unspecified asthma, uncomplicated; I10 Essential (primary) hypertension; I25.2 Old myocardial infarction; G43.909 Migraine, unspecified, not intractable, without status migrainosus; Z87.440 Personal history of urinary (tract) infections; Z86.718 Personal history of other venous thrombosis and embolism; Z87.891 Personal history of nicotine dependence; Z88.2 Allergy status to sulfonamides; Z88.8 Allergy status to other drugs, medicaments and biological substances
CPT/HCPCS: 36415; 80048; 80307; 81001; 85025; 87086; 93005; 99284; G0480

== ENCOUNTER 2018-11-29 20:57 | Emergency (ER) | payer OTHER ==
[~2018-11-29] VITALS: Ht 162.6 cm; Wt 71.4 kg
[2018-11-29 21:56] LABS: BASO % 0 % (0-3); EOS # 0.1 x10^3/uL (0.0-0.7); EOS % 1 % (0-3); HEMATOCRIT 37.9 % (36.0-47.0); HEMOGLOBIN 12.4 g/dL (12.0-15.5); LYMPH # 2.1 x10^3/uL (1.0-4.8); LYMPH % 30 % (24-48); MEAN CORPUSCULAR HEMOGLOBIN 27 pg (25-35); MEAN CORPUSCULAR HGB CONC 33 g/dL (31-37); MEAN CORPUSCULAR VOLUME 83 fL (79-100); MONO # 0.4 x10^3/uL (0.0-1.1); MONO % 6 % (0-9); NEUT # 4.3 x10^3uL (1.8-7.7); NEUT % 62 % (31-73); PLATELET COUNT 281 x10^3/uL (140-400); RED BLOOD COUNT 4.59 x10^6/uL (3.50-5.40); RED CELL DISTRIBUTION WIDTH 17.7 % (11.5-14.5); WHITE BLOOD COUNT 6.9 x10^3/uL (4.0-11.0)
[2018-11-29 22:00] LABS: BACTERIA,URINE FEW /HPF (0-FEW); BILIRUBIN,URINE NEG (NEG); CLARITY,URINE HAZY; COLOR,URINE PINK; GLUCOSE,URINE NEG (NEG); NITRITE,URINE NEG (NEG); RBC,URINE TNTC /HPF (0-2); SQUAMOUS EPITHELIAL CELL,UR OCC /LPF; UROBILINOGEN,URINE 0.2 mg/dL (0.2 mg/dL)
[2018-11-29 22:13] LABS: ALBUMIN 3.2 g/dL (3.4-5.0); ALBUMIN/GLOBULIN RATIO 0.7 (1.0-1.7); CALCIUM 8.9 mg/dL (8.5-10.1); CREATININE 0.8 mg/dL (0.6-1.0); GFR 78.3; POTASSIUM 3.7 mmol/L (3.5-5.1); TOTAL BILIRUBIN 0.1 mg/dL (0.2-1.0); TOTAL PROTEIN 7.5 g/dL (6.4-8.2)
[2018-11-29] MEDS ORDERED: AZIT250T PO (22:32)
--- NOTE | 2018-11-29 22:32 | PHYS DOC ---
Past History Past Medical History: Anxiety, Asthma, Bipolar, DVT, Hypertension, [place], Migraines, UTI, Other Additional Past Medical Histor: Multiple Sclerosis; DVT left leg Past Surgical History: Cholecystectomy, Smoking: Quit Less Than 1 Year Alcohol Use: None Drug Use: None Adult General Chief Complaint Chief Complaint: COUGH HPI HPI Patient is a 43-year-old female who presents with complaint of cough, congestion and burning in her chest that has been going on for the last few weeks. Patient states that cough is been productive of sputum. She denies any fever. She rates the pain in her chest as moderate and describes it as burning in nature especially with coughing. She also indicates the pain is worsened with deep breathing. She denies any nausea, vomiting or diaphoresis. Review of Systems Review of Systems Constitutional: Denies fever or chills [] Respiratory: Complains of cough without shortness of breath [] Cardiovascular: No additional information not addressed in HPI [] Musculoskeletal: Denies back pain or joint pain [] Integument: Denies rash or skin lesions [] Neurologic: Denies headache, focal weakness or sensory changes [] All other systems were reviewed and found to be within normal limits, except as documented in this note. Allergies Allergies Allergies Coded Allergies Type Severity Reaction Last Updated Verified Sulfa (Sulfonamide Antibiotics) Allergy Intermediate 02/07/18 Yes ketorolac Allergy Intermediate 02/07/18 Yes Physical Exam Physical Exam Constitutional: Well developed, well nourished, no acute distress, non-toxic appearance. [] HENT: Normocephalic, atraumatic, bilateral external ears normal, oropharynx moist, no oral exudates, nose normal. [] Eyes: PERRLA, EOMI, conjunctiva normal, no discharge. [] Neck: Normal range of motion, no tenderness, supple, no stridor. [] Cardiovascular: Regular rate and rhythm[] Lungs & Thorax: There are fine rhonchi in the upper airways bilaterally to auscultation [] Abdomen: Bowel sounds normal, soft, no tenderness. [] Skin: Warm, dry, no erythema, no rash. [] Extremities: No tenderness, no cyanosis, no clubbing, ROM intact, no edema. [] Neurologic: Alert and oriented X 3, no focal deficits noted. [] Current Patient Data Vital Signs Vital Signs Date Time Temp Pulse Resp B/P (MAP) Pulse Ox O2 Delivery O2 Flow Rate FiO2 11/29/18 20:57 98.1 78 18 98 Room Air Lab Results Laboratory Tests Test 11/29/18 21:30 White Blood Count 6.9 x10^3/uL (4.0-11.0) Red Blood Count 4.59 x10^6/uL (3.50-5.40) Hemoglobin 12.4 g/dL (12.0-15.5) Hematocrit 37.9 % (36.0-47.0) Mean Corpuscular Volume 83 fL (79-100) Mean Corpuscular Hemoglobin 27 pg (25-35) Mean Corpuscular Hemoglobin Concent 33 g/dL (31-37) Red Cell Distribution Width 17.7 % (11.5-14.5) H Platelet Count 281 x10^3/uL (140-400) Neutrophils (%) (Auto) 62 % (31-73) Lymphocytes (%) (Auto) 30 % (24-48) Monocytes (%) (Auto) 6 % (0-9) Eosinophils (%) (Auto) 1 % (0-3) Basophils (%) (Auto) 0 % (0-3) Neutrophils # (Auto) 4.3 x10^3uL (1.8-7.7) Lymphocytes # (Auto) 2.1 x10^3/uL (1.0-4.8) Monocytes # (Auto) 0.4 x10^3/uL (0.0-1.1) Eosinophils # (Auto) 0.1 x10^3/uL (0.0-0.7) Basophils # (Auto) 0.0 x10^3/uL (0.0-0.2) Urine Collection Type Unknown Urine Color [place] Urine Clarity Hazy Urine pH 8.0 Urine Specific [place] 1.015 Urine Protein 30 mg/dl (NEG-TRACE) Urine Glucose (UA) Neg mg/dL (NEG) Urine Ketones (Stick) Neg mg/dL (NEG) Urine Blood Large (NEG) Urine Nitrite Neg (NEG) Urine Bilirubin Neg (NEG) Urine Urobilinogen Dipstick 0.2 mg/dL (0.2 mg/dL) Urine Leukocyte Esterase Small (NEG) Urine RBC Tntc /HPF (0-2) Urine WBC 1-4 /HPF (0-4) Urine Squamous Epithelial Cells Occ /LPF Urine Bacteria Few /HPF (0-FEW) Sodium Level 142 mmol/L (136-145) Potassium Level 3.7 mmol/L (3.5-5.1) Chloride Level 107 mmol/L (98-107) Carbon Dioxide Level 26 mmol/L (21-32) Anion Gap 9 (6-14) Blood Urea Nitrogen 18 mg/dL (7-20) Creatinine 0.8 mg/dL (0.6-1.0) Estimated GFR (Cockcroft-Gault) 78.3 BUN/Creatinine Ratio 23 (6-20) H Glucose Level 87 mg/dL (70-99) Calcium Level 8.9 mg/dL (8.5-10.1) Total Bilirubin 0.1 mg/dL (0.2-1.0) L Aspartate Amino Transferase (AST) 15 U/L (15-37) Alanine Aminotransferase (ALT) 28 U/L (14-59) Alkaline Phosphatase 114 U/L (46-116) Troponin I Quantitative < 0.017 ng/mL (0-0.055) LD-Ijx-F-Type Natriuretic Peptide 86 pg/mL (0-124) Total Protein 7.5 g/dL (6.4-8.2) Albumin 3.2 g/dL (3.4-5.0) L Albumin/Globulin Ratio 0.7 (1.0-1.7) L EKG EKG [] Radiology/Procedures Radiology/Procedures [] Impressions: PROCEDURE: PORTABLE CHEST 1V PROCEDURE: PORTABLE CHEST 1V CLINICAL INDICATION: chest pain COMPARISON: None FINDINGS: No pneumothorax identified. Cardiac and mediastinal contours unremarkable. No pulmonary consolidation or acute airspace disease. No acute osseous abnormalities identified. IMPRESSION: No pulmonary consolidation or acute airspace disease. Electronically signed by: Pankaj Kemp DO (11/30/2018 6:36 AM) [facility] Course & Med Decision Making Course & Med Decision Making Pertinent Labs and Imaging studies reviewed. (See chart for details) [] Dragon Disclaimer Dragon Disclaimer This electronic medical record was generated, in whole or in part, using a voice recognition dictation system. Departure Departure: Impression: Primary Impression: Acute bronchitis Disposition: 01 HOME, SELF-CARE Condition: STABLE Referrals: ARELI AGGARWAL MD (PCP) Patient Instructions: Acute Bronchitis Scripts Azithromycin (ZITHROMAX) 250 Mg Tablet 1 PKG PO UD for infection, #6 TAB Prov: CRISTHIAN HARDWICK Jr. DO 11/29/18 Problem Qualifiers Primary Impression: Acute bronchitis Bronchitis organism: unspecified organism Qualified Codes: J20.9 - Acute bronchitis, unspecified CRISTHIAN HARDWICK Jr. DO Nov 29, 2018 22:32
[2018-11-29] MEDS ORDERED: AZITHROMYCIN 250 MG TABLET. PO ONE (22:45)
[2018-11-29 22:55] LABS: PLT ESTIMATE ADEQUATE (ADEQUATE)
[2018-11-29 22:56] LABS: OVALOCYTES OCC; POLYCHROMASIA SLIGHT
[2018-11-29 23:14] VITALS: BP 138/76
--- NOTE | 2018-11-30 06:39 | RAD ---
PROCEDURE: PORTABLE CHEST 1V CLINICAL INDICATION: chest pain COMPARISON: None FINDINGS: No pneumothorax identified. Cardiac and mediastinal contours unremarkable. No pulmonary consolidation or acute airspace disease. No acute osseous abnormalities identified. IMPRESSION: No pulmonary consolidation or acute airspace disease. Electronically signed by: Pankaj Kemp DO (11/30/2018 6:36 AM) [facility]
--- NOTE | 2018-12-01 12:42 | EKG ---
[address] [address] Test Date: 2018-11-29 Test Time: 21:12:14 Pat Name: SANDRA STORY Department: Room: Gender: F Water Commissioner: : 1975 Requested By: CRISTHIAN HARDWICK Order Number: [id number] Reading MD: Flynn Chase MD Measurements Intervals [place] Rate: 75 P: 34 [place]: 142 QRS: 5 QRSD: 92 T: 9 QT: 398 QTc: 447 Interpretive Statements SINUS RHYTHM Electronically Signed On 12-08-2018 9:32:58 CDT by Flynn Chase MD
== END 2018-11-29 23:20 | disposition home or self-care (01) ==
LOC: ER 20:57
DX: J20.9 Acute bronchitis, unspecified (principal); F41.9 Anxiety disorder, unspecified; J45.909 Unspecified asthma, uncomplicated; F31.9 Bipolar disorder, unspecified; I10 Essential (primary) hypertension; I25.2 Old myocardial infarction; G43.909 Migraine, unspecified, not intractable, without status migrainosus; Z86.718 Personal history of other venous thrombosis and embolism; Z87.440 Personal history of urinary (tract) infections; Z87.891 Personal history of nicotine dependence; Z88.2 Allergy status to sulfonamides; Z88.8 Allergy status to other drugs, medicaments and biological substances
CPT/HCPCS: 36415; 71045; 80053; 81001; 83880; 84484; 85025; 87086; 93005; 99284; J0456

== ENCOUNTER 2019-03-15 16:24 | Emergency (ER) | payer OTHER ==
[~2019-03-15] VITALS: Ht 162.6 cm; Wt 71.4 kg
[~2019-03-15 16:24] MED LIST changes: +AZIT250T PO
[2019-03-15 16:56] LABS: BILIRUBIN,URINE NEG (NEG); CLARITY,URINE CLEAR; COLOR,URINE STRAW; GLUCOSE,URINE NEG (NEG); NITRITE,URINE NEG (NEG); UROBILINOGEN,URINE 0.2 mg/dL (0.2 mg/dL)
[2019-03-15 16:57] LABS: BACTERIA,URINE 0 /HPF (0-FEW); RBC,URINE 0 /HPF (0-2); SQUAMOUS EPITHELIAL CELL,UR OCC /LPF; WBC,URINE 0 /HPF (0-4)
[2019-03-15 17:07] VITALS: BP 121/69
[2019-03-15 17:18] LABS: BASO % 0 % (0-3); EOS # 0.1 x10^3/uL (0.0-0.7); EOS % 1 % (0-3); HEMATOCRIT 38.1 % (36.0-47.0); HEMOGLOBIN 12.3 g/dL (12.0-15.5); LYMPH # 1.9 x10^3/uL (1.0-4.8); LYMPH % 31 % (24-48); MEAN CORPUSCULAR HEMOGLOBIN 28 pg (25-35); MEAN CORPUSCULAR HGB CONC 32 g/dL (31-37); MEAN CORPUSCULAR VOLUME 85 fL (79-100); MONO # 0.4 x10^3/uL (0.0-1.1); MONO % 7 % (0-9); NEUT # 3.9 x10^3uL (1.8-7.7); NEUT % 62 % (31-73); PLATELET COUNT 228 x10^3/uL (140-400); RED BLOOD COUNT 4.47 x10^6/uL (3.50-5.40); RED CELL DISTRIBUTION WIDTH 15.6 % (11.5-14.5); WHITE BLOOD COUNT 6.4 x10^3/uL (4.0-11.0)
[2019-03-15 17:31] LABS: ALBUMIN 3.1 g/dL (3.4-5.0); ALBUMIN/GLOBULIN RATIO 0.7 (1.0-1.7); CALCIUM 8.7 mg/dL (8.5-10.1); CREATININE 0.9 mg/dL (0.6-1.0); MAGNESIUM 2.1 mg/dL (1.8-2.4); POTASSIUM 3.8 mmol/L (3.5-5.1); TOTAL BILIRUBIN 0.2 mg/dL (0.2-1.0); TOTAL PROTEIN 7.5 g/dL (6.4-8.2)
--- NOTE | 2019-03-15 17:41 | EKG ---
[address] [address] Test Date: 2019-03-15 Test Time: 16:42:52 Pat Name: SANDRA STORY Department: Room: Gender: F Validation Specialist: MERLINE : 1975 Requested By: SOTERO PRICE Order Number: [id number] Reading MD: Measurements Intervals [place] Rate: 73 P: 62 [place]: 144 QRS: 30 QRSD: 92 T: 15 QT: 414 QTc: 460 Interpretive Statements SINUS RHYTHM QRS(T) CONTOUR ABNORMALITY CONSIDER ANTEROLATERAL MYOCARDIAL DAMAGE POSSIBLY ABNORMAL ECG RI6.01 Compared to ECG 11/29/2018 21:12:14 No significant changes
--- NOTE | 2019-03-15 18:07 | PHYS DOC ---
Past History Past Medical History: No Pertinent History, Depression, Heart Disease, Hypertension Additional Past Medical Histor: Multiple Sclerosis; DVT left leg (SOTERO PRICE DO) Past Surgical History: No Surgical History (SOTERO PRICE DO) Smoking: Quit Less Than 1 Year Alcohol Use: None Drug Use: None (SOTERO PRICE DO) Adult General Chief Complaint Chief Complaint: DEPRESSION HPI HPI 44-year-old female presents from her care facility with depression and suicidal thoughts. The patient tells me that she has been feeling this way for about one week. She has been having an intense conflict with another resident who has been saying racial things to the patient and about the patient. This is made her very upset and feeling like hurting herself. She has not made any attempts. She does not have a specific plan. She just wants to get some help. Patient denies fever or chills. She has no other concerns or complaints at this time. (SOTERO PRICE DO) Review of Systems Review of Systems Constitutional: Denies fever or chills [] Eyes: Denies change in visual acuity, redness, or eye pain [] HENT: Denies nasal congestion or sore throat [] Respiratory: Denies cough or shortness of breath [] Cardiovascular: No additional information not addressed in HPI [] GI: Denies abdominal pain, nausea, vomiting, bloody stools or diarrhea [] : Denies dysuria or hematuria [] Musculoskeletal: Denies back pain or joint pain [] Integument: Denies rash or skin lesions [] Neurologic: Denies headache, focal weakness or sensory changes [] Endocrine: Denies polyuria or polydipsia [] All other systems were reviewed and found to be within normal limits, except as documented in this note. (SOTERO PRICE DO) Allergies Allergies Allergies Coded Allergies Type Severity Reaction Last Updated Verified Sulfa (Sulfonamide Antibiotics) Allergy Intermediate 02/07/18 Yes ketorolac Allergy Intermediate 02/07/18 Yes (SOTERO PRICE DO) Physical Exam Physical Exam Constitutional: Well developed, obese, well nourished, no acute distress, non- toxic appearance. [] HENT: Normocephalic, atraumatic, bilateral external ears normal, oropharynx moist, no oral exudates, nose normal. [] Eyes: PERRLA, EOMI, conjunctiva normal, no discharge. [] Neck: Normal range of motion, no tenderness, supple, no stridor. [] Cardiovascular:Heart rate regular rhythm, no murmur [] Lungs & Thorax: Bilateral breath sounds clear to auscultation [] Abdomen: Bowel sounds normal, soft, no tenderness, no masses, no pulsatile masses. [] Skin: Warm, dry, no erythema, no rash. [] Back: No tenderness, no CVA tenderness. [] Extremities: No tenderness, no cyanosis, no clubbing, ROM intact, no edema. [] Neurologic: Alert and oriented X 3, normal motor function, normal sensory function, no focal deficits noted. [] Psychologic: Affect normal, judgement normal, mood depressed. [] (SOTERO PRICE DO) Physical Exam Constitutional: Well developed, well nourished, no acute distress, non-toxic appearance HENT: Normocephalic, atraumatic, oropharynx moist Eyes: Conjunctiva normal, no discharge Cardiovascular: Heart rate normal, regular rhythm Lungs & Thorax: Bilateral breath sounds clear to auscultation, no wheezing Skin: Warm, dry, no erythema, no rash Extremities: No tenderness, ROM intact, no edema Neurologic: Alert and oriented X 3, , no focal deficits noted Psychologic: Affect flat, judgement normal (PILI CHEN DO) Current Patient Data Vital Signs Vital Signs Date Time Temp Pulse Resp B/P (MAP) Pulse Ox O2 Delivery O2 Flow Rate FiO2 03/15/19 17:07 97.9 76 16 99 Room Air Lab Results Laboratory Tests Test 03/15/19 16:27 03/15/19 16:45 Urine Collection Type Unknown Urine Color Straw Urine Clarity Clear Urine pH 7.0 Urine Specific [place] 1.010 Urine Protein Neg (NEG-TRACE) Urine Glucose (UA) Neg mg/dL (NEG) Urine Ketones (Stick) Neg mg/dL (NEG) Urine Blood Neg (NEG) Urine Nitrite Neg (NEG) Urine Bilirubin Neg (NEG) Urine Urobilinogen Dipstick 0.2 mg/dL (0.2 mg/dL) Urine Leukocyte Esterase Neg (NEG) Urine RBC 0 /HPF (0-2) Urine WBC 0 /HPF (0-4) Urine Squamous Epithelial Cells Occ /LPF Urine Bacteria 0 /HPF (0-FEW) White Blood Count 6.4 x10^3/uL (4.0-11.0) Red Blood Count 4.47 x10^6/uL (3.50-5.40) Hemoglobin 12.3 g/dL (12.0-15.5) Hematocrit 38.1 % (36.0-47.0) Mean Corpuscular Volume 85 fL (79-100) Mean Corpuscular Hemoglobin 28 pg (25-35) Mean Corpuscular Hemoglobin Concent 32 g/dL (31-37) Red Cell Distribution Width 15.6 % (11.5-14.5) H Platelet Count 228 x10^3/uL (140-400) Neutrophils (%) (Auto) 62 % (31-73) Lymphocytes (%) (Auto) 31 % (24-48) Monocytes (%) (Auto) 7 % (0-9) Eosinophils (%) (Auto) 1 % (0-3) Basophils (%) (Auto) 0 % (0-3) Neutrophils # (Auto) 3.9 x10^3uL (1.8-7.7) Lymphocytes # (Auto) 1.9 x10^3/uL (1.0-4.8) Monocytes # (Auto) 0.4 x10^3/uL (0.0-1.1) Eosinophils # (Auto) 0.1 x10^3/uL (0.0-0.7) Basophils # (Auto) 0.0 x10^3/uL (0.0-0.2) Sodium Level 141 mmol/L (136-145) Potassium Level 3.8 mmol/L (3.5-5.1) Chloride Level 104 mmol/L (98-107) Carbon Dioxide Level 29 mmol/L (21-32) Anion Gap 8 (6-14) Blood Urea Nitrogen 12 mg/dL (7-20) Creatinine 0.9 mg/dL (0.6-1.0) Estimated GFR (Cockcroft-Gault) 68.0 BUN/Creatinine Ratio 13 (6-20) Glucose Level 107 mg/dL (70-99) H Calcium Level 8.7 mg/dL (8.5-10.1) Magnesium Level 2.1 mg/dL (1.8-2.4) Total Bilirubin 0.2 mg/dL (0.2-1.0) Aspartate Amino Transferase (AST) 19 U/L (15-37) Alanine Aminotransferase (ALT) 35 U/L (14-59) Alkaline Phosphatase 103 U/L (46-116) Total Protein 7.5 g/dL (6.4-8.2) Albumin 3.1 g/dL (3.4-5.0) L Albumin/Globulin Ratio 0.7 (1.0-1.7) L (SOTERO PRICE DO) EKG EKG Sinus rhythm, rate 73, normal axis, no ST elevations or depressions.[] (SOTERO PRICE DO) Radiology/Procedures Radiology/Procedures [] (SOTERO PRICE DO) Course & Med Decision Making Course & Med Decision Making Pertinent Labs and Imaging studies reviewed. (See chart for details) The patient's labs are pending. We have asked for a psychiatric consult. [facility] came and evaluated the patient. He is working on a disposition and plan. I am signing the patient out to Dr. Chen for final disposition. [] (SOTERO PRICE DO) Course & Med Decision Making Sign out received from Dr. Price for patient with history of suicidal ideation and depression. Previously medically cleared and seen by psychiatric tape sewer. Patient pending disposition at time of sign out. Patient seen and evaluated by myself. Patient deemed safe for discharge home with close outpatient follow-up with [facility]. Patient stable for discharge with outpatient follow-up with PCP/psych. Discussed findings and plan with patient, who acknowledges understanding and agreement. (PILI CHEN DO) Dragon Disclaimer Dragon Disclaimer This electronic medical record was generated, in whole or in part, using a voice recognition dictation system. (SOTERO PRICE DO) Departure Departure: Impression: Primary Impression: Depression Additional Impression: Suicidal ideation Disposition: 01 HOME, SELF-CARE Condition: STABLE Referrals: ARELI AGGARWAL MD (PCP) Patient Instructions: Depression, Adult, [id number], Suicidal Feelings, How to Help Yourself Additional Instructions: Please follow up with [facility], call tomorrow at Problem Qualifiers Primary Impression: Depression Depression Type: unspecified Qualified Codes: F32.9 - Major depressive disorder, single episode, unspecified SOTERO PRICE DO Mar 15, 2019 18:07 PILI CHEN DO Mar 15, 2019 19:54
== END 2019-03-15 20:05 | disposition home or self-care (01) ==
LOC: ER 16:24
DX: F32.9 Major depressive disorder, single episode, unspecified (principal); I11.9 Hypertensive heart disease without heart failure; G35 Multiple sclerosis; Z86.718 Personal history of other venous thrombosis and embolism; Z87.891 Personal history of nicotine dependence; Z88.2 Allergy status to sulfonamides; Z88.8 Allergy status to other drugs, medicaments and biological substances
CPT/HCPCS: 36415; 80053; 81001; 83540; 83550; 83735; 85025; 93005; 99285

== ENCOUNTER 2020-03-30 19:41 | Observation (INO) | payer MEDICAID, OTHER ==
[~2020-03-30] VITALS: Ht 162.6 cm; Wt 108.6 kg
[~2020-03-30 19:41] MED LIST changes: -CLON0.5T11 PO; +CLON0.5T4 PO; -MELA3TAB2 PO; +MELA3TAB4 PO
[2020-03-30] MEDS ORDERED: IV RINGERS SOLUTION,LACTATED 1,000 ML IV SCH (19:46)
--- NOTE | 2020-03-30 19:53 | PHYS DOC ---
Past History Past Medical History: No Pertinent History, Anxiety, Arthritis, Bipolar, Depression, DVT, Heart Disease, Hypertension, Other Additional Past Medical Histor: Multiple Sclerosis; DVT left leg Past Surgical History: No Surgical History Smoking: Quit Less Than 1 Year Alcohol Use: None Drug Use: None General Adult EDM: Chief Complaint: HEADACHE HPI: HPI: ".. I ve had a headache constant the last three days... I just tired of it....It make me dizzy... and want to puke...." " I do get migraines... you know.. and I have MS..." " I just left the jail because... the older pt. were being rude to me.. because I was the youngest one there... so my sister took me home to liver with her.. " Patient is a 45 year old female who presents with above hx and complaints of headache x 3 days. Patient denies any falls or injury. Patient denies any change in medications. Patient has had migraines previously but also had a CVA in 2017. Patient has long history of MS. Patient has had previous DVT in left leg. Patient last admitted here in 1213 for DVT and severe migraine headache under Dr. Stone.. Patient has had multiple evaluations for migraine headache, hypertension, depression, bronchial asthma, anxiety disorder, multiple sclerosis, chronic low back pain and deconditioning. Patient does have a chronic left sided tremor. Has chronic left leg pain. The patient normally follows with Dr. Aggarwal. Pt. recently left penitentiary to live with her sister. Review of Systems: Review of Systems: Constitutional: Denies fever or chills Eyes: Denies change in visual acuity HENT: Denies nasal congestion or sore throat Respiratory: Denies cough or shortness of breath Cardiovascular: Denies chest pain or edema GI: Denies abdominal pain, nausea, vomiting, bloody stools or diarrhea : Denies dysuria Musculoskeletal: Compaints of joint pain and Lt. leg pain. Integument: Denies rash Neurologic: Denies headache, focal weakness or sensory changes Endocrine: Denies polyuria or polydipsia Lymphatic: Denies swollen glands Psychiatric: Denies depression or anxiety Heart Score: HEART Score for Chest Pain: HEART Score for Chest Pain Response (Comments) Value History Slighlty/Non-Suspicious 0 ECG Normal 0 Age >45 - < 65 1 Risk Factors 1 or 2 Risk Factors 1 Troponin < Normal Limit 0 Total 2 Risk Factors: Risk Factors: DM, Current or recent (<one month) smoker, HTN, HLP, family history of CAD, obesity. Risk Scores: Score 0 - 3: 2.5% MACE over next 6 weeks - Discharge Home Score 4 - 6: 20.3% MACE over next 6 weeks - Admit for Clinical Observation Score 7 - 10: 72.7% MACE over next 6 weeks - Early Invasive Strategies Family History: Family History: Patient has 2 brothers and 1 sister with diabetes positive poorly good health mother of congestive heart failure and complications of diabetes. Current Medications: Current Meds: See nursing for home meds Allergies: Allergies: Allergies Coded Allergies Type Severity Reaction Last Updated Verified Sulfa (Sulfonamide Antibiotics) Allergy Intermediate 02/07/18 Yes ketorolac Allergy Intermediate 02/07/18 Yes Physical Exam: PE: Constitutional: no acute distress, non-toxic appearance. [] HENT: Normocephalic, atraumatic, bilateral external ears normal, oropharynx moist, no oral exudates, nose normal. [] Eyes: PERRLA, EOMI, conjunctiva normal, no discharge. [] Neck: Normal range of motion, no tenderness, supple, no stridor. [] Cardiovascular:Heart rate regular rhythm, no murmur [] Lungs & Thorax: Bilateral breath sounds equal at apex on auscultation [] Abdomen: Bowel sounds normal, soft, no tenderness, no masses, no pulsatile masses. Obese Skin: Warm, dry, no erythema, no rash. [] Back: No tenderness, no CVA tenderness. [] Extremities: No tenderness, no cyanosis, no clubbing, ROM intact, no edema. [] Neurologic: Alert and oriented X 3, normal motor function, normal sensory function, no focal deficits noted. [] Psychologic: Affect anxious, judgement normal, mood normal. [] EKG: EKG: My interpretation EKG shows a sinus rhythm at 75 bpm. No findings of acute STEMI of contralateral changes. [] Radiology/Procedures: Radiology/Procedures: [][address] [address] IMAGING REPORT Signed PATIENT: SANDRA STORY ACCOUNT: [id number] : 1975 LOCATION: ER AGE: 45 SEX: F EXAM STATUS: REG ER ORD. PHYSICIAN: ASPEN DUCKWORTH MD REASON: CODE STROKE, H/O STROKE 2017 PROCEDURE: CT CODE STROKE HEAD WO CT CODE STROKE HEAD WO History: Reason: CODE STROKE, H/O STROKE 2017 / Spl. Instructions: / History: Comparison: December 13, 2017 Technique: Noncontrast CT imaging was performed of the head. Exposure: One or more of the following individualized dose reduction techniques were utilized for this examination: 1. Automated exposure control 2. Adjustment of the mA and/or kV according to patient size 3. Use of iterative reconstruction technique. Findings: No intracranial hemorrhage. No mass effect. No hydrocephalus. Chronic right centrum semiovale infarcts. Increased hypoattenuation within the right frontal periventricular white matter, may relate to increased sequela chronic microvascular ischemia although age-indeterminate. Imaged orbits are unremarkable. Right maxillary sinus opacification partially imaged. Mastoid air cells are clear. No acute calvarial fracture. Impression: 1. No acute intracranial hemorrhage. 2. Increased foci of decreased attenuation within the right frontal periventricular white matter, may relate to progression of chronic microvascular ischemia or prior insult although age indeterminate. MRI can definitively evaluate as clinically warranted. 3. Chronic right centrum semiovale infarcts. 4. Right maxillary sinus opacification, partially imaged. FOR INTERNAL CODING PURPOSES Critical result: Findings discussed with ASPEN DUCKWORTH at 03/30/2020 8:00 PM. RESULT CODE: (C) Electronically signed by: Michael Lang DO (03/30/2020 8:02 PM) [facility] DICTATED AND SIGNED BY: MICHAEL LANG DO DATE: 03/30/202001 CC: ASPEN DUCKWORTH MD; ARELI AGGARWAL MD ~ Course & Med Decision Making: Course & Med Decision Making Pertinent Labs and Imaging studies reviewed. (See chart for details) Discussed presentation, testing and treatment plan with at 2015 hrs. advised he would follow her in hospital if Dr. Hernandez elected to admit her. Dr Hernandez accept pt. for admit. Impression: 1. Migraine Variant- Headache x 3 days 2. Hx. MS 3. Elevated D-dimer 1.64 4. Lt. Leg Pain 5. Elevated CRP 3.6 [] Dragon Disclaimer: Dragon Disclaimer: This electronic medical record was generated, in whole or in part, using a voice recognition dictation system. Departure Departure: Disposition: 01 HOME/RESIDENCE PRIOR TO ADM Condition: STABLE Referrals: ARELI AGGARWAL MD (PCP) Justification of Admission: Justification of Admission: Justification of Admission Dx: Yes Altered Mental Status: Altered Mental Status Dragon Disclaimer This chart was dictated in whole or in part using Voice Recognition software in a busy, high-work load, and often noisy Emergency Department environment. It may contain unintended and wholly unrecognized errors or omissions. Dragon Disclaimer This chart was dictated in whole or in part using Voice Recognition software in a busy, high-work load, and often noisy Emergency Department environment. It may contain unintended and wholly unrecognized errors or omissions. ASPEN DUCKWORTH MD Mar 30, 2020 19:53
--- NOTE | 2020-03-30 20:05 | RAD ---
CT CODE STROKE HEAD WO History: Reason: CODE STROKE, H/O STROKE 2017 / Spl. Instructions: / History: Comparison: December 13, 2017 Technique: Noncontrast CT imaging was performed of the head. Exposure: One or more of the following individualized dose reduction techniques were utilized for this examination: 1. Automated exposure control 2. Adjustment of the mA and/or kV according to patient size 3. Use of iterative reconstruction technique. Findings: No intracranial hemorrhage. No mass effect. No hydrocephalus. Chronic right centrum semiovale infarcts. Increased hypoattenuation within the right frontal periventricular white matter, may relate to increased sequela chronic microvascular ischemia although age-indeterminate. Imaged orbits are unremarkable. Right maxillary sinus opacification partially imaged. Mastoid air cells are clear. No acute calvarial fracture. Impression: 1. No acute intracranial hemorrhage. 2. Increased foci of decreased attenuation within the right frontal periventricular white matter, may relate to progression of chronic microvascular ischemia or prior insult although age indeterminate. MRI can definitively evaluate as clinically warranted. 3. Chronic right centrum semiovale infarcts. 4. Right maxillary sinus opacification, partially imaged. FOR INTERNAL CODING PURPOSES Critical result: Findings discussed with ASPEN DUCKWORTH at 03/30/2020 8:00 PM. RESULT CODE: (C) Electronically signed by: Michael Lang DO (03/30/2020 8:02 PM) [facility] [place]
--- NOTE | 2020-03-30 20:24 | RAD ---
PORTABLE CHEST 1V History: Reason: dizzy / Spl. Instructions: / History: Comparison: November 29, 2018 Findings: No consolidation or pleural effusion. Normal heart size. No pneumothorax. Impression: 1. No acute cardiopulmonary process. Electronically signed by: Michael Lang DO (03/30/2020 8:21 PM) [facility]
--- NOTE | 2020-03-30 20:29 | RAD ---
CT CERVICAL SPINE WO CONTRAST History:Reason: head, neck stiffness / Spl. Instructions: / History: Technique: Noncontrast CT imaging was performed of the cervical spine. Multiplanar images are reviewed. Exposure: One or more of the following individualized dose reduction techniques were utilized for this examination: 1. Automated exposure control 2. Adjustment of the mA and/or kV according to patient size 3. Use of iterative reconstruction technique. Comparison: None Findings: Reversal the normal cervical lordosis. Normal vertebral body height. No fracture. Degenerative disc changes most prominent C5-C6 and C6-C7. Facet arthropathy. No high-grade canal or neuroforaminal narrowing. Soft tissues unremarkable. Impression: 1. No acute fracture or subluxation of the cervical spine. 2. Multilevel cervical spondylosis most prominent C5-C6. Electronically signed by: Michael Lang DO (03/30/2020 8:26 PM) [facility]
[2020-03-30] MEDS ORDERED: ONDANSETRON PF 4 MG/2 ML VIAL. IVP ONE (20:30)
[2020-03-30] MEDS ORDERED: oxyCODONE/APAP 5/325 1 TAB TABLET PO ONE (20:30)
[2020-03-30 20:42] LABS: BASO % 0 % (0-3); EOS % 1 % (0-3); HEMATOCRIT 40.2 % (36.0-47.0); HEMOGLOBIN 13.2 g/dL (12.0-15.5); LYMPH % 31 % (24-48); MEAN CORPUSCULAR HEMOGLOBIN 28 pg (25-35); MEAN CORPUSCULAR HGB CONC 33 g/dL (31-37); MEAN CORPUSCULAR VOLUME 86 fL (79-100); MONO # 0.3 x10^3/uL (0.0-1.1); MONO % 6 % (0-9); NEUT # 3.9 x10^3uL (1.8-7.7); NEUT % 62 % (31-73); PLATELET COUNT 196 x10^3/uL (140-400); RED BLOOD COUNT 4.67 x10^6/uL (3.50-5.40); RED CELL DISTRIBUTION WIDTH 15.3 % (11.5-14.5); WHITE BLOOD COUNT 6.3 x10^3/uL (4.0-11.0)
[2020-03-30 20:46] LABS: CALCIUM 8.6 mg/dL (8.5-10.1); POTASSIUM 3.5 mmol/L (3.5-5.1)
[2020-03-30 20:58] LABS: ALBUMIN 3.3 g/dL (3.4-5.0); C REACTIVE PROTEIN 3.6 mg/L (0-3.3); DIRECT BILIRUBIN 0.1 mg/dL (0.0-0.2); TOTAL BILIRUBIN 0.2 mg/dL (0.2-1.0); TOTAL PROTEIN 7.2 g/dL (6.4-8.2)
--- NOTE | 2020-03-30 21:42 | EKG ---
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
[2020-03-30 22:27] LABS: BILIRUBIN,URINE NEG (NEG); CLARITY,URINE CLOUDY; COLOR,URINE YELLOW; GLUCOSE,URINE NEG (NEG); NITRITE,URINE NEG (NEG)
[2020-03-30 22:33] LABS: AMPHETAMINE/METHAMPHETAMINE NEG (NEG); BARBITURATES NEG (NEG); BENZODIAZEPINES NEG (NEG); CANNABINOIDS NEG (NEG); COCAINE NEG (NEG); METHADONE NEG (NEG); OPIATES NEG (NEG); PHENCYCLIDINE NEG (NEG)
[2020-03-30 22:38] LABS: BACTERIA,URINE MOD /HPF (0-FEW); HYALINE CASTS, URINE FEW /HPF; RBC,URINE OCC /HPF (0-2); SQUAMOUS EPITHELIAL CELL,UR MANY /LPF
[2020-03-31] MEDS ORDERED: ONDANSETRON PF 4 MG/2 ML VIAL. IVP PRN (00:15)
[2020-03-31] MEDS ORDERED: ACETAMINOPHEN 325 MG TABLET PO PRN (00:15)
[2020-03-31 01:40] VITALS: BP 105/70
[2020-03-31] MEDS ORDERED: vitamin b12 PO (02:30)
[2020-03-31] MEDS ORDERED: MAG30ORA6 PO (02:30)
[2020-03-31] MEDS ORDERED: QUET50TA PO (02:30)
[2020-03-31] MEDS ORDERED: ACET325T21 PO (02:30)
[2020-03-31] MEDS ORDERED: CELE-20 PO (02:30)
[2020-03-31] MEDS ORDERED: SUMA25TA4 PO (02:30)
[2020-03-31] MEDS ORDERED: MAGN400O7 PO (02:30)
[2020-03-31] MEDS ORDERED: IPRA3AMP29 NEB (02:30)
[2020-03-31] MEDS ORDERED: GABA-586 PO (02:30)
[2020-03-31] MEDS ORDERED: ONDA-84 SL (02:30)
[2020-03-31] MEDS ORDERED: DIVA500T17 PO (02:30)
[2020-03-31] MEDS ORDERED: MENT118G TP (02:30)
[2020-03-31] MEDS ORDERED: FURO40TA4 PO (02:30)
[2020-03-31] MEDS ORDERED: TEMA7.5C PO (02:30)
[2020-03-31] MEDS ORDERED: POTA20TA4 PO (02:30)
[2020-03-31] MEDS ORDERED: SERT100T8 PO (02:30)
[2020-03-31] MEDS ORDERED: SERT50TA8 PO (02:30)
[2020-03-31] MEDS ORDERED: OXYC5TAB2 PO (02:30)
[2020-03-31] MEDS ORDERED: MULT-445 PO (02:30)
[2020-03-31] MEDS ORDERED: LORA10TA3 PO (02:30)
[2020-03-31] MEDS: IPRATRPIUM/ALBUTEROL 0.5/2.5MG 3 ML NEBU. NEB SCH ×4 (05:11→20:52)
[2020-03-31 07:32] VITALS: BP 93/59
[2020-03-31] MEDS ORDERED: oxyCODONE IR 5 MG TABLET PO PRN ×2 (09:15→17:30)
[2020-03-31] MEDS: METOPROLOL SUCC 24HR ER 25 MG TAB.ER.24H. PO SCH (09:30)
[2020-03-31] MEDS: FERROUS SULFATE 325 MG TABLET. PO SCH (09:58)
[2020-03-31] MEDS: TOPIRAMATE 25 MG TABLET. PO SCH (09:58)
[2020-03-31] MEDS: ASPIRIN CHEWABLE 81 MG TABLET. PO SCH (09:58)
[2020-03-31] MEDS: ENOXAPARIN 40 MG/0.4 ML SYRINGE. SQ SCH ×2 (09:59→20:09)
[2020-03-31 10:26] LABS: THYROID STIM HORMONE (TSH) 1.29 uIU/mL (0.358-3.740)
[2020-03-31 11:13] VITALS: BP 98/55
--- NOTE | 2020-03-31 12:15 | HP ---
ADMIT DATE: ATTENDING PHYSICIAN: Dr. Crump. CHIEF COMPLAINT: Headache, constant. HISTORY OF PRESENT ILLNESS: The patient is a 45-year-old female who has actually been living in a longterm. She has multiple medical and psychiatric issues. Recently because of interaction of the longterm, she has been discharged and actually went to live with her sister. She does not have her own place. She presented to the ED with 3-day history of headaches frontal in nature, nausea, vomiting, dizziness. She states she has an exacerbation of migraine. I feel that this is related to tension. In any event, she says nothing works. She is on p.r.n. oxycodone at the longterm. There was also p.r.n., Imitrex, but she says this is not working. PAST MEDICAL HISTORY: Significant for bipolar, depression, DVT, essential tremor, hypertension, questionable stroke and questionable diagnosis of multiple sclerosis. She also had a DVT in the left leg. CURRENT MEDICATIONS: Reviewed. She was scheduled to take loratadine, ipratropium, ferrous sulfate, metoprolol, Celebrex, oxycodone, Tylenol, Depakote, Neurontin, Topamax, Zoloft, Seroquel, Restoril, p.r.n. sumatriptan, potassium, Lasix, and various p.r.n. meds. ALLERGIES: She has allergies to SULFA DRUGS and KETOROLAC. Exact ____ is unclear. FAMILY HISTORY: Her mother at age 58 of complications of heart disease. She also had lupus. Father is alive at age 70, still working. She could not give me any further details. SOCIAL HISTORY: She denies any alcohol use. She says she is a nonsmoker. She quit smoking evidently a year ago. There is no recreational drug use. REVIEW OF SYSTEMS: Significant for tremors, headaches, nausea, vomiting. No fevers or chills. No palpitations. All other systems reviewed and found to be negative. PHYSICAL EXAMINATION: GENERAL: When I saw her, this is a pleasant, middle-aged female. INITIAL VITAL SIGNS: Showed a blood pressure of 105/70, pulse is 68 and regular, temperature 97.5 degrees Fahrenheit, oxygen saturation 95% on room air. HEENT: Head is without trauma. Pupils are reactive. Sclerae nonicteric. Oropharynx clear. No lesions. NECK: Supple, no bruits. LUNGS: Otherwise clear. CARDIOVASCULAR: Showed regular heart tones. No obvious gallops. Peripheral pulses are palpable and full. ABDOMEN: Obese, protuberant. No organomegaly. Bowel sounds were hypoactive. EXTREMITIES: Showed no cyanosis. Trace edema. NEUROLOGIC: She had intention tremor, more so on the left hand, but this dissipated when she was engaged in conversation. It is more intention tremor. SKIN: Warm and dry. PERTINENT LABORATORY AND X-RAY STUDIES: The obligatory CT of the head showed no acute intracranial hemorrhage. There is some increased foci of decreased attenuation within the right frontal periventricular white matter. This is indeterminate and nonspecific. MRI was recommended. She has a chronic right centrum semiovale infarct, which is old and some maxillary sinusitis. Chest x-ray was entirely clear without any infiltrates or decompensation. Cervical spine films show degenerative disk changes, prominent at C5-C6, C6-C7 facet arthropathy. No high grade foraminal narrowing identified. There are no acute fractures or subluxation. LABORATORY STUDIES: Hemoglobin is 13.2 g/dL with white count of 6300. Electrolytes within normal range. Cardiac enzymes negative for coronary ischemia. BNP was normal. C-reactive protein was 3.6. ASSESSMENT: 1. This 45-year-old female has supposed migraines. I believe these are musculoskeletal tension headache with known cervical spine degenerative arthritis. 2. Bipolar disorder with a hint of a manic phase. 3. Old strokes documented on CT scan. 4. History of multiple sclerosis. 5. Generalized debility. 6. Questionable component of psychosis. PLAN: 1. Admit to the hospital. 2. Neurology consultation. At first, she did not want to see Dr. Ng but in talking with her and keeping her in the hospital, she now has agreed to see him. 3. Some home meds were restarted. 4. Diet as tolerated. DURGA CRUMP MD DR: ISABEL/ember JOB#: [id number] / [id number] MARIA Isidro
[2020-03-31 15:44] VITALS: BP 114/70
--- NOTE | 2020-03-31 15:56 | RAD ---
Ultrasound carotid arteries 03/31/2020. Reason for exam: TIA. Color Doppler and spectral waveform analysis was performed along with real-time grayscale technique. Measurements were obtained in centimeters per second. Carotid stenoses are graded per NASCET criteria. FINDINGS: No significant plaque is seen. Flow in the vertebral arteries is antegrade. The following velocity measurements were obtained. CCA peak: Right, 73, left, 73. ICA peak: Right, 130, left, 95. Impression: There is mild loss elevation in the right ICA. This could indicate 50-69 percent narrowing, although grayscale imaging and other measurements do not suggest even this degree of narrowing. Ultrasound venous system of the lower extremities 03/31/2020. Reason for exam: Pain. Color Doppler and spectral waveform analysis was performed along with real-time grayscale technique. FINDINGS: The deep venous system of both lower extremities shows normal compressibility and normal Doppler flow and augmentation of flow extending from the common femoral segment to the popliteal segment. The visualized calf veins also appear normal. IMPRESSION: No evidence of DVT. Electronically signed by: Mitch Hernandez Jr., MD (03/31/2020 3:53 PM) [id number]
[2020-03-31] MEDS ORDERED: oxyCODONE IR 5 MG TABLET PO ONE (18:00)
[2020-03-31 19:24] VITALS: BP 127/85
[2020-03-31 23:06] VITALS: BP 105/67
[2020-04-01 06:34] VITALS: BP 99/66
[2020-04-01] MEDS: METOPROLOL SUCC 24HR ER 25 MG TAB.ER.24H. PO SCH (07:43)
[2020-04-01] MEDS: TOPIRAMATE 25 MG TABLET. PO SCH (07:52)
[2020-04-01] MEDS: FERROUS SULFATE 325 MG TABLET. PO SCH (07:52)
[2020-04-01] MEDS: ASPIRIN CHEWABLE 81 MG TABLET. PO SCH (07:52)
[2020-04-01] MEDS: ENOXAPARIN 40 MG/0.4 ML SYRINGE. SQ SCH (07:53)
[2020-04-01] MEDS ORDERED: SERTRALINE 100 MG TABLET. PO SCH (09:00)
[2020-04-01 10:22] VITALS: BP 103/71
[2020-04-01 15:14] VITALS: BP 124/76
--- NOTE | 2020-04-01 16:41 | DS ---
DATE OF DISCHARGE: 04/01/2020 ATTENDING PHYSICIAN: Dr. Crump. FINAL DISCHARGE DIAGNOSES: 1. Migraine headache with degenerative spine disease. 2. Bipolar disorder with hint of a manic phase. 3. Old cerebrovascular accident documented on CT scan. 4. Supposed history of multiple sclerosis. 5. Generalized debility. 6. Questionable component of psychosis. 7. Probable developmental delay. HISTORY AND PHYSICAL: This 45-year-old female, recently was released from a correction, comes in with headaches, constant confusion, and a migraine equivalent, questionable new stroke. This was ruled out. PHYSICAL EXAMINATION: Please see the dictated note. PERTINENT LABORATORY AND X-RAY STUDIES: The obligatory CT of the head showed no acute intracranial hemorrhage, increased foci of decreased attenuation within the right frontal periventricular matter, which may be chronic microvascular in etiology. No new strokes were identified. Chest x-ray was clear. Cervical spine films were unremarkable. She had some multilevel cervical spondylosis at C5-C6. Carotid Doppler studies showed no significant hemodynamic lesions. Mild elevation of right internal carotid, probable 50% narrowing. Lower extremity Dopplers were negative for blood clots. COURSE IN THE HOSPITAL: The patient was admitted. She had Neurology consultation. Home meds were continued and somewhat simplified. She did well. Pain dissipated. She was stable in a controlled environment. By the third hospital day, her blood pressure was 124/76, her pulse was regular. She was afebrile. She managed to the shower with minimal assistance and she wanted to go home, which we felt was reasonable. Therefore, she was discharged home with Tylenol, Celebrex, Depakote, Neurontin, loratadine, metoprolol, oxycodone p.r.n., Seroquel, Zoloft, sumatriptan, temazepam, Topamax, and vitamin B12. She will follow up with her regular physician as scheduled. The patient was then discharged from our hospital in stable condition with explicit instructions and followup care. DURGA CRUMP MD DR: ISABEL/ember JOB#: [id number] / [id number]
--- NOTE | 2020-04-01 23:18 | PN ---
DATE: 04/01/2020 ATTENDING PHYSICIAN: Dr. rCump. SUBJECTIVE: No new complaints. She is alert. She denies any headaches. She had a shower with minimal assistance. OBJECTIVE FINDINGS: VITAL SIGNS: Blood pressure today is 103/71, pulse is 76 and regular, temperature 97.9 degrees Fahrenheit, and her oxygen saturation are 97% on room air. HEENT: Head is without trauma. Pupils are reactive. Sclerae nonicteric. Oropharynx is clear. NECK: Supple. LUNGS: Otherwise clear. CARDIOVASCULAR: Showed regular heart tones. ABDOMEN: Obese, protuberant. No organomegaly. Bowel sounds were hypoactive. EXTREMITIES: Showed trace edema. NEUROLOGIC: Focally intact. No deficits. ASSESSMENT: 1. A 45-year-old female with atypical migraine headache, resolved. 2. Essential tremor, chronic. 3. Old cerebrovascular accident. 4. Bipolar disorder with a hint of manic phase. 5. Supposed history of multiple sclerosis. 6. Generalized debilitation. 7. Questionable component of psychosis versus developmental delay. PLAN: 1. Recommendations per Neurology. 2. Diet as tolerated. 3. Medications simplified. 4. We were ready to discharge the patient, but she does not have her own home. She has been living with a sister who has now refused to take her back and this past Wednesday, she was checked out of the previous assisted in [facility]. Therefore, our case picker are looking at a new facility for discharge to. Once again, the family will not take her back and she does not have her own home anymore. DURGA CRUMP MD DR: ISABEL/ember JOB#: [id number] / [id number]
== END 2020-04-01 15:58 | disposition home or self-care (01) ==
LOC: ER 19:41 → 1 SOUTH 03-31 01:21 → INTOOBSV 03-31 01:21
PROVIDERS: ADMIT Hospitalist; ATTEND Hospitalist
DX: Z03.818 Encounter for observation for suspected exposure to other biological agents ruled out (principal); G43.909 Migraine, unspecified, not intractable, without status migrainosus; R41.0 Disorientation, unspecified; I10 Essential (primary) hypertension; F32.9 Major depressive disorder, single episode, unspecified; M50.30 Other cervical disc degeneration, unspecified cervical region; Z86.73 Personal history of transient ischemic attack (TIA), and cerebral infarction without residual deficits; Z88.2 Allergy status to sulfonamides; Z79.899 Other long term (current) drug therapy
CPT/HCPCS: 36415; 70450; 71045; 72125; 80048; 80061; 80076; 80307; 81001; 82550; 83690; 83735; 83880; 84443; 84484; 85025; 85379; 85610; 85730; 86140; 87086; 93005; 93880; 93970; 94640; 96361; 96372; 96374; 99285; G0378; G0379; J1650; J2405; J7120; U0003

== ENCOUNTER 2020-04-04 22:08 | Emergency (ER) | payer MEDICAID ==
[~2020-04-04] VITALS: Ht 162.6 cm; Wt 104.0 kg
[~2020-04-04 22:08] MED LIST changes: +ACET325T21 PO; +CELE-20 PO; +DIVA500T17 PO; +FURO40TA4 PO; +GABA-586 PO; +IPRA3AMP29 NEB; +LORA10TA3 PO; +MAG30ORA6 PO; +MAGN400O7 PO; +MENT118G TP; +MULT-445 PO; +ONDA-84 SL; +OXYC5TAB2 PO; +POTA20TA4 PO; +QUET50TA PO; +SERT100T8 PO; +SERT50TA8 PO; +SUMA25TA4 PO; +TEMA7.5C PO; +vitamin b12 PO
[2020-04-04 22:21] VITALS: BP 99/74
[2020-04-04] MEDS ORDERED: BUTA1TAB23 PO (22:30)
[2020-04-04] MEDS ORDERED: ONDANSETRON ODT 4 MG TAB.RAPDIS PO ONE (22:30)
[2020-04-04] MEDS ORDERED: ONDA4TAB12 PO (22:30)
[2020-04-04] MEDS ORDERED: DEXAMETHASONE SOD PHOS 10 MG/ML VIAL IM ONE (22:30)
[2020-04-04] MEDS ORDERED: PRED20TA PO (22:30)
[2020-04-04] MEDS ORDERED: BUTALB/APAP/CAFEIN 50/325/40MG TABLET. PO ONE (22:30)
--- NOTE | 2020-04-04 22:30 | PHYS DOC ---
Past History Past Medical History: No Pertinent History, Anxiety, Arthritis, Bipolar, Depression, DVT, Heart Disease, Hypertension, Other Additional Past Medical Histor: Multiple Sclerosis; DVT left leg;rhinitis Past Surgical History: Hysterectomy Smoking: Non-smoker, Quit Less Than 1 Year Alcohol Use: None Drug Use: None General Adult EDM: Chief Complaint: HEADACHE HPI: HPI: 45-year-old female with past medical history of multiple sclerosis and chronic migraine headaches headache presents via EMS with report of 10 out of 10. Reports is been ongoing for the past week. Denies trauma. Denies use of blood thinners. Denies fever or chills. Denies neck pain. Denies nausea/vomiting/diarrhea. Reports has not tried taking any medication for her headache. Review of Systems: Review of Systems: Constitutional: Denies fever or chills Eyes: Denies redness or eye pain HENT: Denies nasal congestion or sore throat Respiratory: Denies cough or shortness of breath Cardiovascular: Denies chest pain or palpitations GI: Denies abdominal pain or vomiting; reports nausea : Denies dysuria or hematuria Musculoskeletal: Denies back pain or joint pain Integument: Denies rash or skin lesions Neurologic: Reports headache; denies focal weakness or sensory changes Complete systems were reviewed and found to be within normal limits, except as documented in this note. Allergies: Allergies: Allergies Coded Allergies Type Severity Reaction Last Updated Verified Sulfa (Sulfonamide Antibiotics) Allergy Intermediate 02/07/18 Yes ketorolac Allergy Intermediate 02/07/18 Yes Physical Exam: PE: Constitutional: Well developed, well nourished, no acute distress, non-toxic appearance HENT: Normocephalic, atraumatic, oropharynx moist Eyes: PERRL, EOMI, conjunctiva normal, no discharge, no nystagmus Neck: Normal range of motion, no tenderness, supple, no meningeal signs Lungs & Thorax: No respiratory distress, equal chest rise and fall Abdomen: Soft, no tenderness Skin: Warm, dry, no erythema, no rash Extremities: No tenderness, ROM intact, no edema, shakiness noted to left upper extremity Neurologic: Alert and oriented X 3, normal motor function, normal sensory function, no focal deficits noted Psychologic: Affect normal, judgment normal EKG: EKG: [] Radiology/Procedures: Radiology/Procedures: [] Course & Med Decision Making: Course & Med Decision Making Patient with chronic migraine headache presents with acute on chronic headache. Patient neurologically at her baseline. History of MS. Patient denies any trauma. Denies use of blood thinners. Symptomatic treatment provided. Patient stable for discharge with outpatient follow-up with PCP/neurology. Neurology referral provided. Discussed findings and plan with patient, who acknowledges understanding and agreement. Brenda Disclaimer: Dragemily Disclaimer: This electronic medical record was generated, in whole or in part, using a voice recognition dictation system. Departure Departure: Impression: Primary Impression: Migraine headache Qualified Codes: G43.911 - Migraine, unspecified, intractable, with status migrainosus Disposition: HOME/RESIDENCE PRIOR TO ADM Condition: STABLE Referrals: ARELI AGGARWAL MD (PCP) CHARLEEN CLEMONS MD Patient Instructions: Headache, FAQs, Migraine Headache, [id number], Multiple Sclerosis Scripts Prednisone (PREDNISONE) 20 Mg Tablet 2 TAB PO DAILY for Headache, #8 TAB Start this prescription tomorrow, Wednesday04/05/20 Prov: PILI CHEN DO 04/04/20 Butalb/Acetaminophen/Caffeine ([id number] [id number]) 1 Each Tablet 1 EACH PO Q6HRS PRN for HEADACHE, #14 TAB Prov: PILI CHEN DO 04/04/20 Ondansetron (ONDANSETRON ODT) 4 Mg Tab.rapdis 1 TAB PO PRN Q6-8HRS PRN for NAUSEA, #16 TAB Prov: PILI CHEN DO 04/04/20 Justification of Admission: Justification of Admission: Justification of Admission Dx: N/A Altered Mental Status: Altered Mental Status PILI CHEN DO Apr 04, 2020 22:30
== END 2020-04-04 23:05 | disposition home or self-care (01) ==
LOC: ER 22:08
DX: G43.911 Migraine, unspecified, intractable, with status migrainosus (principal); G35 Multiple sclerosis; F41.9 Anxiety disorder, unspecified; M19.90 Unspecified osteoarthritis, unspecified site; F31.9 Bipolar disorder, unspecified; I11.9 Hypertensive heart disease without heart failure; Z86.718 Personal history of other venous thrombosis and embolism; Z87.891 Personal history of nicotine dependence; Z88.2 Allergy status to sulfonamides; Z88.8 Allergy status to other drugs, medicaments and biological substances
CPT/HCPCS: 96372; 99283; J1100; Q0162